=== PATIENT | female | born 1955 | race Caucasian/White ===

== ENCOUNTER 2016-02-29 23:55 | Observation (INO) | payer MEDICARE, MEDICAID ==
[2016-03-01] MEDS ORDERED: Cefepime(*) 2 GM in NS 0.9% 50 ML* 50 ML IVPB ONE (00:58)
[2016-03-01] MEDS ORDERED: NS 0.9% 1000 ML* 1,000 ML IV ONE (00:58)
[2016-03-01] MEDS ORDERED: methylPREDNISolone 125 MG* 2 ML VIAL IV ONE (01:00)
[2016-03-01] MEDS ORDERED: Albuterol/Ipratropium NEB.SOL* Albuterol 2.5 MG/Ipratropium 0.5 MG 3 ML INH ONE (01:00)
[2016-03-01] MEDS ORDERED: diPHENhydraMINE IV* 50 MG/ML 1 ml VIAL (BENADRYL) SLOW PUSH ONE (01:00)
[2016-03-01 01:36] LABS: Hematocrit 39 % (35-47); Hemoglobin 12.7 g/dl (12.0-16.0); Mean Corpuscular HGB Conc 32 g/dl (31-36); Mean Corpuscular Hemoglobin 27 pg (27-31); Mean Corpuscular Volume 84 fL (80-97); Mean Platelet Volume 10 um3 (7.4-10.4); Red Blood Count 4.68 10^6/ul (4.0-5.4); Red Cell Distribution Width 15 % (10.5-15); White Blood Count 10.7 10^3/ul (3.5-10.8)
[2016-03-01 01:39] LABS: Add Diff/Slide Review? Slide Review Added; Comments Flag Yes
[2016-03-01 01:48] LABS: Albumin 3.9 g/dL (3.2-5.2); Calcium 8.9 mg/dL (8.6-10.3); EGFR African American 94.7 (>60); EGFR Non-African American 73.7 (>60); Globulin 3.5 g/dL (2-4); Potassium 4.3 mmol/L (3.5-5.0); Total Bilirubin 0.3 mg/dL (0.2-1.0); Total Protein 7.4 g/dL (6.4-8.9)
[2016-03-01 01:50] LABS: Troponin I 0.01 ng/mL (<0.04)
[2016-03-01] MEDS ORDERED: HYDROcodone/ACETAMIN 5-325 MG* 1 TAB PO ONE (02:18)
[2016-03-01] MEDS ORDERED: NS 0.9% 50 ML* 50 ML ONE (02:21)
[2016-03-01] MEDS ORDERED: LINEZOLID 600 MG IVPB ONE (02:29)
[2016-03-01] MEDS ORDERED: Iohexol 300* (CONTRAST) 10 ML SDV IV ONE (02:44)
[2016-03-01] MEDS ORDERED: Magnesium Hydroxide LIQ* 30 ML UDC PO PRN (05:22)
[2016-03-01] MEDS ORDERED: Docusate CAP* 100 MG PO PRN (05:22)
[2016-03-01] MEDS ORDERED: Albuterol HFA INHALER* 8 gm MDI INH PRN (05:22)
[2016-03-01] MEDS ORDERED: Dextrose 50% Syringe 50 ML* 25 GM/50 ML SYRINGE IV PUSH PRN (05:29)
[2016-03-01] MEDS: HYDROmorphone INJ* 1 MG/ML CARPUJECT SYRINGE IV SLOW PU PRN ×3 (05:33→06:49)
[2016-03-01] MEDS: oxyCODONE/Acetamin 5/325 MG* TAB PO PRN ×2 (05:45→17:24)
[2016-03-01] MEDS: Ondansetron ODT TAB* 4 MG PO PRN (05:54)
[2016-03-01] MEDS ORDERED: methylPREDNISolone SOD 40 MG* 1 ML VIAL IV SCH (06:00)
[2016-03-01] MEDS ORDERED: traMADol TAB* 50 MG PO SCH (06:00)
[2016-03-01 06:17] LABS: Erythrocyte Sed Rate 10 mm/Hr (0-30)
[2016-03-01] MEDS: Ipratropium 0.5MG/2.5ML NEB* 0.5 MG/2.5 ML NEB.SOLN INH PRN ×2 (06:47→20:41)
[2016-03-01] MEDS: Heparin VIAL(*) 5000 UNITS/ML VIAL (FIVE THOUSAND) SUBCUT SCH ×3 (06:48→21:51)
[2016-03-01 07:13] LABS: Urine Bilirubin Negative (Negative); Urine Glucose 3+(>=500 mg/dL) (Negative); Urine Nitrite Negative (Negative)
--- NOTE | 2016-03-01 07:44 | RAD ---
INDICATION: Syncope COMPARISON: January 26, 2016 TECHNIQUE: An AP portable view obtained at 0115 hours is submitted. FINDINGS: Bones/Soft Tissues: There are no acute bony findings. Cardiomediastinal: The cardiomediastinal silhouette is normal. Lungs: There are no infiltrates. Pleura: There are no pleural effusions. Other: None IMPRESSION: NO ACTIVE DISEASE.
--- NOTE | 2016-03-01 07:45 | RAD ---
INDICATION: Pain and swelling. COMPARISON: August 17, 2015 TECHNIQUE: Duplex interrogation of the Lowerextremity was performed. FINDINGS: Deep veins: The common femoral, great saphenous, profunda femoris, proximal, mid, and distal deep femoral, popliteal, posterior tibial, and peroneal veins are patent. There is normal compressibility, augmentation, and phasic flow. Superficial veins: There are no findings of superficial thrombophlebitis. Popliteal fossa:There is no evidence of a popliteal cyst. Soft tissues:There are no soft tissue abnormalities. IMPRESSION: Normal examination. No evidence of deep venous thrombosis
--- NOTE | 2016-03-01 07:56 | RAD ---
INDICATION: Left facial swelling.] COMPARISON: None TECHNIQUE: Axial source images were acquired. Coronal and sagittal reconstructed images were acquired. The request states that 50 mL of intravenous contrast was injected (Omnipaque 300) but no contrast opacification is identified on this exam. FINDINGS: Brain and skull base: There are no CT abnormalities of the visualized brain or skull base. The mastoid air cells are well aerated. Salivary glands: The major salivary glands appear normal. Paranasal sinuses: There is minimal focal mucosal thickening in the floor the right maxillary antrum and there is minimal bilateral ethmoid sinus mucosal thickening consistent with mild chronic sinusitis. Nasopharynx: The nasopharynx and nasal cavity appear normal. Oropharynx: The oral, and oropharynx appear normal. Larynx: There are no laryngeal abnormalities. Thyroid: The thyroid appears normal. Lymph nodes: There is no lymphadenopathy by size criteria. Trachea/esophagus: There are no abnormalities of the trachea or visualized esophagus. The visualized lung apices are clear.. Vessels:The vessels appear normal. Bones and soft tissues:The remaining soft tissue elements of the neck are normal. There are no acute bony findings. There is degenerative disease with disc space narrowing, endplate versus, and uncinate process spurring at C5-C6. Other: None IMPRESSION: NO MASS OR INFLAMMATORY CHANGE. NO CONTRAST IS IDENTIFIED ON THIS EXAMINATION.
[2016-03-01] MEDS: Mometasone/Formoter 200/5 MDI INH SCH ×2 (09:24→20:36)
--- NOTE | 2016-03-01 09:34 | HP ---
HISTORY AND PHYSICAL: DATE OF ADMISSION: 03/01/16 CHIEF COMPLAINT: "My face is swollen." HISTORY OF PRESENT ILLNESS: The patient is a 60-year-old woman who says that for four days she feels her face is getting progressively more more swollen. Furthermore, she noticed increasing itching on her arms and legs and entire body. She feels hot and cold with chills over. Now she says she cannot open her jaw in order to take her pills. She denies any new medications. She denies any new detergents. She says one thing she did do is spray her couch for bedbugs and doused it with it. She is not sure if she's had a reaction to that. She denies fevers or chills. She denies headache. She does have a great deal of significant chronic body pain. PAST MEDICAL HISTORY: Significant for type 2 diabetes, COPD, hypertension, hyperlipidemia, TIAs, colon cancer, venous insufficiency with ulcers, depression , tobacco abuse, ectopic . CURRENT MEDICATIONS: 1. Albuterol two puffs every 6 hours as needed. 2. Aspirin 81 mg daily. 3. Lipitor 80 mg daily. 4. Citalopram 20 mg daily. 5. Plavix 75 mg daily. 6. Docusate 100 mg 3 times a day as needed. 7. Advair Diskus one puff twice daily. 8. Hydrocortisone cream apply twice daily. 9. Ipratropium 0.5 mg inhaled q.8 hours. 10. Levocetirizine 5 mg daily. 11. Magnesium hydroxide 15 cc daily as needed. 12. Metformin/Glucophage 1000 mg twice daily. 13. Nystatin 100,000 units twice daily. 14. Omeprazole 40 mg daily. 15. Zofran ODT 4 mg every 6 hours as needed. 16. Percocet 5/325 mg two tabs every 6 hours as needed. 17. MiraLax 17 g daily. 18. Prednisone [50?] Mg daily. 19. Senna 1 to 2 tabs twice daily. 20. Januvia 25 mg daily. 21. Topamax 50 mg twice daily. 22. Tramadol 50 mg every 12 hours. 23. Trazodone 100 mg at bedtime. ALLERGIES/ADVERSE REACTION: 1. BACTRIM. 2. TETRACYCLINE. 3. PENICILLIN. 4. KEFLEX. 5. AZITHROMYCIN. FAMILY HISTORY: Mom of heart disease. Dad of heart disease and colon cancer. SOCIAL HISTORY: Trying to quit smoking. She smokes half pack a day; smoked since the age of 18. No alcohol or recreational drug use. She is disabled, . She has a son who is her health care proxy. REVIEW OF SYSTEMS: A 14-point review of systems was completed with the patient. All pertinent positives and negatives are in the history of present illness; otherwise, it is negative. PHYSICAL EXAMINATION GENERAL: A pleasant woman lying in bed, in no acute distress. VITAL SIGNS: Blood pressure 148/37, respiratory rate 20 breaths per minute, pulse ox 95%, temperature 98.2 degrees. HEENT: Normocephalic and atraumatic. Pupils equal, round and reactive to light. Moist mucous membranes. NECK: Supple. No JVD, bruits, palpable thyroid, or lymphadenopathy. CHEST: Clear to auscultation and percussion bilaterally. CARDIOVASCULAR: S1, S2 appreciated. ABDOMEN: Positive bowel sounds in all 4 quadrants. Soft, nontender, nondistended. EXTREMITIES: No cyanosis or clubbing. NEUROLOGIC: Alert and oriented x3. Moves all extremities. SKIN: Extremely dry. I do not appreciate anything such as small mites, but she does have excoriations on her arms. LABORATORY DATA: White count 10.7, hemoglobin 12.7, hematocrit 39, platelets 239. Sed rate is pending. Sodium 135, potassium 4.3, chloride 97, CO2 34, BUN 16, creatinine 0.80, glucose 181. INR 0.83. The patient has neck CT, chest x-ray, and venous duplex are all pending. ASSESSMENT AND PLAN: 1. Jaw claudication versus trismus. I do not really appreciate on her physical examination but the patient says she has it. I will give her the benefit of doubt at this time and hold the prednisone and patient's Solu-Medrol 40 IV q.8. I will await the findings on CAT scan or sed rate. She's also in a great deal of pain and I will continue her Dilaudid. I do not think she'll have to stay long. I do not think ENT needs to be consulted at this time. 2. Diabetes mellitus. Hold metformin, fingersticks with sliding scale insulin. 3. Chronic obstructive pulmonary disease. Stable. Continue current regimen. 4. Hypertension. Adequately controlled. Continue current regimen. 5. FEN. Consistent carb diet. 6. DVT prophylaxis. Heparin subcu. 7. The patient is a full code. TIME SPENT: Over 75 minutes were spent on this H and P, more than 40 minutes of which were spent in direct [id number] contact with the patient in evaluation, physical exam, counseling, coordination of care. CC: Dr.. Purvis * [id number]/CPS #: [id number] [id number]
[2016-03-01] MEDS: Moisturizing CREAM* 120 GM JAR TOPICAL SCH ×2 (09:43→21:53)
[2016-03-01] MEDS: Hydrocortisone 1% CREAM* 30 GM TUBE TOPICAL SCH ×2 (09:44→21:53)
[2016-03-01] MEDS: Nystatin TOP POWDER* 15 GM BTL TOPICAL SCH ×2 (09:44→21:53)
[2016-03-01] MEDS: Insulin LISPRO* 1 UNITS UNIT SUBCUT SCH ×4 (09:45→21:52)
[2016-03-01] MEDS: Polyethylene Glycol 3350* 17 GM PACKET PO SCH (09:45)
[2016-03-01] MEDS: Aspirin EC Low Dose* 81 MG TAB.EC PO SCH (09:46)
[2016-03-01] MEDS: Clopidogrel TAB* 75 MG PO SCH (09:46)
[2016-03-01] MEDS: CMCS: Pantoprazole TAB (NF) 40 MG TAB PO SCH (09:46)
[2016-03-01] MEDS: Citalopram TAB* 20 MG PO SCH (09:46)
[2016-03-01] MEDS: Topiramate TAB(*) 25 MG PO SCH ×2 (09:46→21:51)
[2016-03-01] MEDS: Atorvastatin* 80 MG TAB PO SCH (09:46)
[2016-03-01] MEDS: Senna TAB PO SCH ×2 (09:46→21:52)
--- NOTE | 2016-03-01 11:09 | PN ---
Subjective Date of Service: 03/01/16 Interval History: Pain L parotid area about the same. No new c/o. Objective Active Medications: Albuterol (Ventolin Hfa Inhaler*) 2 puff INH Q6H PRN PRN Reason: DYSPNEA Aspirin (Aspirin Ec Low Dose*) 81 mg PO DAILY [facility] Last Admin: 03/01/16 09:46 Dose: 81 mg Atorvastatin Calcium (Lipitor*) 80 mg PO DAILY [facility] Last Admin: 03/01/16 09:46 Dose: 80 mg Cetirizine HCl (Zyrtec*) 10 mg PO QPM [facility] Citalopram Hydrobromide (Celexa Tab*) 20 mg PO DAILY [facility] Last Admin: 03/01/16 09:46 Dose: 20 mg Clopidogrel Bisulfate (Plavix Tab*) 75 mg PO DAILY [facility] Last Admin: 03/01/16 09:46 Dose: 75 mg Dextrose (D50w Syringe 50 Ml*) 12.5 gm IV PUSH .FOR FS < 60 - SS PRN PRN Reason: FS < 60 Docusate Sodium (Colace Cap*) 100 mg PO TID PRN PRN Reason: CONSTIPATION Heparin Sodium (Porcine) (Heparin Vial(*)) 5,000 units SUBCUT Q8HR [facility] Last Admin: 03/01/16 06:48 Dose: 5,000 units Hydrocortisone (Hytone Cream 1%*) 1 applic TOPICAL BID [facility] Last Admin: 03/01/16 09:44 Dose: 1 applic Hydromorphone HCl (Dilaudid Iv*) 1 mg IV SLOW PU Q2H PRN PRN Reason: PAIN Last Admin: 03/01/16 06:49 Dose: 1 mg Insulin Human Lispro (Humalog*) 0 units SUBCUT ACHS [facility] PRN Reason: Protocol Last Admin: 03/01/16 09:45 Dose: 12 units Ipratropium [place] (Atrovent 0.5 Mg Neb.Shefali*) 0.5 mg INH Q8H PRN PRN Reason: SOB/WHEEZING Last Admin: 03/01/16 06:47 Dose: 0.5 mg Magnesium Hydroxide (Milk Of Magnesia Liq*) 15 ml PO DAILY PRN PRN Reason: CONSTIPATION Mometasone Furoate/Formoterol Fumar (Dulera 200/5 Mdi*) 2 puff INH BID [facility] Last Admin: 03/01/16 09:24 Dose: 2 puff Multi-Ingredient Ointment (Hydrocerin*) 1 applic TOPICAL BID [facility] Last Admin: 03/01/16 09:43 Dose: 1 applic Nystatin (Nystatin Top Powder*) 1 applic TOPICAL BID [facility] Last Admin: 03/01/16 09:44 Dose: 1 applic Ondansetron HCl (Zofran Odt Tab*) 4 mg PO Q6H PRN PRN Reason: NAUSEA Last Admin: 03/01/16 05:54 Dose: 4 mg Oxycodone/Acetaminophen (Percocet 5/325 Tab*) 2 tab PO Q6H PRN PRN Reason: PAIN Last Admin: 03/01/16 05:45 Dose: 2 tab Pantoprazole Sodium (Protonix Tab (Nf)) 40 mg PO DAILY [facility] Last Admin: 03/01/16 09:46 Dose: 40 mg Polyethylene Glycol/Electrolytes (Miralax*) 17 gm PO DAILY [facility] Last Admin: 03/01/16 09:45 Dose: 17 gm Senna (Senokot Tab*) 1 tab PO BID [facility] Last Admin: 03/01/16 09:46 Dose: 1 tab Sitagliptin Phosphate (Januvia (Nf)) 25 mg PO DAILY [facility] PRN Reason: Protocol Topiramate (Topamax(*)) 50 mg PO BID [facility] Last Admin: 03/01/16 09:46 Dose: 50 mg Tramadol HCl (Ultram*) 50 mg PO Q12H [facility] Last Admin: 03/01/16 06:46 Dose: 50 mg Trazodone HCl (Desyrel Tab*) 100 mg PO BEDTIME [facility] Vital Signs 03/01/16 03/01/16 03/01/16 06:00 06:15 06:30 Pulse Rate 69 67 66 Respiratory Rate Blood Pressure 88/54 89/63 93/47 (mmHg) O2 Sat by Pulse 98 98 97 Oximetry 03/01/16 03/01/16 03/01/16 06:35 06:45 06:46 Pulse Rate 80 66 Respiratory 20 20 Rate Blood Pressure 146/88 88/58 (mmHg) O2 Sat by Pulse 97 Oximetry 03/01/16 03/01/16 03/01/16 06:49 07:00 07:15 Pulse Rate 66 68 Respiratory 20 Rate Blood Pressure 87/64 88/53 (mmHg) O2 Sat by Pulse 99 96 Oximetry 03/01/16 03/01/16 03/01/16 07:49 08:46 09:26 Pulse Rate 70 Respiratory 19 19 16 Rate Blood Pressure (mmHg) O2 Sat by Pulse 98 Oximetry Oxygen Devices in Use Now: Nasal Cannula Appearance: Alert, sitting on the edge of her bed. In fair spirits. Looks comfortable. Eyes: No Scleral Icterus Extremities: No Edema, No Clubbing, Cyanosis, - Skin: No Nodules or Sclerosis, - - red areas on arms c/w bedbug bites. Neurological: Alert and Oriented x 3, NL Sensation Result Diagrams: 03/01/16 01:05 03/01/16 01:05 Assess/Plan/Problems-Billing Assessment: - Patient Problems (1) Parotid gland pain Current Visit: Yes Status: Acute Code(s): K11.8 - OTHER DISEASES OF SALIVARY GLANDS SNOMED Code(s): 23067134 Comment: ? TMJ/slipped TMJ disc. Discussed with Dr Meléndez. He offered to see her in the office 1:30 PM but patient prefers to go next week when her dil can assist her in transfers. Appt. to see Dr. Ruiz 03/05 11:15 AM. Phone [phone]. (2) Diabetes mellitus Current Visit: No Status: Chronic Priority: High Onset Date: 12/17/14 Code(s): E11.9 - TYPE 2 DIABETES MELLITUS WITHOUT COMPLICATIONS SNOMED Code(s) : 55688297 Comment: Worse due to IV steroid dose. No more steroids. Hold metformin until 03/03/16 due to IV contrast use. (3) Infestation by bed bug Current Visit: Yes Status: Acute Code(s): B88.8 - OTHER SPECIFIED INFESTATIONS SNOMED Code(s): 81826577 Comment: Multiple skin bites. Her clothes were treated in the hospital laundry to kill any bed bugs. SW to help with getting her home more habitable. (4) COPD (chronic obstructive pulmonary disease) Current Visit: No Status: Chronic Priority: High Code(s): J44.9 - CHRONIC OBSTRUCTIVE PULMONARY DISEASE, UNSPECIFIED SNOMED Code(s): 29635281 Comment: - Stable. - Continue current treatment with bronchodilators and inhaled steroids, home O2.
[2016-03-01] MEDS: CMC:SitaGLIPtin (NF) 25 MG TAB PO SCH (11:17)
[2016-03-01] MEDS ORDERED: diPHENhydraMINE PO* 25 MG PO PRN (13:27)
[2016-03-01] MEDS ORDERED: Insulin GLARGINE(*) 1 UNITS UNIT SUBCUT ONE (16:54)
[2016-03-01] MEDS ORDERED: Cetirizine* 10 MG TAB PO SCH (18:00)
[2016-03-01] MEDS ORDERED: traZODone TAB* 100 MG PO SCH (21:00)
[2016-03-01] MEDS: traMADol TAB* 50 MG PO SCH (21:51)
[2016-03-02] MEDS: Heparin VIAL(*) 5000 UNITS/ML VIAL (FIVE THOUSAND) SUBCUT SCH (05:36)
[2016-03-02] MEDS: oxyCODONE/Acetamin 5/325 MG* TAB PO PRN (05:40)
[2016-03-02] MEDS: Insulin LISPRO* 1 UNITS UNIT SUBCUT SCH (08:45)
[2016-03-02] MEDS: Polyethylene Glycol 3350* 17 GM PACKET PO SCH (08:46)
[2016-03-02] MEDS: Atorvastatin* 80 MG TAB PO SCH (08:46)
[2016-03-02] MEDS: Ondansetron ODT TAB* 4 MG PO PRN (08:46)
[2016-03-02] MEDS: Topiramate TAB(*) 25 MG PO SCH (08:46)
[2016-03-02] MEDS: Citalopram TAB* 20 MG PO SCH (08:46)
[2016-03-02] MEDS: Senna TAB PO SCH (08:46)
[2016-03-02] MEDS: Clopidogrel TAB* 75 MG PO SCH (08:47)
[2016-03-02] MEDS: traMADol TAB* 50 MG PO SCH (08:47)
[2016-03-02] MEDS: Aspirin EC Low Dose* 81 MG TAB.EC PO SCH (08:48)
[2016-03-02] MEDS: Mometasone/Formoter 200/5 MDI INH SCH (08:48)
[2016-03-02] MEDS: Hydrocortisone 1% CREAM* 30 GM TUBE TOPICAL SCH (08:49)
[2016-03-02] MEDS: CMC:SitaGLIPtin (NF) 25 MG TAB PO SCH (08:49)
[2016-03-02] MEDS: Nystatin TOP POWDER* 15 GM BTL TOPICAL SCH (08:49)
[2016-03-02] MEDS: Moisturizing CREAM* 120 GM JAR TOPICAL SCH (08:49)
[2016-03-02] MEDS: CMCS: Pantoprazole TAB (NF) 40 MG TAB PO SCH (08:52)
[2016-03-02 09:48] VITALS: BP 130/103
--- NOTE | 2016-03-02 22:32 | DS ---
CC: Dr. Purvis DISCHARGE SUMMARY: DATE OF ADMISSION: 03/01/16 DATE OF DISCHARGE: 03/02/16 HOSPITAL COURSE: This 60-year-old woman presented with complaint of her face being swollen. She al so complained that she had bedbug bites. She had a lot of problems at her home. The history and ph ysical exam is detailed in the dictated admission note. She was evaluated with a CT scan of the [facility]. This really did not show any evidence of infection, abscess, edema or tumor. I note she only rocha s two lower teeth and this would not be a dental problem. The admitting physician and myself both c ould not really see any significant swelling. The pain seemed to improve a little bit. She was giv en one dose of methylprednisolone in the emergency room, but none thereafter. I think this is enoug h to affect a glycemic control. The patient indicated she would not take insulin at home. She will resume her glipizide and Januvia. She was told not to restart her metformin until 03/03/16 , because she did get IV dye with the neck CT scan. On the day of discharge, there was no real clinical change. The rn social services was asked to see her to help with her difficulty with her home conditions. I arranged for her to see Dr. Ruiz, 03/05/16 at 11:15 a.m. in consultation. DISCHARGE DIAGNOSES: 1. Parotid area pain. 2. Diabetes. 3. Bedbug infestation. 4. Chronic obstructive pulmonary disease. DISCHARGE MEDICATIONS: 1. Citalopram 20 mg daily. 2. Fluticasone/salmeterol 250/50 one puff b.i.d. 3. Metformin 1000 mg b.i.d., to start 03/03/16. 4. Topiramate 50 mg b.i.d. 5. Albuterol inhaler 2 puffs every 6 hours p.r.n. 6. Ipratropium 0.5 mg by nebulizer every 8 hours p.r.n. 7. Magnesium hydroxide 15 mL daily p.r.n. 8. Polyethylene glycol 17 g daily. 9. Sitagliptin 25 mg daily. 10. Levocetirizine 5 mg daily. 11. Nystatin 100,000 units topically b.i.d. 12. Atorvastatin 80 mg daily. 13. Aspirin 81 mg daily. 14. Ondansetron ODT 4 mg every 6 hours p.r.n. 15. Tramadol 50 mg every 12 hours. 16. Trazodone 100 mg h.s. 17. Senna 1 to 2 twice daily. 18. Omeprazole 40 mg daily. 19. Docusate 100 mg t.i.d. p.r.n. 20. Clopidogrel 75 mg daily. 21. Hydrocortisone 1% cream topically b.i.d. 22. Oxycodone/acetaminophen 5/325 two every 6 hours p.r.n. [id number]/[facility] #: [id number]
--- NOTE | 2016-03-14 00:08 | ED ---
Devin Ramirez SooYoung, scribed for Aric Rangel MD on 03/01/16 at 0050 . Skin Complaint - HPI Summary HPI Summary: A 60 y/o F R[place]D presents to ED with c/o ongoing, diffuse insect bites over whole body. Associated sx: pruritic, L jaw pain, room spinning, TUBBS, fever. Two episodes of positional vertigo. Her noticed that she had facial swelling 4 days ago. Pt states her apartment has bed bugs. They've spread some insect repellent one week ago in the home while pt was still in apartment, and on the couch where pt sleeps. Secondary complaint, pt has had CP. Episodes of CP rated as 8 out of 10 pain. Pert PMHx: DM. - History of Current Complaint Chief Complaint: EDGeneral Time Seen by Provider: 03/01/16 00:11 Stated Complaint: SWOLLEN FACE Hx Obtained From: Patient, Family/Construction Superintendent - daughter Onset/Duration: Started Days Ago, Still Present Timing: Constant Current Severity: Moderate Pain Intensity: 6 Pain Scale Used: 0-10 Numeric Skin Location: Diffuse Character: Swelling, Pruritus, Painful Associated Signs & Symptoms: Chest Pain, Lightheadedness - dizziness, two positional vertigo episodes, Joint Swelling - L jaw Related History: Insect Bite/Sting - bed bugs present in ED - Additional Pertinent History Primary Care Physician: LAINE - Allergy/Home Medications Allergies/Adverse Reactions: Allergies Allergy/AdvReac Type Severity Reaction Status Date / Time Penicillins [PCN] Allergy Severe Anaphylatic Verified 10/24/15 18:50 Shock [place] Allergy Severe Swelling Verified 10/24/15 18:50 Of Face,Lips,& Throat Cefazolin Allergy Rash And Verified 10/24/15 18:50 Itching Erythromycin Allergy Hives Verified 10/24/15 18:50 Sulfamethoxazole Allergy Rash Verified 01/27/16 17:27 w/Trimethoprim [From Bactrim] Tetracyclines Allergy Anaphylatic Verified 10/24/15 18:50 Shock PMH/Surg Hx/FS Hx/Imm Hx Previously Healthy: No Endocrine/Hematology History: Reports: Hx Diabetes, Hx Anemia Denies: Hx Anticoagulant Therapy, Hx Systemic Lupus Erythematosus, Hx Thyroid Disease, Hx Unexplained Bleeding Cardiovascular History: Reports: Hx Angina, Hx Hypercholesterolemia, Hx Hypotension, Hx Hypertension, Hx Syncope, Other Cardiovascular Problems/ Disorders - bilateral carotid stenosis,aortic blockage Denies: Hx Aneurysm, Hx Angioplasty, Hx Auto Implanted Cardiovert Defib, Hx Cardiac Arrest, Hx Cardiomegaly, Hx Congenital Heart Disease, Hx Congestive Heart Failure, Hx Coronary Artery Disease, Hx Deep Vein Thrombosis, Hx Embolism , Hx Myocardial Infarction, Hx Pacemaker/ICD, Hx Peripheral Vascular Disease, Hx Rheumatic Fever, Hx Valvular Heart Disease Respiratory History: Reports: Hx Asthma, Hx Chronic Obstructive Pulmonary Disease (COPD), Hx Pneumonia, Hx Pulmonary Edema, Hx Seasonal Allergies, Hx Sleep Apnea - sleeps with 2L O2 at home PRN, Other Respiratory Problems/ Disorders - PNA Denies: Hx Chronic Bronchitis, Hx Cystic Fibrosis, Hx Lung Cancer, Hx Pleural Effusion, Hx Pulmonary Embolism GI History: Reports: Hx Gastroesophageal Reflux Disease, Hx Ulcer - distant past Denies: Hx Cirrhosis, Hx Crohn's Disease, Hx Diverticulosis History: Reports: Hx Acute Renal Failure, Hx Renal Disease Denies: Hx Dialysis Musculoskeletal History: Reports: Hx Arthritis - bilateral knees, left shoulder , Hx Back Problems - herniated disks, Hx Bursitis, Other Musculoskeletal History - HERNIATED DISC Denies: Hx Rheumatoid Arthritis Sensory History: Reports: Hx Contacts or Glasses, Hx Vision Problem Denies: Hx Cataracts, Hx Hearing Aid Opthamlomology History: Reports: Hx Contacts or Glasses, Hx Vision Problem Denies: Hx Cataracts Neurological History: Reports: Hx Headaches, Hx Transient Ischemic Attacks (TIA) Denies: Hx Dementia, Hx Developmental Delay, Hx Migraine, Hx Nerve Disease, Hx Seizures, Hx Spinal Cord Injury Psychiatric History: Reports: Hx Anxiety, Hx Depression, Hx Inpatient Treatment , Hx Suicide Attempt - attempted to harm self 5 years ago, Hx Substance Abuse - as a kid, Other Psychiatric Issues/Disorders - claustrophobia Denies: Hx Eating Disorder, Hx Panic Disorder, Hx of Violent Episodes Against Others - Cancer History Cancer Type, Location and Year: Colon cancer - IN [place] Hx Chemotherapy: No Hx Radiation Therapy: No - Surgical History Surgery Procedure, Year, and Place: tubal ligation, laparascopic surgery for ovarian cyst, cardiac cath- NO STENTS PLACED PER PT 06/15/15 Hx Anesthesia Reactions: No - Immunization History Date of Tetanus Vaccine: unknown Date of Influenza Vaccine: 2014 Infectious Disease History: No Infectious Disease History: Denies: Hx Clostridium Difficile, Hx Hepatitis, Hx Human Immunodeficiency Virus (HIV), Hx of Known/Suspected MRSA, Hx Shingles, Hx Tuberculosis, Hx Known/ Suspected VRE, Hx Known/Suspected VRSA, History Other Infectious Disease, Traveled Outside the [place] in Last 30 Days - Family History Known Family History: Positive: Cardiac Disease - [place] - father. , Other Family History: Colon [place] - father - Social History Occupation: Disabled Lives: With Family Alcohol Use: None Hx Substance Use: No Substance Use Type: Reports: None Hx Tobacco Use: Yes - start 1970 Smoking Status (MU): Light Every Day Tobacco Smoker Type: Cigarettes Amount Used/How Often: 1 pack to 1 and a half a day Length of Time of Smoking/Using Tobacco: 40yrs Have You Smoked in the Last Year: Yes Review of Systems Positive: Fever. Negative: Chills Negative: Erythema Negative: Sore Throat Positive: Chest Pain Negative: Shortness Of Breath, Cough Negative: Abdominal Pain, Vomiting, Nausea Negative: dysuria, hematuria Positive: Edema - facial. Negative: Myalgia Positive: Other - diffuse bug bites - painful, pruiritic. Negative: Rash Neurological: Other - pos: dizzines; 2 ep positional vertigo Positive: Headache All Other Systems Reviewed And Are Negative: Yes Physical Exam - Summary Physical Exam Summary: Constitutional: Well-developed, Well-nourished, Alert. (-) Distressed Skin: Warm, Dry, PUNCTUATE INSECT BITES ON LE, FACIAL PLETHERA HENT: Normocephalic; Atraumatic Eyes: Conjunctiva normal Neck: Musculoskeletal ROM normal neck. (-) JVD, (-) Stridor, (-) Tracheal deviation Cardio: Rhythm regular, Heart sounds normal; (-) Murmur, [place], WEAK THREADY RADIAL PULSES BILAT Pulmonary/Chest wall: Effort normal. (-) Respiratory distress, (-) Rales, EXPIRATORY WHEEZES Abd: Soft, (-) Tenderness, (-) Distension, (-) Guarding, (-) Rebound Musculoskeletal: (-) Edema; MILD TRISMUS Lymph: (-) Cervical adenopathy Neuro: Alert, Oriented x3 Psych: Mood and affect Normal Triage Information Reviewed: Yes Vital Signs On Initial Exam: Initial Vitals Temp Pulse Resp BP Pulse Ox 98.2 F 89 24 127/106 100 03/01/16 00:07 03/01/16 00:07 03/01/16 00:07 03/01/16 00:07 03/01/16 00:07 Vital Signs Reviewed: Yes Diagnostics - Vital Signs Vital Signs Temp Pulse Resp BP Pulse Ox 03/01/16 00:07 98.2 F 89 24 127/106 100 - Laboratory Result Diagrams: 03/01/16 01:05 03/01/16 01:05 Lab Statement: Any lab studies that have been ordered have been reviewed, and results considered in the medical decision making process. - Radiology CXR Xray Interpretation: No Acute Changes - No acutedz. Radiology Interpretation Completed By: ED Physician - CT NECK CT Interpretation: Positive (See Comments) - IMPRESSION: No definite etiology for left facial swelling or trismus readily identified. No contrast readily identified on this study despite attempted contrast injection. CT Interpretation Completed By: Radiologist - Ultrasound No standard instances Ultrasound Interpretation: No Acute Changes - IMPRESSION: No evidence of DVT in the LLE. Ultrasound Interpretation Completed By: Radiologist Course/Dx - Diagnoses Provider Diagnoses: Near syncope, Insect bites, Angioedema, COPD exacerbation, Anaphylactic reaction - Physician Notifications Discussed Care Of Patient With: Dr. Saeed, hospitalist Time Discussed With Above Provider: 03:38 Discharge - Discharge Plan Condition: Stable Disposition: ADMITTED TO [facility] Referrals: Darlin Purvis MD [Primary Care Provider] - The documentation as recorded by the Devin reyes SooYoung accurately reflects the service I personally performed and the decisions made by me, Aric Rangel MD.
== END 2016-03-02 12:00 | disposition home or self-care (01) ==
LOC: ED 23:55 → MED 03-01 05:45
PROVIDERS: ADMIT Internal Medicine; ATTEND Internal Medicine
DX: K11.8 Other diseases of salivary glands (principal); R51 Headache; Z79.84 Long term (current) use of oral hypoglycemic drugs; E11.9 Type 2 diabetes mellitus without complications; J44.9 Chronic obstructive pulmonary disease, unspecified; I10 Essential (primary) hypertension; Z79.82 Long term (current) use of aspirin; Z79.899 Other long term (current) drug therapy; Z88.2 Allergy status to sulfonamides; Z88.1 Allergy status to other antibiotic agents; Z88.0 Allergy status to penicillin; F17.210 Nicotine dependence, cigarettes, uncomplicated; S40.862A Insect bite (nonvenomous) of left upper arm, initial encounter; S40.861A Insect bite (nonvenomous) of right upper arm, initial encounter; S80.862A Insect bite (nonvenomous), left lower leg, initial encounter; S80.861A Insect bite (nonvenomous), right lower leg, initial encounter; W57.XXXA Bitten or stung by nonvenomous insect and other nonvenomous arthropods, initial encounter; Y92.009 Unspecified place in unspecified non-institutional (private) residence as the place of occurrence of the external cause; Z79.01 Long term (current) use of anticoagulants; I87.2 Venous insufficiency (chronic) (peripheral); E78.5 Hyperlipidemia, unspecified; Z85.038 Personal history of other malignant neoplasm of large intestine; R22.0 Localized swelling, mass and lump, head; M79.89 Other specified soft tissue disorders
CPT/HCPCS: 36415; 70491; 71010; 80053; 81003; 83605; 84145; 84484; 85025; 85610; 85652; 85730; 87040; 94640; 94760; 96365; 96372; 96375; 96376; 99285; A9270-GY; G0378; J0692; J1170; J1200; J1644; J2020; J2920; J2930; J7644; Q9967

== ENCOUNTER 2016-07-12 02:31 | Emergency (ER) | payer MEDICARE, MEDICAID ==
[2016-07-12] MEDS ORDERED: Acetaminophen TAB* 325 MG PO ONE (02:42)
[2016-07-12] MEDS ORDERED: Ibuprofen TAB* 600 MG PO ONE (03:58)
[2016-07-12] MEDS ORDERED: Ibuprofen TAB* 600 MG ONE (03:59)
[2016-07-12 04:38] VITALS: BP 106/53
--- NOTE | 2016-07-12 05:11 | ED ---
Waqar Ramirez Rebecca, scribed for Brayden Calixto on 07/12/16 at 0243 . Head Injury - HPI Summary HPI Summary: Pt is a 60 y/o F BIBA who presents to ED c/o head and neck pain s/p mechanical fall. Pt reports she was getting out of her bathtub when she fell backwards, hitting the occipital region of her head and neck on the bath tub. Positive LOC of an unknown duration. Pain began immediately upon fall and has been constant since onset. Pain is in the neck and the occipital region of the head and is currently moderate, ranked 6/10 and characterized as sharp. Sx aggravated and alleviated by nothing. Denies any other symptoms. Is not on blood thinners. - History Of Current Complaint Chief Complaint: EDHeadInjury Stated Complaint: FALL Time Seen by Provider: 07/12/16 02:37 Hx Obtained From: Patient Onset/Duration: Still Present Onset of Pain: Immediate, Prior to Arrival Severity Currently: Moderate Severity Initially: Moderate Pain Intensity: 6 Pain Scale Used: 0-10 Numeric Location of Head Injury: Occipital Location: Discrete At: - Occipital Character: Sharp Aggravating Factor(s): Other: - Nothing Alleviating Factor(s): Other: - Nothing Associated Signs And Symptoms: LOC Duration Unknown, Neck Pain - Allergies/Home Medications Allergies/Adverse Reactions: Allergies Allergy/AdvReac Type Severity Reaction Status Date / Time Penicillins [PCN] Allergy Severe Anaphylatic Verified 10/24/15 18:50 Shock [place] Allergy Severe Swelling Verified 10/24/15 18:50 Of Face,Lips,& Throat Cefazolin Allergy Rash And Verified 10/24/15 18:50 Itching Erythromycin Allergy Hives Verified 10/24/15 18:50 Sulfamethoxazole Allergy Rash Verified 01/27/16 17:27 w/Trimethoprim [From Bactrim] Tetracyclines Allergy Anaphylatic Verified 10/24/15 18:50 Shock PMH/Surg Hx/FS Hx/Imm Hx Endocrine/Hematology History: Reports: Hx Diabetes, Hx Anemia Denies: Hx Anticoagulant Therapy, Hx Systemic Lupus Erythematosus, Hx Thyroid Disease, Hx Unexplained Bleeding Cardiovascular History: Reports: Hx Angina, Hx Hypercholesterolemia, Hx Hypotension, Hx Hypertension, Hx Syncope, Other Cardiovascular Problems/ Disorders - bilateral carotid stenosis,aortic blockage Denies: Hx Aneurysm, Hx Angioplasty, Hx Auto Implanted Cardiovert Defib, Hx Cardiac Arrest, Hx Cardiomegaly, Hx Congenital Heart Disease, Hx Congestive Heart Failure, Hx Coronary Artery Disease, Hx Deep Vein Thrombosis, Hx Embolism , Hx Myocardial Infarction, Hx Pacemaker/ICD, Hx Peripheral Vascular Disease, Hx Rheumatic Fever, Hx Valvular Heart Disease Respiratory History: Reports: Hx Asthma, Hx Chronic Obstructive Pulmonary Disease (COPD), Hx Pneumonia, Hx Pulmonary Edema, Hx Seasonal Allergies, Hx Sleep Apnea - sleeps with 2L O2 at home PRN, Other Respiratory Problems/ Disorders - PNA Denies: Hx Chronic Bronchitis, Hx Cystic Fibrosis, Hx Lung Cancer, Hx Pleural Effusion, Hx Pulmonary Embolism GI History: Reports: Hx Gastroesophageal Reflux Disease, Hx Ulcer - distant past Denies: Hx Cirrhosis, Hx Crohn's Disease, Hx Diverticulosis History: Reports: Hx Acute Renal Failure, Hx Renal Disease Denies: Hx Dialysis Musculoskeletal History: Reports: Hx Arthritis - bilateral knees, left shoulder , Hx Back Problems - herniated disks, Hx Bursitis, Other Musculoskeletal History - HERNIATED DISC Denies: Hx Rheumatoid Arthritis Sensory History: Reports: Hx Contacts or Glasses, Hx Vision Problem Denies: Hx Cataracts, Hx Hearing Aid Opthamlomology History: Reports: Hx Contacts or Glasses, Hx Vision Problem Denies: Hx Cataracts Neurological History: Reports: Hx Headaches, Hx Transient Ischemic Attacks (TIA) Denies: Hx Dementia, Hx Developmental Delay, Hx Migraine, Hx Nerve Disease, Hx Seizures, Hx Spinal Cord Injury Psychiatric History: Reports: Hx Anxiety, Hx Depression, Hx Inpatient Treatment , Hx Suicide Attempt - attempted to harm self 5 years ago, Hx Substance Abuse - as a kid, Other Psychiatric Issues/Disorders - claustrophobia Denies: Hx Eating Disorder, Hx Panic Disorder, Hx of Violent Episodes Against Others - Cancer History Cancer Type, Location and Year: Colon cancer - [place] Hx Chemotherapy: No Hx Radiation Therapy: No - Surgical History Surgery Procedure, Year, and Place: tubal ligation, laparascopic surgery for ovarian cyst, cardiac cath- NO STENTS PLACED PER PT 06/15/15 Hx Anesthesia Reactions: No - Immunization History Date of Tetanus Vaccine: unknown Date of Influenza Vaccine: 2014 Infectious Disease History: No Infectious Disease History: Denies: Hx Clostridium Difficile, Hx Hepatitis, Hx Human Immunodeficiency Virus (HIV), Hx of Known/Suspected MRSA, Hx Shingles, Hx Tuberculosis, Hx Known/ Suspected VRE, Hx Known/Suspected VRSA, History Other Infectious Disease, Traveled Outside the [place] in Last 30 Days - Family History Known Family History: Positive: Cardiac Disease - [place] - father. , Other Family History: Colon [place] - father - Social History Alcohol Use: None Hx Substance Use: No Substance Use Type: Reports: None Hx Tobacco Use: Yes - start 1970 Smoking Status (MU): Light Every Day Tobacco Smoker Type: Cigarettes Amount Used/How Often: 1 pack to 1 and a half a day Length of Time of Smoking/Using Tobacco: 40yrs Have You Smoked in the Last Year: Yes Review of Systems Positive: Arthralgia - occipital head and neck pain s/p mechanical fall Positive: Syncope - LOC for an unknown duration All Other Systems Reviewed And Are Negative: Yes Physical Exam - Summary Physical Exam Summary: Appearance: Well appearing, no pain distress Skin: warm, dry, reflects adequate perfusion Head/face: Moderate tenderness over the occipital region of the scalp Eyes: EOMI, LUZ MARINA ENT: normal Neck: supple, mild tenderness over the neck Resp: CTA, breath sounds present Cardio: RRR, pulses symm Abd: nontender, soft Bowel: present Musc: normal, strength/ROM intact Neuro: normal, sensory motor intact, A&Ox3 Triage Information Reviewed: Yes Vital Signs On Initial Exam: Initial Vitals Temp Pulse Resp BP Pulse Ox 98.8 F 84 22 118/22 99 07/12/16 02:34 07/12/16 02:34 07/12/16 02:34 07/12/16 02:34 07/12/16 02:34 Vital Signs Reviewed: Yes Diagnostics - Vital Signs Vital Signs Temp Pulse Resp BP Pulse Ox 07/12/16 02:34 98.8 F 84 22 118/22 99 - Laboratory Lab Statement: Any lab studies that have been ordered have been reviewed, and results considered in the medical decision making process. - CT CT C-Spine CT Interpretation: No Acute Changes - No acute fracture or malalignment. Multilevel spondylosis. Straightening of cervical lordosis, possibly due to positioning or muscle spasm. CT Interpretation Completed By: Radiologist CT Brain CT Interpretation: No Acute Changes - No acute brain parenchymal abnormality and no chance since 01/05/2016. No hemorrhage, mass or acute territorial infarct. No skull fracture. Clear visualized paraasal sinuses. Visualized mastoid air cells. CT Interpretation Completed By: Radiologist Head Injury Course/Dx Assessment/Plan: Pt is a 60 y/o F BIBA with a CC of occipital head and neck pain s/p mechanical fall with positive LOC. Denies any other symptoms. CT brain and CT C-Spine reveal no acute findings. She was administered Tylenol in the course of the ED. Pt will be D/C to home with a Dx of head injury and a follow up with her PCP. - Diagnoses Provider Diagnoses: Head injury Discharge - Discharge Plan Condition: Stable Disposition: HOME Patient Education Materials: Head Injury (ED) Referrals: Darlin Purvis MD [Primary Care Provider] - 3 Days The documentation as recorded by the Waqar reyes Rebecca accurately reflects the service I personally performed and the decisions made by Durga leal Emmanuel.
--- NOTE | 2016-07-12 07:59 | RAD ---
Indication: Head injury, neck injury. CT of the cervical spine was obtained in the axial plane. Sagittal and coronal reconstructed images were obtained. The skull base demonstrates no fracture. Mastoid air cells are well aerated. The C1 ring is intact without fracture. Degenerative changes of the atlantoaxial joint is noted. The vertebral bodies appear normal in height. Disc spaces from C2-C3, C3-C4 and C4-C5 demonstrates minimal spondylosis. At C5-C6 there is disc space narrowing, spondylitic ridge and bilateral uncovertebral joint hypertrophy. There is mild left foraminal stenosis. At C6-C7 degenerative disc disease, broad-based protrusion and spondylitic ridge flattens the thecal sac. IMPRESSION: Degenerative disc disease at C5-C6 and C6-C7. No fractures identified. Degenerative changes of the atlantoaxial joint is noted.
--- NOTE | 2016-07-12 07:59 | RAD ---
INDICATION: Head injury. COMPARISON: There are no prior studies available for comparison. TECHNIQUE: Contiguous axial sections of the brain were obtained from the skull base to the vertex without contrast. FINDINGS: The ventricles, cisterns and sulci are within normal limits. No significant focal abnormality or mass effect is seen. There is no evidence for hemorrhage. No significant focal osseous abnormality is seen. The visualized portion of the paranasal sinuses and mastoid air cells appear clear. IMPRESSION: NO EVIDENCE FOR ACUTE INTRACRANIAL ABNORMALITY.
== END 2016-07-12 04:05 | disposition home or self-care (01) ==
LOC: ED 02:31
DX: S09.90XA Unspecified injury of head, initial encounter (principal); M54.2 Cervicalgia; R55 Syncope and collapse; W19.XXXA Unspecified fall, initial encounter; Y93.9 Activity, unspecified; Y92.9 Unspecified place or not applicable
CPT/HCPCS: 70450; 72125; 99282; A9270-GY

== ENCOUNTER 2016-08-23 13:44 | Emergency (ER) | payer MEDICARE, MEDICAID ==
[2016-08-23] MEDS ORDERED: Acetaminophen TAB* 325 MG PO ONE (16:45)
--- NOTE | 2016-08-23 17:31 | ED ---
Bite Injury/Animal - HPI Summary HPI Summary: 60 female presents with complaints of being bit by a bat last night on her right leg while in her home. She states she hit the bat after it bit her and caught it in a bucket. She denies any current bleeding. Only was bit once. notified police and health department at home. Here for rabies prophylaxis. Denies any other complaints or injuries at this time. States she has been bit by a brown recluse, scratched by a possum and bit by a dog and has had previous rabies vaccination ~ 2 years ago. Spoke with Health Department who states rabies prophylaxis and flooding the wound she be preformed, with follow up on Friday for consecutive rabies prophylaxis. - History of Current Complaint Chief Complaint: EDAnimalBite Stated Complaint: BAT BITE ON RT LEG Time Seen by Provider: 08/23/16 15:17 Hx Obtained From: Patient Onset of Injury: Happened days ago - last night 08/22/16 Type of Bite: Wild Animal - bat Hx of Bite: Unprovoked Has Animal Been Immunized?: Unknown Severity Initially: Moderate Severity Currently: Mild Pain Intensity: 3 Pain Scale Used: 0-10 Numeric Character: Puncture Aggravating Factor(s): Nothing Alleviating Factor(s): Nothing Animal Available for Observation: No Animal Control Notified: Yes - Allergies/Home Medications Allergies/Adverse Reactions: Allergies Allergy/AdvReac Type Severity Reaction Status Date / Time Penicillins [PCN] Allergy Severe Anaphylatic Verified 10/24/15 18:50 Shock [place] Allergy Severe Swelling Verified 10/24/15 18:50 Of Face,Lips,& Throat Cefazolin Allergy Rash And Verified 10/24/15 18:50 Itching Erythromycin Allergy Hives Verified 10/24/15 18:50 Sulfamethoxazole Allergy Rash Verified 01/27/16 17:27 w/Trimethoprim [From Bactrim] Tetracyclines Allergy Anaphylatic Verified 10/24/15 18:50 Shock PMH/Surg Hx/FS Hx/Imm Hx Endocrine/Hematology History: Reports: Hx Diabetes, Hx Anemia Denies: Hx Anticoagulant Therapy, Hx Systemic Lupus Erythematosus, Hx Thyroid Disease, Hx Unexplained Bleeding Cardiovascular History: Reports: Hx Angina, Hx Hypercholesterolemia, Hx Hypotension, Hx Hypertension, Hx Syncope, Other Cardiovascular Problems/ Disorders - bilateral carotid stenosis,aortic blockage Denies: Hx Aneurysm, Hx Angioplasty, Hx Auto Implanted Cardiovert Defib, Hx Cardiac Arrest, Hx Cardiomegaly, Hx Congenital Heart Disease, Hx Congestive Heart Failure, Hx Coronary Artery Disease, Hx Deep Vein Thrombosis, Hx Embolism , Hx Myocardial Infarction, Hx Pacemaker/ICD, Hx Peripheral Vascular Disease, Hx Rheumatic Fever, Hx Valvular Heart Disease Respiratory History: Reports: Hx Asthma, Hx Chronic Obstructive Pulmonary Disease (COPD), Hx Pneumonia, Hx Pulmonary Edema, Hx Seasonal Allergies, Hx Sleep Apnea - sleeps with 2L O2 at home PRN, Other Respiratory Problems/ Disorders - PNA Denies: Hx Chronic Bronchitis, Hx Cystic Fibrosis, Hx Lung Cancer, Hx Pleural Effusion, Hx Pulmonary Embolism GI History: Reports: Hx Gastroesophageal Reflux Disease, Hx Ulcer - distant past Denies: Hx Cirrhosis, Hx Crohn's Disease, Hx Diverticulosis History: Reports: Hx Acute Renal Failure, Hx Renal Disease Denies: Hx Dialysis Musculoskeletal History: Reports: Hx Arthritis - bilateral knees, left shoulder , Hx Back Problems - herniated disks, Hx Bursitis, Other Musculoskeletal History - HERNIATED DISC Denies: Hx Rheumatoid Arthritis Sensory History: Reports: Hx Contacts or Glasses, Hx Vision Problem Denies: Hx Cataracts, Hx Hearing Aid Opthamlomology History: Reports: Hx Contacts or Glasses, Hx Vision Problem Denies: Hx Cataracts Neurological History: Reports: Hx Headaches, Hx Transient Ischemic Attacks (TIA) Denies: Hx Dementia, Hx Developmental Delay, Hx Migraine, Hx Nerve Disease, Hx Seizures, Hx Spinal Cord Injury Psychiatric History: Reports: Hx Anxiety, Hx Depression, Hx Inpatient Treatment , Hx Suicide Attempt - attempted to harm self 5 years ago, Hx Substance Abuse - as a kid, Other Psychiatric Issues/Disorders - claustrophobia Denies: Hx Eating Disorder, Hx Panic Disorder, Hx of Violent Episodes Against Others - Cancer History Cancer Type, Location and Year: Colon cancer - [place] Hx Chemotherapy: No Hx Radiation Therapy: No - Surgical History Surgery Procedure, Year, and Place: tubal ligation, laparascopic surgery for ovarian cyst, cardiac cath- NO STENTS PLACED PER PT 06/15/15 Hx Anesthesia Reactions: No - Immunization History Date of Tetanus Vaccine: unknown Date of Influenza Vaccine: 2014 Infectious Disease History: No Infectious Disease History: Denies: Hx Clostridium Difficile, Hx Hepatitis, Hx Human Immunodeficiency Virus (HIV), Hx of Known/Suspected MRSA, Hx Shingles, Hx Tuberculosis, Hx Known/ Suspected VRE, Hx Known/Suspected VRSA, History Other Infectious Disease, Traveled Outside the [place] in Last 30 Days - Family History Known Family History: Positive: None, Cardiac Disease - [place] - father. , Other Family History: Colon [place] - father - Social History Alcohol Use: None Hx Substance Use: No Substance Use Type: Reports: None Hx Tobacco Use: Yes - start 1970 Smoking Status (MU): Light Every Day Tobacco Smoker Type: Cigarettes Amount Used/How Often: 1 pack to 1 and a half a day Length of Time of Smoking/Using Tobacco: 40yrs Have You Smoked in the Last Year: Yes Review of Systems Constitutional: Negative Cardiovascular: Negative Respiratory: Negative Positive: Other - animal bite All Other Systems Reviewed And Are Negative: Yes Physical Exam Triage Information Reviewed: Yes Vital Signs On Initial Exam: Initial Vitals Temp Pulse Resp BP Pulse Ox 97.9 F 92 22 84/33 97 08/23/16 13:49 08/23/16 13:49 08/23/16 13:49 08/23/16 13:49 08/23/16 13:49 Vital Signs Reviewed: Yes Appearance: Positive: Well-Appearing, No Pain Distress, Well-Nourished Skin: Positive: Warm, Skin Color Reflects Adequate Perfusion, Dry, Other - puncture wound at right anterior leg over stiles, small and size of a pea, dried blood/scab noted, no active bleeding. no surrounding erythema, rest of skin exam normal besides chronic conditions Head/Face: Positive: Normal Head/Face Inspection Eyes: Positive: Normal, Conjunctiva Clear ENT: Positive: Hearing grossly normal Neck: Positive: Supple, Nontender, No Lymphadenopathy Respiratory/Lung Sounds: Positive: Clear to Auscultation, Breath Sounds Present. Negative: Rales, Rhonchi, Wheezes Cardiovascular: Positive: Normal, RRR, Pulses are Symmetrical in both Upper and Lower Extremities. Negative: Murmur, Rub Abdomen Description: Positive: Nontender Bowel Sounds: Positive: Present Musculoskeletal: Positive: Normal, Strength/ROM Intact Neurological: Positive: Normal, Sensory/Motor Intact, Alert, Oriented to Person Place, Time Psychiatric: Positive: Affect/Mood Appropriate AVPU Assessment: Alert - Lolly Coma Scale Best Eye Response: 4 - Spontaneous Best Motor Response: 6 - Obeys Commands Best Verbal Response: 5 - Oriented Diagnostics - Vital Signs Vital Signs Temp Pulse Resp BP Pulse Ox 08/23/16 14:31 97.9 F 92 22 133/81 96 08/23/16 13:49 97.9 F 92 22 84/33 97 - Laboratory Lab Statement: Any lab studies that have been ordered have been reviewed, and results considered in the medical decision making process. Bite Injury Course/Dx - Course Course Of Treatment: After speaking with health department rabies prophylaxis ordered and given. wound irrigated and flooded with 2.5ml of immunoglobulin. is aware she needs to be seen at health department for remaining vaccinations on Friday and day 7, 14. Given schedule and paperwork. Aware of worsening signs and symptoms to watch out for. Follow up with PCP. given for pain managment, told she may continue at home as needed. no concern for fracture or other injury at this time. - Diagnoses Differential Diagnosis/HQI/PQRI: Positive: Laceration, Puncture, Rabies Exposure Provider Diagnosis: Bat bite wound Discharge - Discharge Plan Condition: Stable Disposition: HOME Patient Education Materials: Rabies Vaccine (By injection), Rabies Immune Globulin (By injection), Animal Bite (ED) Referrals: Darlin Purvis MD [Primary Care Provider] - Additional Instructions: Keep area clean and dry. Do not touch bite wound. Follow up with health department on Friday for consecutive vaccinations. Tylenol for discomfort as needed. Follow up with PCP. Return if new symptoms appear or worsening symptoms.
[2016-08-23] MEDS ORDERED: Rabies Vaccine, PCEC INJ* 1 ml IM ONE (17:53)
[2016-08-23] MEDS ORDERED: Rabies Immune Globulin 10 ML* 150 UNIT/ML VIAL IM ONE ×2 (17:59→18:41)
[2016-08-23] MEDS ORDERED: Rabies Immune Globulin 2 ML* 150 UNITS/ML VIAL IM ONE (17:59)
[2016-08-23] MEDS ORDERED: Prochlorperazine TAB* 10 MG PO ONE (18:38)
[2016-08-23] MEDS ORDERED: oxyCODONE/Acetamin 5/325 MG* TAB PO ONE (20:57)
[2016-08-23] MEDS ORDERED: Rabies Immune Globulin 10 ML* 150 UNIT/ML VIAL ONE (21:49)
[2016-08-23 22:24] VITALS: BP 109/79
== END 2016-08-23 22:23 | disposition home or self-care (01) ==
LOC: ED 13:44
DX: S81.851A Open bite, right lower leg, initial encounter (principal); W64.XXXA Exposure to other animate mechanical forces, initial encounter; Y93.89 Activity, other specified; Y92.89 Other specified places as the place of occurrence of the external cause; F17.210 Nicotine dependence, cigarettes, uncomplicated
CPT/HCPCS: 90375; 90471; 90675; 99282; A9270-GY; Q0164

== ENCOUNTER 2016-11-24 21:23 | Emergency (ER) | payer MEDICARE, MEDICAID ==
[2016-11-24] MEDS ORDERED: HYDROcodone/ACETAMIN 5-325 MG* 1 TAB PO ONE (21:45)
[2016-11-24] MEDS ORDERED: Ibuprofen TAB* 600 MG PO ONE (21:45)
[2016-11-25] MEDS ORDERED: HYDROcodone/ACETAMIN 5-325 MG* 1 TAB PO ONE (01:03)
--- NOTE | 2016-11-25 01:08 | ED ---
Gonzalo Ramirez Nikita, scribed for Jere Torres MD on 11/24/16 at 2159 . 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 The CC is described as aching. The patient rates the pain 7/10 in severity. Symptoms aggravated by turning her head (hurts more to turn L than R) and putting pressure on her wrist. Symptoms alleviated by nothing. Patient reports R wrist pain (swollen, has carpel tunnel), neck pain (back), and L collar bone pain (heard a pop, feels a lump near her collar bone, broke collar bone 2 years ago). Patient denies head trauma and LOC. 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 Patient denies head trauma and LOC. - Allergies/Home Medications Allergies/Adverse Reactions: Allergies Allergy/AdvReac Type Severity Reaction Status Date / Time Penicillins [PCN] Allergy Severe Anaphylatic Verified 10/24/15 18:50 Shock [place] Allergy Severe Swelling Verified 10/24/15 18:50 Of Face,Lips,& Throat Cefazolin Allergy Rash And Verified 10/24/15 18:50 Itching Erythromycin Allergy Hives Verified 10/24/15 18:50 Sulfamethoxazole Allergy Rash Verified 01/27/16 17:27 w/Trimethoprim [From Bactrim] Tetracyclines Allergy Anaphylatic Verified 10/24/15 18:50 Shock PMH/Surg Hx/FS Hx/Imm Hx Endocrine/Hematology History: Reports: Hx Diabetes, Hx Anemia Denies: Hx Anticoagulant Therapy, Hx Systemic Lupus Erythematosus, Hx Thyroid Disease, Hx Unexplained Bleeding Cardiovascular History: Reports: Hx Angina, Hx Hypercholesterolemia, Hx Hypotension, Hx Hypertension, Hx Syncope, Other Cardiovascular Problems/ Disorders - bilateral carotid stenosis,aortic blockage Denies: Hx Aneurysm, Hx Angioplasty, Hx Auto Implanted Cardiovert Defib, Hx Cardiac Arrest, Hx Cardiomegaly, Hx Congenital Heart Disease, Hx Congestive Heart Failure, Hx Coronary Artery Disease, Hx Deep Vein Thrombosis, Hx Embolism , Hx Myocardial Infarction, Hx Pacemaker/ICD, Hx Peripheral Vascular Disease, Hx Rheumatic Fever, Hx Valvular Heart Disease Respiratory History: Reports: Hx Asthma, Hx Chronic Obstructive Pulmonary Disease (COPD), Hx Pneumonia, Hx Pulmonary Edema, Hx Seasonal Allergies, Hx Sleep Apnea - sleeps with 2L O2 at home PRN, Other Respiratory Problems/ Disorders - PNA Denies: Hx Chronic Bronchitis, Hx Cystic Fibrosis, Hx Lung Cancer, Hx Pleural Effusion, Hx Pulmonary Embolism GI History: Reports: Hx Gastroesophageal Reflux Disease, Hx Ulcer - distant past Denies: Hx Cirrhosis, Hx Crohn's Disease, Hx Diverticulosis History: Reports: Hx Acute Renal Failure, Hx Renal Disease Denies: Hx Dialysis Musculoskeletal History: Reports: Hx Arthritis - bilateral knees, left shoulder , Hx Back Problems - herniated disks, Hx Bursitis, Other Musculoskeletal History - HERNIATED DISC Denies: Hx Rheumatoid Arthritis Sensory History: Reports: Hx Contacts or Glasses, Hx Vision Problem Denies: Hx Cataracts, Hx Hearing Aid Opthamlomology History: Reports: Hx Contacts or Glasses, Hx Vision Problem Denies: Hx Cataracts Neurological History: Reports: Hx Headaches, Hx Transient Ischemic Attacks (TIA) Denies: Hx Dementia, Hx Developmental Delay, Hx Migraine, Hx Nerve Disease, Hx Seizures, Hx Spinal Cord Injury Psychiatric History: Reports: Hx Anxiety, Hx Depression, Hx Inpatient Treatment , Hx Suicide Attempt - attempted to harm self 5 years ago, Hx Substance Abuse - as a kid, Other Psychiatric Issues/Disorders - claustrophobia Denies: Hx Eating Disorder, Hx Panic Disorder, Hx of Violent Episodes Against Others - Cancer History Cancer Type, Location and Year: Colon cancer - IN [place] Hx Chemotherapy: No Hx Radiation Therapy: No - Surgical History Surgery Procedure, Year, and Place: tubal ligation, laparascopic surgery for ovarian cyst, cardiac cath- NO STENTS PLACED PER PT 06/15/15 Hx Anesthesia Reactions: No - Immunization History Date of Tetanus Vaccine: unknown Date of Influenza Vaccine: 2014 Infectious Disease History: No Infectious Disease History: Denies: Hx Clostridium Difficile, Hx Hepatitis, Hx Human Immunodeficiency Virus (HIV), Hx of Known/Suspected MRSA, Hx Shingles, Hx Tuberculosis, Hx Known/ Suspected VRE, Hx Known/Suspected VRSA, History Other Infectious Disease, Traveled Outside the [place] in Last 30 Days - Family History Known Family History: Positive: Cardiac Disease - [place] - father. , Other Family History: Colon [place] - father - Social History Alcohol Use: None Hx Substance Use: No Substance Use Type: Reports: None Hx Tobacco Use: Yes - start 1970 Smoking Status (MU): Light Every Day Tobacco Smoker Type: Cigarettes Amount Used/How Often: 1 pack to 1 and a half a day Length of Time of Smoking/Using Tobacco: 40yrs Have You Smoked in the Last Year: Yes Review of Systems Positive: Other - neck pain (back), L collar bone pain (feels a lump, broke it 2 years ago) Positive: Other - R wrist pain; denies head trauma Neurological: Other - denies LOC All Other Systems Reviewed And Are Negative: Yes Physical Exam Triage Information Reviewed: Yes Vital Signs On Initial Exam: Initial Vitals Temp Pulse Resp BP Pulse Ox 99.0 F 85 18 95/65 96 11/24/16 21:45 11/24/16 21:45 11/24/16 21:45 11/24/16 21:45 11/24/16 21:45 Vital Signs Reviewed: Yes Appearance: Positive: Well-Appearing, No Pain Distress Skin: Positive: Warm, Skin Color Reflects Adequate Perfusion, Dry Head/Face: Positive: Normal Head/Face Inspection Eyes: Positive: EOMI, LUZ MARINA ENT: Positive: Other - Tender to midline of neck, tender L proximal clavicle Neck: Positive: Supple, Nontender Respiratory/Lung Sounds: Positive: Clear to Auscultation, Breath Sounds Present Cardiovascular: Positive: RRR, Other - good capillary refill, good radial pulses Abdomen Description: Positive: Nontender, Soft Bowel Sounds: Positive: Present Musculoskeletal: Positive: Strength/ROM Intact, Other - Tender R wrist to include snuff box tenderness Neurological: Positive: Normal, Sensory/Motor Intact, Alert, Oriented to Person Place, Time, CN Intact II-III Psychiatric: Positive: Affect/Mood Appropriate - [place] Coma Scale Coma Scale Total: 15 Diagnostics - Vital Signs Vital Signs Temp Pulse Resp BP Pulse Ox 11/24/16 21:45 99.0 F 85 18 95/65 96 - Laboratory Lab Statement: Any lab studies that have been ordered have been reviewed, and results considered in the medical decision making process. - Radiology L clavicle XR Radiology Interpretation Completed By: ED Physician - XR is normal. No evidence of fracture. R wrist XR Radiology Interpretation Completed By: ED Physician - XR is normal. No evidence of fracture. - CT C-spine CT Interpretation Completed By: Radiologist - No cervical spine fracture. ED physician has reviewed this radiology report and agrees. Re-Evaluation - Re-Evaluation First Eval Re-Evaluation Time: 01:00 Comment: Discussed XR results and discharge plan. 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 The CC is described as aching. The patient rates the pain 7/10 in severity. Symptoms aggravated by turning her head (hurts more to turn L than R) and putting pressure on her wrist. Symptoms alleviated by nothing. Patient reports R wrist pain (swollen, has carpel tunnel), neck pain (back), and L collar bone pain (heard a pop, feels a lump near her collar bone, broke collar bone 2 years ago). Patient denies head trauma and LOC. C-spine CT reveals no cervical spine fracture. ED physician has reviewed this radiology report and agrees. L clavicle XR is normal. No evidence of fracture. R wrist XR is normal. No evidence of fracture. In the ED course, pt was given pain medication. Medications reviewed. Allergies noted. Pt will be discharged. Pt is agreeable with this plan. DISCUSSED RESULTS WITH PATIENT. F/U PMD; RETURN IF WORSE. - Diagnoses Provider Diagnoses: Cervical strain, Pain of left clavicle, Right wrist sprain Discharge - Discharge Plan Condition: Stable Disposition: HOME Prescriptions: HYDROcodone/ACETAMIN 5-325 MG* [[place] 5-325 TAB*] 1 tab PO Q4H PRN #20 tab MDD 6 PRN Reason: Pain Ibuprofen TAB* [Motrin TAB* 600 MG] 600 mg PO Q6H PRN #20 tab PRN Reason: Pain Patient Education Materials: Cervical Strain (ED), Shoulder Pain (ED), Wrist Sprain (ED), Splint Care (ED) Referrals: Darlin Purvis MD [Primary Care Provider] - Additional Instructions: FOLLOW UP WITH YOUR DOCTOR. RETURN TO THE EMERGENCY DEPARTMENT FOR ANY WORSENING OF YOUR CONDITION OR QUESTIONS OR CONCERNS. The documentation as recorded by the Gonzalo reyes Nikita accurately reflects the service I personally performed and the decisions made by me, Jere Torres MD.
[2016-11-25 01:15] VITALS: BP 108/69
--- NOTE | 2016-11-25 07:09 | RAD ---
INDICATION: Left clavicle trauma. TECHNIQUE: 2 views of the left clavicle were obtained. FINDINGS: The bones are in normal alignment. No fracture is seen. Joint spaces appear maintained. IMPRESSION: NO EVIDENCE FOR FRACTURE.
--- NOTE | 2016-11-25 07:14 | RAD ---
INDICATION: Right wrist injury. TECHNIQUE: 3 views of the right wrist were obtained. FINDINGS: There is mild diffuse soft tissue swelling. The bones are normal alignment. No fracture is seen. Incidental note is made of [id number] osteoarthritic changes of the first carpal metacarpal joint. IMPRESSION: NO EVIDENCE FOR FRACTURE, IF THE PATIENT'S SYMPTOMS PERSIST RECOMMEND FOLLOW-UP IMAGING.
--- NOTE | 2016-11-25 07:37 | RAD ---
INDICATION: Trauma, neck pain. COMPARISON: There is is no prior study from July 12, 2016. TECHNIQUE: Contiguous axial sections were obtained from the skull base through the T1 vertebra. Images were reconstructed in the sagittal and coronal planes. FINDINGS: There is straightening of the cervical spine loss of the normal cervical lordosis. The vertebra are otherwise in normal alignment. No fracture is seen. There is calcification anterior to the odontoid process which appears unchanged. At the C3-C4 level there is mild posterior uncinate process spurring and facet osteoarthritis on the left side. No significant spinal canal narrowing is present. There is mild neural foraminal narrowing on the left side. At the C4-C5 level no significant spinal canal or neural foraminal narrowing is seen. At the C5-C6 level there is mild posterior uncinate process spurring. There is moderate spinal canal narrowing. There is mild to moderate neural foraminal narrowing on the left side. At the C6-C7 level there is mild posterior uncinate process spurring causing mild spinal canal narrowing. There is mild to moderate neural foraminal narrowing on the left side. IMPRESSION: 1. STRAIGHTENING OF THE CERVICAL SPINE, NO EVIDENCE FOR FRACTURE OR SUBLUXATION. 2. MODERATE CERVICAL SPONDYLOSIS.
== END 2016-11-25 01:13 | disposition home or self-care (01) ==
LOC: ED 21:23
DX: S16.1XXA Strain of muscle, fascia and tendon at neck level, initial encounter (principal); S63.501A Unspecified sprain of right wrist, initial encounter; W18.49XA Other slipping, tripping and stumbling without falling, initial encounter; Y93.9 Activity, unspecified; Y92.89 Other specified places as the place of occurrence of the external cause; M25.512 Pain in left shoulder; E11.9 Type 2 diabetes mellitus without complications; I65.23 Occlusion and stenosis of bilateral carotid arteries; I10 Essential (primary) hypertension; E78.00 Pure hypercholesterolemia, unspecified; J44.9 Chronic obstructive pulmonary disease, unspecified; K21.9 Gastro-esophageal reflux disease without esophagitis; N17.9 Acute kidney failure, unspecified; Z88.1 Allergy status to other antibiotic agents; Z88.0 Allergy status to penicillin; Z88.2 Allergy status to sulfonamides; F17.210 Nicotine dependence, cigarettes, uncomplicated
CPT/HCPCS: 72125; 99283; A9270-GY

== ENCOUNTER 2017-05-19 21:13 | Inpatient (IN) | payer MEDICARE, MEDICAID ==
[2017-05-19] MEDS ORDERED: NS 0.9% 1000 ML*IV.FLUID IV ONE (23:53)
[2017-05-19] MEDS ORDERED: Acetaminophen TAB* 325 MG PO ONE (23:53)
[2017-05-19] MEDS ORDERED: Vancomycin(*) 1,000 MG in NS 0.9% 250 ML* 250 ML IVPB ONE (23:54)
[2017-05-19] MEDS ORDERED: Levofloxacin 750 MG IVPREMIX(* 750 MG/150 ML BAG IVPB ONE (23:55)
[2017-05-20 00:50] LABS: ABS Basophils 0.1 10^3/ul (0-0.2); ABS Eosinophils 0 10^3/ul (0-0.6); ABS Lymphocytes 1.7 10^3/ul (1.0-4.8); ABS Monocytes 0.7 10^3/ul (0-0.8); ABS Neutrophils 14.4 10^3/ul (1.5-7.7); ABS Nucleated RBC 0 10^3/ul; Eosinophil % 0.2 % (0-6); Hematocrit 38 % (35-47); Hemoglobin 12.6 g/dl (12.0-16.0); Lymphocyte % 10.2 % (25-47); Mean Corpuscular HGB Conc 33 g/dl (31-36); Mean Corpuscular Hemoglobin 27 pg (27-31); Mean Corpuscular Volume 81 fL (80-97); Mean Platelet Volume 10.2 um3 (7.4-10.4); Nucleated Red Blood Cells % 0.1; Platelet Count 178 10^3/ul (150-450); Red Blood Count 4.69 10^6/ul (4.0-5.4); Red Cell Distribution Width 17 % (10.5-15)
[2017-05-20 00:54] LABS: INR 1.1 (0.77-1.02)
[2017-05-20 00:57] LABS: EGFR Non-African American 60.2 (>60)
--- NOTE | 2017-05-20 02:41 | ED ---
Hong Ramirez Stephanie, scribed for Garrison Moe MD on 05/20/17 at 0006 . Lower Extremity - HPI Summary HPI Summary: The pt is a 61 y/o F presenting to the ED with c/o R calf pain that began earlier today. Symptoms include R calf erythema and fever (103 F). The pt states she believes she was bitten by a spider. - History of Current Complaint Chief Complaint: EDExtremityLower Stated Complaint: RT LEG PAIN Time Seen by Provider: 05/19/17 23:31 Hx Obtained From: Patient Mechanism Of Injury: Other - possible spider bite Onset of Pain: Hours Onset/Duration: Hours Severity Currently: Severe Pain Intensity: 7 Pain Scale Used: 0-10 Numeric Timing: Constant Location: Is Discrete @ - R calf Associated Signs And Symptoms: Positive: Redness, Fever Aggravating Factor(s): Nothing Alleviating Factor(s): Nothing - Allergies/Home Medications Allergies/Adverse Reactions: Allergies Allergy/AdvReac Type Severity Reaction Status Date / Time cefazolin Allergy Rash And Verified 05/19/17 21:28 Itching erythromycin [place] Allergy Rash Verified 05/19/17 21:28 [From Erythrocin] Penicillins Allergy Anaphylatic Verified 05/19/17 21:28 Shock [place] Allergy Swelling Verified 05/19/17 21:28 Of Face,Lips,& Throat Sulfa (Sulfonamide Allergy Rash Verified 05/19/17 21:28 Antibiotics) Tetracyclines Allergy Anaphylatic Verified 05/19/17 21:28 Shock PMH/Surg Hx/FS Hx/Imm Hx Endocrine/Hematology History: Reports: Hx Diabetes, Hx Anemia Denies: Hx Anticoagulant Therapy, Hx Systemic Lupus Erythematosus, Hx Thyroid Disease, Hx Unexplained Bleeding Cardiovascular History: Reports: Hx Angina, Hx Hypercholesterolemia, Hx Hypotension, Hx Hypertension, Hx Syncope, Other Cardiovascular Problems/ Disorders - bilateral carotid stenosis,aortic blockage Denies: Hx Aneurysm, Hx Angioplasty, Hx Auto Implanted Cardiovert Defib, Hx Cardiac Arrest, Hx Cardiomegaly, Hx Congenital Heart Disease, Hx Congestive Heart Failure, Hx Coronary Artery Disease, Hx Deep Vein Thrombosis, Hx Embolism , Hx Myocardial Infarction, Hx Pacemaker/ICD, Hx Peripheral Vascular Disease, Hx Rheumatic Fever, Hx Valvular Heart Disease Respiratory History: Reports: Hx Asthma, Hx Chronic Obstructive Pulmonary Disease (COPD), Hx Pneumonia, Hx Pulmonary Edema, Hx Seasonal Allergies, Hx Sleep Apnea - sleeps with 2L O2 at home PRN, Other Respiratory Problems/ Disorders - PNA Denies: Hx Chronic Bronchitis, Hx Cystic Fibrosis, Hx Lung Cancer, Hx Pleural Effusion, Hx Pulmonary Embolism GI History: Reports: Hx Gastroesophageal Reflux Disease, Hx Ulcer - distant past Denies: Hx Cirrhosis, Hx Crohn's Disease, Hx Diverticulosis History: Reports: Hx Acute Renal Failure, Hx Renal Disease Denies: Hx Dialysis Musculoskeletal History: Reports: Hx Arthritis - bilateral knees, left shoulder , Hx Back Problems - herniated disks, Hx Bursitis, Other Musculoskeletal History - HERNIATED DISC Denies: Hx Rheumatoid Arthritis Sensory History: Reports: Hx Contacts or Glasses, Hx Vision Problem Denies: Hx Cataracts, Hx Hearing Aid Opthamlomology History: Reports: Hx Contacts or Glasses, Hx Vision Problem Denies: Hx Cataracts Neurological History: Reports: Hx Headaches, Hx Transient Ischemic Attacks (TIA) Denies: Hx Dementia, Hx Developmental Delay, Hx Migraine, Hx Nerve Disease, Hx Seizures, Hx Spinal Cord Injury Psychiatric History: Reports: Hx Anxiety, Hx Depression, Hx Inpatient Treatment , Hx Suicide Attempt - attempted to harm self 5 years ago, Hx Substance Abuse - as a kid, Other Psychiatric Issues/Disorders - claustrophobia Denies: Hx Eating Disorder, Hx Panic Disorder, Hx of Violent Episodes Against Others - Cancer History Cancer Type, Location and Year: Colon cancer - IN [place] Hx Chemotherapy: No Hx Radiation Therapy: No - Surgical History Surgery Procedure, Year, and Place: tubal ligation, laparascopic surgery for ovarian cyst, cardiac cath- NO STENTS PLACED PER PT 06/15/15 Hx Anesthesia Reactions: No - Immunization History Date of Tetanus Vaccine: unknown Date of Influenza Vaccine: 2014 Infectious Disease History: No Infectious Disease History: Denies: Hx Clostridium Difficile, Hx Hepatitis, Hx Human Immunodeficiency Virus (HIV), Hx of Known/Suspected MRSA, Hx Shingles, Hx Tuberculosis, Hx Known/ Suspected VRE, Hx Known/Suspected VRSA, History Other Infectious Disease, Traveled Outside the [place] in Last 30 Days - Family History Known Family History: Positive: Cardiac Disease - [place] - father. , Other Family History: Colon [place] - father - Social History Occupation: Disabled Lives: Alone Alcohol Use: None Hx Substance Use: No Substance Use Type: Reports: None Hx Tobacco Use: Yes - start 1970 Smoking Status (MU): Light Every Day Tobacco Smoker Type: Cigarettes Amount Used/How Often: 1 pack to 1 and a half a day Length of Time of Smoking/Using Tobacco: 40yrs Have You Smoked in the Last Year: Yes Review of Systems Positive: Fever Positive: Edema - R calf, Other - R calf pain All Other Systems Reviewed And Are Negative: Yes Physical Exam - Summary Physical Exam Summary: VITAL SIGNS: Reviewed. GENERAL: Patient is a morbidly obese FEMALE who is lying comfortable in the stretcher. Patient is not in any acute respiratory distress. HEAD AND FACE: No signs of trauma. No ecchymosis, hematomas or skull depressions. No sinus tenderness. EYES: PERRLA, EOMI x 2, No injected conjunctiva, no nystagmus. EARS: Hearing grossly intact. Ear canals and tympanic membranes are within normal limits. MOUTH: Oropharynx within normal limits. NECK: Supple, trachea is midline, no adenopathy, no JVD, no carotid bruit, no c- spine tenderness, neck with full ROM. CHEST: Symmetric, no tenderness at palpation LUNGS: Clear to auscultation bilaterally. No wheezing or crackles. CVS: Regular rate and rhythm, S1 and S2 present, no murmurs or gallops appreciated. ABDOMEN: Soft, non-tender. No signs of distention. No rebound no guarding, and no masses palpated. Bowel sounds are normal. EXTREMITIES: FROM in all major joints, no edema, no cyanosis or clubbing. Redness and tenderness of R leg from foot up to proximal R leg NEURO: Alert and oriented x 3. No acute neurological deficits. Speech is normal and follows commands. SKIN: Dry and warm Triage Information Reviewed: Yes Vital Signs On Initial Exam: Initial Vitals Temp Pulse Resp BP Pulse Ox 100.8 F 90 18 112/62 96 05/19/17 21:23 05/19/17 21:23 05/19/17 21:23 05/19/17 21:23 05/19/17 21:23 Vital Signs Reviewed: Yes Diagnostics - Vital Signs Vital Signs Temp Pulse Resp BP Pulse Ox 05/19/17 23:30 82 84/62 96 05/19/17 23:29 83 96 05/19/17 23:27 97/73 05/19/17 21:23 100.8 F 90 18 112/62 96 - Laboratory Result Diagrams: 05/20/17 00:25 05/20/17 00:25 Lab Statement: Any lab studies that have been ordered have been reviewed, and results considered in the medical decision making process. Lower Extremity Course/Dx - Course Course Of Treatment: The pt is a 61 y/o F presenting to the ED with c/o R calf pain that began earlier today. Symptoms include R calf erythema and fever (103 F ). The pt states she believes she was bitten by a spider. - Diagnoses Provider Diagnoses: Cellulitis - Physician Notifications Discussed Care Of Patient With: Brian Meredith Time Discussed With Above Provider: 01:18 Instructed by Provider To: Admit As Inpatient Discharge - Sign-Out/Discharge Documenting (check all that apply): Discharge - Discharge Plan Condition: Stable Disposition: ADMITTED TO [facility] Referrals: Darlin Purvis MD [Primary Care Provider] - The documentation as recorded by the Hong reyes Stephanie accurately reflects the service I personally performed and the decisions made by Payal leal Abdul, MD.
[2017-05-20] MEDS ORDERED: CMCS: Melatonin (NF) 3 MG TAB PO PRN (03:01)
--- NOTE | 2017-05-20 03:04 | HP ---
H&P (Free Text) History and Physical: PCP: Malinda Purvis MD Date/Time of Evaluation: 05/20/2017 0200 CC: RLE pain & redness HPI: Mrs Coughlin is a 61YO female HX DM2, TIAs, COPD, HTN, HLD, colon CA presenting with onset Friday morning of pain & redness of the RLE gradually progressing throughout the day to include F/C, sweats, N/V, malaise, & fatigue prompting her to present for evaluation. She denies chest pain, SOB, cough, congestion, or other issues. PMedHx NIDDM COPD HTN HLD TIAs HX colon CA venous insufficiency with ulcers depression tobacco use disorder Ambulatory Orders Nursing to reconcile. Citalopram TAB* [Celexa TAB*] 20 mg PO DAILY 04/10/14 Fluticasone-Salmeterol 250-50* [Advair Diskus 250-50*] 1 puff INH BID 04/10/14 metFORMIN* [Glucophage 1000 MG TAB *] 1,000 mg PO BID 04/10/14 Albuterol HFA INHALER* [Ventolin HFA Inhaler*] 2 puff INH Q6H PRN 05/01/15 Topiramate [Topamax 25 mg tab] 50 mg PO BID 05/01/15 Ipratropium 0.5MG/2.5ML NEB* [Atrovent 0.5 MG NEB.TEJAL*] 0.5 mg INH Q8H PRN 08/20 Levocetirizine Dihydrochloride 5 mg PO DAILY 08/21/15 Magnesium Hydroxide LIQ* [Milk of Magnesia LIQ*] 15 ml PO DAILY PRN 08/21/15 Nystatin [Nyamyc] 100,000 unit TOPICAL BID 08/21/15 Polyethylene Glycol 3350* [Miralax*] 17 gm PO DAILY 08/21/15 Sitagliptin Phosphate [Januvia] 25 mg PO DAILY 08/21/15 Aspirin EC TAB* [Ecotrin EC Low Dose 81 MG*] 81 mg PO DAILY 08/22/15 Atorvastatin* [Lipitor 80 MG*] 80 mg PO DAILY 08/22/15 Ondansetron ODT TAB* [Zofran 4 MG Odt TAB*] 4 mg PO Q6H PRN #30 tab.odt MDD 4 traMADol TAB* [Ultram*] 50 mg PO Q12H 11/19/15 traZODone TAB* [Desyrel TAB*] 100 mg PO BEDTIME 11/19/15 Docusate CAP* [Colace Cap*] 100 mg PO TID PRN 11/20/15 Omeprazole [Omeprazole 40 MG] 40 mg PO DAILY 11/20/15 Senna TAB* [Senokot TAB*] 1 - 2 tab PO BID 11/20/15 Clopidogrel TAB* [Plavix TAB*] 75 mg PO DAILY tab 11/21/15 Hydrocortisone 1% CREAM* [Hytone Cream 1%*] 1 applic TOPICAL BID tube 11/21/15 oxyCODONE/Acetamin 5/325 MG* [Percocet 5/325 TAB*] 2 tab PO Q6H PRN 12/18/15 HYDROcodone/ACETAMIN 5-325 MG* [[place] 5-325 TAB*] 1 tab PO Q4H PRN #20 tab MDD 6 11/25/16 Ibuprofen TAB* [Motrin TAB* 600 MG] 600 mg PO Q6H PRN #20 tab 11/25/16 Allergies cefazolin Allergy (Verified 05/19/17 21:28) Rash And Itching erythromycin base [From Erythrocin] Allergy (Verified 05/19/17 21:28) Rash Penicillins Allergy (Verified 05/19/17 21:28) Anaphylatic Shock strawberry Allergy (Verified 05/19/17 21:28) Swelling Of Face,Lips,& Throat Sulfa (Sulfonamide Antibiotics) Allergy (Verified 05/19/17 21:28) Rash Tetracyclines Allergy (Verified 05/19/17 21:28) Anaphylatic Shock SocHx: 1/2 PPD cigarettes w/ >40PYHX, occasional alcohol, denies recreational drugs; lives with her son; full code status FamHx: reviewed, non-contributory ROS: as above, otherwise reviewed and all were negative vitals: Vital Signs Temp 38.2 C 05/19/17 21:23 Pulse 71 05/20/17 02:17 Resp 18 05/19/17 21:23 BP 98/45 05/20/17 02:17 Pulse Ox 98 05/20/17 02:17 Intake & Output 05/19/17 05/19/17 05/20/17 11:59 23:59 11:59 Weight 136.985 kg Constitutional: NAD, normally developed, malodorous, morbidly obese white female HEENM: atraumatic; sclera/conjunctiva: non-icteric/clear; hearing: clinically intact; oropharynx: clear, mucosa moist Neck: soft tissue: non-tender; thyroid: normal Pulmonary: diminished B w/ scant end-expiratory wheeze, fair aeration, no accessory muscle use CV: RR/RR, normal S1S2, no carotid bruit, no jugular venous distention, 1+ B DP/ PT, trace BLE edema Abdominal: soft, non-distended, non-tender, no rebound/guarding/rigidity, normoactive bowel sounds, no hepatosplenomegaly or masses, no costovertebral angle tenderness Musculoskeletal: general: grossly intact, no tenderness w/ palpation Integumental: RLE from ankle to knee with light erythema & warmth w/o flocculence or drainage Psychiatric orientation: AA&O to PPS affect: calm mood: cooperative eye contact: good content: questionable reliability responses: timely insight: fair Testing: Lab Results 05/20/17 05/20/17 05/20/17 Range/Units 00:25 00:25 00:25 WBC 17.0 H (3.5-10.8) 10^3/ul RBC 4.69 (4.0-5.4) 10^6/ul Hgb 12.6 (12.0-16.0) g/dl Hct 38 (35-47) % MCV 81 (80-97) fL MCH 27 (27-31) pg MCHC 33 (31-36) g/dl RDW 17 H (10.5-15) % Plt Count 178 (150-450) 10^3/ul MPV 10.2 (7.4-10.4) um3 Neut % (Auto) 84.9 H (38-83) % Lymph % (Auto) 10.2 L (25-47) % [place] % (Auto) 4.1 (0-7) % Eos % (Auto) 0.2 (0-6) % Baso % (Auto) 0.6 (0-2) % Absolute Neuts (auto) 14.4 H (1.5-7.7) 10^3/ul Absolute Lymphs (auto) 1.7 (1.0-4.8) 10^3/ul Absolute Monos (auto) 0.7 (0-0.8) 10^3/ul Absolute Eos (auto) 0 (0-0.6) 10^3/ul Absolute Basos (auto) 0.1 (0-0.2) 10^3/ul Absolute Nucleated RBC 0 10^3/ul Nucleated RBC % 0.1 INR (Anticoag Therapy) 1.10 H (0.77-1.02) APTT 28.6 (26.0-36.3) seconds Sodium 136 L (139-145) mmol/L Potassium 4.0 (3.5-5.0) mmol/L Chloride 98 L (101-111) mmol/L Carbon Dioxide 33 H (22-32) mmol/L Anion Gap 5 (2-11) mmol/L BUN 18 (6-24) mg/dL Creatinine 0.95 (0.51-0.95) mg/dL Est GFR ( Amer) 77.4 (>60) Est GFR (Non-Af Amer) 60.2 (>60) BUN/Creatinine Ratio 18.9 (8-20) Glucose 204 H (70-100) mg/dL Lactic Acid (0.5-2.0) mmol/L Calcium 8.7 (8.6-10.3) mg/dL Total Bilirubin 0.80 (0.2-1.0) mg/dL AST 11 L (13-39) U/L ALT 9 (7-52) U/L Alkaline Phosphatase 80 (34-104) U/L Troponin I 0.01 (<0.04) ng/mL C-Reactive Protein 205.80 H (< 5.00) mg/L Total Protein 7.2 (6.4-8.9) g/dL Albumin 3.5 (3.2-5.2) g/dL Globulin 3.7 (2-4) g/dL Albumin/Globulin Ratio 0.9 L (1-3) 05/20/17 Range/Units 00:25 WBC (3.5-10.8) 10^3/ul RBC (4.0-5.4) 10^6/ul Hgb (12.0-16.0) g/dl Hct (35-47) % MCV (80-97) fL MCH (27-31) pg MCHC (31-36) g/dl RDW (10.5-15) % Plt Count (150-450) 10^3/ul MPV (7.4-10.4) um3 Neut % (Auto) (38-83) % Lymph % (Auto) (25-47) % [place] % (Auto) (0-7) % Eos % (Auto) (0-6) % Baso % (Auto) (0-2) % Absolute Neuts (auto) (1.5-7.7) 10^3/ul Absolute Lymphs (auto) (1.0-4.8) 10^3/ul Absolute Monos (auto) (0-0.8) 10^3/ul Absolute Eos (auto) (0-0.6) 10^3/ul Absolute Basos (auto) (0-0.2) 10^3/ul Absolute Nucleated RBC 10^3/ul Nucleated RBC % INR (Anticoag Therapy) (0.77-1.02) APTT (26.0-36.3) seconds Sodium (139-145) mmol/L Potassium (3.5-5.0) mmol/L Chloride (101-111) mmol/L Carbon Dioxide (22-32) mmol/L Anion Gap (2-11) mmol/L BUN (6-24) mg/dL Creatinine (0.51-0.95) mg/dL Est GFR ( Amer) (>60) Est GFR (Non-Af Amer) (>60) BUN/Creatinine Ratio (8-20) Glucose (70-100) mg/dL Lactic Acid 0.9 (0.5-2.0) mmol/L Calcium (8.6-10.3) mg/dL Total Bilirubin (0.2-1.0) mg/dL AST (13-39) U/L ALT (7-52) U/L Alkaline Phosphatase (34-104) U/L Troponin I (<0.04) ng/mL C-Reactive Protein (< 5.00) mg/L Total Protein (6.4-8.9) g/dL Albumin (3.2-5.2) g/dL Globulin (2-4) g/dL Albumin/Globulin Ratio (1-3) Impression: 61F HX DM2, COPD, TIAs, HTN, HLD, colon CA presents with sepsis ( leukocytosis & fever) 2nd RLE cellulitis DIAGNOSIS & PLAN Primary sepsis (leukocytosis & fever) 2nd RLE cellulitis : IV vancomycin & levofloxacin : IVFs : blood CX : supportive care Secondary NIDDM : update A1c : correctional insulin : review meds once reconciled COPD : albuterol nebs : mometasone/formoterol : tiotropium HTN : review meds once reconciled HLD : review meds once reconciled HX colon CA : continue outpatient surveillance depression : review meds once reconciled tobacco use disorder : smoking cessation advised, low motivation Admission Rational: inpatient for management of acute neurological complaint consistent w/ CVA/TIA DVTp: heparin SQ & SCDs Code Status: full HCP: son, Ming Coughlin
[2017-05-20] MEDS ORDERED: Vancomycin(*) 1,000 MG in NS 0.9% 250 ML* 250 ML IVPB ONE (04:00)
[2017-05-20] MEDS ORDERED: Vancomycin per Pharmacy* NOTE FOLLOW UP SCH (04:00)
[2017-05-20] MEDS: Omeprazole CAP* 20 MG PO SCH (04:40)
[2017-05-20] MEDS: NS 0.9% 1000 ML* 1,000 ML IV SCH ×4 (04:40→21:44)
[2017-05-20 06:55] LABS: ABS Basophils 0 10^3/ul (0-0.2); ABS Eosinophils 0.1 10^3/ul (0-0.6); ABS Lymphocytes 1.2 10^3/ul (1.0-4.8); ABS Monocytes 0.8 10^3/ul (0-0.8); ABS Neutrophils 10.7 10^3/ul (1.5-7.7); ABS Nucleated RBC 0 10^3/ul; Eosinophil % 0.7 % (0-6); Hematocrit 34 % (35-47); Hemoglobin 10.9 g/dl (12.0-16.0); Lymphocyte % 9.5 % (25-47); Mean Corpuscular HGB Conc 33 g/dl (31-36); Mean Corpuscular Hemoglobin 27 pg (27-31); Mean Corpuscular Volume 82 fL (80-97); Mean Platelet Volume 9.6 um3 (7.4-10.4); Nucleated Red Blood Cells % 0; Platelet Count 140 10^3/ul (150-450); Red Blood Count 4.07 10^6/ul (4.0-5.4); Red Cell Distribution Width 17 % (10.5-15); White Blood Count 12.8 10^3/ul (3.5-10.8)
[2017-05-20 07:08] LABS: EGFR Non-African American 65.8 (>60)
[2017-05-20] MEDS: Acetaminophen TAB* 325 MG PO PRN (07:33)
[2017-05-20] MEDS: traMADol TAB* 50 MG PO PRN ×2 (07:40→16:39)
[2017-05-20] MEDS: Docusate CAP* 100 MG PO SCH ×2 (07:47→21:45)
[2017-05-20] MEDS: Insulin LISPRO* 1 UNITS UNIT SUBCUT SCH ×4 (07:54→21:45)
[2017-05-20] MEDS: Tiotropium CAP.INH* CAP.INH/18 MCG (USE ORDER SET !) INH SCH (08:05)
[2017-05-20] MEDS: Mometasone/Formoter 200/5 MDI INH SCH ×2 (08:05→19:05)
[2017-05-20] MEDS ORDERED: Spiriva Inhaler DEVICE* 1 EACH DEVICE INH ONE (09:00)
[2017-05-20] MEDS: Insulin GLARGINE(*) 1 UNITS UNIT SUBCUT SCH ×2 (09:50→21:45)
--- NOTE | 2017-05-20 10:11 | PN ---
Hospitalist Progress Note Date of Service: 05/20/17 Patient seen and briefly examined, taking tramadol for pain. Refused neb tx this AM. Discussed compliance with hospital regimen, as she is wheezing today. Patient also refused to get OOB or to shower per RN. Tried to reinforce hygiene as well with RN, to get patient to shower. VS stable.
[2017-05-20] MEDS ORDERED: Vancomycin(*) 1,500 MG in NS 0.9% 250 ML* 250 ML IVPB SCH (13:00)
[2017-05-20] MEDS: Albuterol 2.5 MG/3 ML NEB.SOL* (0.083%) INH PRN (13:02)
[2017-05-20 13:32] LABS: Urine Appearance Turbid; Urine Blood Negative (Negative); Urine Color Yellow; Urine Ketones Negative (Negative); Urine Protein 1+(30 mg/dL) (Negative); Urine Specific Gravity 1.029 (1.010-1.030); Urine Urobilinogen Positive (Negative)
[2017-05-20] MEDS: Clindamycin 900 MG IVPREMIX(* 900 MG/50 ML SDV IV SCH ×2 (16:54→22:44)
[2017-05-21] MEDS: Levofloxacin 750 MG IVPREMIX(* 750 MG/150 ML BAG IVPB SCH ×2 (00:04→23:39)
[2017-05-21] MEDS ORDERED: NS 0.9% 1000 ML* 1,000 ML IV ONE (01:30)
[2017-05-21] MEDS: NS 0.9% 1000 ML* 1,000 ML IV SCH ×3 (03:20→22:04)
[2017-05-21] MEDS: Heparin VIAL(*) 5000 UNITS/ML VIAL (FIVE THOUSAND) SUBCUT SCH ×3 (06:00→20:45)
[2017-05-21] MEDS: Omeprazole CAP* 20 MG PO SCH (06:02)
[2017-05-21] MEDS: traMADol TAB* 50 MG PO PRN ×3 (06:02→23:44)
[2017-05-21] MEDS: Clindamycin 900 MG IVPREMIX(* 900 MG/50 ML SDV IV SCH ×3 (06:20→22:09)
[2017-05-21] MEDS: Mometasone/Formoter 200/5 MDI INH SCH ×2 (08:01→19:59)
[2017-05-21] MEDS: Tiotropium CAP.INH* CAP.INH/18 MCG (USE ORDER SET !) INH SCH (08:02)
[2017-05-21] MEDS: Insulin LISPRO* 1 UNITS UNIT SUBCUT SCH ×4 (09:37→20:44)
[2017-05-21] MEDS: Insulin GLARGINE(*) 1 UNITS UNIT SUBCUT SCH ×2 (09:37→20:44)
[2017-05-21] MEDS: Docusate CAP* 100 MG PO SCH ×2 (09:38→20:45)
[2017-05-21] MEDS ORDERED: Vancomycin Trough Check NOTE FOLLOW UP ONE (12:30)
--- NOTE | 2017-05-21 16:27 | PN ---
Subjective Date of Service: 05/21/17 Interval History: Patient seen and examined. States she had some chills earlier today and increase in pain and warmth to the RLE. Was able to get up and shower with help of the aid, states breathing is better, on O2 and taking nebs PRN. Objective Active Medications: Acetaminophen (Tylenol Tab*) 650 mg PO Q6H PRN PRN Reason: FEVER/PAIN Last Admin: 05/20/17 07:33 Dose: 650 mg Albuterol (Ventolin 2.5 Mg/3 Ml Neb.Shefali*) 2.5 mg INH Q2H PRN PRN Reason: SOB/WHEEZING Last Admin: 05/20/17 13:02 Dose: 2.5 mg Docusate Sodium (Colace Cap*) 200 mg PO BID [facility] Last Admin: 05/21/17 09:38 Dose: 200 mg Heparin Sodium (Porcine) (Heparin Vial(*)) 5,000 units SUBCUT Q8HR [facility] Last Admin: 05/21/17 12:36 Dose: 5,000 units Levofloxacin/Dextrose (Levaquin 750 Mg Ivpremix(*)) 750 mg in 150 mls @ 100 mls /hr IVPB Q24H [facility] Last Admin: 05/21/17 00:04 Dose: 100 mls/hr Sodium Chloride (Ns 0.9% 1000 Ml*) 1,000 mls @ 125 mls/hr IV PER RATE [facility] Last Admin: 05/21/17 12:31 Dose: 125 mls/hr Clindamycin HCl/Dextrose (Cleocin 900 Mg Ivpremix (*) Sdv) 900 mg in 50 mls @ 100 mls/hr IV Q8H [facility] Last Admin: 05/21/17 15:29 Dose: 100 mls/hr Insulin Glargine (Lantus(*)) 10 units SUBCUT Q12H [facility] Last Admin: 05/21/17 09:37 Dose: 10 units Insulin Human Lispro (Humalog*) 0 units SUBCUT ACHS [facility] PRN Reason: Protocol Last Admin: 05/21/17 12:36 Dose: 6 unit Melatonin (Melatonin (Nf)) 3 mg PO BEDTIME PRN; Protocol PRN Reason: Sleep Mometasone Furoate/Formoterol Fumar (Dulera 200/5 Mdi*) 2 puff INH BID [facility] Last Admin: 05/21/17 08:01 Dose: 2 puff Omeprazole (Prilosec Cap*) 20 mg PO DAILY@0600 [facility] Last Admin: 05/21/17 06:02 Dose: 20 mg Ondansetron HCl (Zofran Inj*) 4 mg IV Q6H PRN PRN Reason: NAUSEA Tiotropium [place] (Spiriva Cap.Inh*) 1 cap INH DAILY [facility] Last Admin: 05/21/17 08:02 Dose: 1 cap Tramadol HCl (Ultram*) 50 mg PO Q6H PRN PRN Reason: PAIN Last Admin: 05/21/17 06:02 Dose: 50 mg Vital Signs - 8 hr 05/21/17 05/21/17 05/21/17 09:38 11:24 11:26 Temperature 97.7 F Pulse Rate 60 61 Respiratory 18 17 Rate Blood Pressure 130/49 (mmHg) O2 Sat by Pulse 99 100 Oximetry Oxygen Devices in Use Now: Nasal Cannula Appearance: Alert, NAD Eyes: No Scleral Icterus, PERRLA Ears/Nose/Mouth/Throat: - - edentulous Neck: Trachea Midline Respiratory: Symmetrical Chest Expansion and Respiratory Effort, - - bilateral insp/exp wheeze, improved from yesterday Cardiovascular: NL Sounds; No Murmurs; No JVD, RRR Abdominal: NL Sounds; No Tenderness; No Distention Extremities: - - erythema and warmth and edema to RLE, primarily medial stiles Neurological: Alert and Oriented x 3, NL Sensation Nutrition: Taking PO's Result Diagrams: 05/20/17 06:38 05/21/17 06:00 Microbiology and Other Data: Microbiology 05/20/17 05:08 Urine Culture - Final Urine Assess/Plan/Problems-Billing Assessment: This is a 61 year old morbidly obese female with hx of COPD, DMII, HTN, that presents with pain and redness to RLE with subjetive fever and chills, admitted for treatment of cellulitis. - Patient Problems (1) Cellulitis of right anterior lower leg Code(s): L03.115 - CELLULITIS OF RIGHT LOWER LIMB SNOMED Code(s): 316863506 Comment: - Was on vanco and levaquin, changed to clinda 05/20 - Appears to be worsening today, will maulik margins and consult Dr. Bates - US to r/o DVT based on increased calf circumference and pain today - Recheck CBC in AM (2) COPD without exacerbation Code(s): J44.9 - CHRONIC OBSTRUCTIVE PULMONARY DISEASE, UNSPECIFIED SNOMED Code(s): 95147507 Comment: - Continue O2 and nebs as needed (3) Chronic respiratory failure Code(s): J96.10 - CHRONIC RESPIRATORY FAILURE, UNSP W HYPOXIA OR HYPERCAPNIA SNOMED Code(s): 68342155 Comment: - Continue O2 at 2LNC (4) Diabetes mellitus type 2 in obese Code(s): E11.9 - TYPE 2 DIABETES MELLITUS WITHOUT COMPLICATIONS; E66.9 - OBESITY , UNSPECIFIED SNOMED Code(s): 36495578 Comment: - Continue lispro SS for coverage AC and HS - Added lantus yesterday while acutely infected (5) Obesity, Class III, BMI 40-49.9 (morbid obesity) Code(s): E66.01 - MORBID (SEVERE) OBESITY DUE TO EXCESS CALORIES SNOMED Code(s ): 172365130 Comment: - BMI 44 likely also contributing to hypoxic respiratory failure (6) Venous ulcer Code(s): I87.8 - OTHER SPECIFIED DISORDERS OF VEINS SNOMED Code(s): 119047752 Comment: - Chronic, scabbing, no drainage or exudate noted Status and Disposition: Remain inpatient.
--- NOTE | 2017-05-21 17:22 | RAD ---
INDICATION: RIGHT lower extremity edema. Cellulitis RIGHT calf. Assess for DVT. COMPARISON: September 19, 2012 TECHNIQUE: Snell scale, color Doppler, and spectral analysis of the deep veins of the RIGHT lower extremity. Vessel compression, phasicity, and augmentation assessed. REPORT: The RIGHT common femoral, great saphenous, profunda femoral, femoral, popliteal, peroneal, and posterior tibial veins are patent. Extensive subcutaneous edema at the RIGHT calf. No loculated abscess collection visualized. Normal morphology RIGHT inguinal lymph nodes visualized within normal size limits based on short axis criteria. Patency of the LEFT common femoral vein documented. IMPRESSION: No evidence for RIGHT lower extremity deep venous thrombosis.
[2017-05-22] MEDS: Albuterol 2.5 MG/3 ML NEB.SOL* (0.083%) INH PRN (03:52)
[2017-05-22] MEDS: Acetaminophen TAB* 325 MG PO PRN (06:07)
[2017-05-22] MEDS: Omeprazole CAP* 20 MG PO SCH (06:08)
[2017-05-22] MEDS: Clindamycin 900 MG IVPREMIX(* 900 MG/50 ML SDV IV SCH (06:08)
[2017-05-22] MEDS: Heparin VIAL(*) 5000 UNITS/ML VIAL (FIVE THOUSAND) SUBCUT SCH ×3 (06:08→21:21)
[2017-05-22] MEDS: Mometasone/Formoter 200/5 MDI INH SCH ×2 (07:38→20:15)
[2017-05-22] MEDS: Tiotropium CAP.INH* CAP.INH/18 MCG (USE ORDER SET !) INH SCH (07:39)
[2017-05-22] MEDS ORDERED: Vancomycin per Pharmacy* NOTE FOLLOW UP PRN (08:42)
[2017-05-22] MEDS: traMADol TAB* 50 MG PO PRN (08:54)
[2017-05-22] MEDS: Insulin GLARGINE(*) 1 UNITS UNIT SUBCUT SCH ×2 (08:54→21:02)
[2017-05-22] MEDS: Insulin LISPRO* 1 UNITS UNIT SUBCUT SCH ×4 (08:54→21:02)
[2017-05-22] MEDS: Docusate CAP* 100 MG PO SCH ×2 (08:55→21:01)
[2017-05-22] MEDS ORDERED: Vancomycin 1500 MG IV - x ONCE IVPB ONE ×2 (09:00)
--- NOTE | 2017-05-22 09:24 | PN ---
Subjective Date of Service: 05/22/17 Interval History: Patient seen and examined. US and labs reviewed. Erythema and pain to RLE increased again overnight. Remains afebrile, breathing improved. No further complaints Objective Active Medications: Acetaminophen (Tylenol Tab*) 650 mg PO Q6H PRN PRN Reason: FEVER/PAIN Last Admin: 05/22/17 06:07 Dose: 650 mg Albuterol (Ventolin 2.5 Mg/3 Ml Neb.Shefali*) 2.5 mg INH Q2H PRN PRN Reason: SOB/WHEEZING Last Admin: 05/22/17 03:52 Dose: 2.5 mg Docusate Sodium (Colace Cap*) 200 mg PO BID [facility] Last Admin: 05/22/17 08:55 Dose: Not Given Heparin Sodium (Porcine) (Heparin Vial(*)) 5,000 units SUBCUT Q8HR [facility] Last Admin: 05/22/17 06:08 Dose: 5,000 units Levofloxacin/Dextrose (Levaquin 750 Mg Ivpremix(*)) 750 mg in 150 mls @ 100 mls /hr IVPB Q24H [facility] Last Admin: 05/21/17 23:39 Dose: 100 mls/hr Sodium Chloride (Ns 0.9% 1000 Ml*) 1,000 mls @ 125 mls/hr IV PER RATE [facility] Last Admin: 05/21/17 22:04 Dose: 125 mls/hr Vancomycin HCl 1,500 mg/ (Sodium Chloride) 250 mls @ 166.667 mls/hr IVPB ONCE ONE Stop: 05/22/17 10:29 Insulin Glargine (Lantus(*)) 10 units SUBCUT Q12H [facility] Last Admin: 05/22/17 08:54 Dose: 10 units Insulin Human Lispro (Humalog*) 0 units SUBCUT ACHS [facility] PRN Reason: Protocol Last Admin: 05/22/17 08:54 Dose: 3 unit Melatonin (Melatonin (Nf)) 3 mg PO BEDTIME PRN; Protocol PRN Reason: Sleep Mometasone Furoate/Formoterol Fumar (Dulera 200/5 Mdi*) 2 puff INH BID [facility] Last Admin: 05/22/17 07:38 Dose: Not Given Omeprazole (Prilosec Cap*) 20 mg PO DAILY@0600 [facility] Last Admin: 05/22/17 06:08 Dose: 20 mg Ondansetron HCl (Zofran Inj*) 4 mg IV Q6H PRN PRN Reason: NAUSEA Pharmacy Consult (Vancomycin Per Pharmacy*) 1 note FOLLOW UP . PRN PRN Reason: PER PROTOCOL Tiotropium [place] (Spiriva Cap.Inh*) 1 cap INH DAILY [facility] Last Admin: 05/22/17 07:39 Dose: Not Given Tramadol HCl (Ultram*) 50 mg PO Q6H PRN PRN Reason: PAIN Last Admin: 05/22/17 08:54 Dose: 50 mg Vital Signs - 8 hr 05/22/17 05/22/17 05/22/17 02:04 03:25 03:53 Temperature 97.4 F Pulse Rate 135 70 Respiratory 18 16 20 Rate Blood Pressure 111/42 (mmHg) O2 Sat by Pulse 96 98 Oximetry 05/22/17 05/22/17 05/22/17 07:31 07:40 08:00 Temperature 97.9 F Pulse Rate 66 Respiratory 14 20 Rate Blood Pressure 96/48 100/50 (mmHg) O2 Sat by Pulse 93 96 Oximetry 05/22/17 05/22/17 08:54 09:15 Temperature Pulse Rate 76 Respiratory 16 16 Rate Blood Pressure (mmHg) O2 Sat by Pulse 96 Oximetry Oxygen Devices in Use Now: Nasal Cannula Appearance: Alert, NAD Ears/Nose/Mouth/Throat: - - edentulous Neck: NL Appearance and Movements; NL JVP, Trachea Midline Respiratory: Symmetrical Chest Expansion and Respiratory Effort, - - diminished bases, no wheeze Cardiovascular: NL Sounds; No Murmurs; No JVD, RRR Extremities: - - increased erythema and edema to RLE, one area receded from margins but interval increase in erythema distally Neurological: Alert and Oriented x 3, NL Sensation Nutrition: Taking PO's Result Diagrams: 05/20/17 06:38 05/21/17 06:00 Microbiology and Other Data: Microbiology 05/20/17 05:08 Urine Culture - Final Urine Assess/Plan/Problems-Billing Assessment: This is a 61 year old morbidly obese female with hx of COPD, DMII, HTN, that presents with pain and redness to RLE with subjective fever and chills, admitted for treatment of cellulitis. - Patient Problems (1) Cellulitis of right anterior lower leg Code(s): L03.115 - CELLULITIS OF RIGHT LOWER LIMB SNOMED Code(s): 014471195 Comment: - Will place back on vanco today, as patient is not having adequate response to clindamycin - US negative for DVT - Subjective chills yesterday but no fever, will redraw cultures if temp increases - CBC pending (2) COPD without exacerbation Code(s): J44.9 - CHRONIC OBSTRUCTIVE PULMONARY DISEASE, UNSPECIFIED SNOMED Code(s): 69893698 Comment: - Continue O2 and nebs as needed (3) Chronic respiratory failure Code(s): J96.10 - CHRONIC RESPIRATORY FAILURE, UNSP W HYPOXIA OR HYPERCAPNIA SNOMED Code(s): 42690825 Comment: - Continue O2 at 2LNC (4) Diabetes mellitus type 2 in obese Code(s): E11.9 - TYPE 2 DIABETES MELLITUS WITHOUT COMPLICATIONS; E66.9 - OBESITY , UNSPECIFIED SNOMED Code(s): 58832317 Comment: - Continue lispro SS for coverage AC and HS, sugars improving - Added lantus yesterday while acutely infected (5) Obesity, Class III, BMI 40-49.9 (morbid obesity) Code(s): E66.01 - MORBID (SEVERE) OBESITY DUE TO EXCESS CALORIES SNOMED Code(s ): 632890741 Comment: - BMI 44 likely also contributing to hypoxic respiratory failure (6) Venous ulcer Code(s): I87.8 - OTHER SPECIFIED DISORDERS OF VEINS SNOMED Code(s): 308285274 Comment: - Chronic, scabbing, no drainage or exudate noted - Will order wound care consult Status and Disposition: Remain inpatient.
[2017-05-22] MEDS: NS 0.9% 1000 ML* 1,000 ML IV SCH ×2 (11:02→23:07)
[2017-05-22 12:23] LABS: ABS Basophils 0 10^3/ul (0-0.2); ABS Eosinophils 0.3 10^3/ul (0-0.6); ABS Lymphocytes 1.1 10^3/ul (1.0-4.8); ABS Monocytes 0.6 10^3/ul (0-0.8); ABS Neutrophils 5.4 10^3/ul (1.5-7.7); ABS Nucleated RBC 0 10^3/ul; Hematocrit 32 % (35-47); Hemoglobin 10.4 g/dl (12.0-16.0); Lymphocyte % 14.6 % (25-47); Mean Corpuscular HGB Conc 33 g/dl (31-36); Mean Corpuscular Hemoglobin 27 pg (27-31); Mean Corpuscular Volume 82 fL (80-97); Mean Platelet Volume 9.7 um3 (7.4-10.4); Nucleated Red Blood Cells % 0; Platelet Count 144 10^3/ul (150-450); Red Blood Count 3.85 10^6/ul (4.0-5.4); Red Cell Distribution Width 16 % (10.5-15); White Blood Count 7.3 10^3/ul (3.5-10.8)
[2017-05-22] MEDS: Vancomycin(*) 1,250 MG in NS 0.9% 250 ML* 250 ML IVPB SCH (17:30)
[2017-05-22] MEDS: Ondansetron INJ* 2 MG/ML VIAL IV PRN (17:34)
[2017-05-22] MEDS: Levofloxacin 750 MG IVPREMIX(* 750 MG/150 ML BAG IVPB SCH (23:51)
[2017-05-23] MEDS: Vancomycin(*) 1,250 MG in NS 0.9% 250 ML* 250 ML IVPB SCH ×3 (01:24→17:14)
[2017-05-23] MEDS: traMADol TAB* 50 MG PO PRN ×2 (05:05→14:43)
[2017-05-23] MEDS: Omeprazole CAP* 20 MG PO SCH (05:05)
[2017-05-23] MEDS: Heparin VIAL(*) 5000 UNITS/ML VIAL (FIVE THOUSAND) SUBCUT SCH ×3 (05:06→21:21)
[2017-05-23] MEDS: Mometasone/Formoter 200/5 MDI INH SCH ×2 (07:03→19:32)
[2017-05-23] MEDS: Tiotropium CAP.INH* CAP.INH/18 MCG (USE ORDER SET !) INH SCH (07:03)
[2017-05-23] MEDS: Insulin LISPRO* 1 UNITS UNIT SUBCUT SCH ×4 (07:44→20:40)
[2017-05-23] MEDS ORDERED: Vancomycin Trough Check NOTE FOLLOW UP ONE (08:30)
[2017-05-23] MEDS: Insulin GLARGINE(*) 1 UNITS UNIT SUBCUT SCH ×2 (08:40→20:40)
[2017-05-23] MEDS: Docusate CAP* 100 MG PO SCH ×2 (08:46→20:17)
[2017-05-23 09:04] LABS: Hematocrit 31 % (35-47); Mean Corpuscular HGB Conc 33 g/dl (31-36); Mean Corpuscular Hemoglobin 27 pg (27-31); Mean Corpuscular Volume 83 fL (80-97); Mean Platelet Volume 9.4 um3 (7.4-10.4); Platelet Count 143 10^3/ul (150-450); Red Blood Count 3.69 10^6/ul (4.0-5.4); Red Cell Distribution Width 16 % (10.5-15); White Blood Count 7.2 10^3/ul (3.5-10.8)
[2017-05-23 09:28] LABS: EGFR Non-African American 80.3 (>60)
[2017-05-23 09:38] LABS: ABS Basophils 0.1 10^3/ul (0-0.2); ABS Eosinophils 0.2 10^3/ul (0-0.6); ABS Lymphocytes 0.9 10^3/ul (1.0-4.8); ABS Monocytes 0.5 10^3/ul (0-0.8); ABS Neutrophils 5.5 10^3/ul (1.5-7.7); ABS Nucleated RBC 0 10^3/ul; Eosinophil % 3.4 % (0-6); Lymphocyte % 12.7 % (25-47); Nucleated Red Blood Cells % 0.1
[2017-05-23 09:57] LABS: Vancomycin Trough 14.6 mcg/mL
[2017-05-23] MEDS: NS 0.9% 1000 ML* 1,000 ML IV SCH (11:17)
--- NOTE | 2017-05-23 11:27 | PN ---
Subjective Date of Service: 05/23/17 Interval History: PAtient seen and examined. Less pain in leg today, denies SOB, no chest pain. No fevers or chills. No acute overnight events. Objective Active Medications: Acetaminophen (Tylenol Tab*) 650 mg PO Q6H PRN PRN Reason: FEVER/PAIN Last Admin: 05/22/17 06:07 Dose: 650 mg Albuterol (Ventolin 2.5 Mg/3 Ml Neb.Shefali*) 2.5 mg INH Q2H PRN PRN Reason: SOB/WHEEZING Last Admin: 05/22/17 03:52 Dose: 2.5 mg Docusate Sodium (Colace Cap*) 200 mg PO BID [facility] Last Admin: 05/23/17 08:46 Dose: Not Given Heparin Sodium (Porcine) (Heparin Vial(*)) 5,000 units SUBCUT Q8HR [facility] Last Admin: 05/23/17 05:06 Dose: 5,000 units Levofloxacin/Dextrose (Levaquin 750 Mg Ivpremix(*)) 750 mg in 150 mls @ 100 mls /hr IVPB Q24H [facility] Last Admin: 05/22/17 23:51 Dose: 100 mls/hr Sodium Chloride (Ns 0.9% 1000 Ml*) 1,000 mls @ 125 mls/hr IV PER RATE [facility] Last Admin: 05/23/17 11:17 Dose: 125 mls/hr Vancomycin HCl 1,250 mg/ (Sodium Chloride) 250 mls @ 166.667 mls/hr IVPB Q8H [facility] Last Admin: 05/23/17 11:12 Dose: 166.667 mls/hr Insulin Glargine (Lantus(*)) 10 units SUBCUT Q12H [facility] Last Admin: 05/23/17 08:40 Dose: 10 units Insulin Human Lispro (Humalog*) 0 units SUBCUT ACHS [facility] PRN Reason: Protocol Last Admin: 05/23/17 07:44 Dose: Not Given Melatonin (Melatonin (Nf)) 3 mg PO BEDTIME PRN; Protocol PRN Reason: Sleep Mometasone Furoate/Formoterol Fumar (Dulera 200/5 Mdi*) 2 puff INH BID [facility] Last Admin: 05/23/17 07:03 Dose: Not Given Omeprazole (Prilosec Cap*) 20 mg PO DAILY@0600 [facility] Last Admin: 05/23/17 05:05 Dose: 20 mg Ondansetron HCl (Zofran Inj*) 4 mg IV Q6H PRN PRN Reason: NAUSEA Last Admin: 05/22/17 17:34 Dose: 4 mg Pharmacy Consult (Vancomycin Per Pharmacy*) 1 note FOLLOW UP . PRN PRN Reason: PER PROTOCOL Pharmacy Profile Note (Vancomycin Trough Check) 1 note FOLLOW UP ONCE ONE Stop: 05/26/17 08:31 Tiotropium [place] (Spiriva Cap.Inh*) 1 cap INH DAILY [facility] Last Admin: 05/23/17 07:03 Dose: Not Given Tramadol HCl (Ultram*) 50 mg PO Q6H PRN PRN Reason: PAIN Last Admin: 05/23/17 05:05 Dose: 50 mg Vital Signs - 8 hr 05/23/17 05/23/17 05/23/17 03:23 05:05 07:53 Temperature 97.6 F 98.1 F Pulse Rate 71 64 Respiratory 20 17 16 Rate Blood Pressure 135/53 93/31 (mmHg) O2 Sat by Pulse 93 95 Oximetry 05/23/17 09:28 Temperature Pulse Rate Respiratory 18 Rate Blood Pressure (mmHg) O2 Sat by Pulse Oximetry Oxygen Devices in Use Now: Nasal Cannula Appearance: Alert, NAD Eyes: No Scleral Icterus, PERRLA Ears/Nose/Mouth/Throat: - - edentulous Neck: NL Appearance and Movements; NL JVP, Trachea Midline Respiratory: Symmetrical Chest Expansion and Respiratory Effort, - - mild expiratory wheeze Cardiovascular: NL Sounds; No Murmurs; No JVD, RRR Abdominal: NL Sounds; No Tenderness; No Distention, - - obese Extremities: - - still wtih sig edema to RLE with calf circumference greater on that side Skin: - - erythema does not cross marked margins, mild improvement noted Neurological: Alert and Oriented x 3 Nutrition: Taking PO's Result Diagrams: 05/23/17 08:53 05/23/17 08:53 Microbiology and Other Data: Microbiology 05/20/17 05:08 Urine Culture - Final Urine Assess/Plan/Problems-Billing Assessment: This is a 61 year old morbidly obese female with hx of COPD, DMII, HTN, that presents with pain and redness to RLE with subjective fever and chills, admitted for treatment of cellulitis. - Patient Problems (1) Cellulitis of right anterior lower leg Code(s): L03.115 - CELLULITIS OF RIGHT LOWER LIMB SNOMED Code(s): 059820503 Comment: - Seems to be improving now that vanco has been restarted - US negative for DVT - Afebrile - Leukocytosis resolved (2) COPD without exacerbation Code(s): J44.9 - CHRONIC OBSTRUCTIVE PULMONARY DISEASE, UNSPECIFIED SNOMED Code(s): 45509680 Comment: - Continue O2 and nebs as needed (3) Chronic respiratory failure Code(s): J96.10 - CHRONIC RESPIRATORY FAILURE, UNSP W HYPOXIA OR HYPERCAPNIA SNOMED Code(s): 91751337 Comment: - Continue O2 at 2LNC (4) Diabetes mellitus type 2 in obese Code(s): E11.9 - TYPE 2 DIABETES MELLITUS WITHOUT COMPLICATIONS; E66.9 - OBESITY , UNSPECIFIED SNOMED Code(s): 74777091 Comment: - Continue lispro SS for coverage AC and HS, sugars improving - Continue lantus while acutely infected - BG stabilizing (5) Obesity, Class III, BMI 40-49.9 (morbid obesity) Code(s): E66.01 - MORBID (SEVERE) OBESITY DUE TO EXCESS CALORIES SNOMED Code(s ): 191711884 Comment: - BMI 44 likely also contributing to hypoxic respiratory failure (6) Venous ulcer Code(s): I87.8 - OTHER SPECIFIED DISORDERS OF VEINS SNOMED Code(s): 827672553 Comment: - Chronic, scabbing, no drainage or exudate noted - Wound consult appreciated, wounds not open or acutely infected, recommending lotion and general skin care to prevent further breakdown Status and Disposition: Remain inpatient, continue IV vanco. May need ID consult if no improvement.
[2017-05-24] MEDS: Levofloxacin 750 MG IVPREMIX(* 750 MG/150 ML BAG IVPB SCH (00:25)
[2017-05-24] MEDS: Vancomycin(*) 1,250 MG in NS 0.9% 250 ML* 250 ML IVPB SCH ×4 (01:07→17:56)
[2017-05-24] MEDS: traMADol TAB* 50 MG PO PRN ×3 (03:43→17:56)
[2017-05-24] MEDS: Omeprazole CAP* 20 MG PO SCH (05:13)
[2017-05-24] MEDS: Heparin VIAL(*) 5000 UNITS/ML VIAL (FIVE THOUSAND) SUBCUT SCH ×3 (05:14→20:51)
[2017-05-24] MEDS: Tiotropium CAP.INH* CAP.INH/18 MCG (USE ORDER SET !) INH SCH (07:43)
[2017-05-24] MEDS: Mometasone/Formoter 200/5 MDI INH SCH ×2 (07:43→19:28)
[2017-05-24] MEDS: Insulin GLARGINE(*) 1 UNITS UNIT SUBCUT SCH ×2 (08:57→20:51)
[2017-05-24] MEDS: Insulin LISPRO* 1 UNITS UNIT SUBCUT SCH ×4 (08:57→20:51)
[2017-05-24] MEDS: Docusate CAP* 100 MG PO SCH (08:58)
--- NOTE | 2017-05-24 10:22 | PN ---
Subjective Date of Service: 05/24/17 Interval History: Reports continue to report pain in right lower leg, states that the pain and swelling is improving. Denies chest pain or shortness of breath. Denies abd pain, N/V/D. Family History: Unchanged from Admission Social History: Unchanged from Admission Past Medical History: Unchanged from Admission Objective Active Medications: Acetaminophen (Tylenol Tab*) 650 mg PO Q6H PRN PRN Reason: FEVER/PAIN Last Admin: 05/22/17 06:07 Dose: 650 mg Albuterol (Ventolin 2.5 Mg/3 Ml Neb.Shefali*) 2.5 mg INH Q2H PRN PRN Reason: SOB/WHEEZING Last Admin: 05/22/17 03:52 Dose: 2.5 mg Docusate Sodium (Colace Cap*) 200 mg PO BID [facility] Last Admin: 05/24/17 08:58 Dose: Not Given Heparin Sodium (Porcine) (Heparin Vial(*)) 5,000 units SUBCUT Q8HR [facility] Last Admin: 05/24/17 05:14 Dose: 5,000 units Levofloxacin/Dextrose (Levaquin 750 Mg Ivpremix(*)) 750 mg in 150 mls @ 100 mls /hr IVPB Q24H [facility] Last Admin: 05/24/17 00:25 Dose: 100 mls/hr Sodium Chloride (Ns 0.9% 1000 Ml*) 1,000 mls @ 125 mls/hr IV PER RATE [facility] Last Admin: 05/23/17 11:17 Dose: 125 mls/hr Vancomycin HCl 1,250 mg/ (Sodium Chloride) 250 mls @ 166.667 mls/hr IVPB Q8H [facility] Last Admin: 05/24/17 08:56 Dose: 166.667 mls/hr Insulin Glargine (Lantus(*)) 10 units SUBCUT Q12H [facility] Last Admin: 05/24/17 08:57 Dose: 10 units Insulin Human Lispro (Humalog*) 0 units SUBCUT ACHS [facility] PRN Reason: Protocol Last Admin: 05/24/17 08:57 Dose: 3 unit Melatonin (Melatonin (Nf)) 3 mg PO BEDTIME PRN; Protocol PRN Reason: Sleep Mometasone Furoate/Formoterol Fumar (Dulera 200/5 Mdi*) 2 puff INH BID [facility] Last Admin: 05/24/17 07:43 Dose: Not Given Omeprazole (Prilosec Cap*) 20 mg PO DAILY@0600 [facility] Last Admin: 05/24/17 05:13 Dose: 20 mg Ondansetron HCl (Zofran Inj*) 4 mg IV Q6H PRN PRN Reason: NAUSEA Last Admin: 05/22/17 17:34 Dose: 4 mg Pharmacy Consult (Vancomycin Per Pharmacy*) 1 note FOLLOW UP . PRN PRN Reason: PER PROTOCOL Pharmacy Profile Note (Vancomycin Trough Check) 1 note FOLLOW UP ONCE ONE Stop: 05/26/17 08:31 Tiotropium [place] (Spiriva Cap.Inh*) 1 cap INH DAILY [facility] Last Admin: 05/24/17 07:43 Dose: Not Given Tramadol HCl (Ultram*) 50 mg PO Q6H PRN PRN Reason: PAIN Last Admin: 05/24/17 03:43 Dose: 50 mg Vital Signs - 8 hr 05/24/17 05/24/17 05/24/17 03:43 04:01 06:23 Temperature 98.6 F Pulse Rate 69 Respiratory 17 20 18 Rate Blood Pressure 149/74 (mmHg) O2 Sat by Pulse 96 Oximetry 05/24/17 07:59 Temperature 97.5 F Pulse Rate 69 Respiratory 18 Rate Blood Pressure 134/58 (mmHg) O2 Sat by Pulse 97 Oximetry Oxygen Devices in Use Now: Nasal Cannula Appearance: appears comfortable sitting on the edge of the bed. Eyes: No Scleral Icterus Ears/Nose/Mouth/Throat: Clear Oropharnyx, Mucous Membranes Moist Neck: NL Appearance and Movements; NL JVP, Trachea Midline Respiratory: Symmetrical Chest Expansion and Respiratory Effort, Clear to Auscultation Cardiovascular: NL Sounds; No Murmurs; No JVD Abdominal: NL Sounds; No Tenderness; No Distention Extremities: No Clubbing, Cyanosis, - - erythema within the outlined margins, reports improvment of erthyema. no drainage Skin: - - right lower ext with mild swelling, erthyema improving, well within the outlined margins. Neurological: Alert and Oriented x 3 Nutrition: Taking PO's Result Diagrams: 05/23/17 08:53 05/23/17 08:53 Microbiology and Other Data: Microbiology 05/20/17 05:08 Urine Culture - Final Urine Assess/Plan/Problems-Billing Assessment: This is a 61 year old morbidly obese female with hx of COPD, DMII, HTN, that presents with pain and redness to RLE with subjective fever and chills, admitted for treatment of cellulitis. - Patient Problems (1) Cellulitis of right anterior lower leg Current Visit: Yes Status: Acute Code(s): L03.115 - CELLULITIS OF RIGHT LOWER LIMB SNOMED Code(s): 835520223 Comment: - improving now that vanco has been restarted- will continue vanco - US negative for DVT - Afebrile - Leukocytosis resolved (2) COPD without exacerbation Current Visit: Yes Status: Acute Code(s): J44.9 - CHRONIC OBSTRUCTIVE PULMONARY DISEASE, UNSPECIFIED SNOMED Code(s): 80401958 Comment: - Continue O2 and nebs as needed (3) Venous ulcer Current Visit: No Status: Chronic Code(s): I87.8 - OTHER SPECIFIED DISORDERS OF VEINS SNOMED Code(s): 179767218 Comment: - Chronic, scabbing, no drainage or exudate noted - Wound consult appreciated, wounds not open or acutely infected, recommending lotion and general skin care to prevent further breakdown. (4) Chronic respiratory failure Current Visit: No Status: Acute Code(s): J96.10 - CHRONIC RESPIRATORY FAILURE, UNSP W HYPOXIA OR HYPERCAPNIA SNOMED Code(s): 84254636 Comment: - Continue O2 at 2LNC (5) Diabetes mellitus type 2 in obese Current Visit: No Status: Chronic Priority: Medium Code(s): E11.9 - TYPE 2 DIABETES MELLITUS WITHOUT COMPLICATIONS; E66.9 - OBESITY, UNSPECIFIED SNOMED Code(s): 20813907 Comment: - Continue lispro SS for coverage AC and HS, sugars improving - Continue lantus while acutely infected - BG 139-255 (6) Obesity, Class III, BMI 40-49.9 (morbid obesity) Current Visit: No Status: Chronic Priority: High Code(s): E66.01 - MORBID (SEVERE) OBESITY DUE TO EXCESS CALORIES SNOMED Code(s): 613692408 Comment: - BMI 44 likely also contributing to hypoxic respiratory failure (7) DVT prophylaxis Current Visit: No Status: Acute Priority: Medium Code(s): LIQ8174 - SNOMED Code(s): 586792295 Comment: SQ heparin. (8) Full code status Current Visit: No Status: Acute Code(s): Z78.9 - OTHER SPECIFIED HEALTH STATUS SNOMED Code(s): 500450656 Status and Disposition: Remain inpatient, continue IV vanco. Discharge home when stable
[2017-05-24] MEDS: Ondansetron INJ* 2 MG/ML VIAL IV PRN (12:41)
[2017-05-24] MEDS ORDERED: Benzocaine/Menthol LOZ* 1 LOZENGE PO PRN (14:54)
[2017-05-24] MEDS ORDERED: Docusate CAP* 100 MG PO PRN (15:19)
[2017-05-24] MEDS: Acetaminophen TAB* 325 MG PO PRN (19:53)
[2017-05-25] MEDS: Levofloxacin 750 MG IVPREMIX(* 750 MG/150 ML BAG IVPB SCH (00:11)
[2017-05-25] MEDS: traMADol TAB* 50 MG PO PRN ×2 (00:17→17:22)
[2017-05-25] MEDS: Vancomycin(*) 1,250 MG in NS 0.9% 250 ML* 250 ML IVPB SCH ×3 (02:06→17:23)
[2017-05-25] MEDS: Ondansetron INJ* 2 MG/ML VIAL IV PRN (02:11)
[2017-05-25] MEDS: Omeprazole CAP* 20 MG PO SCH (05:32)
[2017-05-25] MEDS: Heparin VIAL(*) 5000 UNITS/ML VIAL (FIVE THOUSAND) SUBCUT SCH ×2 (05:32→12:23)
[2017-05-25 07:19] LABS: Hematocrit 30 % (35-47); Hemoglobin 9.8 g/dl (12.0-16.0); Mean Corpuscular HGB Conc 33 g/dl (31-36); Mean Corpuscular Hemoglobin 27 pg (27-31); Mean Corpuscular Volume 82 fL (80-97); Mean Platelet Volume 9.5 um3 (7.4-10.4); Platelet Count 167 10^3/ul (150-450); Red Blood Count 3.62 10^6/ul (4.0-5.4); Red Cell Distribution Width 16 % (10.5-15); White Blood Count 8.8 10^3/ul (3.5-10.8)
[2017-05-25 07:37] LABS: EGFR Non-African American 100.4 (>60)
[2017-05-25] MEDS: Tiotropium CAP.INH* CAP.INH/18 MCG (USE ORDER SET !) INH SCH (08:09)
[2017-05-25] MEDS: Mometasone/Formoter 200/5 MDI INH SCH ×2 (08:09→19:41)
[2017-05-25 08:13] LABS: ABS Basophils 0.1 10^3/ul (0-0.2); ABS Eosinophils 0.3 10^3/ul (0-0.6); ABS Lymphocytes 1.2 10^3/ul (1.0-4.8); ABS Monocytes 0.5 10^3/ul (0-0.8); ABS Neutrophils 6.7 10^3/ul (1.5-7.7); ABS Nucleated RBC 0 10^3/ul; Eosinophil % 3.3 % (0-6); Nucleated Red Blood Cells % 0
[2017-05-25] MEDS: Insulin LISPRO* 1 UNITS UNIT SUBCUT SCH ×4 (08:40→19:40)
[2017-05-25] MEDS: Insulin GLARGINE(*) 1 UNITS UNIT SUBCUT SCH ×2 (08:41→19:40)
[2017-05-25] MEDS: Acetaminophen TAB* 325 MG PO PRN ×2 (10:40→19:41)
--- NOTE | 2017-05-25 15:31 | PN ---
Subjective Date of Service: 05/25/17 Interval History: States that pain has improved in her left ankle and lower leg, reports mild shortness of breath but no worse than normal. Denies chest pain. denies abd pain n/v/d. Family History: Unchanged from Admission Social History: Unchanged from Admission Past Medical History: Unchanged from Admission Objective Active Medications: Acetaminophen (Tylenol Tab*) 650 mg PO Q6H PRN PRN Reason: FEVER/PAIN Last Admin: 05/25/17 10:40 Dose: 650 mg Albuterol (Ventolin 2.5 Mg/3 Ml Neb.Shefali*) 2.5 mg INH Q2H PRN PRN Reason: SOB/WHEEZING Last Admin: 05/22/17 03:52 Dose: 2.5 mg Docusate Sodium (Colace Cap*) 100 mg PO BID PRN PRN Reason: CONSTIPATION Last Admin: 05/25/17 08:41 Dose: 100 mg Heparin Sodium (Porcine) (Heparin Vial(*)) 5,000 units SUBCUT Q8HR [facility] Last Admin: 05/25/17 12:23 Dose: 5,000 units Levofloxacin/Dextrose (Levaquin 750 Mg Ivpremix(*)) 750 mg in 150 mls @ 100 mls /hr IVPB Q24H [facility] Last Admin: 05/25/17 00:11 Dose: 100 mls/hr Vancomycin HCl 1,250 mg/ (Sodium Chloride) 250 mls @ 166.667 mls/hr IVPB Q8H [facility] Last Admin: 05/25/17 08:41 Dose: 166.667 mls/hr Insulin Glargine (Lantus(*)) 10 units SUBCUT Q12H [facility] Last Admin: 05/25/17 08:41 Dose: 10 units Insulin Human Lispro (Humalog*) 0 units SUBCUT ACHS [facility] PRN Reason: Protocol Last Admin: 05/25/17 12:21 Dose: 3 unit Melatonin (Melatonin (Nf)) 3 mg PO BEDTIME PRN; Protocol PRN Reason: Sleep Mometasone Furoate/Formoterol Fumar (Dulera 200/5 Mdi*) 2 puff INH BID [facility] Last Admin: 05/25/17 08:09 Dose: Not Given Omeprazole (Prilosec Cap*) 20 mg PO DAILY@0600 [facility] Last Admin: 05/25/17 05:32 Dose: 20 mg Ondansetron HCl (Zofran Inj*) 4 mg IV Q6H PRN PRN Reason: NAUSEA Last Admin: 05/25/17 02:11 Dose: 4 mg Pharmacy Consult (Vancomycin Per Pharmacy*) 1 note FOLLOW UP . PRN PRN Reason: PER PROTOCOL Pharmacy Profile Note (Vancomycin Trough Check) 1 note FOLLOW UP ONCE ONE Stop: 05/26/17 08:31 Tiotropium [place] (Spiriva Cap.Inh*) 1 cap INH DAILY [facility] Last Admin: 05/25/17 08:09 Dose: Not Given Tramadol HCl (Ultram*) 50 mg PO Q6H PRN PRN Reason: PAIN Last Admin: 05/25/17 00:17 Dose: 50 mg Vital Signs - 8 hr 05/25/17 05/25/17 05/25/17 08:00 08:18 12:12 Temperature 98.6 F 98.0 F Pulse Rate 59 Respiratory 18 16 Rate Blood Pressure 125/53 99/45 (mmHg) O2 Sat by Pulse 95 95 96 Oximetry Oxygen Devices in Use Now: Nasal Cannula Appearance: appears comfortable resting in bed Eyes: No Scleral Icterus Ears/Nose/Mouth/Throat: Clear Oropharnyx, Mucous Membranes Moist Neck: NL Appearance and Movements; NL JVP, Trachea Midline Respiratory: Symmetrical Chest Expansion and Respiratory Effort, Clear to Auscultation Cardiovascular: NL Sounds; No Murmurs; No JVD Abdominal: NL Sounds; No Tenderness; No Distention Extremities: No Edema Skin: - - Left lower leg with redness continue to recede and staying within the outlined margins, moderate amount of swelling in left lower leg. Neurological: Alert and Oriented x 3 Result Diagrams: 05/25/17 06:56 05/25/17 06:56 Microbiology and Other Data: Microbiology 05/20/17 05:08 Urine Culture - Final Urine Assess/Plan/Problems-Billing Assessment: This is a 61 year old morbidly obese female with hx of COPD, DMII, HTN, that presents with pain and redness to E with subjective fever and chills, admitted for treatment of cellulitis. - Patient Problems (1) Cellulitis of right anterior lower leg Current Visit: Yes Status: Acute Code(s): L03.115 - CELLULITIS OF RIGHT LOWER LIMB SNOMED Code(s): 902632148 Comment: - continues to improve with vanco and levaquin - will continue - US negative for DVT - Afebrile - Leukocytosis resolved (2) COPD without exacerbation Current Visit: Yes Status: Acute Code(s): J44.9 - CHRONIC OBSTRUCTIVE PULMONARY DISEASE, UNSPECIFIED SNOMED Code(s): 27945486 Comment: - Continue O2 and nebs as needed Nebulizer tx as needed for shortness of breath or wheezing (3) Venous ulcer Current Visit: No Status: Chronic Code(s): I87.8 - OTHER SPECIFIED DISORDERS OF VEINS SNOMED Code(s): 933016622 Comment: - Chronic, scabbing, no drainage or exudate noted- dry and scaling skin - Wound consult appreciated, wounds not open or acutely infected, recommending lotion and general skin care to prevent further breakdown. (4) Chronic respiratory failure Current Visit: No Status: Acute Code(s): J96.10 - CHRONIC RESPIRATORY FAILURE, UNSP W HYPOXIA OR HYPERCAPNIA SNOMED Code(s): 52100287 Comment: - Continue O2 at 2LNC (5) Diabetes mellitus type 2 in obese Current Visit: No Status: Chronic Priority: Medium Code(s): E11.9 - TYPE 2 DIABETES MELLITUS WITHOUT COMPLICATIONS; E66.9 - OBESITY, UNSPECIFIED SNOMED Code(s): 84011681 Comment: - Continue lispro SS for coverage AC and HS, sugars improving - Continue lantus while acutely infected - BG 134-174 (6) Obesity, Class III, BMI 40-49.9 (morbid obesity) Current Visit: No Status: Chronic Priority: High Code(s): E66.01 - MORBID (SEVERE) OBESITY DUE TO EXCESS CALORIES SNOMED Code(s): 059653451 Comment: - BMI 44 likely also contributing to hypoxic respiratory failure (7) DVT prophylaxis Current Visit: No Status: Acute Priority: Medium Code(s): CKV9563 - SNOMED Code(s): 704318674 Comment: SQ heparin. (8) Full code status Current Visit: No Status: Acute Code(s): Z78.9 - OTHER SPECIFIED HEALTH STATUS SNOMED Code(s): 792218066 Status and Disposition: Remain inpatient, continue IV vanco. Discharge home when stable
[2017-05-26] MEDS: Heparin VIAL(*) 5000 UNITS/ML VIAL (FIVE THOUSAND) SUBCUT SCH ×3 (00:01→13:22)
[2017-05-26] MEDS: Levofloxacin 750 MG IVPREMIX(* 750 MG/150 ML BAG IVPB SCH (00:01)
[2017-05-26] MEDS: Ondansetron INJ* 2 MG/ML VIAL IV PRN ×2 (00:09→13:24)
[2017-05-26] MEDS: Vancomycin(*) 1,250 MG in NS 0.9% 250 ML* 250 ML IVPB SCH (01:30)
[2017-05-26] MEDS: Omeprazole CAP* 20 MG PO SCH (05:23)
[2017-05-26 07:09] LABS: EGFR Non-African American 76.7 (>60)
[2017-05-26] MEDS: Tiotropium CAP.INH* CAP.INH/18 MCG (USE ORDER SET !) INH SCH (08:03)
[2017-05-26] MEDS: Mometasone/Formoter 200/5 MDI INH SCH (08:04)
[2017-05-26] MEDS: traMADol TAB* 50 MG PO PRN ×2 (08:19→15:27)
[2017-05-26 08:25] LABS: Hematocrit 29 % (35-47); Hemoglobin 9.5 g/dl (12.0-16.0); Mean Corpuscular HGB Conc 33 g/dl (31-36); Mean Corpuscular Hemoglobin 27 pg (27-31); Mean Corpuscular Volume 82 fL (80-97); Platelet Count 172 10^3/ul (150-450); Red Cell Distribution Width 16 % (10.5-15); White Blood Count 6.8 10^3/ul (3.5-10.8)
[2017-05-26] MEDS ORDERED: Vancomycin Trough Check NOTE FOLLOW UP ONE (08:30)
[2017-05-26 09:09] LABS: ABS Basophils 0.1 10^3/ul (0-0.2); ABS Eosinophils 0.3 10^3/ul (0-0.6); ABS Lymphocytes 1.3 10^3/ul (1.0-4.8); ABS Monocytes 0.3 10^3/ul (0-0.8); ABS Neutrophils 4.8 10^3/ul (1.5-7.7); ABS Nucleated RBC 0 10^3/ul; Eosinophil % 4.1 % (0-6); Nucleated Red Blood Cells % 0.1
[2017-05-26] MEDS: Insulin GLARGINE(*) 1 UNITS UNIT SUBCUT SCH (09:40)
[2017-05-26] MEDS: Insulin LISPRO* 1 UNITS UNIT SUBCUT SCH ×2 (09:41→13:23)
[2017-05-26] MEDS: Acetaminophen TAB* 325 MG PO PRN (09:49)
--- NOTE | 2017-05-26 10:52 | CONS ---
CONSULTATION REPORT: DATE OF CONSULT: 05/26/17 REQUESTING PROVIDER: Michelle Sorto NP CONSULTING SERVICE: Infectious Disease. REASON FOR CONSULTATION: Cellulitis. IMPRESSION: Morbid obesity, type 2 diabetes, venous insufficiency, and right leg cellulitis due to g roup A strep. RECOMMENDATIONS: 1. Clindamycin 300 mg by mouth 3 times a day for 10 more days. Follow up with me i n a week. I discussed with her need for continued attention to leg elevation and washing her leg wit h soap and water, and when the dry flakiness comes out, she can use the moisturizer every day. 2. Add on hemoglobin A1c. HISTORY OF PRESENT ILLNESS: This is a 61-year-old woman with obesity and type 2 diabetes, off medica tions for over a year, reports fingersticks running in the 100 to 200 range. She had a few days of r ight leg pain and swelling, so she came to the hospital on the 05/19/17. She had a white blood cell count of 17,000. She was febrile. She was started on IV antibiotics and her fever resolved. Erythe ma slowly improved. She was initially on Zosyn, clindamycin, vancomycin and Levaquin, which she tole rated all of them well. Today, she has some remaining erythema in the right medial calf into the ankl e with some swelling, pain is much improved. She is able to walk around on it now without much disco mfort. She had a right leg ultrasound that showed no DVT. Her fevers are resolved. She is eating, feels well, wants to go home. She has not had a cellulitis in the past. She had a history of right leg infection and abscess over a decade ago. PAST MEDICAL HISTORY: 1. Type 2 diabetes. 2. Morbid obesity. 3. Hypertension. 4. COPD. 5. Hyperlipidemia. 6. TIA. 7. Colon cancer. 8. Venous insufficiency. 9. Depression. 10. Tobacco use. MEDICATIONS: Tylenol, albuterol, docusate, heparin, insulin glargine, insulin Lispro, Levaquin 750 m g IV every 24 hours, melatonin, Zofran, omeprazole, Spiriva, vancomycin 1250 mg every 8 hours. ALLERGIES: CEPHAZOLIN caused rash, PENICILLIN caused anaphylaxis, SULFA caused rash, TETRACYCLINE ca used anaphylaxis. FAMILY HISTORY: No recurrent infection. SOCIAL HISTORY: She lives in [place]. She has no travel or sick contacts. REVIEW OF SYSTEMS: All negative to 14-point review of systems except as noted above. PHYSICAL EXAM: Vital Signs: Temperature is 36.7, heart rate 60, respiratory rate 16, blood pressure 112/43, oxygen saturation 97% on room air. In general, she is awake, not in distress. Neurologic: She is oriented x3. Follows all commands. HEENT: There is no conjunctival hemorrhage. Oropharynx is without lesions. Neck is supple without mass. Lymph Nodes: There is no cervical, supraclavicula r, inguinal, axillary, or epitrochlear lymphadenopathy. Heart is regular rate and rhythm without mur murs, rubs, or gallops. Lungs are clear to auscultation bilaterally. Abdomen: Soft, nontender, non distended. There are bowel sounds present. Skin: There is no splinter hemorrhage. There is right lower extremity patchy erythema, which is blanching. There is no crepitus, fluctuance, or induration . There is trace edema to the right lower extremity. There is skin on her anterior right lower leg. There is no bulla. Musculoskeletal: No spine tenderness to palpation. There is no right ankl e joint tenderness to palpation. LABORATORY DATA: White blood cell count 7, hemoglobin 9, platelets 172. Creatinine is 0.7. CRP 55, down from 205. Please see impressions and recommendations as outlined above, which I have discussed with Michelle astudillo NP. Thank you for asking me to see Ms. Coughlin in consultation. [id number]/[facility] #: [id number]
[2017-05-26 11:48] VITALS: BP 105/35
--- NOTE | 2017-05-26 19:08 | PN ---
Subjective Date of Service: 05/26/17 Interval History: States that pain has improved in her right lower leg, denies chest pain or shortness of breath , denies abd n/v/d. states that she is ready to go home. Family History: Unchanged from Admission Social History: Unchanged from Admission Past Medical History: Unchanged from Admission Objective Vital Signs - 8 hr 05/26/17 05/26/17 05/26/17 11:25 11:36 15:27 Temperature 97.9 F Pulse Rate 62 Respiratory 18 16 18 Rate Blood Pressure 105/35 (mmHg) O2 Sat by Pulse 98 Oximetry 05/26/17 16:00 Temperature Pulse Rate Respiratory Rate Blood Pressure (mmHg) O2 Sat by Pulse 98 Oximetry Oxygen Devices in Use Now: None Appearance: appears comfortable resting in bed Eyes: No Scleral Icterus Ears/Nose/Mouth/Throat: Clear Oropharnyx, Mucous Membranes Moist Neck: NL Appearance and Movements; NL JVP, Trachea Midline Respiratory: Symmetrical Chest Expansion and Respiratory Effort, Clear to Auscultation Cardiovascular: NL Sounds; No Murmurs; No JVD Abdominal: NL Sounds; No Tenderness; No Distention Extremities: No Clubbing, Cyanosis, - - right lower leg and foot withmild swelling , mild erthyema noted to right lower leg, continues to remain within the outlined margins Skin: - - dry and scaley skin noted to bilat lower legs and back Neurological: Alert and Oriented x 3, NL Muscle Strength and Tone Nutrition: Taking PO's Result Diagrams: 05/26/17 06:25 05/26/17 06:31 Microbiology and Other Data: Microbiology 05/20/17 05:08 Urine Culture - Final Urine Assess/Plan/Problems-Billing Assessment: This is a 61 year old morbidly obese female with hx of COPD, DMII, HTN, that presents with pain and redness to E with subjective fever and chills, admitted for treatment of cellulitis. - Patient Problems (1) Cellulitis of right anterior lower leg Status: Acute Code(s): L03.115 - CELLULITIS OF RIGHT LOWER LIMB SNOMED Code( s): 372822463 Comment: - continues to improve with vanco and levaquin - will change to clindamycin 300 mg TID for [address] Arreaga recommendation - erythema is clearing - Afebrile - Leukocytosis resolved (2) COPD without exacerbation Status: Acute Code(s): J44.9 - CHRONIC OBSTRUCTIVE PULMONARY DISEASE, UNSPECIFIED SNOMED Code(s): 86063123 Comment: - Continue O2 - continue sprivia and dulera (3) Venous ulcer Status: Chronic Code(s): I87.8 - OTHER SPECIFIED DISORDERS OF VEINS SNOMED Code(s): 188314962 Comment: - Chronic, scabbing, no drainage or exudate noted- dry and scaling skin - Wound consult appreciated, wounds not open or acutely infected, recommending lotion and general skin care to prevent further breakdown. (4) Chronic respiratory failure Status: Acute Code(s): J96.10 - CHRONIC RESPIRATORY FAILURE, UNSP W HYPOXIA OR HYPERCAPNIA SNOMED Code(s): 39023788 Comment: - Continue O2 at 2LNC (5) Diabetes mellitus type 2 in obese Status: Chronic Priority: Medium Code(s): E11.9 - TYPE 2 DIABETES MELLITUS WITHOUT COMPLICATIONS; E66.9 - OBESITY, UNSPECIFIED SNOMED Code(s): 64146675 Comment: Patient refused home medications for DM- states that she has not beening taking any medications in 1 year. (6) Obesity, Class III, BMI 40-49.9 (morbid obesity) Status: Chronic Priority: High Code(s): E66.01 - MORBID (SEVERE) OBESITY DUE TO EXCESS CALORIES SNOMED Code(s): 597151335 Comment: - BMI 44 likely also contributing to hypoxic respiratory failure (7) DVT prophylaxis Status: Acute Priority: Medium Code(s): XSF3066 - SNOMED Code(s): 964492231 Comment: SQ heparin. (8) Full code status Status: Acute Code(s): Z78.9 - OTHER SPECIFIED HEALTH STATUS SNOMED Code(s) : 653432496 Status and Disposition: discharge home- clindamycin 300 mg TId for 10 days follow up with [facility] in 7 days
== END 2017-05-26 17:52 | disposition home or self-care (01) | DRG 603 ==
LOC: ED 21:13 → MED 05-20 02:02 → OBSVTOIN 05-20 03:07
PROVIDERS: ADMIT Hospitalist; ATTEND Internal Medicine
DX: L03.115 Cellulitis of right lower limb (principal); Z68.41 Body mass index [BMI] 40.0-44.9, adult; J96.10 Chronic respiratory failure, unspecified whether with hypoxia or hypercapnia; E11.9 Type 2 diabetes mellitus without complications; J44.9 Chronic obstructive pulmonary disease, unspecified; I10 Essential (primary) hypertension; E78.5 Hyperlipidemia, unspecified; F32.9 Major depressive disorder, single episode, unspecified; F17.210 Nicotine dependence, cigarettes, uncomplicated; E66.01 Morbid (severe) obesity due to excess calories; B95.0 Streptococcus, group A, as the cause of diseases classified elsewhere; I87.2 Venous insufficiency (chronic) (peripheral); Z86.73 Personal history of transient ischemic attack (TIA), and cerebral infarction without residual deficits; Z85.038 Personal history of other malignant neoplasm of large intestine; Z79.1 Long term (current) use of non-steroidal anti-inflammatories (NSAID); Z79.82 Long term (current) use of aspirin; Z79.891 Long term (current) use of opiate analgesic; Z79.899 Other long term (current) drug therapy; Z88.0 Allergy status to penicillin; Z88.2 Allergy status to sulfonamides; Z88.8 Allergy status to other drugs, medicaments and biological substances; Z91.018 Allergy to other foods
CPT/HCPCS: 36415; 80048; 80053; 80202; 81003; 81015; 82565; 83036; 83605; 84484; 84520; 85025; 85610; 85730; 86140; 87040; 87086; 87641; 94640; 94760; 99285; 99406; A9270-GY; J1644; J2405; J3370

== ENCOUNTER 2017-09-22 18:08 | Emergency (ER) | payer MEDICARE, MEDICAID ==
[2017-09-22] MEDS ORDERED: NS 0.9% 1000 ML* 1,000 ML IV ONE (18:47)
[2017-09-22] MEDS ORDERED: methylPREDNISolone 125 MG* 2 ML VIAL IV ONE (18:47)
--- NOTE | 2017-09-22 18:49 | ED ---
Shortness of Breath - HPI Summary HPI Summary: This is scribe Damon Pandey documenting for attending Estrada Juarez MD. This patient is a 61 year old F BIBA to [facility] with a chief complaint of SOB since 5 days ago. She reports a chronic bed bug infestations and thinks her chest is on fire due to the bites. The patient rates the pain 9/10 in severity. Symptoms alleviated by nebulizers. Patient reports chills and productive cough. Patient denies fever and CP. The patient has oxygen at home. Today has been the worst. I, Dr. Juarez, personally performed the services described in this documentation as scribed in my presence, and it is both accurate and complete. - History of Current Complaint Chief Complaint: EDShortnessOfBreath Time Seen by Provider: 09/22/17 18:39 Hx Obtained From: Patient Onset/Duration: Sudden Onset, Lasting Days - 5 days ago, Still Present, Worse Since - Today Current Severity: Severe Alleviating Factors: Other - Nebulizers Associated Signs & Symptoms: Cough (Productive), Chest Pain w/Cough - Denies CP , Chest Pain Unrelated to Cough - Denies CP, Fever - Denies fever, Chills - Allergy/Home Medications Allergies/Adverse Reactions: Allergies Allergy/AdvReac Type Severity Reaction Status Date / Time cefazolin Allergy Rash And Verified 05/19/17 21:28 Itching erythromycin base Allergy Rash Verified 05/19/17 21:28 [From Erythrocin] Penicillins Allergy Anaphylatic Verified 05/19/17 21:28 Shock strawberry Allergy Swelling Verified 05/19/17 21:28 Of Face,Lips,& Throat Sulfa (Sulfonamide Allergy Rash Verified 05/19/17 21:28 Antibiotics) Tetracyclines Allergy Anaphylatic Verified 05/19/17 21:28 Shock PMH/Surg Hx/FS Hx/Imm Hx Endocrine/Hematology History: Reports: Hx Diabetes, Hx Anemia Denies: Hx Anticoagulant Therapy, Hx Systemic Lupus Erythematosus, Hx Thyroid Disease, Hx Unexplained Bleeding Cardiovascular History: Reports: Hx Angina, Hx Hypercholesterolemia, Hx Hypotension, Hx Hypertension, Hx Syncope, Other Cardiovascular Problems/ Disorders - bilateral carotid stenosis,aortic blockage Denies: Hx Aneurysm, Hx Angioplasty, Hx Auto Implanted Cardiovert Defib, Hx Cardiac Arrest, Hx Cardiomegaly, Hx Congenital Heart Disease, Hx Congestive Heart Failure, Hx Coronary Artery Disease, Hx Deep Vein Thrombosis, Hx Embolism , Hx Myocardial Infarction, Hx Pacemaker/ICD, Hx Peripheral Vascular Disease, Hx Rheumatic Fever, Hx Valvular Heart Disease Respiratory History: Reports: Hx Asthma, Hx Chronic Obstructive Pulmonary Disease (COPD), Hx Pneumonia, Hx Pulmonary Edema, Hx Seasonal Allergies, Hx Sleep Apnea - sleeps with 2L O2 at home PRN, Other Respiratory Problems/ Disorders - PNA Denies: Hx Chronic Bronchitis, Hx Cystic Fibrosis, Hx Lung Cancer, Hx Pleural Effusion, Hx Pulmonary Embolism GI History: Reports: Hx Gastroesophageal Reflux Disease, Hx Ulcer - distant past Denies: Hx Cirrhosis, Hx Crohn's Disease, Hx Diverticulosis History: Reports: Hx Acute Renal Failure, Hx Renal Disease Denies: Hx Dialysis Musculoskeletal History: Reports: Hx Arthritis - bilateral knees, left shoulder , Hx Back Problems - herniated disks, Hx Bursitis, Other Musculoskeletal History - HERNIATED DISC Denies: Hx Rheumatoid Arthritis Sensory History: Reports: Hx Contacts or Glasses, Hx Vision Problem Denies: Hx Cataracts, Hx Hearing Aid Opthamlomology History: Reports: Hx Contacts or Glasses, Hx Vision Problem Denies: Hx Cataracts Neurological History: Reports: Hx Headaches, Hx Transient Ischemic Attacks (TIA) Denies: Hx Dementia, Hx Developmental Delay, Hx Migraine, Hx Nerve Disease, Hx Seizures, Hx Spinal Cord Injury Psychiatric History: Reports: Hx Anxiety, Hx Depression, Hx Inpatient Treatment , Hx Suicide Attempt - attempted to harm self 5 years ago, Hx Substance Abuse - as a kid, Other Psychiatric Issues/Disorders - claustrophobia Denies: Hx Eating Disorder, Hx Panic Disorder, Hx of Violent Episodes Against Others - Cancer History Cancer Type, Location and Year: Colon cancer - IN [place] Hx Chemotherapy: No Hx Radiation Therapy: No - Surgical History Surgery Procedure, Year, and Place: tubal ligation, laparascopic surgery for ovarian cyst, cardiac cath- NO STENTS PLACED PER PT 06/15/15 Hx Anesthesia Reactions: No - Immunization History Date of Tetanus Vaccine: unknown Date of Influenza Vaccine: 2014 Infectious Disease History: Yes Infectious Disease History: Denies: Hx Clostridium Difficile, Hx Hepatitis, Hx Human Immunodeficiency Virus (HIV), Hx of Known/Suspected MRSA, Hx Shingles, Hx Tuberculosis, Hx Known/ Suspected VRE, Hx Known/Suspected VRSA, History Other Infectious Disease, Traveled Outside the [place] in Last 30 Days - Family History Known Family History: Positive: Cardiac Disease - [place] - father. , Other Family History: Colon [place] - father - Social History Occupation: Disabled Alcohol Use: Rare Hx Substance Use: No Substance Use Type: Reports: None Hx Tobacco Use: Yes - start 1970 Smoking Status (MU): Light Every Day Tobacco Smoker Type: Cigarettes Amount Used/How Often: 1 pack to 1 and a half a day Length of Time of Smoking/Using Tobacco: 40yrs Have You Smoked in the Last Year: Yes Review of Systems Positive: Chills. Negative: Fever Negative: Chest Pain Positive: Shortness Of Breath - Since 5 days ago, Cough - Productive cough Positive: Other - "Chest is on fire" due to bed bug bites All Other Systems Reviewed And Are Negative: Yes Physical Exam - Summary Physical Exam Summary: VITAL SIGNS: Reviewed. GENERAL: Patient is a well-developed and nourished FEMALE with poor hygiene who is lying comfortable in the stretcher. Patient is not in any acute respiratory distress. HEAD AND FACE: No signs of trauma. No ecchymosis, hematomas or skull depressions. No sinus tenderness. EYES: PERRLA, EOMI x 2, No injected conjunctiva, no nystagmus. EARS: Hearing grossly intact. Ear canals and tympanic membranes are within normal limits. MOUTH: Oropharynx within normal limits. NECK: Supple, trachea is midline, no adenopathy, no JVD, no carotid bruit, no c- spine tenderness, neck with full ROM. CHEST: Symmetric, no tenderness at palpation LUNGS: Decreased breath sounds bilaterally. Diffuse wheezing. No crackles. CVS: Regular rate and rhythm, S1 and S2 present, no murmurs or gallops appreciated. ABDOMEN: Soft, non-tender. No signs of distention. No rebound no guarding, and no masses palpated. Bowel sounds are normal. EXTREMITIES: FROM in all major joints, no edema, no cyanosis or clubbing. NEURO: Alert and oriented x 3. No acute neurological deficits. Speech is normal and follows commands. SKIN: Multiple small wounds on her back and her arms, secondary to bed bugs. Triage Information Reviewed: Yes Vital Signs On Initial Exam: Initial Vitals Temp Pulse Resp BP Pulse Ox 99.3 F 83 16 112/71 97 09/22/17 18:10 09/22/17 18:10 09/22/17 18:10 09/22/17 18:10 09/22/17 18:10 Vital Signs Reviewed: Yes Diagnostics - Vital Signs Vital Signs Temp Pulse Resp BP Pulse Ox 09/22/17 18:10 99.3 F 83 16 112/71 97 - Laboratory Result Diagrams: 09/22/17 20:44 09/22/17 20:44 Lab Statement: Any lab studies that have been ordered have been reviewed, and results considered in the medical decision making process. - Radiology Chest X-Ray Radiology Interpretation Completed By: ED Physician - Read 20:34. No infiltrates , but has mild congestion. Cardiomegaly. Pending official report. - EKG No standard instances Cardiac Rate: NL - 84 BPM EKG Rhythm: Sinus Rhythm EKG Interpretation: Read 19:06. No ST elevation. Re-Evaluation - Re-Evaluation 1 Re-Evaluation Time: 21:29 Change: Improved Course/Dx - Course Assessment/Plan: This patient is a 61-year-old female with past medical history significant for COPD, hypertension, obesity, diabetes mellitus, bronchitis, syncope, CVA, tobacco abuse, depression. Presents to the emergency department with a chief complaint of shortness of breath. She reports that she has associated home however the symptoms worsen therefore she decided to come to the emergency room for further workup and management. Blood work without any significant abnormality except for what was a count of 13.1, there is no left shift. CMP were normal limits except for questionable of 8. Troponin is 0.01. Patient is hyperglycemic. Patient was given insulin. Chest x-ray impression: No acute pathology. There may be some congestion and hyperinflated lungs Consistent with COPD. It is documented in the chart that the patient is hypotensive but the cuff was in the wrist. Manual BP was taken and her BP in 112 /60. In the ED course the patient was given Solu-Medrol and DuoNebs. After these medications the patients symptoms have improved. The patient is saturating 98 to 99% in 2 L of oxygen which is her baseline. Since the patient is feeling better the patient will be discharged home with follow-up with primary care physician. I gave the patient a prescription for Benadryl for the itching and also permethrin for Bed bugs. I discussed all the findings and test results with the patient. Patient was instructed to return to the emergency room immediately if any of the symptoms return or worsens. Plan of care was discussed with the patient and understands and agrees. All questions were answered at patient satisfaction. There were no further complaints or concerns. Lung exam before discharge: CTA B/L. Good air exchange. No wheezing or crackles heard. CVS: S1 and S2 present. No murmurs appreciated. Patient is alert and oriented x 3. Patient is hemodynamically stable. Patient will be discharged home with follow up PCP in the next 2-3 days - Diagnoses Differential Diagnosis/HQI/PQRI: Positive: Asthma, Bronchitis, CHF, Chest Wall Pain, COPD Exacerbation, Pneumonia Provider Diagnoses: COPD exacerbation, Bed bug bite, Hyperglycemia Discharge - Sign-Out/Discharge Documenting (check all that apply): Patient Departure - D/C - Discharge Plan Condition: Stable Disposition: HOME Prescriptions: diPHENhydraMINE PO* [Benadryl PO 25 MG TAB*] 25 mg PO TID PRN #30 tab PRN Reason: Itching Permethrin [Elimite] 5 % EX ONCE #1 cre Patient Education Materials: COPD (Chronic Obstructive Pulmonary Disease) (ED) , Diabetic Hyperglycemia (ED), Bed Bugs (ED) Referrals: Darlin Purvis MD [Primary Care Provider] - 3 Days Additional Instructions: RETURN TO THE ED FOR ANY WORSENING OR NEW SYMPTOMS.
[2017-09-22] MEDS: Albuterol/Ipratropium NEB.SOL* Albuterol 2.5 MG/Ipratropium 0.5 MG 3 ML INH SCH ×3 (19:21→19:39)
[2017-09-22] MEDS ORDERED: Acetaminophen TAB* 325 MG PO ONE (20:39)
[2017-09-22 21:01] LABS: Hematocrit 40 % (35-47); Hemoglobin 12.9 g/dl (12.0-16.0); Mean Corpuscular HGB Conc 32 g/dl (31-36); Mean Corpuscular Hemoglobin 26 pg (27-31); Mean Corpuscular Volume 81 fL (80-97); Mean Platelet Volume 9.8 um3 (7.4-10.4); Platelet Count 183 10^3/ul (150-450); Red Blood Count 4.96 10^6/ul (4.00-5.40); Red Cell Distribution Width 16 % (10.5-15); White Blood Count 13.1 10^3/ul (3.5-10.8)
[2017-09-22 21:26] LABS: ABS Basophils 0.1 10^3/ul (0-0.2); ABS Eosinophils 0.1 10^3/ul (0-0.6); ABS Lymphocytes 1.9 10^3/ul (1.0-4.8); ABS Monocytes 0.3 10^3/ul (0-0.8); ABS Neutrophils 10.6 10^3/ul (1.5-7.7); ABS Nucleated RBC 0 10^3/ul; Eosinophil % 1.1 % (0-6); Lymphocyte % 14.9 % (25-47); Nucleated Red Blood Cells % 0.1
[2017-09-22 21:36] LABS: EGFR Non-African American 85.6 (>60)
[2017-09-22] MEDS ORDERED: Insulin REGULAR(*) 1 UNITS UNIT IV PUSH ONE (21:44)
[2017-09-22 22:28] VITALS: BP 120/80
--- NOTE | 2017-09-23 07:38 | RAD ---
Indication: Chest pain, shortness of breath. Comparison: March 01, 2016 Technique: Upright AP 2007 hours Report: Elevated lung volumes and mildly coarsened interstitial markings. Unchanged minimal linear pleural parenchymal scarring at the LEFT lung base. No new pulmonary opacity. Negative for pleural effusion or pneumothorax. The heart, pulmonary vasculature, and mediastinal contours are unremarkable. IMPRESSION: #. Stigmata of obstructive lung disease. No acute pulmonary or cardiac process evident. R1
== END 2017-09-22 22:27 | disposition home or self-care (01) ==
LOC: ED 18:08
DX: J44.1 Chronic obstructive pulmonary disease with (acute) exacerbation (principal); E11.65 Type 2 diabetes mellitus with hyperglycemia; T14.8XXA Other injury of unspecified body region, initial encounter; W57.XXXA Bitten or stung by nonvenomous insect and other nonvenomous arthropods, initial encounter; Y92.9 Unspecified place or not applicable; I10 Essential (primary) hypertension; J40 Bronchitis, not specified as acute or chronic; F32.9 Major depressive disorder, single episode, unspecified; F17.210 Nicotine dependence, cigarettes, uncomplicated; Z99.81 Dependence on supplemental oxygen; Z86.73 Personal history of transient ischemic attack (TIA), and cerebral infarction without residual deficits; Z88.0 Allergy status to penicillin; Z88.8 Allergy status to other drugs, medicaments and biological substances; Z88.3 Allergy status to other anti-infective agents; Z88.2 Allergy status to sulfonamides
CPT/HCPCS: 36415; 71045; 80053; 82550; 83605; 83880; 84484; 85025; 85730; 86140; 93005; 96361; 96374; 99283; A9270-GY; J2930

== ENCOUNTER 2017-12-10 11:55 | Inpatient (IN) | payer MEDICARE, MEDICAID ==
[2017-12-10] MEDS ORDERED: Mouth Piece, Nicotine* 1 EACH CARTRIDGE INH PRN (12:12)
[2017-12-10] MEDS ORDERED: Albuterol/Ipratropium NEB.SOL* Albuterol 2.5 MG/Ipratropium 0.5 MG 3 ML INH ONE (12:44)
--- NOTE | 2017-12-10 12:45 | ED ---
Psychiatric Complaint - HPI Summary HPI Summary: This patient is a 62 year old F presenting to ED with a chief complaint of SI thoughts with a plan to take all her pills at once since earlier today. She has had a lot of family stress recently. Her son has gotten 2 girls and the 1st child is a 1 year old and the mother wants to put the child up for adoption. The sons harleen was and due in 2 weeks. The patient lives alone and doesnt have her phone. So yesterday, her friend picked her up from her house and went to the hospital. The baby at 0530 this morning. The patient then reports that she doesnt feel safe by herself at home because she is worried she will harm herself. The patient rates the pain 10/10 in severity. Symptoms aggravated by recent stress. Symptoms alleviated by nothing. She has had hx of prior SI attempts with her pills. PMHx of COPD and asthma and the patient is on O2 at home. - History Of Current Complaint Chief Complaint: EDMentalHealth Time Seen by Provider: 12/10/17 12:12 Hx Obtained From: Patient Onset/Duration: Sudden Onset, Still Present Timing: Hours Severity Initially: Severe Severity Currently: Severe Aggravating Factor(s): Recent Stress Alleviating Factor(s): Nothing Related History: Positive For: Prior Psychiatric Issues Has Suicidal: Reports: Thoughts, With A Plan, Has Prior Attempt(s) Has Homicidal: Denies: Thoughts - Allergies/Home Medications Allergies/Adverse Reactions: Allergies Allergy/AdvReac Type Severity Reaction Status Date / Time cefazolin Allergy Rash And Verified 12/10/17 12:09 Itching erythromycin base Allergy Rash Verified 12/10/17 12:09 [From Erythrocin] Penicillins Allergy Anaphylatic Verified 12/10/17 12:09 Shock strawberry Allergy Swelling Verified 12/10/17 12:09 Of Face,Lips,& Throat Sulfa (Sulfonamide Allergy Rash Verified 12/10/17 12:09 Antibiotics) Tetracyclines Allergy Anaphylatic Verified 12/10/17 12:09 Shock Home Medications: Home Medications Albuterol inh POWDER (NF) [Proair Respiclick] 2 puff INH QID PRN 12/10/17 [ History Confirmed 12/10/17] Aspirin EC TAB* [Ecotrin EC Low Dose 81 MG*] 81 mg PO DAILY 12/10/17 [History Confirmed 12/10/17] Citalopram TAB* [CeleXA TAB*] 20 mg PO DAILY 12/10/17 [History Confirmed ] Docusate CAP* [Colace Cap*] 100 mg PO TID PRN 12/10/17 [History Confirmed ] Fluticasone-Salmeterol 250-50* [Advair Diskus 250-50*] 1 puff INH BID 12/10/17 [ History Confirmed 12/10/17] Ipratropium 0.5MG/2.5ML NEB* [Atrovent 0.5 MG NEB.TEJAL*] 0.5 mg INH TID PRN 12/10 [History Confirmed 12/10/17] LevoCETirizine TAB (NF) [Xyzal TAB (NF)] 5 mg PO DAILY 12/10/17 [History Confirmed 12/10/17] Magnesium Hydroxide LIQ* [Milk of Magnesia LIQ*] 50 ml PO DAILY PRN 12/10/17 [ History Confirmed 12/10/17] Omeprazole CAP* [Prilosec CAP* 20 MG] 20 mg PO DAILY 12/10/17 [History Confirmed 12/10/17] Ondansetron TAB* [Zofran 4 MG Tab*] 8 mg PO Q8HR PRN 12/10/17 [History Confirmed 12/10/17] Polyethylene Glycol 3350* [Miralax*] 17 gm PO DAILY 12/10/17 [History Confirmed 12/10/17] SitaGLIPtin (NF) [Januvia (NF)] 25 mg PO DAILY 12/10/17 [History Confirmed 12/10] Topiramate TAB(*) [Topamax 25 MG tab] 50 mg PO BID 12/10/17 [History Confirmed 12/10/17] metFORMIN* [Glucophage 1000 MG TAB *] 1,000 mg PO BID 12/10/17 [History Confirmed 12/10/17] traMADol TAB* [Ultram*] 50 mg PO Q12H PRN 12/10/17 [History Confirmed 12/10/17] traZODone TAB* [Desyrel TAB*] 100 mg PO BEDTIME 12/10/17 [History Confirmed ] PMH/Surg Hx/FS Hx/Imm Hx Endocrine/Hematology History: Reports: Hx Diabetes, Hx Anemia Denies: Hx Anticoagulant Therapy, Hx Systemic Lupus Erythematosus, Hx Thyroid Disease, Hx Unexplained Bleeding Cardiovascular History: Reports: Hx Angina, Hx Hypercholesterolemia, Hx Hypotension, Hx Hypertension, Hx Syncope, Other Cardiovascular Problems/ Disorders - bilateral carotid stenosis,aortic blockage Denies: Hx Aneurysm, Hx Angioplasty, Hx Auto Implanted Cardiovert Defib, Hx Cardiac Arrest, Hx Cardiomegaly, Hx Congenital Heart Disease, Hx Congestive Heart Failure, Hx Coronary Artery Disease, Hx Deep Vein Thrombosis, Hx Embolism , Hx Myocardial Infarction, Hx Pacemaker/ICD, Hx Peripheral Vascular Disease, Hx Rheumatic Fever, Hx Valvular Heart Disease Respiratory History: Reports: Hx Asthma, Hx Chronic Obstructive Pulmonary Disease (COPD), Hx Pneumonia, Hx Pulmonary Edema, Hx Seasonal Allergies, Hx Sleep Apnea - sleeps with 2L O2 at home PRN, Other Respiratory Problems/ Disorders - PNA Denies: Hx Chronic Bronchitis, Hx Cystic Fibrosis, Hx Lung Cancer, Hx Pleural Effusion, Hx Pulmonary Embolism GI History: Reports: Hx Gastroesophageal Reflux Disease, Hx Ulcer - distant past Denies: Hx Cirrhosis, Hx Crohn's Disease, Hx Diverticulosis History: Reports: Hx Acute Renal Failure, Hx Renal Disease Denies: Hx Dialysis Musculoskeletal History: Reports: Hx Arthritis - bilateral knees, left shoulder , Hx Back Problems - herniated disks, Hx Bursitis, Other Musculoskeletal History - HERNIATED DISC Denies: Hx Rheumatoid Arthritis Sensory History: Reports: Hx Contacts or Glasses, Hx Vision Problem Denies: Hx Cataracts, Hx Hearing Aid Opthamlomology History: Reports: Hx Contacts or Glasses, Hx Vision Problem Denies: Hx Cataracts Neurological History: Reports: Hx Headaches, Hx Transient Ischemic Attacks (TIA) Denies: Hx Dementia, Hx Developmental Delay, Hx Migraine, Hx Nerve Disease, Hx Seizures, Hx Spinal Cord Injury Psychiatric History: Reports: Hx Anxiety, Hx Depression, Hx Inpatient Treatment , Hx Suicide Attempt - attempted to harm self 5 years ago, Hx Substance Abuse - as a kid, Other Psychiatric Issues/Disorders - claustrophobia Denies: Hx Eating Disorder, Hx Panic Disorder, Hx of Violent Episodes Against Others - Cancer History Cancer Type, Location and Year: Colon cancer - IN [place] Hx Chemotherapy: No Hx Radiation Therapy: No - Surgical History Surgery Procedure, Year, and Place: tubal ligation, laparascopic surgery for ovarian cyst, cardiac cath- NO STENTS PLACED PER PT 06/15/15 Hx Anesthesia Reactions: No - Immunization History Date of Tetanus Vaccine: unknown Date of Influenza Vaccine: 2014 Infectious Disease History: No Infectious Disease History: Denies: Hx Clostridium Difficile, Hx Hepatitis, Hx Human Immunodeficiency Virus (HIV), Hx of Known/Suspected MRSA, Hx Shingles, Hx Tuberculosis, Hx Known/ Suspected VRE, Hx Known/Suspected VRSA, History Other Infectious Disease, Traveled Outside the [place] in Last 30 Days - Family History Known Family History: Positive: Cardiac Disease - [place] - father. , Other Family History: Colon [place] - father - Social History Alcohol Use: Rare Hx Substance Use: No Substance Use Type: Reports: None Hx Tobacco Use: Yes - start 1970 Smoking Status (MU): Light Every Day Tobacco Smoker Type: Cigarettes Amount Used/How Often: 1 pack to 1 and a half a day Length of Time of Smoking/Using Tobacco: 40yrs Have You Smoked in the Last Year: Yes Review of Systems Negative: Fever Positive: Other - recent stress in the family, SI thoughts with a plan All Other Systems Reviewed And Are Negative: Yes Physical Exam - Summary Physical Exam Summary: GENERAL: Patient is an obese F who is lying comfortable in the stretcher. Patient is tearful on exam. HEAD AND FACE: Normocephalic EYES: PERRLA, EOMI x 2. EARS: Hearing grossly intact. MOUTH: Oropharynx within normal limits. NECK: Supple, trachea is midline, no adenopathy, no JVD, no carotid bruit. CHEST: Symmetric, no tenderness at palpation LUNGS: Bilateral expiratory wheezing. CVS: Regular rate and rhythm, S1 and S2 present, no murmurs or gallops appreciated. ABDOMEN: Soft, non-tender. Bowel sounds are normal. No abdominal abnormal pulsations. EXTREMITIES: Full ROM in all major joints, no edema, no cyanosis or clubbing. NEURO: Alert and oriented x 3. No acute neurological deficits. Speech is normal and follows commands. SKIN: Dry and warm. Bite [place] (secondary to known bed bugs) PSYCH: Positive SI with plan, no HI. Triage Information Reviewed: Yes Vital Signs On Initial Exam: Initial Vitals Temp Pulse Resp BP Pulse Ox 98.6 F 79 16 158/82 98 12/10/17 11:59 12/10/17 11:59 12/10/17 11:59 12/10/17 11:59 12/10/17 11:59 Vital Signs Reviewed: Yes Diagnostics - Vital Signs Vital Signs Temp Pulse Resp BP Pulse Ox 12/10/17 11:59 98.6 F 79 16 158/82 98 - Laboratory Result Diagrams: 12/10/17 12:41 12/10/17 12:41 Lab Statement: Any lab studies that have been ordered have been reviewed, and results considered in the medical decision making process. Course/Dx - Course Assessment/Plan: This patient is a 62 year old F presenting to ED with a chief complaint of SI thoughts with a plan to take all her pills at once since earlier today. In the ED course, the patient was given a duoneb. The patient was medically cleared at 1249. MHE was done by Dr. Cain at 1602 and will be voluntarily admitted with dx of unspecified depression. Patient is agreeable with this plan. - Differential Dx/Clinical Impression Provider Diagnosis: Depression Discharge - Sign-Out/Discharge Documenting (check all that apply): Patient Departure - admit - Discharge Plan Condition: Stable Disposition: ADMITTED TO [facility] - Billing Disposition and Condition Condition: STABLE Disposition: Admitted to [facility] - Attestation Statements Document Initiated by Scribe: Yes Documenting Scribe: Adriano Sánchez Provider For Whom Scribe is Documenting (Include Credential): Angeline Wu MD Scribe Attestation: Adriano Ramirez, scribed for Angeline Wu MD on 12/12/17 at 0432. Scribe Documentation Reviewed: Yes Provider Attestation: The documentation as recorded by the scribeAdriano accurately reflects the service I personally performed and the decisions made by me, Angeline Wu MD
[2017-12-10 13:01] LABS: ABS Basophils 0.1 10^3/ul (0-0.2); ABS Eosinophils 0.2 10^3/ul (0-0.6); ABS Monocytes 0.6 10^3/ul (0-0.8); ABS Nucleated RBC 0 10^3/ul; Eosinophil % 1.1 % (0-6); Hematocrit 45 % (35-47); Hemoglobin 14.4 g/dl (12.0-16.0); Lymphocyte % 13.2 % (25-47); Mean Corpuscular HGB Conc 32 g/dl (31-36); Mean Corpuscular Hemoglobin 26 pg (27-31); Mean Corpuscular Volume 81 fL (80-97); Mean Platelet Volume 9.4 um3 (7.4-10.4); Nucleated Red Blood Cells % 0; Platelet Count 275 10^3/ul (150-450); Red Blood Count 5.51 10^6/ul (4.00-5.40); Red Cell Distribution Width 16 % (10.5-15); White Blood Count 14.8 10^3/ul (3.5-10.8)
[2017-12-10 13:08] LABS: EGFR Non-African American 77.6 (>60)
[2017-12-10] MEDS ORDERED: Acetaminophen TAB* 325 MG PO ONE (14:25)
[2017-12-10] MEDS: Nicotine Inhaler* 10 MG AMP INH PRN ×2 (17:16→22:35)
[2017-12-10] MEDS ORDERED: Al Hydrox/Mg Hydrox/Simet LIQ* 30 ML UDC PO PRN (21:34)
[2017-12-10] MEDS ORDERED: Nicotine GUM* 2 MG PO PRN (21:34)
[2017-12-10] MEDS ORDERED: Docusate CAP* 100 MG PO PRN (21:36)
[2017-12-10] MEDS ORDERED: Ipratropium 0.5MG/2.5ML NEB* 0.5 MG/2.5 ML NEB.SOLN INH PRN (21:36)
[2017-12-10] MEDS ORDERED: Magnesium Hydroxide LIQ* 30 ML UDC PO PRN (21:38)
[2017-12-10] MEDS ORDERED: Ondansetron TAB* 4 MG PO PRN (21:40)
[2017-12-10] MEDS ORDERED: traZODone TAB* 100 MG PO SCH (22:00)
[2017-12-10] MEDS: Acetaminophen TAB* 325 MG PO PRN (22:09)
[2017-12-10] MEDS: Topiramate TAB(*) 25 MG PO SCH (22:13)
[2017-12-10] MEDS: traMADol TAB* 50 MG PO PRN (22:14)
[2017-12-10] MEDS: Nystatin TOP POWDER* 15 GM BTL TOPICAL SCH (22:16)
[2017-12-11] MEDS: Albuterol HFA INHALER* 8 gm MDI INH PRN (02:23)
[2017-12-11] MEDS: Acetaminophen TAB* 325 MG PO PRN ×2 (04:06→15:43)
[2017-12-11] MEDS: traMADol TAB* 50 MG PO PRN ×2 (07:31→18:43)
[2017-12-11] MEDS: Nicotine Inhaler* 10 MG AMP INH PRN (07:35)
[2017-12-11] MEDS: Omeprazole CAP* 20 MG PO SCH (09:09)
[2017-12-11] MEDS: Vitamin THERAPEUTIC TAB PO SCH (09:09)
[2017-12-11] MEDS: Aspirin EC TAB* 81 MG TAB.EC PO SCH (09:09)
[2017-12-11] MEDS: metFORMIN* 1,000 MG TAB PO SCH ×2 (09:09→22:33)
[2017-12-11] MEDS: Citalopram TAB* 20 MG PO SCH (09:09)
[2017-12-11] MEDS: Cetirizine* 10 MG TAB PO SCH (09:09)
[2017-12-11] MEDS: Topiramate TAB(*) 25 MG PO SCH ×2 (09:09→22:43)
[2017-12-11] MEDS: Nystatin TOP POWDER* 15 GM BTL TOPICAL SCH ×4 (09:10→23:23)
[2017-12-11] MEDS: Mometasone/Formoter 200/5 MDI INH SCH ×2 (09:11→22:34)
[2017-12-11] MEDS: CMCS SitaGLIPtin (NF) 25 MG TAB PO SCH (09:11)
[2017-12-11] MEDS: Polyethylene Glycol 3350* 17 GM PACKET PO SCH (10:01)
[2017-12-11] MEDS ORDERED: traZODone TAB* 100 MG PO PRN (16:07)
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
[2017-12-12] MEDS: traMADol TAB* 50 MG PO PRN ×2 (02:50→18:27)
[2017-12-12] MEDS: Omeprazole CAP* 20 MG PO SCH (08:08)
[2017-12-12] MEDS: Nicotine Inhaler* 10 MG AMP INH PRN (08:11)
[2017-12-12] MEDS: Aspirin EC TAB* 81 MG TAB.EC PO SCH (09:31)
[2017-12-12] MEDS: Cetirizine* 10 MG TAB PO SCH (09:31)
[2017-12-12] MEDS: Citalopram TAB* 20 MG PO SCH (09:32)
[2017-12-12] MEDS: Mometasone/Formoter 200/5 MDI INH SCH ×2 (09:32→22:58)
[2017-12-12] MEDS: metFORMIN* 1,000 MG TAB PO SCH ×2 (09:32→22:59)
[2017-12-12] MEDS: CMCS SitaGLIPtin (NF) 25 MG TAB PO SCH (09:33)
[2017-12-12] MEDS: Polyethylene Glycol 3350* 17 GM PACKET PO SCH (09:33)
[2017-12-12] MEDS: Topiramate TAB(*) 25 MG PO SCH ×2 (09:34→22:59)
[2017-12-12] MEDS: Vitamin THERAPEUTIC TAB PO SCH (09:35)
[2017-12-12] MEDS: Nystatin TOP POWDER* 15 GM BTL TOPICAL SCH ×4 (09:36→22:45)
[2017-12-12] MEDS: Acetaminophen TAB* 325 MG PO PRN ×2 (09:45→13:53)
--- NOTE | 2017-12-12 14:29 | PN ---
Subjective - Subjective Date of Service: 12/12/17 Service Type: 74403 Hosp care 15 min low complexity Subjective: Patient was seen by self, discussed with treatment team, chart was reviewed. Patient has been compliant with her medications, no reported side effects. Patient reports some improvement in her symptoms of depression and grieving process. Patient sleeping has been fair other than last night woke up in discomfort and required pain medicine. Patient eating has been fair. Patient blood glucose is being monitored. Patient has been cooperative with staff. Patient behavior has been in control. Patient mood was anxious and dysphoric but no suicidal thoughts.Patient although reports not feeling safe rturning to her current housing situation. OT/PT evaluation was done. Patient has been reporting no homicidal ideation. No psychotic symptoms of delusions or hallucinations. Objective - Appearance Appearance: Obese - wearing nasal canula, sitting on a wheel chair Dysmorphic Features: No Hygiene: Normal Grooming: Fairly Well Kept - Behavior Psychomotor Activities: Normal Exhibits Abnormal Movement: No - Attitude and Relatedness Attitude and Relatedness: Cooperative Eye Contact: Fair - Speech Quality: Unpressured Latencies: Normal Quantity: Appropriate - Mood Patient's Decription of Mood: "Anxious" - Affect Observed Affect: Depressed Affect Consistent with: Dysphoria - Thought Process Patient's Thought Process: Coherent Thought Content: No Passive Wish, No Suicidal Planning, No Homicidal Ideation, No Paranoid Ideation - Sensorium Experiencing Hallucinations: No, Sensorium is Clear Type of Hallucinations: Visual: No, Auditory: No, Command: No - Level of Consciousness Level of Consciousness: Alert Orientation: Yes Intact, Yes Orientated to Time, Yes Orientated to Place, Yes Orientated to Person - Impulse Control Impulse Control: Intact - Insight and Judgement Insight and Judgement: Fair - Medication Management Medication Management Adherence: Yes Assessment - Assessment Merits Inpatient Hospitalization: For Immediate Safety, For Stabilization, For Discharge Planning Inpatient DSM-V Dx: F31.9 Clinical Impression: Patient with history of Bipolar Disorder and multiple medical issues. Patient currently admitted due to worsening of depression and suicidal ideation in the context of recent loss of her grand child. Patient has also struggled with multiple psychosocial stressors in the community including limited social support, financial issues, housing situation etc. Patient is a danger to self if discharged hence will be stabilized on inpatient unit with medication adjustments and therapy. MHU: Problem List - Patient Problems (1) Bipolar disorder Current Visit: Yes Status: Acute (2) COPD (chronic obstructive pulmonary disease) Current Visit: Yes Status: Acute Code(s): J44.9 - CHRONIC OBSTRUCTIVE PULMONARY DISEASE, UNSPECIFIED SNOMED Code(s): 81702522 (3) Obesity, Class III, BMI 40-49.9 (morbid obesity) Current Visit: No Status: Chronic Priority: High Code(s): E66.01 - MORBID (SEVERE) OBESITY DUE TO EXCESS CALORIES SNOMED Code(s): 569662887 Comment: - BMI 44 likely also contributing to hypoxic respiratory failure (4) Sleep apnea Current Visit: No Status: Chronic Priority: High Code(s): G47.30 - SLEEP APNEA, UNSPECIFIED SNOMED Code(s): 67417034 Comment: - Snoring, HTN, obesity, COPD, daytime somnolence (5) Venous ulcer Current Visit: No Status: Chronic Code(s): I87.8 - OTHER SPECIFIED DISORDERS OF VEINS SNOMED Code(s): 265176289 Comment: - Chronic, scabbing, no drainage or exudate noted- dry and scaling skin - Wound consult appreciated, wounds not open or acutely infected, recommending lotion and general skin care to prevent further breakdown. Plan - Plan Treatment Plan: Name: BARAK OLIVERA Birthdate: 1955 [id number] - Patient continues to be hospitalized due to recent suicidal thoughts with plan , mood instability, anxiety. - Patient's medications were continued and was given Bacitracin ointment to help with irritation and inflammation around bed bug bites. - Patient can have supplies and walker recommended by PT/OT to help aide with taking care of her self and ambulate. - Patient will be monitored for improvement and side effects. Risk and benefits were discussed. - Patient was encouraged to continue his participation in the milieu, group and individual therapy. Medications: Current Medications Acetaminophen (Tylenol Tab*) 650 mg PO Q4H PRN PRN Reason: PAIN or TEMP > 101 F Last Admin: 12/12/17 13:53 Dose: 650 mg Al Hydrox/Mg Hydrox/Simethicone (Maalox Plus*) 30 ml PO Q4H PRN PRN Reason: INDIGESTION Albuterol (Ventolin Hfa Inhaler*) 2 puff INH QID PRN PRN Reason: SHORTNESS OF BREATH Last Admin: 12/11/17 02:23 Dose: 2 puff Aspirin (Aspirin Ec Tab*) 81 mg PO DAILY [facility] Last Admin: 12/12/17 09:31 Dose: 81 mg Cetirizine HCl (Zyrtec*) 10 mg PO DAILY [facility] Last Admin: 12/12/17 09:31 Dose: 10 mg Citalopram Hydrobromide (Celexa Tab*) 20 mg PO DAILY [facility] Last Admin: 12/12/17 09:32 Dose: 20 mg Device (Nicotine Mouth Piece*) 1 each INH .USE WITH NICOTROL PRN PRN Reason: CRAVING Last Admin: 12/10/17 17:16 Dose: 1 each Docusate Sodium (Colace Cap*) 100 mg PO TID PRN PRN Reason: CONSTIPATION Ipratropium [place] (Atrovent 0.5 Mg Neb.Shefali*) 0.5 mg INH TID PRN PRN Reason: SHORTNESS OF BREATH Magnesium Hydroxide (Milk Of Magnesia Liq*) 50 ml PO DAILY PRN PRN Reason: CONSTIPATION Metformin HCl (Glucophage*) 1,000 mg PO BID [facility] Last Admin: 12/12/17 09:32 Dose: 1,000 mg Mometasone Furoate/Formoterol Fumar (Dulera 200/5 Mdi*) 2 puff INH BID [facility] Last Admin: 12/12/17 09:32 Dose: 2 puff Multivitamins (Theragran Tab*) 1 tab PO DAILY [facility] Last Admin: 12/12/17 09:35 Dose: Not Given Nicotine (Nicotine Inhaler*) 10 mg INH Q2H PRN PRN Reason: CRAVING Last Admin: 12/12/17 08:11 Dose: 10 mg Nicotine Polacrilex (Nicotine Gum*) 2 mg PO Q2H PRN PRN Reason: CRAVING Nystatin (Nystatin Top Powder*) 1 applic TOPICAL QID [facility] Last Admin: 12/12/17 13:24 Dose: Not Given Omeprazole (Prilosec Cap*) 20 mg PO 0730 [facility] Last Admin: 12/12/17 08:08 Dose: 20 mg Ondansetron HCl (Zofran Tab*) 8 mg PO Q8H PRN PRN Reason: NAUSEA/VOMITING Polyethylene Glycol/Electrolytes (Miralax*) 17 gm PO DAILY [facility] Last Admin: 12/12/17 09:33 Dose: Not Given Sitagliptin Phosphate (Januvia (Nf)) 25 mg PO DAILY [facility] Last Admin: 12/12/17 09:33 Dose: 25 mg Topiramate (Topamax(*)) 50 mg PO BID [facility] Last Admin: 12/12/17 09:34 Dose: 50 mg Tramadol HCl (Ultram*) 50 mg PO BID PRN PRN Reason: PAIN Last Admin: 12/12/17 02:50 Dose: 50 mg Trazodone HCl (Desyrel Tab*) 100 mg PO BEDTIME PRN PRN Reason: INSOMNIA
[2017-12-12] MEDS: Bacitracin OINTMENT* 0.5% 0.5 oz TUBE TOPICAL SCH ×2 (17:30→22:58)
[2017-12-13] MEDS: Bacitracin OINTMENT* 0.5% 0.5 oz TUBE TOPICAL SCH ×2 (09:11→21:03)
[2017-12-13] MEDS: Citalopram TAB* 20 MG PO SCH (09:40)
[2017-12-13] MEDS: Omeprazole CAP* 20 MG PO SCH (09:40)
[2017-12-13] MEDS: metFORMIN* 1,000 MG TAB PO SCH ×2 (09:40→20:45)
[2017-12-13] MEDS: Cetirizine* 10 MG TAB PO SCH (09:40)
[2017-12-13] MEDS: Aspirin EC TAB* 81 MG TAB.EC PO SCH (09:40)
[2017-12-13] MEDS: Nystatin TOP POWDER* 15 GM BTL TOPICAL SCH ×3 (09:41→21:03)
[2017-12-13] MEDS: Polyethylene Glycol 3350* 17 GM PACKET PO SCH (09:41)
[2017-12-13] MEDS: Mometasone/Formoter 200/5 MDI INH SCH ×2 (09:41→20:45)
[2017-12-13] MEDS: Acetaminophen TAB* 325 MG PO PRN ×2 (09:42→17:29)
[2017-12-13] MEDS: Vitamin THERAPEUTIC TAB PO SCH (09:42)
[2017-12-13] MEDS: Topiramate TAB(*) 25 MG PO SCH ×2 (09:42→20:45)
[2017-12-13] MEDS: CMCS SitaGLIPtin (NF) 25 MG TAB PO SCH (09:42)
[2017-12-13] MEDS: traMADol TAB* 50 MG PO PRN ×2 (13:07→21:57)
[2017-12-14] MEDS: Nystatin TOP POWDER* 15 GM BTL TOPICAL SCH ×4 (06:40→20:46)
[2017-12-14] MEDS: traMADol TAB* 50 MG PO PRN ×2 (06:42→19:47)
[2017-12-14] MEDS: Nicotine Inhaler* 10 MG AMP INH PRN ×3 (06:46→11:04)
[2017-12-14] MEDS: Omeprazole CAP* 20 MG PO SCH (09:03)
[2017-12-14] MEDS: Aspirin EC TAB* 81 MG TAB.EC PO SCH (09:04)
[2017-12-14] MEDS: Cetirizine* 10 MG TAB PO SCH (09:04)
[2017-12-14] MEDS: CMCS SitaGLIPtin (NF) 25 MG TAB PO SCH (09:04)
[2017-12-14] MEDS: metFORMIN* 1,000 MG TAB PO SCH ×3 (09:04→20:47)
[2017-12-14] MEDS: Citalopram TAB* 20 MG PO SCH (09:04)
[2017-12-14] MEDS: Topiramate TAB(*) 25 MG PO SCH ×3 (09:06→20:47)
[2017-12-14] MEDS: Vitamin THERAPEUTIC TAB PO SCH (09:07)
[2017-12-14] MEDS: Polyethylene Glycol 3350* 17 GM PACKET PO SCH (09:07)
[2017-12-14] MEDS: Mometasone/Formoter 200/5 MDI INH SCH ×2 (09:08→19:48)
[2017-12-14] MEDS: Bacitracin OINTMENT* 0.5% 0.5 oz TUBE TOPICAL SCH ×2 (09:11→20:46)
[2017-12-14] MEDS: Acetaminophen TAB* 325 MG PO PRN ×2 (11:04→23:38)
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
[2017-12-15] MEDS: Nystatin TOP POWDER* 15 GM BTL TOPICAL SCH ×5 (00:23→19:59)
[2017-12-15] MEDS: Bacitracin OINTMENT* 0.5% 0.5 oz TUBE TOPICAL SCH ×2 (09:01→19:59)
[2017-12-15] MEDS: Vitamin THERAPEUTIC TAB PO SCH (09:06)
[2017-12-15] MEDS: Mometasone/Formoter 200/5 MDI INH SCH ×2 (09:08→19:59)
[2017-12-15] MEDS: metFORMIN* 1,000 MG TAB PO SCH ×2 (09:09→19:58)
[2017-12-15] MEDS: Topiramate TAB(*) 25 MG PO SCH ×2 (09:09→19:58)
[2017-12-15] MEDS: Omeprazole CAP* 20 MG PO SCH (09:10)
[2017-12-15] MEDS: Citalopram TAB* 20 MG PO SCH (09:11)
[2017-12-15] MEDS: Aspirin EC TAB* 81 MG TAB.EC PO SCH (09:11)
[2017-12-15] MEDS: Cetirizine* 10 MG TAB PO SCH (09:11)
[2017-12-15] MEDS: Polyethylene Glycol 3350* 17 GM PACKET PO SCH (09:12)
[2017-12-15] MEDS: CMCS SitaGLIPtin (NF) 25 MG TAB PO SCH (09:18)
[2017-12-15] MEDS: Nicotine Inhaler* 10 MG AMP INH PRN ×2 (11:48→17:55)
--- NOTE | 2017-12-15 11:50 | PN ---
Subjective - Subjective Date of Service: 12/15/17 Service Type: 87173 Hosp care 15 min low complexity Subjective: Patient was seen by self, discussed with treatment team, chart was reviewed. Patient has been compliant with her medications, no reported side effects. Patient reports improvement in her symptoms of depression and has been progressively going through grieving process. Patient sleeping has been fair with no change and is using oxygen egg caser. Patient eating has been fair. Patient reports pedal edema overtime since she has been on the unit which likely appears to be secondary due to venous insufficiency. Patient has been cooperative with staff. Patient behavior has been in control. Patient mood was less anxious and less dysphoric and reports improvement in racing thoughts. Patient has been reporting no suicidal or homicidal ideation. No psychotic symptoms of delusions or hallucinations. Patient although was worried about her housing situation and that she feels is adding to the stress of current grief process. Objective - Appearance Appearance: Obese Hygiene: Normal Grooming: Fairly Well Kept - Behavior Psychomotor Activities: Normal Exhibits Abnormal Movement: No - Attitude and Relatedness Attitude and Relatedness: Cooperative Eye Contact: Fair - Speech Quality: Unpressured Latencies: Normal Quantity: Appropriate - Mood Patient's Decription of Mood: "Upset" - Affect Observed Affect: Fair - but less Affect Consistent with: Dysphoria - Thought Process Patient's Thought Process: Coherent Thought Content: No Passive Wish, No Suicidal Planning, No Homicidal Ideation, No Paranoid Ideation - Sensorium Experiencing Hallucinations: No, Sensorium is Clear Type of Hallucinations: Visual: No, Auditory: No, Command: No - Level of Consciousness Level of Consciousness: Alert Orientation: Yes Intact, Yes Orientated to Time, Yes Orientated to Place, Yes Orientated to Person - Impulse Control Impulse Control: Intact - Insight and Judgement Insight and Judgement: Fair - Medication Management Medication Management Adherence: Yes Assessment - Assessment Merits Inpatient Hospitalization: For Immediate Safety, For Stabilization, For Discharge Planning Inpatient DSM-V Dx: F31.9 Clinical Impression: Patient with history of Bipolar Disorder and multiple medical issues. Patient currently admitted due to worsening of depression and suicidal ideation in the context of recent loss of her grand child. Patient has also struggled with multiple psychosocial stressors in the community including limited social support, financial issues, housing situation etc. Patient is a danger to self if discharged hence will be stabilized on inpatient unit with medication adjustments and therapy. She is stabilizing in this structured setting. MHU: Problem List - Patient Problems (1) Bipolar disorder Current Visit: Yes Status: Acute (2) COPD (chronic obstructive pulmonary disease) Current Visit: Yes Status: Acute Code(s): J44.9 - CHRONIC OBSTRUCTIVE PULMONARY DISEASE, UNSPECIFIED SNOMED Code(s): 72364722 (3) Obesity, Class III, BMI 40-49.9 (morbid obesity) Current Visit: No Status: Chronic Priority: High Code(s): E66.01 - MORBID (SEVERE) OBESITY DUE TO EXCESS CALORIES SNOMED Code(s): 106471435 Comment: - BMI 44 likely also contributing to hypoxic respiratory failure (4) Sleep apnea Current Visit: No Status: Chronic Priority: High Code(s): G47.30 - SLEEP APNEA, UNSPECIFIED SNOMED Code(s): 51560649 Comment: - Snoring, HTN, obesity, COPD, daytime somnolence (5) Venous ulcer Current Visit: No Status: Chronic Code(s): I87.8 - OTHER SPECIFIED DISORDERS OF VEINS SNOMED Code(s): 224452705 Comment: - Chronic, scabbing, no drainage or exudate noted- dry and scaling skin - Wound consult appreciated, wounds not open or acutely infected, recommending lotion and general skin care to prevent further breakdown. Plan - Plan Treatment Plan: Name: BARAK OLIVERA Birthdate: 1955 [id number] - Patient continues to be hospitalized due to recent suicidal thoughts with plan , mood instability, anxiety. - Patient's medications were continued. Hospitalist consult was called to assess pedal edema and skin rash, will f/u with recommendation. - Patient can have supplies and walker recommended by PT/OT to help aide with taking care of her self and ambulate. Patient as per OT assessment do not need skilled OT needs. PT will f/u for education, balance and mobility training. - Patient will be monitored for improvement and side effects. Risk and benefits were discussed. - Patient was encouraged to continue his participation in the milieu, group and individual therapy. Medications: Current Medications Acetaminophen (Tylenol Tab*) 650 mg PO Q4H PRN PRN Reason: PAIN or TEMP > 101 F Last Admin: 12/14/17 23:38 Dose: 650 mg Al Hydrox/Mg Hydrox/Simethicone (Maalox Plus*) 30 ml PO Q4H PRN PRN Reason: INDIGESTION Albuterol (Ventolin Hfa Inhaler*) 2 puff INH QID PRN PRN Reason: SHORTNESS OF BREATH Last Admin: 12/11/17 02:23 Dose: 2 puff Aspirin (Aspirin Ec Tab*) 81 mg PO DAILY [facility] Last Admin: 12/15/17 09:11 Dose: 81 mg Bacitracin (Bacitracin Ointment*) 1 applic TOPICAL BID [facility] Last Admin: 12/15/17 09:01 Dose: 1 applic Cetirizine HCl (Zyrtec*) 10 mg PO DAILY [facility] Last Admin: 12/15/17 09:11 Dose: 10 mg Citalopram Hydrobromide (Celexa Tab*) 20 mg PO DAILY [facility] Last Admin: 12/15/17 09:11 Dose: 20 mg Device (Nicotine Mouth Piece*) 1 each INH .USE WITH NICOTROL PRN PRN Reason: CRAVING Last Admin: 12/10/17 17:16 Dose: 1 each Docusate Sodium (Colace Cap*) 100 mg PO TID PRN PRN Reason: CONSTIPATION Ipratropium [place] (Atrovent 0.5 Mg Neb.Shefali*) 0.5 mg INH TID PRN PRN Reason: SHORTNESS OF BREATH Magnesium Hydroxide (Milk Of Magnesia Liq*) 50 ml PO DAILY PRN PRN Reason: CONSTIPATION Metformin HCl (Glucophage*) 1,000 mg PO BID [facility] Last Admin: 12/15/17 09:09 Dose: 1,000 mg Mometasone Furoate/Formoterol Fumar (Dulera 200/5 Mdi*) 2 puff INH BID [facility] Last Admin: 12/15/17 09:08 Dose: 2 puff Multivitamins (Theragran Tab*) 1 tab PO DAILY [facility] Last Admin: 12/15/17 09:06 Dose: Not Given Nicotine (Nicotine Inhaler*) 10 mg INH Q2H PRN PRN Reason: CRAVING Last Admin: 12/15/17 11:48 Dose: 10 mg Nicotine Polacrilex (Nicotine Gum*) 2 mg PO Q2H PRN PRN Reason: CRAVING Last Admin: 12/15/17 11:48 Dose: 2 mg Nystatin (Nystatin Top Powder*) 1 applic TOPICAL QID [facility] Last Admin: 12/15/17 09:05 Dose: Not Given Omeprazole (Prilosec Cap*) 20 mg PO 0730 [facility] Last Admin: 12/15/17 09:10 Dose: 20 mg Ondansetron HCl (Zofran Tab*) 8 mg PO Q8H PRN PRN Reason: NAUSEA/VOMITING Last Admin: 12/12/17 18:27 Dose: 8 mg Polyethylene Glycol/Electrolytes (Miralax*) 17 gm PO DAILY [facility] Last Admin: 12/15/17 09:12 Dose: Not Given Sitagliptin Phosphate (Januvia (Nf)) 25 mg PO DAILY [facility] Last Admin: 12/15/17 09:18 Dose: 25 mg Topiramate (Topamax(*)) 50 mg PO BID [facility] Last Admin: 12/15/17 09:09 Dose: 50 mg Tramadol HCl (Ultram*) 50 mg PO BID PRN PRN Reason: PAIN Last Admin: 12/14/17 19:47 Dose: 50 mg Trazodone HCl (Desyrel Tab*) 100 mg PO BEDTIME PRN PRN Reason: INSOMNIA
[2017-12-15] MEDS: Acetaminophen TAB* 325 MG PO PRN (11:53)
[2017-12-15 13:12] LABS: ABS Basophils 0.1 10^3/ul (0-0.2); ABS Eosinophils 0.2 10^3/ul (0-0.6); ABS Lymphocytes 1.3 10^3/ul (1.0-4.8); ABS Monocytes 0.5 10^3/ul (0-0.8); ABS Neutrophils 7.6 10^3/ul (1.5-7.7); ABS Nucleated RBC 0 10^3/ul; Eosinophil % 2.4 % (0-6); Hematocrit 38 % (35-47); Hemoglobin 12.3 g/dl (12.0-16.0); Lymphocyte % 13.7 % (25-47); Mean Corpuscular HGB Conc 32 g/dl (31-36); Mean Corpuscular Hemoglobin 26 pg (27-31); Mean Corpuscular Volume 82 fL (80-97); Mean Platelet Volume 9.4 fL (7.4-10.4); Nucleated Red Blood Cells % 0; Platelet Count 222 10^3/ul (150-450); Red Blood Count 4.69 10^6/ul (4.00-5.40); Red Cell Distribution Width 16 % (10.5-15); White Blood Count 9.7 10^3/ul (3.5-10.8)
[2017-12-15 13:23] LABS: EGFR Non-African American 74.2 (>60)
[2017-12-15] MEDS: MOISTURIZING TOPICAL SCH ×2 (14:11→19:59)
[2017-12-15] MEDS: traMADol TAB* 50 MG PO PRN (19:58)
--- NOTE | 2017-12-16 03:57 | CONS ---
CC: Dr. Doss, Psychiatry* CONSULTATION REPORT: DATE OF CONSULT: 12/15/17 PRIMARY CARE PROVIDER: None. REQUESTING PHYSICIAN IN CONSULT: Dr. Doss. ATTENDING PHYSICIAN WHILE IN THE HOSPITAL: Dr. Jeronimo Escobar (report dictated by Jonathan Brooks NP). REASON FOR MEDICAL CONSULT: 1. Evaluation of edema. 2. Rash. HISTORY OF PRESENT ILLNESS: Ms. Coughlin is a 62-year-old female patient that presented to the psychiatric unit with complaints of suicidal ideation and worsening depression in the setting of losing a grandchild recently. She states that since being there, she has noticed that her lower legs have been cramping, feeling of charley horses in the lower leg. She has also had swelling in the tops of her feet as well, which has been getting worse over the last couple of days. In addition to this, she has noticed that she has been having worsening dry skin and itching to her feet and also to her back. The nursing staff was concerned because of the appearance of her skin, particularly her back, it appeared to be raised. They do not report any erythema, but they were concerned. The patient says that it is itching. She does freely admit that she has a history of eczema. She also admitted in history that she has not showered in a couple of weeks prior to the psychiatric admission. She denies any nausea or vomiting. She does state that she feels constipated. There has been no chest pain and no worsening shortness of breath. Because of again the edema and the issues with her skin, we were asked to evaluate in consult. PAST MEDICAL HISTORY: Significant for: 1. Diabetes. 2. COPD. She does state that she is wearing O2 24x7. 3. Hypertension. 4. Hyperlipidemia. 5. TIA. 6. Colon cancer. 7. Venous insufficiency. 8. Depression. 9. Bipolar disorder. PAST SURGICAL HISTORY: She has had: 1. A heart catheterization. 2. Ectopic . 3. ORIF of the left lower extremity. MEDICATIONS: Home medications include: 1. Colace 100 mg p.o. t.i.d. as needed. 2. ProAir 2 puffs inhaled four times daily as needed. 3. Atrovent 0.5 mg inhaled t.i.d. as needed. 4. Celexa 20 mg p.o. daily. 5. Glucophage 1000 mg p.o. b.i.d. 6. Topamax 50 mg p.o. b.i.d. 7. Advair 1 puff inhaled b.i.d. 8. Milk of mag 30 cc p.o. daily as needed. 9. MiraLAX 17 g p.o. daily. 10. Zofran 8 mg every 8 hours as needed. 11. Tramadol 50 mg every 12 hours as needed. 12. Levocetirizine 5 mg p.o. daily. 13. Trazodone 100 mg p.o. at bedtime. 14. Aspirin 81 mg daily. 15. Januvia 25 mg p.o. daily. 16. Prilosec 20 mg p.o. daily. ALLERGIES TO MEDICATIONS: Include KEFLEX, ERYTHROMYCIN, PENICILLIN, SULFA, TETRACYCLINE, and STRAWBERRIES. FAMILY HISTORY: The mother had a history of breast CA. Father had a history of colon cancer. SOCIAL HISTORY: She is [id number]-a-day smoker. Occasionally drinks alcohol. Surrogate decision maker is her son. REVIEW OF SYSTEMS: There is no documented fever. She denied having any significant weight change. There is no double vision. She denies having any ear discharge. There was no rhinorrhea. No sore throat, no thyroid enlargement. She denies having any chest pain. There was no orthopnea, there was no nocturnal dyspnea. She denied any abdominal pain. There was no nausea, there was no vomiting. There was no dysuria, no frequency. She denied having any seizure. No loss of consciousness. There is again pruritus reported. Review of 14 systems completed, all others negative. PHYSICAL EXAM: Blood pressure 105/63, pulse of 63, respirations 16, O2 sat 93% , temperature of 98.3. General: At this time, Ms. Coughlin is a 62-year-old female patient. She appears to be older than stated age. She does appear to be chronically ill-appearing. She does not appear to be in any acute distress. HEENT: Head: Atraumatic and normocephalic. Eyes: EOMs are intact. Sclerae anicteric and not pale. Throat: Oral mucosa appears to be moist. No oropharyngeal erythema. Neck: Supple. Lungs were diminished in the bases. She had equal diaphragmatic expansion. Heart: Sounds S1, S2. She had a regular rate and rhythm. No murmurs, rubs, or gallops. Abdomen was soft. It was flat, nontender. Bowel sounds were present. Extremities: She did have some trace edema in the pedal area. She is moving all 4 extremities with 5/5 strength. Neurologically, she is awake, alert, she is oriented x3. Her speech is clear. She had no gross focal deficits. Her skin is intact. She does have an abrasion and excoriation noted to her lower extremities. She has a skin tear and open area to the lateral aspect of her right lower extremity between the knee and between the ankle. In addition to this, she also does have what appears to be on her back eczema, diffuse raised rash. There is no erythema. There appears to be dry skin to the back. DIAGNOSTIC STUDIES/LAB DATA: This was on admission, WBC of 14.8, RBC of 5.51, hemoglobin of 14.4, hematocrit of 45, platelet count of 275. She had a sodium of 133, potassium 4.5, chloride 96, bicarb 29, BUN 15, creatinine 0.76, glucose of 230, calcium of 8.9. Total bili 0.7, AST 11, ALT 10, alk phos 115. TSH 1.92. Toxicology negative. Old medical records were reviewed. She did have an echo 2 years ago. Her EF was preserved at that point. EF was 60% to 65%. The EKG from September of this year revealing a normal sinus rhythm, rate of 84. Old medical records were reviewed. ASSESSMENT AND PLAN: Ms. Coughlin is a 62-year-old female patient coming into psychiatric unit for complaints of suicidal ideation and worsening depression. We are asked to evaluate in consult due to lower extremity edema, in addition to this rash. Recommendations at this point are: 1. Suicidal ideation with a history of depression and bipolar. Defer the management to Psychiatry. 2. Diabetes. Continue her meds as prescribed. 3. Hypertension. Continue meds as prescribed. 4. Hyperlipidemia. Continue meds as prescribed. 5. History of transient ischemic attack. Continue with secondary prevention. I do note that she is on an aspirin already and we will continue that. 6. History of colon cancer. She will need a PCP. 7. History of venous stasis. Continue with leg elevation. 8. Lower extremity edema. I suspect this is probably secondary to being dependent edema. She freely admitted that she has been using the wheelchair to move around the unit and she is using her legs to pull herself. I suspect this is the cause of her leg cramps from use of the muscles. She says typically when she is at home she is not very mobile, but I will check her labs to make sure her electrolytes are stable for the cramping. The edema, I think, is mostly dependent. I asked the psychiatry staff to elevate the lower extremities and to monitor. I am not going to start a diuretic at this point. 9. Rash. Again, I suspect this is probably multifaceted. She did have bed bugs. They do not look like bed bug bites, but she has not showered in 2 weeks and she does have a history of eczema, so I have encouraged hygiene, in addition to this encouraged using hydrating cream to the back and to the legs. 10. Skin tear. Again, this is excoriation probably from itching due to bed bugs. I have recommended Telfa. Bacitracin is already being applied and we will continue to monitor. 11. DVT prophylaxis. Again, encourage ambulation and defer to the primary team. 12. Fluids, electrolytes, and nutrition. I would recommend a consistent carb diet. 13. Code status. Full code. TIME SPENT: On the consult was 60 minutes, greater than half the time was spent [id number] with the patient obtaining my history and physical, other half time was spent going over the plan of care with the patient and implementing plan of care. I did discuss the plan of care with my attending, Dr. Escobar; he is in agreement. JONATHAN BROOKS NP [id number]/CPS #: [id number] KAITLIN
[2017-12-16] MEDS: Omeprazole CAP* 20 MG PO SCH (08:10)
[2017-12-16] MEDS: Cetirizine* 10 MG TAB PO SCH (08:10)
[2017-12-16] MEDS: metFORMIN* 1,000 MG TAB PO SCH ×2 (08:10→21:11)
[2017-12-16] MEDS: CMCS SitaGLIPtin (NF) 25 MG TAB PO SCH (08:10)
[2017-12-16] MEDS: Vitamin THERAPEUTIC TAB PO SCH (08:10)
[2017-12-16] MEDS: Topiramate TAB(*) 25 MG PO SCH ×2 (08:10→21:12)
[2017-12-16] MEDS: Citalopram TAB* 20 MG PO SCH (08:10)
[2017-12-16] MEDS: Aspirin EC TAB* 81 MG TAB.EC PO SCH (08:10)
[2017-12-16] MEDS: Mometasone/Formoter 200/5 MDI INH SCH ×2 (08:11→21:14)
[2017-12-16] MEDS: MOISTURIZING TOPICAL SCH ×3 (09:16→23:12)
[2017-12-16] MEDS: Bacitracin OINTMENT* 0.5% 0.5 oz TUBE TOPICAL SCH ×2 (09:16→23:12)
[2017-12-16] MEDS: Polyethylene Glycol 3350* 17 GM PACKET PO SCH (09:16)
[2017-12-16] MEDS: Nystatin TOP POWDER* 15 GM BTL TOPICAL SCH ×4 (09:16→23:11)
[2017-12-16] MEDS: traMADol TAB* 50 MG PO PRN ×2 (13:49→21:16)
--- NOTE | 2017-12-16 14:41 | PN ---
Subjective - Subjective Date of Service: 12/16/17 Service Type: 10955 Hosp care 15 min low complexity Subjective: Patient was seen by self, discussed with treatment team, chart was reviewed. Patient has been compliant with her medications, no reported side effects. Patient reports improvement in her symptoms and is feeling better. Patient reports that she is in a better state of health then when she came to the hospital. Patient reports continued difficulty with ambulating on the unit due to increase distance compare to short distances at home. Patient reports that a maintenance cathleen came to her apartment to fix heating. Patient was more acceptive of returning to her house today. Patient sleeping has been fine with oxygen tower equipment installer. Patient eating has been fair. Patient has been cooperative with staff. Patient behavior has been in control. Patient mood was more less anxious and less dysphoric. Patient has been reporting no suicidal or homicidal ideation. No psychotic symptoms of delusions or hallucinations. Objective - Appearance Appearance: Obese Dysmorphic Features: No Hygiene: Normal Grooming: Fairly Well Kept - Behavior Psychomotor Activities: Normal Exhibits Abnormal Movement: No - Attitude and Relatedness Attitude and Relatedness: Cooperative Eye Contact: Fair - Speech Quality: Unpressured Latencies: Normal Quantity: Appropriate - Mood Patient's Decription of Mood: "Okay" - Affect Observed Affect: Fair Affect Consistent with: Dysphoria - less - Thought Process Patient's Thought Process: Coherent, Goal Directed Thought Content: No Passive Wish, No Suicidal Planning, No Homicidal Ideation, No Paranoid Ideation - Sensorium Experiencing Hallucinations: No, Sensorium is Clear Type of Hallucinations: Visual: No, Auditory: No, Command: No - Level of Consciousness Level of Consciousness: Alert Orientation: Yes Intact, Yes Orientated to Time, Yes Orientated to Place, Yes Orientated to Person - Impulse Control Impulse Control: Intact - Insight and Judgement Insight and Judgement: Fair - Medication Management Medication Management Adherence: Yes Assessment - Assessment Merits Inpatient Hospitalization: For Immediate Safety, For Stabilization, For Discharge Planning Inpatient DSM-V Dx: F31.9 Clinical Impression: Patient with history of Bipolar Disorder and multiple medical issues. Patient currently admitted due to worsening of depression and suicidal ideation in the context of recent loss of her grand child. Patient has also struggled with multiple psychosocial stressors in the community including limited social support, financial issues, housing situation etc. Patient is a danger to self if discharged hence will be stabilized on inpatient unit with medication adjustments and therapy. She is stabilizing in this structured setting. MHU: Problem List - Patient Problems (1) Bipolar disorder Current Visit: Yes Status: Acute (2) COPD (chronic obstructive pulmonary disease) Current Visit: Yes Status: Acute Code(s): J44.9 - CHRONIC OBSTRUCTIVE PULMONARY DISEASE, UNSPECIFIED SNOMED Code(s): 91638609 (3) Obesity, Class III, BMI 40-49.9 (morbid obesity) Current Visit: No Status: Chronic Priority: High Code(s): E66.01 - MORBID (SEVERE) OBESITY DUE TO EXCESS CALORIES SNOMED Code(s): 743018161 Comment: - BMI 44 likely also contributing to hypoxic respiratory failure (4) Sleep apnea Current Visit: No Status: Chronic Priority: High Code(s): G47.30 - SLEEP APNEA, UNSPECIFIED SNOMED Code(s): 31548575 Comment: - Snoring, HTN, obesity, COPD, daytime somnolence (5) Venous ulcer Current Visit: No Status: Chronic Code(s): I87.8 - OTHER SPECIFIED DISORDERS OF VEINS SNOMED Code(s): 623775765 Comment: - Chronic, scabbing, no drainage or exudate noted- dry and scaling skin - Wound consult appreciated, wounds not open or acutely infected, recommending lotion and general skin care to prevent further breakdown. Plan - Plan Treatment Plan: Name: BARAK OLIVERA Birthdate: 1955 [id number] - Patient continues to be hospitalized due to recent suicidal thoughts with plan , mood instability, anxiety. - Patient's medications were continued. Hospitalist consult was reviewed and will continue with recommended management. - Patient can have supplies and walker recommended by PT/OT to help aide with taking care of her self and ambulate. Patient as per OT assessment do not need skilled OT needs. PT will f/u for education, balance and mobility training. - Patient will be monitored for improvement and side effects. Risk and benefits were discussed. - Patient was encouraged to continue his participation in the milieu, group and individual therapy. Medications: Current Medications Acetaminophen (Tylenol Tab*) 650 mg PO Q4H PRN PRN Reason: PAIN or TEMP > 101 F Last Admin: 12/15/17 11:53 Dose: 650 mg Al Hydrox/Mg Hydrox/Simethicone (Maalox Plus*) 30 ml PO Q4H PRN PRN Reason: INDIGESTION Albuterol (Ventolin Hfa Inhaler*) 2 puff INH QID PRN PRN Reason: SHORTNESS OF BREATH Last Admin: 12/11/17 02:23 Dose: 2 puff Aspirin (Aspirin Ec Tab*) 81 mg PO DAILY [facility] Last Admin: 12/16/17 08:10 Dose: 81 mg Bacitracin (Bacitracin Ointment*) 1 applic TOPICAL BID [facility] Last Admin: 12/16/17 09:16 Dose: Not Given Cetirizine HCl (Zyrtec*) 10 mg PO DAILY [facility] Last Admin: 12/16/17 08:10 Dose: 10 mg Citalopram Hydrobromide (Celexa Tab*) 20 mg PO DAILY [facility] Last Admin: 12/16/17 08:10 Dose: 20 mg Device (Nicotine Mouth Piece*) 1 each INH .USE WITH NICOTROL PRN PRN Reason: CRAVING Last Admin: 12/10/17 17:16 Dose: 1 each Docusate Sodium (Colace Cap*) 100 mg PO TID PRN PRN Reason: CONSTIPATION Ipratropium [place] (Atrovent 0.5 Mg Neb.Shefali*) 0.5 mg INH TID PRN PRN Reason: SHORTNESS OF BREATH Magnesium Hydroxide (Milk Of Magnesia Liq*) 50 ml PO DAILY PRN PRN Reason: CONSTIPATION Metformin HCl (Glucophage*) 1,000 mg PO BID [facility] Last Admin: 12/16/17 08:10 Dose: 1,000 mg Mometasone Furoate/Formoterol Fumar (Dulera 200/5 Mdi*) 2 puff INH BID [facility] Last Admin: 12/16/17 08:11 Dose: 2 puff Multi-Ingredient Ointment (Hydrocerin Cream*) 1 applic TOPICAL TID [facility] Last Admin: 12/16/17 09:16 Dose: Not Given Multivitamins (Theragran Tab*) 1 tab PO DAILY [facility] Last Admin: 12/16/17 08:10 Dose: 1 tab Nicotine (Nicotine Inhaler*) 10 mg INH Q2H PRN PRN Reason: CRAVING Last Admin: 12/15/17 17:55 Dose: 10 mg Nicotine Polacrilex (Nicotine Gum*) 2 mg PO Q2H PRN PRN Reason: CRAVING Nystatin (Nystatin Top Powder*) 1 applic TOPICAL QID [facility] Last Admin: 12/16/17 09:16 Dose: Not Given Omeprazole (Prilosec Cap*) 20 mg PO 0730 [facility] Last Admin: 12/16/17 08:10 Dose: 20 mg Ondansetron HCl (Zofran Tab*) 8 mg PO Q8H PRN PRN Reason: NAUSEA/VOMITING Last Admin: 12/12/17 18:27 Dose: 8 mg Polyethylene Glycol/Electrolytes (Miralax*) 17 gm PO DAILY [facility] Last Admin: 12/16/17 09:16 Dose: Not Given Sitagliptin Phosphate (Januvia (Nf)) 25 mg PO DAILY [facility] Last Admin: 12/16/17 08:10 Dose: 25 mg Topiramate (Topamax(*)) 50 mg PO BID [facility] Last Admin: 12/16/17 08:10 Dose: 50 mg Tramadol HCl (Ultram*) 50 mg PO BID PRN PRN Reason: PAIN Last Admin: 12/15/17 19:58 Dose: 50 mg Trazodone HCl (Desyrel Tab*) 100 mg PO BEDTIME PRN PRN Reason: INSOMNIA
--- NOTE | 2017-12-16 15:15 | PN ---
Subjective Date of Service: 12/16/17 Interval History: CC-Lower ext edema, Pt examined today at the bedside. She states that her legs feel better. States that her skin feels better she is not itching as much. States the edema has gotten better. ROS-denies chest pain, denies sob, denies fever, denies chills, denies abdominal pain, denies nausea, denies vomiting, denies lightheadedness, denies loc, review of 11 systems completed all others negative, Objective Active Medications: Acetaminophen (Tylenol Tab*) 650 mg PO Q4H PRN PRN Reason: PAIN or TEMP > 101 F Last Admin: 12/15/17 11:53 Dose: 650 mg Al Hydrox/Mg Hydrox/Simethicone (Maalox Plus*) 30 ml PO Q4H PRN PRN Reason: INDIGESTION Albuterol (Ventolin Hfa Inhaler*) 2 puff INH QID PRN PRN Reason: SHORTNESS OF BREATH Last Admin: 12/11/17 02:23 Dose: 2 puff Aspirin (Aspirin Ec Tab*) 81 mg PO DAILY [facility] Last Admin: 12/16/17 08:10 Dose: 81 mg Bacitracin (Bacitracin Ointment*) 1 applic TOPICAL BID [facility] Last Admin: 12/16/17 09:16 Dose: Not Given Cetirizine HCl (Zyrtec*) 10 mg PO DAILY [facility] Last Admin: 12/16/17 08:10 Dose: 10 mg Citalopram Hydrobromide (Celexa Tab*) 20 mg PO DAILY [facility] Last Admin: 12/16/17 08:10 Dose: 20 mg Device (Nicotine Mouth Piece*) 1 each INH .USE WITH NICOTROL PRN PRN Reason: CRAVING Last Admin: 12/10/17 17:16 Dose: 1 each Docusate Sodium (Colace Cap*) 100 mg PO TID PRN PRN Reason: CONSTIPATION Ipratropium [place] (Atrovent 0.5 Mg Neb.Shefali*) 0.5 mg INH TID PRN PRN Reason: SHORTNESS OF BREATH Magnesium Hydroxide (Milk Of Magnesia Liq*) 50 ml PO DAILY PRN PRN Reason: CONSTIPATION Metformin HCl (Glucophage*) 1,000 mg PO BID [facility] Last Admin: 12/16/17 08:10 Dose: 1,000 mg Mometasone Furoate/Formoterol Fumar (Dulera 200/5 Mdi*) 2 puff INH BID [facility] Last Admin: 12/16/17 08:11 Dose: 2 puff Multi-Ingredient Ointment (Hydrocerin Cream*) 1 applic TOPICAL TID [facility] Last Admin: 12/16/17 15:09 Dose: 1 applic Multivitamins (Theragran Tab*) 1 tab PO DAILY [facility] Last Admin: 12/16/17 08:10 Dose: 1 tab Nicotine (Nicotine Inhaler*) 10 mg INH Q2H PRN PRN Reason: CRAVING Last Admin: 12/15/17 17:55 Dose: 10 mg Nicotine Polacrilex (Nicotine Gum*) 2 mg PO Q2H PRN PRN Reason: CRAVING Nystatin (Nystatin Top Powder*) 1 applic TOPICAL QID [facility] Last Admin: 12/16/17 15:09 Dose: Not Given Omeprazole (Prilosec Cap*) 20 mg PO 0730 [facility] Last Admin: 12/16/17 08:10 Dose: 20 mg Ondansetron HCl (Zofran Tab*) 8 mg PO Q8H PRN PRN Reason: NAUSEA/VOMITING Last Admin: 12/12/17 18:27 Dose: 8 mg Polyethylene Glycol/Electrolytes (Miralax*) 17 gm PO DAILY [facility] Last Admin: 12/16/17 09:16 Dose: Not Given Sitagliptin Phosphate (Januvia (Nf)) 25 mg PO DAILY [facility] Last Admin: 12/16/17 08:10 Dose: 25 mg Topiramate (Topamax(*)) 50 mg PO BID [facility] Last Admin: 12/16/17 08:10 Dose: 50 mg Tramadol HCl (Ultram*) 50 mg PO BID PRN PRN Reason: PAIN Last Admin: 12/15/17 19:58 Dose: 50 mg Trazodone HCl (Desyrel Tab*) 100 mg PO BEDTIME PRN PRN Reason: INSOMNIA Vital Signs - 8 hr 12/16/17 12/16/17 08:32 14:02 Temperature 98.2 F Pulse Rate 43 Respiratory 18 16 Rate Blood Pressure 103/52 (mmHg) O2 Sat by Pulse 83 Oximetry Oxygen Devices in Use Now: Nasal Cannula Appearance: 62 y/o female patient sitting in bed, NAD, Eyes: No Scleral Icterus Ears/Nose/Mouth/Throat: NL Teeth, Lips, Gums Neck: NL Appearance and Movements; NL JVP Respiratory: Symmetrical Chest Expansion and Respiratory Effort, Clear to Auscultation Cardiovascular: NL Sounds; No Murmurs; No JVD Abdominal: NL Sounds; No Tenderness; No Distention Extremities: - - mild lower ext edema improved, Skin: - - noted multiple area of dry skin to back improved Neurological: Alert and Oriented x 3 Lines/Tubes/Other Access: Clean, Dry and Intact Peripheral IV Result Diagrams: 12/15/17 12:49 12/15/17 12:49 Assess/Plan/Problems-Billing Assessment: 62 y/o female patient presenting to [facility] with SI and depression. - Patient Problems (1) Depression Current Visit: No Status: Chronic Code(s): F32.9 - MAJOR DEPRESSIVE DISORDER , SINGLE EPISODE, UNSPECIFIED SNOMED Code(s): 86624816 Comment: Continue Citalopram and topamax. (2) Suicidal behavior Current Visit: Yes Status: Acute Priority: High Comment: Per [facility] (3) Colon cancer Current Visit: Yes Status: Acute Priority: High Comment: follow with PCP (4) DVT prophylaxis Current Visit: Yes Status: Acute Priority: High Comment: encourage ambulation (5) Tobacco abuse Current Visit: Yes Status: Acute Priority: High Comment: encouraged cessation (6) COPD (chronic obstructive pulmonary disease) Current Visit: Yes Status: Chronic Priority: High Comment: - Stable. - noted o2 sat this am 83 on RA pt need o2 at all times, with 02 back on o2 sat 94 percent, lungs cta continue home meds. (7) Diabetes mellitus Current Visit: Yes Status: Chronic Priority: High Comment: stable home meds stable, (8) HLD (hyperlipidemia) Current Visit: Yes Status: Chronic Priority: High Comment: Continue statin (9) HTN (hypertension) Current Visit: Yes Status: Chronic Priority: High Comment: normotensive (10) Edema Current Visit: Yes Status: Acute Priority: High Comment: elevated lower exts, improved, (11) Rash Current Visit: Yes Status: Acute Priority: High Comment: improved today with hydrating cream, continue, should follow up with pcp and possibly derm, suspect r/t eczema Status and Disposition: Per [facility] will sign off at this point, please contact [phone] with any questions ,
[2017-12-17] MEDS: Mometasone/Formoter 200/5 MDI INH SCH ×2 (07:18→20:09)
[2017-12-17] MEDS: CMCS SitaGLIPtin (NF) 25 MG TAB PO SCH (08:57)
[2017-12-17] MEDS: Vitamin THERAPEUTIC TAB PO SCH (08:58)
[2017-12-17] MEDS: Cetirizine* 10 MG TAB PO SCH (08:58)
[2017-12-17] MEDS: Aspirin EC TAB* 81 MG TAB.EC PO SCH (08:58)
[2017-12-17] MEDS: metFORMIN* 1,000 MG TAB PO SCH ×2 (08:58→21:56)
[2017-12-17] MEDS: Polyethylene Glycol 3350* 17 GM PACKET PO SCH (08:58)
[2017-12-17] MEDS: Topiramate TAB(*) 25 MG PO SCH ×2 (08:58→20:09)
[2017-12-17] MEDS: Citalopram TAB* 20 MG PO SCH (08:59)
[2017-12-17] MEDS: Omeprazole CAP* 20 MG PO SCH (08:59)
[2017-12-17] MEDS: Nystatin TOP POWDER* 15 GM BTL TOPICAL SCH ×4 (09:03→22:17)
[2017-12-17] MEDS: Bacitracin OINTMENT* 0.5% 0.5 oz TUBE TOPICAL SCH ×2 (09:03→19:25)
[2017-12-17] MEDS: MOISTURIZING TOPICAL SCH ×3 (09:03→19:25)
[2017-12-17] MEDS: Albuterol HFA INHALER* 8 gm MDI INH PRN (09:05)
[2017-12-17] MEDS: traMADol TAB* 50 MG PO PRN ×2 (09:06→19:02)
[2017-12-17] MEDS: Acetaminophen TAB* 325 MG PO PRN (12:47)
--- NOTE | 2017-12-17 13:14 | PN ---
Subjective - Subjective Date of Service: 12/17/17 Service Type: [id number] Hosp care 15 min low complexity Subjective: Patient was seen by self, discussed with treatment team, chart was reviewed. Patient has been compliant with her medications, no reported side effects. Patient reports improvement in her symptoms and is feeling better, initially was worried about transitioning back to same place but felt better after supportive comments. Patient also planing to work with [facility] and [facility] to help her with housing situation. Patient reports that she is in a better state of health then when she came to the hospital. Patient reports continued difficulty with ambulating on the unit due to increase distance compare to short distances at home which she is more used to. Patient was contented after maintenance cathleen came to her apartment to fix heating. Patient sleeping has been fine with oxygen quality supervisor. Patient eating has been fair. Patient has been cooperative with staff. Patient behavior has been in control. Patient has been reporting no suicidal or homicidal ideation. No psychotic symptoms of delusions or hallucinations. Patient is planned to be discharged tomorrow morning as she feels safe returning home, and is not danger to self and others. Patient has caring for herself better and wants to continue with her medication appointment with primary care and therapy outpatient. Objective - Appearance Appearance: Healthy Appearing, Obese Dysmorphic Features: No Hygiene: Normal Grooming: Fairly Well Kept - Behavior Psychomotor Activities: Normal Exhibits Abnormal Movement: No - Attitude and Relatedness Attitude and Relatedness: Cooperative Eye Contact: Fair - Speech Quality: Unpressured Latencies: Normal Quantity: Appropriate - Mood Patient's Decription of Mood: "Fine" - Affect Observed Affect: Fair Affect Consistent with: Euthymia - Thought Process Patient's Thought Process: Goal Directed Thought Content: No Passive Wish, No Suicidal Planning, No Homicidal Ideation, No Paranoid Ideation - Sensorium Experiencing Hallucinations: No, Sensorium is Clear Type of Hallucinations: Visual: No, Auditory: No, Command: No - Level of Consciousness Level of Consciousness: Alert Orientation: Yes Intact, Yes Orientated to Time, Yes Orientated to Place, Yes Orientated to Person - Impulse Control Impulse Control: Intact - Insight and Judgement Insight and Judgement: Fair - Medication Management Medication Management Adherence: Yes Assessment - Assessment Merits Inpatient Hospitalization: For Discharge Planning Inpatient DSM-V Dx: F31.9 Clinical Impression: Patient with history of Bipolar Disorder and multiple medical issues. Patient currently admitted due to worsening of depression and suicidal ideation in the context of recent loss of her grand child. Patient has also struggled with multiple psychosocial stressors in the community including limited social support, financial issues, housing situation etc. Patient is a danger to self if discharged hence will be stabilized on inpatient unit with medication adjustments and therapy. She is stabilizing in this structured setting. MHU: Problem List - Patient Problems (1) Bipolar disorder Current Visit: Yes Status: Acute (2) COPD (chronic obstructive pulmonary disease) Current Visit: Yes Status: Acute Code(s): J44.9 - CHRONIC OBSTRUCTIVE PULMONARY DISEASE, UNSPECIFIED SNOMED Code(s): 88689597 (3) Obesity, Class III, BMI 40-49.9 (morbid obesity) Current Visit: No Status: Chronic Priority: High Code(s): E66.01 - MORBID (SEVERE) OBESITY DUE TO EXCESS CALORIES SNOMED Code(s): 567675306 Comment: - BMI 44 likely also contributing to hypoxic respiratory failure (4) Sleep apnea Current Visit: No Status: Chronic Priority: High Code(s): G47.30 - SLEEP APNEA, UNSPECIFIED SNOMED Code(s): 70830434 Comment: - Snoring, HTN, obesity, COPD, daytime somnolence (5) Venous ulcer Current Visit: No Status: Chronic Code(s): I87.8 - OTHER SPECIFIED DISORDERS OF VEINS SNOMED Code(s): 070512441 Comment: - Chronic, scabbing, no drainage or exudate noted- dry and scaling skin - Wound consult appreciated, wounds not open or acutely infected, recommending lotion and general skin care to prevent further breakdown. Plan - Plan Treatment Plan: Name: BARAK OLIVERA Birthdate: 1955 [id number] - Patient's medications were continued. Hospitalist consult was reviewed and will continue with recommended management. - Patient planned to be discharged tomorrow with appropriate arrangements in the community. - Patient will be monitored for improvement and side effects. Risk and benefits were discussed. - Patient was encouraged to continue his participation in the milieu, group and individual therapy. Medications: Current Medications Acetaminophen (Tylenol Tab*) 650 mg PO Q4H PRN PRN Reason: PAIN or TEMP > 101 F Last Admin: 12/17/17 12:47 Dose: 650 mg Al Hydrox/Mg Hydrox/Simethicone (Maalox Plus*) 30 ml PO Q4H PRN PRN Reason: INDIGESTION Albuterol (Ventolin Hfa Inhaler*) 2 puff INH QID PRN PRN Reason: SHORTNESS OF BREATH Last Admin: 12/17/17 09:05 Dose: 2 puff Aspirin (Aspirin Ec Tab*) 81 mg PO DAILY [facility] Last Admin: 12/17/17 08:58 Dose: 81 mg Bacitracin (Bacitracin Ointment*) 1 applic TOPICAL BID [facility] Last Admin: 12/17/17 09:03 Dose: Not Given Cetirizine HCl (Zyrtec*) 10 mg PO DAILY [facility] Last Admin: 12/17/17 08:58 Dose: 10 mg Citalopram Hydrobromide (Celexa Tab*) 20 mg PO DAILY [facility] Last Admin: 12/17/17 08:59 Dose: 20 mg Device (Nicotine Mouth Piece*) 1 each INH .USE WITH NICOTROL PRN PRN Reason: CRAVING Last Admin: 12/10/17 17:16 Dose: 1 each Docusate Sodium (Colace Cap*) 100 mg PO TID PRN PRN Reason: CONSTIPATION Ipratropium [place] (Atrovent 0.5 Mg Neb.Shefali*) 0.5 mg INH TID PRN PRN Reason: SHORTNESS OF BREATH Magnesium Hydroxide (Milk Of Magnesia Liq*) 50 ml PO DAILY PRN PRN Reason: CONSTIPATION Metformin HCl (Glucophage*) 1,000 mg PO BID [facility] Last Admin: 12/17/17 08:58 Dose: 1,000 mg Mometasone Furoate/Formoterol Fumar (Dulera 200/5 Mdi*) 2 puff INH BID [facility] Last Admin: 12/17/17 07:18 Dose: 2 puff Multi-Ingredient Ointment (Hydrocerin Cream*) 1 applic TOPICAL TID [facility] Last Admin: 12/17/17 12:46 Dose: Not Given Multivitamins (Theragran Tab*) 1 tab PO DAILY [facility] Last Admin: 12/17/17 08:58 Dose: Not Given Nicotine (Nicotine Inhaler*) 10 mg INH Q2H PRN PRN Reason: CRAVING Last Admin: 12/15/17 17:55 Dose: 10 mg Nicotine Polacrilex (Nicotine Gum*) 2 mg PO Q2H PRN PRN Reason: CRAVING Nystatin (Nystatin Top Powder*) 1 applic TOPICAL QID [facility] Last Admin: 12/17/17 12:45 Dose: Not Given Omeprazole (Prilosec Cap*) 20 mg PO 0730 [facility] Last Admin: 12/17/17 08:59 Dose: 20 mg Ondansetron HCl (Zofran Tab*) 8 mg PO Q8H PRN PRN Reason: NAUSEA/VOMITING Last Admin: 12/12/17 18:27 Dose: 8 mg Polyethylene Glycol/Electrolytes (Miralax*) 17 gm PO DAILY [facility] Last Admin: 12/17/17 08:58 Dose: Not Given Sitagliptin Phosphate (Januvia (Nf)) 25 mg PO DAILY [facility] Last Admin: 12/17/17 08:57 Dose: 25 mg Topiramate (Topamax(*)) 50 mg PO BID [facility] Last Admin: 12/17/17 08:58 Dose: 50 mg Tramadol HCl (Ultram*) 50 mg PO BID PRN PRN Reason: PAIN Last Admin: 12/17/17 09:06 Dose: 50 mg Trazodone HCl (Desyrel Tab*) 100 mg PO BEDTIME PRN PRN Reason: INSOMNIA
[2017-12-18] MEDS: CMCS SitaGLIPtin (NF) 25 MG TAB PO SCH (08:44)
[2017-12-18] MEDS: metFORMIN* 1,000 MG TAB PO SCH (08:45)
[2017-12-18] MEDS: Citalopram TAB* 20 MG PO SCH (08:45)
[2017-12-18] MEDS: Aspirin EC TAB* 81 MG TAB.EC PO SCH (08:45)
[2017-12-18] MEDS: Vitamin THERAPEUTIC TAB PO SCH (08:45)
[2017-12-18] MEDS: Omeprazole CAP* 20 MG PO SCH (08:45)
[2017-12-18] MEDS: Topiramate TAB(*) 25 MG PO SCH (08:45)
[2017-12-18] MEDS: Cetirizine* 10 MG TAB PO SCH (08:46)
[2017-12-18] MEDS: Bacitracin OINTMENT* 0.5% 0.5 oz TUBE TOPICAL SCH (08:48)
[2017-12-18] MEDS: MOISTURIZING TOPICAL SCH (08:48)
[2017-12-18] MEDS: Mometasone/Formoter 200/5 MDI INH SCH (08:49)
[2017-12-18] MEDS: Nystatin TOP POWDER* 15 GM BTL TOPICAL SCH (08:51)
[2017-12-18] MEDS: Polyethylene Glycol 3350* 17 GM PACKET PO SCH (08:51)
[2017-12-18 09:10] VITALS: BP 118/46
--- NOTE | 2017-12-18 12:37 | DS ---
Subjective - Subjective Service Types: 34087 [facility] Day [facility]mt simple under 30 min Discharge Date: 12/18/17 Subjective: JUSTIFICATION FOR ADMISSION: Patient presented to emergency room with suicidal ideation and plan, worsening depression and emotional dysregulation. She requires inpatient psychiatric admission in order to provide treatment and stabilization as she is a danger to himself. CHIEF COMPLAINT: "I was going to overdose on medications if I had gone home HISTORY OF THE PRESENT ILLNESS: Patient is a 62 y/o female, obese, single, living by herself, unemployed currently on disability , with history of Bipolar Disorder. Patient was admitted to inpatient unit for worsening of her depression, inability to manage distress, having suicidal thoughts with plan to overdose on her medication if returned home. Patient was at the hospital visiting her son's family and to welcome her grand child that family was expecting. Patient was unable to cope with distress when found out that it was a stillbirth. Patient was overwhelmed and was already struggling with psychosocial distress in the community and limited support hence was brought to ED by her son for psychiatric evaluation. Patient reportedly has lost interest in caring for her self for months and has not been compliant with her treatment and follow ups. Patient reports no manic symptoms. Patient reports no psychotic symptoms. Patient denied any suicidal or homicidal ideation on the unit and feels safe at the hospital. Patient has been showing compliance with her medications and treatment on the unit. Patient has been using her O2 saturater. Patient continued to exhibit behavior that is in control and is safe on all checks. Patient contracts for safety and will approach staff when in distress and has been using saturater responsibly on the unit. PAST PSYCHIATRIC HISTORY: Patient has history of at least 3 inpatient psychiatric hospitalization or depression and suicidal ideation. Patient has history of outpatient psychiatric treatment for years but reportedly stopped taking all her medications including psychotropics for months before this hospitalization . Patients reports taking Celexa for her depression which was helpful as per patient and was also taking a mood stabilizer likely Topamax as patient did not remember the name of it. Patient reports that she had lost significant amount of weight. Patient has been >11 years abstinent from alcohol. Patient has history of suicidal thoughts with at least three attempts/self injurious behavior "cut her right wrist at one point in the past. She tried "bashing my head" into the brick wall outside the courthouse after she lost custody of her son. The most recent attempt was in 2001 when she took "whole bottle of Darvon.". Patient has history of no homicidal threats, intent or attempt. Patient has history of self aggressive and agitated behavior when decompensates. No access to firearm reported. Patient has history of having visual hallucination of his father during grief process after his demise. Patient has history of being arrested when she was 17 years for shoplifting. SUBSTANCE ABUSE HISTORY: Patient denies any illicit substance and alcohol use at this time. Patient reports consuming about a 1 to one and half PPD of tobacco. Patient toxicology was negative. Patient reports history of Alcohol Dependence for about 20 years but has been abstinent for about >11 years from it. Patient reports consuming marijuana socially during her college years with her friends but nothing after that. Patient has not history for going to inpatient rehab. PAST MEDICAL HISTORY: HTN, Diabetes, Osteoarthritis, COPD, Asthma, Obesity, H/O head injuries when younger ALLERGIES: Reviewed, please review allergy list as per chart for further reference FAMILY PSYCHIATRIC HISTORY: Patient has family history of maternal grandparent with bipolar disorder and her father with alcohol dependance. No reported suicide in the family. FAMILY/PSYCHOSOCIAL HISTORY: Patient currently lives by herself and rents a room. Patient reports she is overwhelmed with her current situation as her apartment condition is terrible. Patient reports multiple bed bug bites as loco donovan has not taken care of it with professional artificial flowers supervisor. Patient reports apartment ceiling is leaking and other maintenance and repairs that it needs. Patient is single. Patient has a son that she is close to and find him to be supportive. Patient education level is graduating from [employer] in [employer] studies. 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 Patient was raised by her father and gordon donovan and was close to both of them and was effected seriously after losing them. Patient reports estranged relationship with her biological mother. Patient reports very limited support system at this time as she has not been in any therapy for sometime and his son is busy with his life. REVIEW OF SYSTEMS: Patients review of symptoms was negative for any physical complaint other than muscular discomfort. Vitals reviewed. Patients ED physical exam was reviewed. abnormal blood glucose. Physical Exam Summary: GENERAL: Patient is an obese F who is lying comfortable in the stretcher. Patient is tearful on exam. HEAD AND FACE: Normocephalic EYES: PERRLA, EOMI x 2. EARS: Hearing grossly intact. MOUTH: Oropharynx within normal limits. NECK: Supple, trachea is midline, no adenopathy, no JVD, no carotid bruit. CHEST: Symmetric, no tenderness at palpation LUNGS: Bilateral expiratory wheezing. CVS: Regular rate and rhythm, S1 and S2 present, no murmurs or gallops appreciated. ABDOMEN: Soft, non-tender. Bowel sounds are normal. No abdominal abnormal pulsations. EXTREMITIES: Full ROM in all major joints, no edema, no cyanosis or clubbing. NEURO: Alert and oriented x 3. No acute neurological deficits. Speech is normal and follows commands. SKIN: Dry and warm. Bite m[place]o (secondary to known bed bugs) MENTAL STATUS EXAMINATION ON ADMISSION: Appearance: 62 year old obese female, wearing nasal canula, lying on her bed, making fair eye contact, cooperative, poor hygiene, malodorous Behavior: cooperative Gait: walks with walker or needs wheel chair assistance for long distance Abnormal motor activity: none Speech: normal tone and volume, rate and rhythm Mood: "depressed" Affect: depressed Thought process: coherent Thought Content: Suicidal/Homicidal ideation: passive, not active suicidal ideation or intent or plan at the hospital Delusions: none Obsessions: none Phobia: none Perceptual disturbance: none Attention: fair Orientation: [id number] Concentration: limited Memory: fair Insight: fair Judgment: fair Impulse control: fair DIAGNOSIS ON ADMISSION: Bipolar Disorder, recent episode Depressed; Adjustment Disorder; Non Compliance; Bereavement DIAGNOSIS ON DISCHARGE: Bipolar Disorder, recent episode Depressed; Adjustment Disorder; Non Compliance; Bereavement Objective - Appearance Appearance: Obese Dysmorphic Features: No Hygiene: Normal Grooming: Fairly Well Kept - Behavior Psychomotor Activities: Normal Exhibits Abnormal Movement: No - Attitude and Relatedness Attitude and Relatedness: Cooperative Eye Contact: Fair - Speech Quality: Unpressured Latencies: Normal Quantity: Appropriate - Mood Patient's Decription of Mood: "Fine" - Affect Observed Affect: Fair Affect Consistent with: Euthymia - minimal anxiety - Thought Process Patient's Thought Process: Coherent Thought Content: No Passive Wish, No Suicidal Planning, No Homicidal Ideation, No Paranoid Ideation - Sensorium Experiencing Hallucinations: No, Sensorium is Clear Type of Hallucinations: Visual: Yes, Auditory: Yes, Command: Yes - Level of Consciousness Level of Consciousness: Alert Orientation: Yes Intact, Yes Orientated to Time, Yes Orientated to Place, Yes Orientated to Person - Impulse Control Impulse Control: Intact - Insight and Judgement Insight and Judgement: Fair - Medication Management Medication Management Adherence: Yes Treatment Course & Assessment Clinical Course & Impression: Patient is 62 y/o female with history of Bipolar Disorder and multiple medical issues. Patient currently admitted due to worsening of depression and suicidal ideation in the context of recent loss of her grand child. Patient has also struggled with multiple psychosocial stressors in the community including limited social support, financial issues, housing situation etc. Patient was a danger to self if discharged hence will be stabilized on inpatient unit with medication adjustments and therapy. Patient was admitted to [facility] on Q 15 min observation, on voluntary admission status. Integrate patient into the milieu, Individual and group psychotherapy Social work consult for therapy and discharge planning. Will hold family meeting with parents to increase Data base. Patient gave informed consent to start Celexa at 20 mg a day for depression. Patient Topamax was continued at 50 mg PO BId for mood stabilization. Trazodone 100 mg PO QHS was changed to PRN for sleep disturbance. PT/OT was consulted to assess patient needs. Finger stick on a daily basis for now, as patient has been off of her medical medication including diabetic medications. Patient was monitored and followed up for improvement and side effects. Patient was compliant with her medications, no reported side effects. Patient reported gradual improvement in her symptoms of depression and grieving process. Patient can have supplies and walker recommended by PT/OT to help aide with taking care of her self and ambulate. Patient did not require any skills need as per OT. Patient was provided photos of her grand child that was still born. Patient was also provided supportive therapy to help through this grief process. Patient reports that she had struggle with denial and currently is feeling sad about it but reported no suicidal of self injurious thoughts. Patient felt better after meeting with providers and wanted to continue talking about it with therapy. Patient sleeping was improving and used oxygen building insulation installer through out this hospital stay with safety. Patient reports pedal edema Hospitalist consult was called for skin lesions and pedal edema and recommended to continue with her current medical medication , and also added hydrating cream for skin charlie and tear will follow up outpatient with primary care. Patient pedal edema was dependent in nature and improved by itself. Patient reported improvement in her symptoms and was feeling better, not depressed, not manic, not psychotic. Patient was taking care of her self better. Patient initially was worried about transitioning back to same place but felt better after supportive comments and services arranged in the community. Patient also planing to work with [facility] and [facility] to help her with housing situation. Patient reports continued difficulty with ambulating on the unit due to increase distance compare to short distances at home which she is more used to. Patient was contented after maintenance cathleen came to her apartment to fix heating. Patient behavior was in control through this hospitalization and was safe on all checks. Patient reported no suicidal or homicidal ideation. She felt safe returning home, and was not danger to self and others. Patient recommended to follow up with [facility]. But patient wanted to follow up for medication appointment with primary care and therapy outpatient at similar place. Hence after discussing with team patient was discharged to home with appropriate services.. Merits Inpatient Hospitalization: No Clear for Discharge: Adequate Clinical Respons, Acceptable Safety Profile, Low Utility of Inpt Care Inpatient DSM-V Dx: F31.9 Discharge Planning - Discharge Planning Discharge Plan: Outpatient Follow Up Recommendations for Continuing Care: Medication Management, Psychotherapy Medications: Albuterol (Ventolin Hfa Inhaler*) 2 puff INH QID PRN PRN Reason: SHORTNESS OF BREATH Last Admin: 12/17/17 09:05 Dose: 2 puff Aspirin (Aspirin Ec Tab*) 81 mg PO DAILY [facility] Last Admin: 12/17/17 08:58 Dose: 81 mg Bacitracin (Bacitracin Ointment*) 1 applic TOPICAL BID [facility] Last Admin: 12/17/17 09:03 Dose: Not Given Citalopram Hydrobromide (Celexa Tab*) 20 mg PO DAILY [facility] Last Admin: 12/17/17 08:59 Dose: 20 mg Docusate Sodium (Colace Cap*) 100 mg PO TID PRN PRN Reason: CONSTIPATION Ipratropium [place] (Atrovent 0.5 Mg Neb.Shefali*) 0.5 mg INH TID PRN PRN Reason: SHORTNESS OF BREATH Magnesium Hydroxide (Milk Of Magnesia Liq*) 50 ml PO DAILY PRN PRN Reason: CONSTIPATION Metformin HCl (Glucophage*) 1,000 mg PO BID [facility] Last Admin: 12/17/17 08:58 Dose: 1,000 mg Mometasone Furoate/Formoterol Fumar (Dulera 200/5 Mdi*) 2 puff INH BID [facility] Last Admin: 12/17/17 07:18 Dose: 2 puff Multi-Ingredient Ointment (Hydrocerin Cream*) 1 applic TOPICAL TID [facility] Last Admin: 12/17/17 12:46 Dose: Not Given Nicotine Polacrilex (Nicotine Gum*) 2 mg PO Q2H PRN PRN Reason: CRAVING Omeprazole (Prilosec Cap*) 20 mg PO 729 [facility] Last Admin: 12/17/17 08:59 Dose: 20 mg Sitagliptin Phosphate (Januvia (Nf)) 25 mg PO DAILY [facility] Last Admin: 12/17/17 08:57 Dose: 25 mg Topiramate (Topamax(*)) 50 mg PO BID [facility] Last Admin: 12/17/17 08:58 Dose: 50 mg Tramadol HCl (Ultram*) 50 mg PO Once Daily PRN PRN Reason: PAIN Discharge Planning: Prescriptions provided for discharge [x] Yes [] No Follow up care details as per social work arrangements. Patient response to discharge plan: [] eager for discharge [x] agreeable with discharge plan [] ambivalent about discharge [] disagrees with discharge today
== END 2017-12-18 09:00 | disposition home or self-care (01) | DRG 885 ==
LOC: ED 11:55 → BSU 21:31
PROVIDERS: ADMIT Psychiatry & Neurology Psychiatry; ATTEND Psychiatry & Neurology Psychiatry
DX: F31.9 Bipolar disorder, unspecified (principal); R45.851 Suicidal ideations; Z68.42 Body mass index [BMI] 45.0-49.9, adult; Z56.0 Unemployment, unspecified; F17.210 Nicotine dependence, cigarettes, uncomplicated; I10 Essential (primary) hypertension; E11.9 Type 2 diabetes mellitus without complications; J44.9 Chronic obstructive pulmonary disease, unspecified; Z87.820 Personal history of traumatic brain injury; Z81.8 Family history of other mental and behavioral disorders; Z81.1 Family history of alcohol abuse and dependence; Z91.14 Patient's other noncompliance with medication regimen; F43.20 Adjustment disorder, unspecified; Z63.4 Disappearance and death of family member; Z79.82 Long term (current) use of aspirin; Z79.84 Long term (current) use of oral hypoglycemic drugs; Z88.1 Allergy status to other antibiotic agents; Z88.2 Allergy status to sulfonamides; Z91.018 Allergy to other foods; I65.23 Occlusion and stenosis of bilateral carotid arteries; G47.30 Sleep apnea, unspecified; J30.2 Other seasonal allergic rhinitis; K21.9 Gastro-esophageal reflux disease without esophagitis; M17.0 Bilateral primary osteoarthritis of knee; M19.012 Primary osteoarthritis, left shoulder; F40.240 Claustrophobia; Z91.5 Personal history of self-harm; Z86.73 Personal history of transient ischemic attack (TIA), and cerebral infarction without residual deficits; Z85.038 Personal history of other malignant neoplasm of large intestine; Z98.51 Tubal ligation status; Z82.49 Family history of ischemic heart disease and other diseases of the circulatory system; E66.01 Morbid (severe) obesity due to excess calories; L98.499 Non-pressure chronic ulcer of skin of other sites with unspecified severity; I87.8 Other specified disorders of veins; R60.0 Localized edema; R21 Rash and other nonspecific skin eruption; Z99.3 Dependence on wheelchair; Z80.3 Family history of malignant neoplasm of breast; Z80.0 Family history of malignant neoplasm of digestive organs; Z72.89 Other problems related to lifestyle; E78.5 Hyperlipidemia, unspecified
CPT/HCPCS: 36415; 80048; 80053; 80320; 80329; 84443; 85025; 99222; 99231; 99284; A9270-GY; G0480; G8978-GP-CK; G8979-GP-CK; G8987-GO-CI; G8988-GO-CI; G8989-GO-CI

== ENCOUNTER 2018-03-23 10:37 | Inpatient (IN) | payer MEDICARE, MEDICAID ==
--- NOTE | 2018-03-23 11:24 | ED ---
Skin Complaint - HPI Summary HPI Summary: This pt is a 62 y/o female presenting to [facility] via EMS for raised and painful areas around her groin area since 03/13/18. She states one day a few weeks ago she noticed a lump in her groin while wiping herself with baby wipes, she is unable to wipe from front to back anymore physically. Pt reports that 4 days ago one of these areas broke open on her left groin and began to drain. She describes foul smelling material draining that makes her nauseous when she smells it. Denies fever, chills. Pt notes she is constipated. She reports she does not have hot water at home. Denies any recent sexual intercourse or new sexual partners. She also states that her new roommate brought bed bugs with her and now her apartment has bed bugs. Pt notes her apartment had bed bugs in the past and had it fumigated. Pt sleeps in a recliner on oxygen. Pt had dentures a long time ago, does not use any now. PMHx: mental health admission on 12/10/17, cardiac cath done through the groin in [place]. - History of Current Complaint Chief Complaint: EDUrogenitalProblems Time Seen by Provider: 03/23/18 10:55 Stated Complaint: POSS BOILS Hx Obtained From: Patient Onset/Duration: Started Days Ago, Still Present Timing: Lasting Days Current Severity: Severe Pain Intensity: 10 Pain Scale Used: 0-10 Numeric Skin Location: Other: - groin Character: Swelling, Pain, Raised, Painful Aggravating Symptom(s): Nothing Alleviating Symptom(s): Nothing Associated Signs & Symptoms: Negative - Additional Pertinent History Primary Care Physician: [id number] - Allergy/Home Medications Allergies/Adverse Reactions: Allergies Allergy/AdvReac Type Severity Reaction Status Date / Time cefazolin Allergy Rash And Verified 12/10/17 12:09 Itching erythromycin base Allergy Rash Verified 12/10/17 12:09 [From Erythrocin] Penicillins Allergy Anaphylatic Verified 12/10/17 12:09 Shock strawberry Allergy Swelling Verified 12/10/17 12:09 Of Face,Lips,& Throat Sulfa (Sulfonamide Allergy Rash Verified 12/10/17 12:09 Antibiotics) Tetracyclines Allergy Anaphylatic Verified 12/10/17 12:09 Shock Home Medications: Home Medications Naproxen Sodium [Aleve] 440 mg PO Q6HR PRN 03/23/18 [History Confirmed 03/23/18] PMH/Surg Hx/FS Hx/Imm Hx Endocrine/Hematology History: Reports: Hx Diabetes, Hx Anemia Denies: Hx Anticoagulant Therapy, Hx Systemic Lupus Erythematosus, Hx Thyroid Disease, Hx Unexplained Bleeding Cardiovascular History: Reports: Hx Angina, Hx Hypercholesterolemia, Hx Hypotension, Hx Hypertension, Hx Syncope, Other Cardiovascular Problems/ Disorders - bilateral carotid stenosis,aortic blockage Denies: Hx Aneurysm, Hx Angioplasty, Hx Auto Implanted Cardiovert Defib, Hx Cardiac Arrest, Hx Cardiomegaly, Hx Congenital Heart Disease, Hx Congestive Heart Failure, Hx Coronary Artery Disease, Hx Deep Vein Thrombosis, Hx Embolism , Hx Myocardial Infarction, Hx Pacemaker/ICD, Hx Peripheral Vascular Disease, Hx Rheumatic Fever, Hx Valvular Heart Disease Respiratory History: Reports: Hx Asthma, Hx Chronic Obstructive Pulmonary Disease (COPD), Hx Pneumonia, Hx Pulmonary Edema, Hx Seasonal Allergies, Hx Sleep Apnea - sleeps with 2L O2 at home PRN, Other Respiratory Problems/ Disorders - PNA Denies: Hx Chronic Bronchitis, Hx Cystic Fibrosis, Hx Lung Cancer, Hx Pleural Effusion, Hx Pulmonary Embolism GI History: Reports: Hx Gastroesophageal Reflux Disease, Hx Ulcer - distant past Denies: Hx Cirrhosis, Hx Crohn's Disease, Hx Diverticulosis History: Reports: Hx Acute Renal Failure, Hx Renal Disease Denies: Hx Dialysis Musculoskeletal History: Reports: Hx Arthritis - bilateral knees, left shoulder , Hx Back Problems - herniated disks, Hx Bursitis, Other Musculoskeletal History - HERNIATED DISC Denies: Hx Rheumatoid Arthritis Sensory History: Reports: Hx Contacts or Glasses, Hx Vision Problem Denies: Hx Cataracts, Hx Hearing Aid Opthamlomology History: Reports: Hx Contacts or Glasses, Hx Vision Problem Denies: Hx Cataracts Neurological History: Reports: Hx Headaches, Hx Transient Ischemic Attacks (TIA) Denies: Hx Dementia, Hx Developmental Delay, Hx Migraine, Hx Nerve Disease, Hx Seizures, Hx Spinal Cord Injury Psychiatric History: Reports: Hx Anxiety, Hx Depression, Hx Inpatient Treatment , Hx Suicide Attempt - attempted to harm self 5 years ago, Hx Substance Abuse - as a kid, Other Psychiatric Issues/Disorders - claustrophobia Denies: Hx Eating Disorder, Hx Panic Disorder, Hx of Violent Episodes Against Others - Cancer History Cancer Type, Location and Year: Colon cancer - IN REMISSION Hx Chemotherapy: No Hx Radiation Therapy: No - Surgical History Surgery Procedure, Year, and Place: tubal ligation, laparascopic surgery for ovarian cyst, cardiac cath- NO STENTS PLACED PER PT 06/15/15 Hx Anesthesia Reactions: No - Immunization History Date of Tetanus Vaccine: unknown Date of Influenza Vaccine: 2014 Infectious Disease History: No Infectious Disease History: Denies: Hx Clostridium Difficile, Hx Hepatitis, Hx Human Immunodeficiency Virus (HIV), Hx of Known/Suspected MRSA, Hx Shingles, Hx Tuberculosis, Hx Known/ Suspected VRE, Hx Known/Suspected VRSA, History Other Infectious Disease, Traveled Outside the [place] in Last 30 Days - Family History Known Family History: Positive: Cardiac Disease - [place] - father. , Other Family History: Colon [place] - father - Social History Alcohol Use: Rare Hx Substance Use: No Substance Use Type: Reports: None Hx Tobacco Use: Yes - start 1970 Smoking Status (MU): Light Every Day Tobacco Smoker Type: Cigarettes Amount Used/How Often: 1 pack to 1 and a half a day Length of Time of Smoking/Using Tobacco: 40yrs Have You Smoked in the Last Year: Yes Review of Systems Negative: Fever, Chills Negative: Erythema Negative: Sore Throat Negative: Chest Pain Negative: Shortness Of Breath, Cough Gastrointestinal: Other - POS: constipation Negative: Abdominal Pain, Vomiting, Nausea Negative: dysuria, hematuria Negative: Myalgia, Edema Skin: Other - POS: boils in her groin area Negative: Rash Neurological: Other - NEG: dizziness All Other Systems Reviewed And Are Negative: Yes Physical Exam - Summary Physical Exam Summary: Constitutional: Well-developed, Well-nourished, Alert. (-) Distressed. Exam is limited due to pain. Skin: Warm, Dry. Large amount of fluctuance on the left medial thigh adjoining just inferior to the inguinal crease there is an open area of approximately 1 cm draining thick purulent material. HENT: Normocephalic; Atraumatic Eyes: Conjunctiva normal Neck: Musculoskeletal ROM normal neck. (-) JVD, (-) Stridor, (-) Tracheal deviation Cardio: Rhythm regular, rate normal, Heart sounds normal; Intact distal pulses; The pedal pulses are 2+ and symmetric. Radial pulses are 2+ and symmetric. (-) Murmur Pulmonary/Chest wall: Effort normal. (-) Respiratory distress, (-) Wheezes, (-) Rales Abd: Soft, (-) epigastric tenderness, (-) Distension, (-) Guarding, (-) Rebound Musculoskeletal: (-) Edema Lymph: (-) Cervical adenopathy Neuro: Alert, Oriented x3 Psych: Mood and affect Normal Triage Information Reviewed: Yes Vital Signs On Initial Exam: Initial Vitals Temp Pulse Resp BP Pulse Ox 98.5 F 77 24 187/77 99 03/23/18 10:45 03/23/18 10:45 03/23/18 10:45 03/23/18 10:45 03/23/18 10:45 Vital Signs Reviewed: Yes Completion Of Physical Exam Limited Due To: Other - pain Procedures - Incision and Drainage Left Groin Site: left medial groin Anesthesia: Other - 50 mcg of fentanyl Instrument(s): Scalpel - extended her original drainage hole inferiorly Packing: Other - 0.5 inch packing Diagnostics - Vital Signs Vital Signs Temp Pulse Resp BP Pulse Ox 03/23/18 10:45 98.5 F 77 24 187/77 99 - Laboratory Result Diagrams: 03/23/18 12:05 03/23/18 12:05 Lab Statement: Any lab studies that have been ordered have been reviewed, and results considered in the medical decision making process. - Radiology Chest XR Radiology Interpretation Completed By: Radiologist Summary of Radiographic Findings: IMPRESSION: Stigmata of obstructive lung disease. No acute pulmonary or cardiac process evident. Dr. Rangel has reviewed this report. - CT Abdomen/Pelvis CT CT Interpretation Completed By: Radiologist Summary of CT Findings: IMPRESSION: There may be some minimal induration of the buttocks adjacent to the anus on the right with no evidence of abnormal fluid collection. No evidence of proximal abscess or joint abscess is identified. No other masses or fluid collections are noted. Cholelithiasis without biliary duct dilatation. Dr. Rangel has reviewed this report. Re-Evaluation - Re-Evaluation First Eval Re-Evaluation Time: 17:27 Comment: Incision and drainage procedure. Course/Dx - Course Assessment/Plan: Pt is a 62 y/o female who presents via EMS for raised and painful areas around her groin area since 03/13/18. Pt reports that 4 days ago one of these areas broke open on her left groin and began to drain. She describes foul smelling material draining that makes her nauseous when she smells it. Denies fever, chills. Labs show WBC of 11, carbon dioxide of 35, glucose of 144. Chest XR shows stigmata of obstructive lung disease. No acute pulmonary or cardiac process evident. Abdomen/pelvis CT reveals there may be some minimal induration of the buttocks adjacent to the anus on the right with no evidence of abnormal fluid collection. No evidence of proximal abscess or joint abscess is identified. No other masses or fluid collections are noted. Cholelithiasis without biliary duct dilatation. In the ED course the pt was given IV fluids, Percocet, vancomycin, morphine, Zofran. An incision and drainage was performed, we extended her original drainage hole inferiorly to the left medial groin. Drained thick purulent material. Wound cultures were sent to the lab. Discussed pt care with Dr. Christianson, hospitalist, who accepted the pt for admission. - Diagnoses Provider Diagnoses: Groin abscess, Cellulitis of groin - Physician Notifications Discussed Care Of Patient With: Aliza Christianson - hospitalist Time Discussed With Above Provider: 17:37 Instructed by Provider To: Admit As Inpatient Discharge - Sign-Out/Discharge Documenting (check all that apply): Patient Departure - Admit to [facility] Patient Received Moderate/Deep Sedation with Procedure: No - Discharge Plan Condition: Stable Disposition: ADMITTED TO [facility] Referrals: Darlin Purvis MD [Primary Care Provider] - - Attestation Statements Document Initiated by Scribe: Yes Documenting Scribe: Huma Wisdom Provider For Whom Scribe is Documenting (Include Credential): Aric Rangel MD Scribe Attestation: Huma Ramirez, scribed for Aric Rangel MD on 03/23/18 at 1755. Status of Scribe Document: Ready
[2018-03-23] MEDS ORDERED: Vancomycin(*) 1,250 MG in NS 0.9% 250 ML* 250 ML IVPB ONE (11:29)
[2018-03-23] MEDS ORDERED: NS 0.9% 1000 ML** 1,000 ML IV ONE ×2 (11:29→17:34)
[2018-03-23] MEDS ORDERED: oxyCODONE/Acetamin 5/325 MG* TAB PO ONE (11:29)
[2018-03-23 12:15] LABS: Hematocrit 38 % (35-47); Hemoglobin 12.4 g/dl (12.0-16.0); Mean Corpuscular HGB Conc 32 g/dl (31-36); Mean Corpuscular Hemoglobin 26 pg (27-31); Mean Corpuscular Volume 81 fL (80-97); Mean Platelet Volume 9.2 fL (7.4-10.4); Platelet Count 297 10^3/ul (150-450); Red Blood Count 4.75 10^6/ul (4.00-5.40); Red Cell Distribution Width 17 % (10.5-15)
[2018-03-23] MEDS ORDERED: Morphine VIAL* 10 MG/ML 1 ML VIAL IV ONE ×3 (12:18→17:31)
[2018-03-23] MEDS ORDERED: Ondansetron INJ* 2 MG/ML VIAL IV ONE (12:18)
[2018-03-23 12:24] LABS: Activated Partial Thrombo Time 27.9 seconds (26.0-36.3); INR 0.98 (0.77-1.02)
[2018-03-23 12:32] LABS: Albumin 3.5 g/dL (3.2-5.2); BUN/Creatinine Ratio 17.4 (8-20); Calcium 9.4 mg/dL (8.6-10.3); EGFR Non-African American 86.8 (>60); Globulin 3.4 g/dL (2-4); Potassium 4.1 mmol/L (3.5-5.0); Total Bilirubin 0.4 mg/dL (0.2-1.0); Total Protein 6.9 g/dL (6.4-8.9)
[2018-03-23 12:34] LABS: Troponin I 0.01 ng/mL (<0.04)
[2018-03-23 12:42] LABS: ABS Basophils 0.1 10^3/ul (0-0.2); ABS Eosinophils 0.2 10^3/ul (0-0.6); ABS Lymphocytes 1.7 10^3/ul (1.0-4.8); ABS Monocytes 0.5 10^3/ul (0-0.8); ABS Neutrophils 8.5 10^3/ul (1.5-7.7); ABS Nucleated RBC 0 10^3/ul; Eosinophil % 1.9 %; Lymphocyte % 15.5 %; Nucleated Red Blood Cells % 0.1
[2018-03-23] MEDS ORDERED: Iodixanol* (CONTRAST) 320 MG/ML 100 ML SDV IV ONE (14:07)
[2018-03-23] MEDS ORDERED: fentaNYL* 50 MCG/ML 2 ML VIAL (100 MCG VIAL) ONE (17:09)
[2018-03-23] MEDS: fentaNYL* 50 MCG/ML 2 ML VIAL (100 MCG VIAL) IV SLOW PU PRN ×2 (17:39→22:23)
[2018-03-23] MEDS ORDERED: Albuterol/Ipratropium NEB.SOL* Albuterol 2.5 MG/Ipratropium 0.5 MG 3 ML INH PRN (18:28)
[2018-03-23] MEDS ORDERED: Dextrose 50% Syringe 50 ML* 25 GM/50 ML SYRINGE IV PUSH PRN (18:38)
[2018-03-23] MEDS ORDERED: NAPROXEN SODIUM 440 MG PO PRN (18:41)
[2018-03-23] MEDS ORDERED: Albuterol HFA INHALER* 8 gm MDI INH PRN (18:45)
[2018-03-23] MEDS ORDERED: NS 0.9% 1000 ML** 1,000 ML IV SCH (18:45)
[2018-03-23] MEDS: Mometasone/Formoter 100/5 MDI INH SCH (19:31)
--- NOTE | 2018-03-23 21:17 | HP ---
HISTORY AND PHYSICAL: DATE OF ADMISSION: 03/23/18 PRIMARY CARE PROVIDER: Darlin Purvis MD ATTENDING PHYSICIAN: Aliza Christianson MD * (dictated by CORINE Osuna ) CHIEF COMPLAINT: Abscess. HISTORY OF PRESENT ILLNESS: Ms. Coughlin is a 62-year-old female who presented to the ER today with an abscess that she had on her left inner thigh for approximately 2 weeks. The patient states that she noticed the boil around the end of February/beginning of March. It has increased in size consistently. She states that at the time of presentation the abscess was approximately the size of a grapefruit. She said it was very painful. The patient states that she has had these before, but has never had to present to the hospital to have them lanced. She said she usually takes care of them herself by piercing them with an upholstery needle. This time, she did try to puncture the abscess and foul smelling discharge was expelled from the site. The pain continued and it brought her to the ER. Upon arrival in to the ER, the patient had an extensive workup, which included CT of the abdomen and pelvis and a chest x-ray as well as a blood work. An I and D was performed in the ER after the patient was given IV fluids, Percocet, vancomycin, morphine, and Zofran. Purulent, thick drainage was expelled and obtained for culture. The patient reported significant pain relief with lancing of the abscess and pain medication, rating her pain around 5/10 and stating it continues to decrease. Wound cultures were sent to the lab and the patient was asked to be evaluated by the hospitalist team who will admit her for observation. It is important to note at this time that the patient states that she has a new roommate who may or may not have brought bedbugs into the shared dwelling. The patient has an extensive rash over her body, which she states is from the bedbugs. She states that in the past, her residence had been fumigated for this particular reason, but now the problem has recurred. Also of note is that the patient states she has not seen her primary care provider in many months. She was supposed to have an appointment in mid January, but was unable to get to the appointment and since all of her medications have been stopped due to not being settled. Her current medication list only includes Naproxen, and the patient states she does not have any other prescribed medications at this time. The patient denies chest pain, shortness of breath, headache, fevers, chills, sweats, tired, cough, nausea, vomiting, diarrhea, abdominal pain. She states that she has been wheezing, but denies an increase or decrease in cough. She has an extensive rash over the body that she states is from exposure to bedbugs in her home. The patient states that she has bilateral knee pain as well as left collar bone pain. She has osteoarthritis in both her knees and has a history of injury to the left collar bone. She denies pain elsewhere. PAST MEDICAL HISTORY: 1. Hypertension. 2. Hyperlipidemia. 3. Diabetes mellitus, type 2. 4. COPD. 5. Asthma. 6. Osteoarthritis. 7. Obesity. 8. Gastroesophageal reflux disease with history of peptic ulcer disease. 9. Anxiety. 10. Depression. 11. Colon cancer - in remission. PAST SURGICAL HISTORY: 1. Cardiac catheterization in 2016. 2. Tubal ligation. 3. Ovarian cyst laparoscopic surgery. HOME MEDICATIONS: Naproxen sodium 440 mg p.o. q.6 hours p.r.n. pain. ALLERGIES: CEFAZOLIN, rash and itching; ERYTHROMYCIN BASE, rash; PENICILLIN, anaphylactic shock; STRAWBERRIES, swelling of face, lips, and throat; SULFA, rash; TETRACYCLINES, anaphylactic shock. FAMILY HISTORY: Father, colon cancer. Mother, diabetes mellitus, breast cancer , uterine cancer. Paternal grandmother, diabetes mellitus, uterine cancer. SOCIAL HISTORY: The patient smokes approximately 1.5 packs of cigarettes per day x45 years. She quit drinking alcohol approximately 26 years ago. She lives in a rooming house alone, but states that she lives on one side of the building and someone recently moved into the other side of the building and brought bedbugs and she states that in this living situation, she is often exposed to drugs such as meth or heroin, although she states she does not use any illicit drugs or any other drugs for that matter. She states that in order to get food, she depends on Meals On Wheels. In the event that she is unable to make medical decision, she appoints her son, Ming Coughlin, to make decisions for her. REVIEW OF SYSTEMS: A 10-point review of systems was performed and all the pertinent positives and negatives are in the HPI, all other systems are negative. PHYSICAL EXAMINATION GENERAL: Ms. Coughlin is a morbidly obese middle-aged white woman who is sitting up in bed, in no acute distress. VITAL SIGNS: Temperature of 98.5, heart rate is 69, respiratory rate is 18, oxygen saturation 99% on 2 L of O2, blood pressure is 146/54. HEENT: Visual winter are grossly intact. Pupils are equally round and reactive to light. Extraocular movements are intact. Sclerae without icterus. Hearing is grossly intact. The patient is edentulous. Oral: Mucous membranes appear dry without lesions. Pharynx is clear. NECK: Full range of motion. Thyroid not palpable. Trachea at midline without lymphadenopathy. RESPIRATORY: Symmetrical chest expansion with no use of accessory muscles. Lungs with diffuse wheezing throughout bilaterally. No rhonchi or rubs. CARDIOVASCULAR: Regular rate and rhythm. S1, S2 present. No murmurs, rubs, or gallops. No JVD. ABDOMEN: Bowel sounds in all 4 quadrants. Abdomen is soft. Slightly tender to deep palpation diffusely, nontender to light palpation. No hepatosplenomegaly. MUSCULOSKELETAL: No pain or deformities. EXTREMITIES: Skin is warm and smooth bilaterally. There is no edema. There is no clubbing or cyanosis. Radial and pedal pulses are palpable bilaterally. NEURO: The patient is awake and alert and oriented x3. She is able to move all of her extremities. SKIN: There is a diffuse rash particularly notable on the back of the patient with dark elevated bumps appearing over the back. On the front, the rash appears as red dots. Underneath both breasts, the patient has yeast collections. She states she has had this for a while. The right lower extremity anterior stiles area has a scab, which the patient states she has had for approximately 16 years and it was due to a bite from a brown recluse spider. The left inner thigh has an abscess area with a small amount of surrounding erythema that was lanced and packed and is currently covered. The dressing is clean, dry, and intact. DIAGNOSTIC STUDIES/LABORATORY DATA: Chest x-ray from 03/23/18, impression, stigmata of obstructive lung disease, no acute pulmonary or cardiac process evident. CT abdomen and pelvis with contrast from 03/23/18, impression, there may be some minimal induration of the buttocks adjacent to anus on the right with no evidence of abnormal fluid collection, no evidence of proximal abscess or joint abscess is identified, no other masses or fluid collections are noted. WBCs 11.0, RBC 4.75, HGB 12.4, HCT 38. Sodium 138, potassium 4.1, chloride 98, carbon dioxide 35, BUN 12, creatinine 0.69. Lactic acid 1.2. Total bilirubin 0.40, AST 11, ALT 8, alk phos 69. Troponin 0.01. ASSESSMENT AND PLAN: Ms. Coughlin is a 62-year-old female with a past medical history as described above who presents to the ER today with complaints of an abscess and she will be admitted observation for the followin. Abscess. Incision and drainage was performed. Surgery has been consulted to see the patient tomorrow. Dr. Belcher was notified. The patient will be started on clindamycin 300 p.o. q.6 hours as she has extensive allergies to other antibiotics. 2. Chronic obstructive pulmonary disease/asthma. The patient does not appear to be in exacerbation as she was able to move air properly, but it was noted that she has extensive wheezing. Dulera was ordered. DuoNebs were ordered. Ventolin was also ordered. 3. Diabetes mellitus. The patient was placed on sliding scale lispro. She will have this prior to meals and we will also have her fingersticks checked prior to meals. Hemoglobin A1c was ordered. 4. Hyperlipidemia. The patient appears to be on no medications for any of her comorbid conditions. Lipid panel was ordered to evaluate. 5. Gastroesophageal reflux disease. The patient will be placed on pantoprazole. 6. Yeast infection. Nystatin powder to be applied under bilateral breasts b.i.d. 7. FEN. Heart healthy diet was ordered. 8. DVT prophylaxis. The patient will be placed on heparin. TIME SPENT: Approximately 60 minutes were spent on this admission, greater than half of that time was spent with the patient obtaining history, performing physical and reviewing the plan of care. The case has been reviewed with my attending, Dr. Christianson, who is in agreement with the plan of care. CORINE KOLB [id number]/[facility] #: [id number]
[2018-03-23] MEDS: Clindamycin 300 MG IVPREMIX(* 300 MG/50 ML SDV IV SCH (21:41)
[2018-03-23] MEDS: Nystatin TOP POWDER* 15 GM BTL TOPICAL SCH (21:42)
[2018-03-23] MEDS: Heparin VIAL(*) 5000 UNITS/ML VIAL (FIVE THOUSAND) SUBCUT SCH (21:42)
[2018-03-23] MEDS: oxyCODONE/Acetamin 5/325 MG* TAB PO PRN (21:49)
[2018-03-24] MEDS: Clindamycin 300 MG IVPREMIX(* 300 MG/50 ML SDV IV SCH ×4 (04:59→20:37)
[2018-03-24] MEDS: Acetaminophen TAB* 325 MG PO PRN (04:59)
[2018-03-24] MEDS: Heparin VIAL(*) 5000 UNITS/ML VIAL (FIVE THOUSAND) SUBCUT SCH ×3 (05:00→20:37)
[2018-03-24 06:14] LABS: ABS Basophils 0 10^3/ul (0-0.2); ABS Eosinophils 0.3 10^3/ul (0-0.6); ABS Lymphocytes 1.2 10^3/ul (1.0-4.8); ABS Monocytes 0.4 10^3/ul (0-0.8); ABS Neutrophils 5.4 10^3/ul (1.5-7.7); ABS Nucleated RBC 0 10^3/ul; Eosinophil % 3.5 %; Hematocrit 35 % (35-47); Hemoglobin 11.2 g/dl (12.0-16.0); Lymphocyte % 16.3 %; Mean Corpuscular HGB Conc 32 g/dl (31-36); Mean Corpuscular Hemoglobin 26 pg (27-31); Mean Corpuscular Volume 82 fL (80-97); Mean Platelet Volume 9.5 fL (7.4-10.4); Nucleated Red Blood Cells % 0; Platelet Count 220 10^3/ul (150-450); Red Blood Count 4.23 10^6/ul (4.00-5.40); Red Cell Distribution Width 18 % (10.5-15); White Blood Count 7.4 10^3/ul (3.5-10.8)
[2018-03-24 06:33] LABS: BUN/Creatinine Ratio 13.7 (8-20); Calcium 8.1 mg/dL (8.6-10.3); EGFR African American 98.4 (>60); EGFR Non-African American 81.3 (>60); HDL Cholesterol 24.9 mg/dL
[2018-03-24 06:49] LABS: TSH (Thyroid Stimulating Horm) 1.64 mcIU/mL (0.34-5.60)
[2018-03-24] MEDS: Mometasone/Formoter 100/5 MDI INH SCH ×2 (07:44→20:10)
[2018-03-24] MEDS: Insulin LISPRO* 1 UNITS UNIT SUBCUT SCH ×2 (08:35→13:12)
[2018-03-24] MEDS: Nystatin TOP POWDER* 15 GM BTL TOPICAL SCH ×2 (08:47→20:38)
[2018-03-24] MEDS ORDERED: Pantoprazole TAB * 40 MG TAB PO SCH (09:00)
[2018-03-24] MEDS: oxyCODONE/Acetamin 5/325 MG* TAB PO PRN ×3 (09:52→20:37)
--- NOTE | 2018-03-24 12:33 | PN ---
Progress Note - Progress Note Date of Service: 03/24/18 SOAP: Subjective: Pt seen and examined Feels better after I and D in ER last night. Objective: Temp Pulse Resp BP Pulse Ox 98.1 F 61 22 121/73 95 03/24/18 07:57 03/24/18 07:57 03/24/18 09:52 03/24/18 07:57 03/24/18 07:57 PEX: Left upper inner thigh/buttock abscess site open and packed. Some induration and redness, no odor and some seropurulent drainage. Abscess appears well- drained WBC normal Plan: Continue IV abx-Clindamycin Cultures noted-await final results Will start packing changes tomorrow.
[2018-03-24 13:02] LABS: Urine Appearance Cloudy; Urine Bacteria 1+ (Absent); Urine Bilirubin Negative (Negative); Urine Blood 2+ (Negative); Urine Color Yellow; Urine Glucose Negative (Negative); Urine Ketones Negative (Negative); Urine Nitrite Negative (Negative); Urine Protein Negative (Negative); Urine Red Blood Cell 2+(6-10/hpf) (Absent); Urine Specific Gravity 1.023 (1.010-1.030); Urine Squamous Epithelial Cell Present (Absent); Urine Urobilinogen Negative (Negative); Urine White Blood Cell 3+(>20/hpf) (Absent)
[2018-03-24] MEDS: Nicotine Inhaler* 10 MG AMP INH PRN (13:18)
[2018-03-24] MEDS ORDERED: Mouth Piece, Nicotine* 1 EACH CARTRIDGE ONE (13:18)
--- NOTE | 2018-03-24 14:03 | PN ---
Subjective Date of Service: 03/24/18 Interval History: Pain control OK. Objective Active Medications: Acetaminophen (Tylenol Tab*) 650 mg PO Q4H PRN PRN Reason: FEVER/PAIN Last Admin: 03/24/18 04:59 Dose: 650 mg Albuterol (Ventolin Hfa Inhaler*) 2 puff INH Q6H PRN PRN Reason: SOB/WHEEZING Albuterol/Ipratropium (Duoneb (Albuterol 2.5 Mg/Ipratropium 0.5 Mg)) 1 neb INH Q6H PRN PRN Reason: SOB/WHEEZING Dextrose (D50w Syringe 50 Ml*) 12.5 gm IV PUSH .FOR FS < 60 - SS PRN PRN Reason: FS < 60 Fentanyl Citrate (Fentanyl*) 50 mcg IV SLOW PU Q1H PRN PRN Reason: PAIN Last Admin: 03/23/18 22:23 Dose: 50 mcg Heparin Sodium (Porcine) (Heparin Vial(*)) 5,000 units SUBCUT Q8HR [facility] Last Admin: 03/24/18 13:12 Dose: 5,000 units Clindamycin HCl/Dextrose (Cleocin 300 Mg Ivpemix(*)) 300 mg in 50 mls @ 200 mls /hr IV Q6H [facility] Last Admin: 03/24/18 08:37 Dose: 200 mls/hr Insulin Human Lispro (Humalog*) 0 units SUBCUT AC [facility]; Protocol Last Admin: 03/24/18 13:12 Dose: 2 unit Mometasone Furoate/Formoterol Fumar (Dulera 100/5 Mdi*) 2 puff INH BID [facility] Last Admin: 03/24/18 07:44 Dose: 2 puff Nicotine (Nicotine Inhaler*) 10 mg INH Q2H PRN PRN Reason: CRAVING Last Admin: 03/24/18 13:18 Dose: 10 mg Non-Formulary Medication (Naproxen Sodium [Aleve]) 440 mg PO Q6HR PRN PRN Reason: PAIN Nystatin (Nystatin Top Powder*) 1 applic TOPICAL BID [facility] Last Admin: 03/24/18 08:47 Dose: 1 applic Oxycodone/Acetaminophen (Percocet 5/325 Tab*) 1 tab PO Q4H PRN PRN Reason: Pain Last Admin: 03/24/18 09:52 Dose: 1 tab Pantoprazole Sodium (Protonix Tab*) 40 mg PO DAILY [facility] Last Admin: 03/24/18 08:35 Dose: 40 mg Vital Signs - 8 hr 03/24/18 03/24/18 03/24/18 07:57 08:00 09:52 Temperature 98.1 F Pulse Rate 61 Respiratory 18 22 22 Rate Blood Pressure 121/73 (mmHg) O2 Sat by Pulse 95 Oximetry Oxygen Devices in Use Now: Nasal Cannula Appearance: Alert, in a chair. In good spirits. Looks comfortable. Eyes: No Scleral Icterus Extremities: No Clubbing, Cyanosis, - - 1+ edema BL Skin: - - 1 - 2 mm papules L anatecubital fossa pt related to BP cuff. Neurological: Alert and Oriented x 3, NL Sensation Result Diagrams: 03/24/18 05:26 03/24/18 05:26 Microbiology and Other Data: Microbiology 03/23/18 12:05 Aerobic Blood Culture - Preliminary Blood Venous Anaerobic Blood Culture - Preliminary No Growth Day 1 Blood MRSA/MSSA (PCR) - Final Mrsa Negative S.aureus Negative 03/23/18 17:20 Skin and Soft Tissue MRSA/MSSA (PCR - Final Perianal Mrsa Negative S.aureus Negative Gram Stain - Final Assess/Plan/Problems-Billing Assessment: - Patient Problems (1) Groin abscess Current Visit: Yes Status: Acute Code(s): L02.214 - CUTANEOUS ABSCESS OF GROIN SNOMED Code(s): 54919370 Comment: Continue IV clindamycin. Dr. Belcher to change packing 03/25. C& S final reports pending. (2) Diabetes mellitus Current Visit: No Status: Chronic Priority: High Onset Date: 12/17/14 Code(s): E11.9 - TYPE 2 DIABETES MELLITUS WITHOUT COMPLICATIONS SNOMED Code(s) : 35986405 Comment: Start glipizide PM 03/24. Stop Lispro. (3) COPD (chronic obstructive pulmonary disease) Current Visit: No Status: Acute Code(s): J44.9 - CHRONIC OBSTRUCTIVE PULMONARY DISEASE, UNSPECIFIED SNOMED Code(s): 98577675 Comment: Continue mometasone/salmeterol MDI, albuterol MDI, neb. (4) Tobacco abuse Current Visit: No Status: Acute Code(s): Z72.0 - TOBACCO USE SNOMED Code(s ): 830929471 Comment: NRT ordered. (5) Obesity, Class III, BMI 40-49.9 (morbid obesity) Current Visit: No Status: Chronic Priority: High Code(s): E66.01 - MORBID (SEVERE) OBESITY DUE TO EXCESS CALORIES SNOMED Code(s): 878240669 Comment: - BMI 48.9
[2018-03-24] MEDS: glipiZIDE TAB* 5 MG PO SCH (17:43)
[2018-03-25] MEDS: Acetaminophen TAB* 325 MG PO PRN ×2 (01:25→07:39)
[2018-03-25] MEDS: Clindamycin 300 MG IVPREMIX(* 300 MG/50 ML SDV IV SCH ×3 (03:02→15:25)
[2018-03-25] MEDS: Heparin VIAL(*) 5000 UNITS/ML VIAL (FIVE THOUSAND) SUBCUT SCH ×3 (05:36→20:56)
[2018-03-25] MEDS: Mometasone/Formoter 100/5 MDI INH SCH ×2 (07:58→19:18)
[2018-03-25] MEDS: glipiZIDE TAB* 5 MG PO SCH ×2 (09:14→17:15)
[2018-03-25] MEDS: Nicotine Inhaler* 10 MG AMP INH PRN ×2 (10:37→20:56)
[2018-03-25] MEDS: Nystatin TOP POWDER* 15 GM BTL TOPICAL SCH ×2 (10:37→20:57)
--- NOTE | 2018-03-25 10:38 | PN ---
Subjective Date of Service: 03/25/18 Interval History: Chronic itching on back and elsewhere due to her eczema. Chronic SOB. Objective Active Medications: Acetaminophen (Tylenol Tab*) 650 mg PO Q4H PRN PRN Reason: FEVER/PAIN Last Admin: 03/25/18 07:39 Dose: 650 mg Albuterol (Ventolin Hfa Inhaler*) 2 puff INH Q6H PRN PRN Reason: SOB/WHEEZING Albuterol/Ipratropium (Duoneb (Albuterol 2.5 Mg/Ipratropium 0.5 Mg)) 1 neb INH Q6H PRN PRN Reason: SOB/WHEEZING Albuterol/Ipratropium (Duoneb (Albuterol 2.5 Mg/Ipratropium 0.5 Mg)) 1 neb INH BID [facility] Dextrose (D50w Syringe 50 Ml*) 12.5 gm IV PUSH .FOR FS < 60 - SS PRN PRN Reason: FS < 60 Fentanyl Citrate (Fentanyl*) 50 mcg IV SLOW PU Q1H PRN PRN Reason: PAIN Last Admin: 03/23/18 22:23 Dose: 50 mcg Glipizide (Glucotrol Tab*) 5 mg PO 0800,1700 [facility] Last Admin: 03/25/18 09:14 Dose: 5 mg Heparin Sodium (Porcine) (Heparin Vial(*)) 5,000 units SUBCUT Q8HR [facility] Last Admin: 03/25/18 05:36 Dose: 5,000 units Clindamycin HCl/Dextrose (Cleocin 300 Mg Ivpemix(*)) 300 mg in 50 mls @ 200 mls /hr IV Q6H [facility] Last Admin: 03/25/18 09:14 Dose: 200 mls/hr Mometasone Furoate/Formoterol Fumar (Dulera 100/5 Mdi*) 2 puff INH BID [facility] Last Admin: 03/25/18 07:58 Dose: 2 puff Nicotine (Nicotine Inhaler*) 10 mg INH Q2H PRN PRN Reason: CRAVING Last Admin: 03/24/18 13:18 Dose: 10 mg Non-Formulary Medication (Naproxen Sodium [Aleve]) 440 mg PO Q6HR PRN PRN Reason: PAIN Nystatin (Nystatin Top Powder*) 1 applic TOPICAL BID [facility] Last Admin: 02/12/19 20:38 Dose: 1 applic Oxycodone/Acetaminophen (Percocet 5/325 Tab*) 1 tab PO Q4H PRN PRN Reason: Pain Last Admin: 03/24/18 20:37 Dose: 1 tab Vital Signs - 8 hr 03/25/18 03/25/18 03/25/18 04:06 08:00 08:11 Temperature 97.3 F Pulse Rate 59 Respiratory 22 16 Rate Blood Pressure 138/58 (mmHg) O2 Sat by Pulse 98 98 Oximetry 03/25/18 03/25/18 08:13 08:20 Temperature 97.3 F Pulse Rate 99 Respiratory 16 Rate Blood Pressure 101/79 (mmHg) O2 Sat by Pulse 84 98 Oximetry Oxygen Devices in Use Now: Nasal Cannula Appearance: Alert, partly up in bed. In good spirits. Looks comfortable. Eyes: No Scleral Icterus Neck: NL Appearance and Movements; NL JVP, No Thyroid Enlargement, Masses Respiratory: Symmetrical Chest Expansion and Respiratory Effort, Clear to Percussion, - - mild to mod wheezing BL Extremities: No Clubbing, Cyanosis, - - 1 - 2+ edema BL Skin: No Nodules or Sclerosis, - - Multiple confluent brown and red areas on back Neurological: Alert and Oriented x 3, NL Sensation Result Diagrams: 03/24/18 05:26 03/24/18 05:26 Microbiology and Other Data: Microbiology 03/23/18 12:05 Aerobic Blood Culture - Preliminary Blood Venous Anaerobic Blood Culture - Preliminary No Growth Day 1 Blood MRSA/MSSA (PCR) - Final Mrsa Negative S.aureus Negative 03/23/18 17:20 Skin and Soft Tissue MRSA/MSSA (PCR - Final Perianal Mrsa Negative S.aureus Negative Gram Stain - Final Assess/Plan/Problems-Billing Assessment: - Patient Problems (1) Groin abscess Current Visit: Yes Status: Acute Code(s): L02.214 - CUTANEOUS ABSCESS OF GROIN SNOMED Code(s): 84807421 Comment: Continue IV clindamycin. Dr. Belcher to change packing 03/25. C& S final reports pending. S. hominis in 1 bottle likely contaminant. (2) Diabetes mellitus Current Visit: No Status: Chronic Priority: High Onset Date: 12/17/14 Code(s): E11.9 - TYPE 2 DIABETES MELLITUS WITHOUT COMPLICATIONS SNOMED Code(s) : 91992365 Comment: Started glipizide PM 2/12. (3) COPD (chronic obstructive pulmonary disease) Current Visit: No Status: Acute Code(s): J44.9 - CHRONIC OBSTRUCTIVE PULMONARY DISEASE, UNSPECIFIED SNOMED Code(s): 87228004 Comment: Continue mometasone/salmeterol MDI, albuterol MDI, neb. (4) Tobacco abuse Current Visit: No Status: Acute Code(s): Z72.0 - TOBACCO USE SNOMED Code(s ): 565288144 Comment: NRT ordered. (5) Obesity, Class III, BMI 40-49.9 (morbid obesity) Current Visit: No Status: Chronic Priority: High Code(s): E66.01 - MORBID (SEVERE) OBESITY DUE TO EXCESS CALORIES SNOMED Code(s): 975905154 Comment: - BMI 48.9 (6) Bipolar disorder Current Visit: No Status: Acute Comment: Citalopram ordered as per last [facility] discharge summary.
[2018-03-25] MEDS: Citalopram TAB* 20 MG PO SCH (11:48)
[2018-03-25] MEDS: oxyCODONE/Acetamin 5/325 MG* TAB PO PRN ×2 (11:48→17:15)
[2018-03-25] MEDS: fentaNYL* 50 MCG/ML 2 ML VIAL (100 MCG VIAL) IV SLOW PU PRN (14:11)
--- NOTE | 2018-03-25 14:32 | PN ---
Progress Note - Progress Note Date of Service: 03/25/18 Note: S: Less pain. Packing fell out. On Clinda. O: Vital Signs - 8 hr 03/25/18 03/25/18 03/25/18 08:00 08:11 08:13 Temperature 97.3 F Pulse Rate 99 Respiratory 18 16 16 Rate Blood Pressure 101/79 (mmHg) O2 Sat by Pulse 98 84 Oximetry 03/25/18 03/25/18 03/25/18 08:20 11:48 12:13 Temperature 97.6 F Pulse Rate 59 Respiratory 20 16 Rate Blood Pressure 156/65 (mmHg) O2 Sat by Pulse 98 100 Oximetry 03/25/18 03/25/18 03/25/18 13:50 14:10 14:11 Temperature Pulse Rate 68 Respiratory 18 16 Rate Blood Pressure (mmHg) O2 Sat by Pulse Oximetry PE: Left groin: posteriorly, toward buttock- two open areas (presumably one from the I&D in the ED and the other from spontaneous drainage). Each open wound measures ~ 2 cm in greatest dimension w/ ~ 2 cm depth and another 2-3 cm undermining. The wounds connect subcutaneously. There is still some tenderness to probing and palpation, but minimal. There is no evidence of undrained collection or significant tracking. A single wick of plain 1/4" packing was placed which she tolerated well. A: s/p I&D of Left groin abscess, doing well P: see wound care instructions in Discharge packet. She will not require any further packing after today. Surgical f/u will be as needed. Discussed w/ Dr. Lopez.
[2018-03-25] MEDS: Albuterol/Ipratropium NEB.SOL* Albuterol 2.5 MG/Ipratropium 0.5 MG 3 ML INH SCH (19:14)
[2018-03-26] MEDS: oxyCODONE/Acetamin 5/325 MG* TAB PO PRN ×4 (00:50→21:29)
[2018-03-26] MEDS: Heparin VIAL(*) 5000 UNITS/ML VIAL (FIVE THOUSAND) SUBCUT SCH ×3 (05:28→21:27)
[2018-03-26] MEDS: glipiZIDE TAB* 5 MG PO SCH ×2 (08:35→17:35)
[2018-03-26] MEDS: Citalopram TAB* 20 MG PO SCH (08:36)
[2018-03-26] MEDS: Nystatin TOP POWDER* 15 GM BTL TOPICAL SCH ×2 (08:37→21:29)
[2018-03-26] MEDS: Mometasone/Formoter 100/5 MDI INH SCH ×2 (09:15→19:24)
[2018-03-26] MEDS: Albuterol/Ipratropium NEB.SOL* Albuterol 2.5 MG/Ipratropium 0.5 MG 3 ML INH SCH ×2 (09:15→19:24)
--- NOTE | 2018-03-26 10:42 | PN ---
Subjective Date of Service: 03/26/18 Interval History: Patient seen and examined. States she has some chills, but no fever. Denies pain , has baseline SOB 2/2 COPD and is oxygen dependent. Has some pain in the groin area in the area of her wounds. No further complaints. Objective Active Medications: Acetaminophen (Tylenol Tab*) 650 mg PO Q4H PRN PRN Reason: FEVER/PAIN Last Admin: 03/25/18 07:39 Dose: 650 mg Albuterol (Ventolin Hfa Inhaler*) 2 puff INH Q6H PRN PRN Reason: SOB/WHEEZING Albuterol/Ipratropium (Duoneb (Albuterol 2.5 Mg/Ipratropium 0.5 Mg)) 1 neb INH Q6H PRN PRN Reason: SOB/WHEEZING Albuterol/Ipratropium (Duoneb (Albuterol 2.5 Mg/Ipratropium 0.5 Mg)) 1 neb INH BID [facility] Last Admin: 03/26/18 09:15 Dose: 1 neb Citalopram Hydrobromide (Celexa Tab*) 20 mg PO DAILY [facility] Last Admin: 03/26/18 08:36 Dose: 20 mg Clindamycin HCl (Cleocin Cap*) 300 mg PO Q8HR [facility] Dextrose (D50w Syringe 50 Ml*) 12.5 gm IV PUSH .FOR FS < 60 - SS PRN PRN Reason: FS < 60 Glipizide (Glucotrol Tab*) 5 mg PO 0800,1700 [facility] Last Admin: 03/26/18 08:35 Dose: 5 mg Heparin Sodium (Porcine) (Heparin Vial(*)) 5,000 units SUBCUT Q8HR [facility] Last Admin: 03/26/18 05:28 Dose: 5,000 units Mometasone Furoate/Formoterol Fumar (Dulera 100/5 Mdi*) 2 puff INH BID [facility] Last Admin: 03/26/18 09:15 Dose: 2 puff Nicotine (Nicotine Inhaler*) 10 mg INH Q2H PRN PRN Reason: CRAVING Last Admin: 03/25/18 20:56 Dose: 10 mg Non-Formulary Medication (Naproxen Sodium [Aleve]) 440 mg PO Q6HR PRN PRN Reason: PAIN Nystatin (Nystatin Top Powder*) 1 applic TOPICAL BID [facility] Last Admin: 03/26/18 08:37 Dose: 1 applic Oxycodone/Acetaminophen (Percocet 5/325 Tab*) 1 tab PO Q4H PRN PRN Reason: Pain Last Admin: 03/26/18 08:35 Dose: 1 tab Vital Signs - 8 hr 03/26/18 03/26/18 03/26/18 02:49 03:47 08:00 Temperature 98.5 F Pulse Rate 63 Respiratory 20 18 18 Rate Blood Pressure 131/89 (mmHg) O2 Sat by Pulse 96 97 Oximetry 03/26/18 03/26/18 08:35 09:12 Temperature Pulse Rate 67 Respiratory 16 18 Rate Blood Pressure (mmHg) O2 Sat by Pulse 97 Oximetry Oxygen Devices in Use Now: Nasal Cannula Appearance: alert, NAD Eyes: No Scleral Icterus, PERRLA Ears/Nose/Mouth/Throat: Mucous Membranes Moist, - - edentulous Neck: NL Appearance and Movements; NL JVP, Trachea Midline Respiratory: Symmetrical Chest Expansion and Respiratory Effort, - - diminished bases Cardiovascular: NL Sounds; No Murmurs; No JVD, RRR Abdominal: NL Sounds; No Tenderness; No Distention, - - obese Extremities: No Clubbing, Cyanosis Skin: - - chronic wounds to groin bilaterally Neurological: Alert and Oriented x 3, NL Sensation Nutrition: Taking PO's Result Diagrams: 03/24/18 05:26 03/24/18 05:26 Diagnostic Imaging: Patient Name: BARAK OLIVERA Medical Record#: [id number] Ordering Physician: Aric Rangel MD Acct.#: [id number] : 1955 Age: 62 Sex: F Location: EMERGENCY DEPARTMENT Exam Date: 03/23/181127 ADM Status: REG ER Order Information: CT ABD/PEL W Accession Number: [id number] CPT: 89387 ADDENDUM In the subcutaneous tissue in the left thigh there is a small fluid collection with air measuring approximately 2.2 cm. There appears to be no communication with the anus. <Electronically signed by Hailey Bailey MD in [place]>03/23/181620 Dictated by: Hailey Bailey MD Dictated Date/Time:03/23/181620 Transcribed Date/Time: 03/23/181619 Copy to: Darlin Purvis MD; Aric Rangel MD Indication: Left buttocks and groin abscess evaluate for rectal abscess Contrast: Administered 141.3 ml of VISIPAQUE 320 mg/ml CT of the abdomen and pelvis was performed after oral and IV contrast infusion. Coronal and sagittal reconstructed images were obtained. Lung bases demonstrate no pleural fluid, nodules or masses. The heart is of normal size without pericardial effusion. The liver is normal in size. No focal lesions or intrahepatic duct dilatation is the spleen is normal in size. The pancreas demonstrates no mass or pancreatic duct dilatation. The common duct is not dilated. The gallbladder demonstrates gallstones. No pericholecystic fluid or wall thickening is noted. No adrenal masses are noted. The kidneys demonstrate symmetric nephrograms. No dilated loops of bowel are noted. CT of the pelvis demonstrates no pelvic masses. No hernias are noted. No evidence of inguinal adenopathy or collections are noted. No evidence of perirectal abscess is noted although there may be some phlegmonous change and induration of the subcutaneous tissue adjacent to the anus in the subcutaneous tissue. IMPRESSION: There may be some minimal induration of the buttocks adjacent to the anus on the right with no evidence of abnormal fluid collection. No evidence of proximal abscess or joint abscess is identified. No other masses or fluid collections are noted. Cholelithiasis without biliary duct dilatation. This report is only to be considered final once signed by the Provider(s) as displayed in the "<Electronically Signed by >" field (s). Absence of a signature indicates the report is in a draft status and still needs to be finalized. In the event this document was created by someone other than the signing Provider, the individual initiating the document will be listed in the "Entered by:" or "Dictated by:" winter. 1 of 2 Assess/Plan/Problems-Billing Assessment: This is a 62 year old female with history of COPD, - Patient Problems (1) Groin abscess Code(s): L02.214 - CUTANEOUS ABSCESS OF GROIN SNOMED Code(s): 35305667 Comment: - Consults with ID and Surgery appreciated - Wound care recs per surgery - Changed to clinda PO per Dr. Bates, surgery packing wounds - Follow cultures, currently strep in wounds, blood cx likely contaminent, VRE in urine (2) COPD (chronic obstructive pulmonary disease) Code(s): J44.9 - CHRONIC OBSTRUCTIVE PULMONARY DISEASE, UNSPECIFIED SNOMED Code(s): 02449107 Comment: - Continue mometasone/salmeterol MDI, albuterol MDI and nebs (3) Chronic respiratory failure Code(s): J96.10 - CHRONIC RESPIRATORY FAILURE, UNSP W HYPOXIA OR HYPERCAPNIA SNOMED Code(s): 82103325 Comment: - Likely combination of COPD and obesity hypoventilation syndrome - Continue O2 at 2LNC (4) Diabetes mellitus Code(s): E11.9 - TYPE 2 DIABETES MELLITUS WITHOUT COMPLICATIONS SNOMED Code(s) : 56336970 Comment: - Stable on glipizide (5) Obesity, Class III, BMI 40-49.9 (morbid obesity) Code(s): E66.01 - MORBID (SEVERE) OBESITY DUE TO EXCESS CALORIES SNOMED Code(s ): 118947745 Comment: - BMI 48.9 (6) DVT prophylaxis Code(s): FQZ3234 - SNOMED Code(s): 606973368 Comment: - HSQ (7) Full code status Code(s): Z78.9 - OTHER SPECIFIED HEALTH STATUS SNOMED Code(s): 527607688 Status and Disposition: Inpatient, appreciate recs from surgery and ID, dispo to [facility] for wound care at [place].
--- NOTE | 2018-03-26 11:11 | CONS ---
CONSULTATION REPORT: DATE OF CONSULT: 03/26/18 REQUESTING PROVIDER: Lilibeth Brown NP. CONSULTING SERVICE: Infectious Disease. REASON FOR CONSULT: Left thigh abscess. IMPRESSION: 1. Left proximal thigh abscess, for which she has had a bedside I and D with wound culture growing Strep anginosus and peptostreptococcus. This is apparently improving. 2. Staph. hominis in 1 of 4 blood culture bottles, that is a contaminant. 3. VRE in 10,000 colonies in the urine without dysuria, frequency, flank pain, or suprapubic pain. This is an asymptomatic bacteriuria. 4. Super morbid obesity. RECOMMENDATION: Clindamycin, we can change to 300 mg by mouth 3 times a day and follow her thigh symptoms, await sensitivity of the thigh organisms. HISTORY OF PRESENT ILLNESS: This 62-year-old woman with super morbid obesity who has occasional proximal thigh and groin abscess has developed a couple at home over the last week or so. They sometimes drain on their own. She tried to braeden them with a needle and had some purulent drainage. The other one would not drain, so she ended up coming to the hospital on 03/23/18 with worsening pain. She has had chills, sweats, and fever at home, none here. She had a bedside I and D of one of the abscesses in the ER that Gram stain showed 4 + Gram-positive bacilli, 4+ Gram- negative coccobacilli, 3+ Gram-positive cocci in chains, 3+ Gram-positive cocci in clusters, 3+ Gram-negative bacilli. The wound cultures are growing Streptococcus anginosus and peptostreptococcus. Blood cultures 1 of 4 bottles Staph. hominis. She has had no fever here. She has been on IV clindamycin with improving pain in the left thigh. It does get worse when she sits upright in bed. Her white count was 11 on admission; it is down to 7000 on 03/24/18. Her appetite is good. She is able to be up and walking around. Her last tetanus shot was about 5 years ago. PAST MEDICAL HISTORY: 1. Morbid obesity. 2. Hypertension. 3. Hyperlipidemia. 4. Type 2 diabetes mellitus. 5. COPD. 6. Osteoarthritis. 7. Gastroesophageal reflux disease. 8. Anxiety. 9. Depression. 10. Colon cancer. 11. Cardiac catheterization in 2016. 12. Status post tubal ligation. 13. Status post ovarian cyst surgery. MEDICATIONS: 1. Tylenol. 2. Albuterol inhaler. 3. Celexa. 4. Clindamycin IV. 5. Glipizide. 6. Heparin subcutaneous injection. 7. Nicotine inhaler. 8. Nystatin topical powder. 9. Oxycodone as needed. ALLERGIES: PENICILLIN and CEFAZOLIN, which cause anaphylactic shock. Strawberries, face swelling. SULFA, rash. TETRACYCLINE, anaphylactic shock. ERYTHROMYCIN, rash. FAMILY HISTORY: Father had colon cancer. Mother had diabetes and breast cancer as well as uterine cancer. SOCIAL HISTORY: She lives in [place] in a boarding house. She is a past smoker , past alcohol use. REVIEW OF SYSTEMS: All negative for 14-point review, except as noted above in the history of present illness. PHYSICAL EXAM: Vital Signs: Temperature is 37, heart rate 60, respiratory rate 20, blood pressure 130/89, oxygen saturation 97% on 2 L. In general, she is awake, not in distress. Neurologic: She is oriented x3, follows all commands, moves all extremities. HEENT: There is no conjunctival hemorrhage. Oropharynx without lesions. Neck is supple without mass. Heart: Regular rate and rhythm without murmurs, rubs, or gallops. Lungs: Clear to auscultation bilaterally. Abdomen: Soft, nontender, nondistended. There are bowel sounds present. Skin: There is brownish discoloration under her pannus and through the groin, which is non- blanching. She says it is always that way. Musculoskeletal: There is no spine tenderness to palpation or joint synovitis. Proximal right medial thigh and groin, there is diffuse induration without fluctuance or erythema. DIAGNOSTIC STUDIES/LAB DATA: White blood cell count 7, hemoglobin 11, platelets 220. Creatinine is 0.7 from 03/24/18. Please see impressions and recommendations outlined above, which I discussed with Lilibeth Brown NP. Thanks for asking me to see Ms. Coughlin in consultation. [id number]/CPS #: [id number] MTDD
[2018-03-26] MEDS: Nicotine Inhaler* 10 MG AMP INH PRN ×2 (11:45→21:29)
[2018-03-26] MEDS: Acetaminophen TAB* 325 MG PO PRN (11:45)
[2018-03-26] MEDS: Clindamycin CAP* 150 MG PO SCH ×2 (14:19→21:28)
[2018-03-26] MEDS ORDERED: Ondansetron TAB* 4 MG PO PRN (14:43)
[2018-03-26] MEDS: Pantoprazole TAB * 40 MG TAB PO SCH (15:14)
[2018-03-27] MEDS: Acetaminophen TAB* 325 MG PO PRN ×2 (01:11→14:29)
[2018-03-27] MEDS: Heparin VIAL(*) 5000 UNITS/ML VIAL (FIVE THOUSAND) SUBCUT SCH ×3 (05:22→21:46)
[2018-03-27] MEDS: Clindamycin CAP* 150 MG PO SCH ×3 (05:23→21:46)
[2018-03-27] MEDS: oxyCODONE/Acetamin 5/325 MG* TAB PO PRN ×4 (05:27→21:45)
[2018-03-27] MEDS: Albuterol/Ipratropium NEB.SOL* Albuterol 2.5 MG/Ipratropium 0.5 MG 3 ML INH SCH ×2 (08:10→20:30)
[2018-03-27] MEDS: Mometasone/Formoter 100/5 MDI INH SCH ×2 (08:10→20:30)
[2018-03-27] MEDS: Citalopram TAB* 20 MG PO SCH (08:11)
[2018-03-27] MEDS: Nystatin TOP POWDER* 15 GM BTL TOPICAL SCH ×2 (08:11→21:47)
[2018-03-27] MEDS: Nicotine Inhaler* 10 MG AMP INH PRN ×2 (08:11→13:42)
[2018-03-27] MEDS: glipiZIDE TAB* 5 MG PO SCH ×2 (08:11→17:26)
[2018-03-27] MEDS: Pantoprazole TAB * 40 MG TAB PO SCH (08:11)
--- NOTE | 2018-03-27 16:33 | PN ---
Subjective Date of Service: 03/27/18 Interval History: Patient seen and examined. Complaint of skin itching around the area of the abscess. Denies SOB, no chest pain, no fevers or chills. Objective Active Medications: Acetaminophen (Tylenol Tab*) 650 mg PO Q4H PRN PRN Reason: FEVER/PAIN Last Admin: 03/27/18 14:29 Dose: 650 mg Albuterol (Ventolin Hfa Inhaler*) 2 puff INH Q6H PRN PRN Reason: SOB/WHEEZING Albuterol/Ipratropium (Duoneb (Albuterol 2.5 Mg/Ipratropium 0.5 Mg)) 1 neb INH Q6H PRN PRN Reason: SOB/WHEEZING Albuterol/Ipratropium (Duoneb (Albuterol 2.5 Mg/Ipratropium 0.5 Mg)) 1 neb INH BID [facility] Last Admin: 03/27/18 08:10 Dose: 1 neb Citalopram Hydrobromide (Celexa Tab*) 20 mg PO DAILY [facility] Last Admin: 03/27/18 08:11 Dose: 20 mg Clindamycin HCl (Cleocin Cap*) 300 mg PO Q8HR [facility] Last Admin: 03/27/18 13:42 Dose: 300 mg Dextrose (D50w Syringe 50 Ml*) 12.5 gm IV PUSH .FOR FS < 60 - SS PRN PRN Reason: FS < 60 Glipizide (Glucotrol Tab*) 5 mg PO 0800,1700 [facility] Last Admin: 03/27/18 08:11 Dose: 5 mg Heparin Sodium (Porcine) (Heparin Vial(*)) 5,000 units SUBCUT Q8HR [facility] Last Admin: 03/27/18 13:42 Dose: 5,000 units Hydrocortisone (Hytone Cream 1%*) 1 applic TOPICAL TID [facility] Mometasone Furoate/Formoterol Fumar (Dulera 100/5 Mdi*) 2 puff INH BID [facility] Last Admin: 03/27/18 08:10 Dose: 2 puff Nicotine (Nicotine Inhaler*) 10 mg INH Q2H PRN PRN Reason: CRAVING Last Admin: 03/27/18 13:42 Dose: 10 mg Non-Formulary Medication (Naproxen Sodium [Aleve]) 440 mg PO Q6HR PRN PRN Reason: PAIN Nystatin (Nystatin Top Powder*) 1 applic TOPICAL BID [facility] Last Admin: 03/27/18 08:11 Dose: 1 applic Ondansetron HCl (Zofran Tab*) 4 mg PO Q8H PRN PRN Reason: NAUSEA Last Admin: 03/26/18 15:14 Dose: 4 mg Oxycodone/Acetaminophen (Percocet 5/325 Tab*) 1 tab PO Q4H PRN PRN Reason: Pain Last Admin: 03/27/18 10:03 Dose: 1 tab Pantoprazole Sodium (Protonix Tab*) 40 mg PO DAILY [facility] Last Admin: 03/27/18 08:11 Dose: 40 mg Vital Signs - 8 hr 03/27/18 03/27/18 03/27/18 10:03 11:09 11:16 Temperature 97.8 F Pulse Rate 62 Respiratory 16 19 Rate Blood Pressure 115/65 (mmHg) O2 Sat by Pulse 98 Oximetry 03/27/18 11:55 Temperature Pulse Rate Respiratory 18 Rate Blood Pressure (mmHg) O2 Sat by Pulse Oximetry Oxygen Devices in Use Now: Nasal Cannula Appearance: alert, NAD Eyes: No Scleral Icterus, PERRLA Ears/Nose/Mouth/Throat: Mucous Membranes Moist Neck: NL Appearance and Movements; NL JVP, Trachea Midline Respiratory: Symmetrical Chest Expansion and Respiratory Effort, - - diminished throughout but otherwise clear with good air entry Cardiovascular: NL Sounds; No Murmurs; No JVD, RRR Extremities: No Clubbing, Cyanosis Skin: - - groin abscess with packing Neurological: Alert and Oriented x 3 Nutrition: Taking PO's Result Diagrams: 03/24/18 05:26 03/24/18 05:26 Microbiology and Other Data: Microbiology 03/23/18 12:05 Aerobic Blood Culture - Preliminary Blood Venous Anaerobic Blood Culture - Preliminary No Growth Day 1 Blood MRSA/MSSA (PCR) - Final Mrsa Negative S.aureus Negative 03/23/18 17:20 Skin and Soft Tissue MRSA/MSSA (PCR - Final Perianal Mrsa Negative S.aureus Negative Gram Stain - Final Diagnostic Imaging: Patient Name: BARAK OLIVERA Medical Record#: [id number] Ordering Physician: Aric Rangel MD Acct.#: [id number] : 1955 Age: 62 Sex: F Location: EMERGENCY DEPARTMENT Exam Date: 03/23/18 1128 ADM Status: REG ER Order Information: CT ABD/PEL W Accession Number: [id number] CPT: 54716 ADDENDUM In the subcutaneous tissue in the left thigh there is a small fluid collection with air measuring approximately 2.2 cm. There appears to be no communication with the anus. <Electronically signed by Hailey Bailey MD in [place]>03/23/181620 Dictated by: Hailey Bailey MD Dictated Date/Time:03/23/181620 Transcribed Date/Time: 03/23/181619 Copy to: Darlin Purvis MD; Aric Rangel MD Indication: Left buttocks and groin abscess evaluate for rectal abscess Contrast: Administered 141.3 ml of VISIPAQUE 320 mg/ml CT of the abdomen and pelvis was performed after oral and IV contrast infusion. Coronal and sagittal reconstructed images were obtained. Lung bases demonstrate no pleural fluid, nodules or masses. The heart is of normal size without pericardial effusion. The liver is normal in size. No focal lesions or intrahepatic duct dilatation is the spleen is normal in size. The pancreas demonstrates no mass or pancreatic duct dilatation. The common duct is not dilated. The gallbladder demonstrates gallstones. No pericholecystic fluid or wall thickening is noted. No adrenal masses are noted. The kidneys demonstrate symmetric nephrograms. No dilated loops of bowel are noted. CT of the pelvis demonstrates no pelvic masses. No hernias are noted. No evidence of inguinal adenopathy or collections are noted. No evidence of perirectal abscess is noted although there may be some phlegmonous change and induration of the subcutaneous tissue adjacent to the anus in the subcutaneous tissue. IMPRESSION: There may be some minimal induration of the buttocks adjacent to the anus on the right with no evidence of abnormal fluid collection. No evidence of proximal abscess or joint abscess is identified. No other masses or fluid collections are noted. Cholelithiasis without biliary duct dilatation. This report is only to be considered final once signed by the Provider(s) as displayed in the "<Electronically Signed by >" field (s). Absence of a signature indicates the report is in a draft status and still needs to be finalized. In the event this document was created by someone other than the signing Provider, the individual initiating the document will be listed in the "Entered by:" or "Dictated by:" winter. 1 of 2 Assess/Plan/Problems-Billing Assessment: This is a 62 year old female with history of COPD, that presented to ED with complaints of groin pain 2/2 non-healing abscess with drainage. - Patient Problems (1) Groin abscess Code(s): L02.214 - CUTANEOUS ABSCESS OF GROIN SNOMED Code(s): 97332293 Comment: - Consults with ID and Surgery appreciated, s/p bedside I&D with packing to left groin - Wound care recs per surgery - Changed to clinda PO per Dr. Bates, surgery packing wounds - Follow cultures, currently strep in wounds, blood cx likely contaminent, VRE in urine - Itching around the site with some erythema, will order hydrocortisone cream for rash on closed skin areas only (2) COPD (chronic obstructive pulmonary disease) Code(s): J44.9 - CHRONIC OBSTRUCTIVE PULMONARY DISEASE, UNSPECIFIED SNOMED Code(s): 41846366 Comment: - Continue mometasone/salmeterol MDI, albuterol MDI and nebs (3) Chronic respiratory failure Code(s): J96.10 - CHRONIC RESPIRATORY FAILURE, UNSP W HYPOXIA OR HYPERCAPNIA SNOMED Code(s): 38894147 Comment: - Likely combination of COPD and obesity hypoventilation syndrome - Continue O2 at 2LNC (4) Diabetes mellitus Code(s): E11.9 - TYPE 2 DIABETES MELLITUS WITHOUT COMPLICATIONS SNOMED Code(s) : 32881366 Comment: - Stable on glipizide (5) Obesity, Class III, BMI 40-49.9 (morbid obesity) Code(s): E66.01 - MORBID (SEVERE) OBESITY DUE TO EXCESS CALORIES SNOMED Code(s ): 587627522 Comment: - BMI 48.9 (6) DVT prophylaxis Code(s): EOC6746 - SNOMED Code(s): 761513815 Comment: - HSQ (7) Full code status Code(s): Z78.9 - OTHER SPECIFIED HEALTH STATUS SNOMED Code(s): 179571765 Status and Disposition: Inpatient, plan for DC to [facility] status in AM.
[2018-03-27] MEDS: Hydrocortisone 1% CREAM* 30 GM TUBE TOPICAL SCH ×2 (17:26→21:47)
[2018-03-28] MEDS: Nicotine Inhaler* 10 MG AMP INH PRN ×2 (00:33→14:13)
[2018-03-28] MEDS: Clindamycin CAP* 150 MG PO SCH ×2 (05:22→14:13)
[2018-03-28] MEDS: Heparin VIAL(*) 5000 UNITS/ML VIAL (FIVE THOUSAND) SUBCUT SCH ×2 (05:22→14:15)
[2018-03-28] MEDS: Acetaminophen TAB* 325 MG PO PRN (05:25)
[2018-03-28] MEDS: Albuterol/Ipratropium NEB.SOL* Albuterol 2.5 MG/Ipratropium 0.5 MG 3 ML INH SCH (07:37)
[2018-03-28] MEDS: Mometasone/Formoter 100/5 MDI INH SCH (07:37)
[2018-03-28] MEDS: Citalopram TAB* 20 MG PO SCH (08:11)
[2018-03-28] MEDS: glipiZIDE TAB* 5 MG PO SCH (08:11)
[2018-03-28] MEDS: Pantoprazole TAB * 40 MG TAB PO SCH (08:11)
[2018-03-28] MEDS: oxyCODONE/Acetamin 5/325 MG* TAB PO PRN ×2 (08:11→14:13)
[2018-03-28] MEDS: Nystatin TOP POWDER* 15 GM BTL TOPICAL SCH (08:12)
[2018-03-28] MEDS: Hydrocortisone 1% CREAM* 30 GM TUBE TOPICAL SCH ×2 (08:12→14:15)
[2018-03-28 14:25] VITALS: BP 155/102
--- NOTE | 2018-03-29 00:01 | DS ---
CC: Dr. Kilo Bates, Infectious Disease; Dr. Jai Belcher, Surgery * DISCHARGE SUMMARY WITH AN ADMISSION HISTORY AND PHYSICAL FOR SWING STATUS: DATE OF ADMISSION: 03/24/18 DATE OF DISCHARGE TO SWIN03/28/18 DATE OF ADMISSION TO SWIN03/28/18 MY ATTENDING FOR TODAY: Dr. Joelle New.* (TANGELA STEINER NP) HOSPITAL COURSE: This is a 62-year-old female patient who presented to the emergency department on 03/24/18 with a complaint of abscess of her left inner thigh and groin area. The patient states she has had abscesses before in the past and she has usually dealt with them at home. Per the report, it says that she is taking care of the abscesses herself by piercing them with an upholstery needle. She did try to puncture her abscess again this time and it showed purulent drainage. She also had subjective fevers and chills and came to the emergency department for evaluation. She had CT of the abdomen and pelvis and chest x-ray. A bedside I and D was performed in the ER. She was given IV fluids , antibiotics in the form of vancomycin, pain medication, and was admitted to observation. Initial plan was for the patient to go to short-term rehab for additional wound care. Surgery is following her case and has the wound packed. There is also some questionable living conditions where it would be unsafe for the patient to go home. So given that she needs wound care and other skilled services and we do not have an option for a short-term care bed, the patient is going to be discharged to Swing at [facility]. The patient does state that today, day of discharge to Swing, that she has got an increasing cough. The patient does have history of COPD and her chest x-ray was negative at admission and she does not have a fever; however, she is high risk for pneumonia given her morbid obesity and pre-existing lung disease. PLAN: The patient will be discharged to Swing. We will re-image her chest to make sure she does not have a consolidation. DISCHARGE DIAGNOSES: 1. Abscess, left inner thigh. 2. Chronic obstructive pulmonary disease with chronic usage of oxygen. 3. Type 2 diabetes mellitus. 4. Hyperlipidemia. 5. Gastroesophageal reflux disease. 6. Skin infection with yeast. 7. Cough. DISCHARGE MEDICATIONS: Include: 1. Protonix 40 mg p.o. daily. 2. Percocet 1 tab p.o. q.4 hours. 3. Zofran 4 mg q.8 hours as needed. 4. Nystatin topical 2 times a day as needed. 5. Aleve 440 mg q.6 hours as needed. 6. Nicotine inhaler q.2 hours as needed. 7. Dulera 100/5 two puffs 2 times a day. 8. Hydrocortisone 1% cream topical 3 times a day. 9. Heparin 5000 units subcu q.8 hours. 10. Glipizide 5 mg p.o. 2 times a day scheduled. 11. Clindamycin caps 300 mg p.o. q.8 hours scheduled. 12. Celexa 20 mg p.o. daily. 13. DuoNeb 1 neb inhaled 2 times a day and q.6 hours as needed. 14. Albuterol inhaler 2 puffs q.6 hours as needed. 15. Tylenol 650 mg q.6 hours as needed. REVIEW OF SYSTEMS: The patient endorses cough, but denies any fever, fatigue, or chills. No chest pain, no shortness of breath. She does have some groin pain and itching. No further constitutional complaints. PHYSICAL EXAMINATION: Physical exam today reveals a somewhat disheveled older woman, appears older than her stated age, in no acute distress. Vital Signs: Blood pressure 107/41, heart rate 64, O2 saturation 94% on 2 L, respiratory rate 18, temperature 97.9. HEENT: The patient is atraumatic, normocephalic. PERRLA with anicteric sclerae. Oral mucosa is moist. Tongue is midline. Dentition is poor. Neck: There is no thyromegaly. No carotid bruit auscultated. Cardiovascular: S1, S2 present. Rate and rhythm are regular. No murmurs, gallops, or rubs. Lungs: Diminished throughout the lung winter with wheeze on the right, clear on the left. No rhonchi or rales noted. Abdomen is large, obese. Skin condition is poor. She also has some yeast-like rash under bilateral breasts. She has hypoactive bowel sounds. Skin: She has a left groin abscess that is packed and dressed. She has a surrounding erythema and some eczema-like rash, also to the insides of both of her thighs and her upper arms. No other wounds noted. Musculoskeletal: There is no clubbing, no cyanosis, no edema. She has full range of motion. Gross motor and sensation are intact. She does ambulate with a walker. Neurologic: Grossly intact with no focal deficits. Psychiatric: Cooperative and appropriate. DIAGNOSTIC STUDIES/LAB DATA: WBCs 7.4, RBCs 4.23, hemoglobin 11.2, hematocrit 35, platelets 220. Sodium 139, potassium 4.0, chloride 102, CO2 32, BUN 10, creatinine 0.73, GFR 81.3, glucose 126, calcium 8.1, lactic acid is 1.2. Triglycerides 172, cholesterol 131, total LDL 72, HDL 24.9. TSH is 1.64. Urinalysis does show VRE in the urine. Microbiology: Gram stain of the wound and culture shows Streptococcus anginosus, Peptostreptococcus anaerobius, Prevotella species, normal george. There is also a contaminant in her blood culture with Staph hominis that susceptibilities are not performed on. Again, this is likely a contaminant. CT scan of the abdomen and pelvis at admission shows maybe some minimal induration at the buttocks adjacent to the anus on the right with no evidence of abnormal fluid collection. No evidence of proximal abscess or joint abscess identified. No other masses or fluid collections noted. Cholelithiasis without biliary duct dilatation. No evidence of inguinal adenopathy or collections noted. No evidence of a perirectal abscess, although it is noted that there may be some phlegmonous change and induration of the subcutaneous tissue adjacent to the anus in the subcutaneous tissue. Chest x-ray, dated 12/29, shows stigmata of chronic obstructive lung disease with no acute pulmonary process or cardiac process noted. DISPOSITION: The patient will be discharged to Swing Status here at [facility]. TIME SPENT: Sixty five minutes discharging the patient and re-admitting to Swing Status. JAVID STEINER NP [id number]/CPS #: [id number] [facility]
--- NOTE | 2018-03-29 13:46 | PN ---
Subjective Date of Service: 03/29/18 Interval History: Patient changed to swing status. States she is up walking but not far due to pain. No CP or SOB. Breathing at her baseline. Walking to commode not even bathroom. Pain in groin where abscess was. WRONG NOTE - DIFFERENT ENCOUNTER Objective Oxygen Devices in Use Now: Nasal Cannula Ears/Nose/Mouth/Throat: Mucous Membranes Moist Respiratory: - - diminished breath sounds. No W/R/R Cardiovascular: NL Sounds; No Murmurs; No JVD, RRR Abdominal: - - morbidly obsese Extremities: - - lower ext edema Skin: - - two open I&D areas about 1 cm located in upper inner left thigh. mild erythema. No purulent drainage Neurological: Alert and Oriented x 3 Result Diagrams: 03/24/18 05:26 03/24/18 05:26 Microbiology and Other Data: Microbiology 03/23/18 12:05 Aerobic Blood Culture - Preliminary Blood Venous Anaerobic Blood Culture - Preliminary No Growth Day 1 Blood MRSA/MSSA (PCR) - Final Mrsa Negative S.aureus Negative 03/23/18 17:20 Skin and Soft Tissue MRSA/MSSA (PCR - Final Perianal Mrsa Negative S.aureus Negative Gram Stain - Final Diagnostic Imaging: Patient Name: BARAK OLIVERA Medical Record#: [id number] Ordering Physician: Aric Rangel MD Acct.#: [id number] : 1955 Age: 62 Sex: F Location: EMERGENCY DEPARTMENT Exam Date: 03/23/181127 ADM Status: REG ER Order Information: CT ABD/PEL W Accession Number: [id number] CPT: 88801 ADDENDUM In the subcutaneous tissue in the left thigh there is a small fluid collection with air measuring approximately 2.2 cm. There appears to be no communication with the anus. <Electronically signed by Hailey Bailey MD in OV>03/23/181620 Dictated by: Hailey Bailey MD Dictated Date/Time:03/23/181620 Transcribed Date/Time: 03/23/181619 Copy to: Darlin Purvis MD; Aric Rangel MD Indication: Left buttocks and groin abscess evaluate for rectal abscess Contrast: Administered 141.3 ml of VISIPAQUE 320 mg/ml CT of the abdomen and pelvis was performed after oral and IV contrast infusion. Coronal and sagittal reconstructed images were obtained. Lung bases demonstrate no pleural fluid, nodules or masses. The heart is of normal size without pericardial effusion. The liver is normal in size. No focal lesions or intrahepatic duct dilatation is the spleen is normal in size. The pancreas demonstrates no mass or pancreatic duct dilatation. The common duct is not dilated. The gallbladder demonstrates gallstones. No pericholecystic fluid or wall thickening is noted. No adrenal masses are noted. The kidneys demonstrate symmetric nephrograms. No dilated loops of bowel are noted. CT of the pelvis demonstrates no pelvic masses. No hernias are noted. No evidence of inguinal adenopathy or collections are noted. No evidence of perirectal abscess is noted although there may be some phlegmonous change and induration of the subcutaneous tissue adjacent to the anus in the subcutaneous tissue. IMPRESSION: There may be some minimal induration of the buttocks adjacent to the anus on the right with no evidence of abnormal fluid collection. No evidence of proximal abscess or joint abscess is identified. No other masses or fluid collections are noted. Cholelithiasis without biliary duct dilatation. This report is only to be considered final once signed by the Provider(s) as displayed in the "<Electronically Signed by >" field (s). Absence of a signature indicates the report is in a draft status and still needs to be finalized. In the event this document was created by someone other than the signing Provider, the individual initiating the document will be listed in the "Entered by:" or "Dictated by:" winter. 1 of 2 Assess/Plan/Problems-Billing Assessment: This is a 62 year old female with history of COPD, that presented to ED with complaints of groin pain 2/2 non-healing abscess with drainage. Status and Disposition: Inpatient, plan for DC to Swing status in AM.
== END 2018-03-28 14:58 | disposition swing bed (61) | DRG 603 ==
LOC: ED 10:37 → MED 18:31 → OBSVTOIN 03-24 14:00
PROVIDERS: ADMIT Internal Medicine; ATTEND Hospitalist
PROC: 0H9AXZZ Drainage of Inguinal Skin, External Approach (ICD-10-PCS; principal; 2018-03-24)
DX: L02.416 Cutaneous abscess of left lower limb (principal); Z68.42 Body mass index [BMI] 45.0-49.9, adult; J96.10 Chronic respiratory failure, unspecified whether with hypoxia or hypercapnia; M17.0 Bilateral primary osteoarthritis of knee; M19.012 Primary osteoarthritis, left shoulder; F41.9 Anxiety disorder, unspecified; F32.9 Major depressive disorder, single episode, unspecified; F40.240 Claustrophobia; F17.210 Nicotine dependence, cigarettes, uncomplicated; I65.23 Occlusion and stenosis of bilateral carotid arteries; I10 Essential (primary) hypertension; J44.9 Chronic obstructive pulmonary disease, unspecified; G47.30 Sleep apnea, unspecified; K21.9 Gastro-esophageal reflux disease without esophagitis; L30.9 Dermatitis, unspecified; E66.01 Morbid (severe) obesity due to excess calories; B37.2 Candidiasis of skin and nail; R05 Cough; E78.5 Hyperlipidemia, unspecified; B95.4 Other streptococcus as the cause of diseases classified elsewhere; Z83.3 Family history of diabetes mellitus; Z80.3 Family history of malignant neoplasm of breast; Z86.73 Personal history of transient ischemic attack (TIA), and cerebral infarction without residual deficits; Z85.038 Personal history of other malignant neoplasm of large intestine; Z88.1 Allergy status to other antibiotic agents; Z88.0 Allergy status to penicillin; Z88.2 Allergy status to sulfonamides; Z88.8 Allergy status to other drugs, medicaments and biological substances; Z91.018 Allergy to other foods; Z91.5 Personal history of self-harm; Z98.51 Tubal ligation status; Z82.49 Family history of ischemic heart disease and other diseases of the circulatory system; Z80.49 Family history of malignant neoplasm of other genital organs; Z80.0 Family history of malignant neoplasm of digestive organs; Z23 Encounter for immunization; Z99.81 Dependence on supplemental oxygen; Z79.84 Long term (current) use of oral hypoglycemic drugs
CPT/HCPCS: 36415; 71045; 74177; 80048; 80053; 80061; 81003; 81015; 83036; 83605; 84443; 84484; 85025; 85610; 85730; 87040; 87070; 87076; 87077; 87086; 87150; 87185; 87186; 87205; 87640; 87641; 90686; 94640; 99285; A9270-GY; G0378; J1644; J2270; J2405; J3010; J3370; Q9967

== ENCOUNTER 2018-03-28 14:54 | Inpatient (IN) | payer MEDICARE, MEDICAID ==
[2018-03-28] MEDS ORDERED: Ondansetron TAB* 4 MG PO PRN (15:13)
[2018-03-28] MEDS ORDERED: Albuterol HFA INHALER* 8 gm MDI INH PRN (15:13)
[2018-03-28] MEDS ORDERED: Albuterol/Ipratropium NEB.SOL* Albuterol 2.5 MG/Ipratropium 0.5 MG 3 ML INH PRN (15:13)
[2018-03-28] MEDS ORDERED: Al Hydrox/Mg Hydrox/Simet LIQ* 30 ML UDC PO PRN (15:16)
[2018-03-28] MEDS: glipiZIDE TAB* 5 MG PO SCH (18:11)
[2018-03-28] MEDS: Mometasone/Formoter 100/5 MDI INH SCH (19:10)
[2018-03-28] MEDS: Albuterol/Ipratropium NEB.SOL* Albuterol 2.5 MG/Ipratropium 0.5 MG 3 ML INH SCH (19:10)
[2018-03-28] MEDS: oxyCODONE/Acetamin 5/325 MG* TAB PO PRN (21:31)
[2018-03-28] MEDS: Docusate CAP* 100 MG PO SCH (21:31)
[2018-03-28] MEDS: Nystatin TOP POWDER* 15 GM BTL TOPICAL SCH (21:32)
[2018-03-28] MEDS: Hydrocortisone 1% CREAM* 30 GM TUBE TOPICAL SCH (21:33)
[2018-03-29] MEDS: Acetaminophen TAB* 325 MG PO PRN ×2 (01:57→07:21)
[2018-03-29 07:39] LABS: ABS Basophils 0 10^3/ul (0-0.2); ABS Eosinophils 0.2 10^3/ul (0-0.6); ABS Lymphocytes 1.1 10^3/ul (1.0-4.8); ABS Monocytes 0.4 10^3/ul (0-0.8); ABS Neutrophils 3.9 10^3/ul (1.5-7.7); ABS Nucleated RBC 0 10^3/ul; Eosinophil % 3.9 %; Hematocrit 35 % (35-47); Lymphocyte % 19.6 %; Mean Corpuscular HGB Conc 32 g/dl (31-36); Mean Corpuscular Hemoglobin 26 pg (27-31); Mean Corpuscular Volume 82 fL (80-97); Mean Platelet Volume 9.4 fL (7.4-10.4); Nucleated Red Blood Cells % 0; Platelet Count 208 10^3/ul (150-450); Red Blood Count 4.26 10^6/ul (4.00-5.40); Red Cell Distribution Width 18 % (10.5-15); White Blood Count 5.6 10^3/ul (3.5-10.8)
[2018-03-29] MEDS: glipiZIDE TAB* 5 MG PO SCH ×2 (07:59→16:40)
[2018-03-29] MEDS: Nystatin TOP POWDER* 15 GM BTL TOPICAL SCH ×2 (07:59→20:16)
[2018-03-29] MEDS: Hydrocortisone 1% CREAM* 30 GM TUBE TOPICAL SCH ×3 (07:59→20:16)
[2018-03-29] MEDS: Citalopram TAB* 20 MG PO SCH (07:59)
[2018-03-29] MEDS: Pantoprazole TAB * 40 MG TAB PO SCH (07:59)
[2018-03-29] MEDS: Docusate CAP* 100 MG PO SCH ×2 (08:00→20:16)
[2018-03-29 08:07] LABS: Albumin 3.4 g/dL (3.2-5.2); Albumin/Globulin Ratio 1.1 (1-3); BUN/Creatinine Ratio 19.5 (8-20); Calcium 8.7 mg/dL (8.6-10.3); EGFR African American 80.4 (>60); EGFR Non-African American 66.4 (>60); Globulin 3.1 g/dL (2-4); Potassium 4.8 mmol/L (3.5-5.0); Total Bilirubin 0.4 mg/dL (0.2-1.0); Total Protein 6.5 g/dL (6.4-8.9)
[2018-03-29] MEDS: oxyCODONE/Acetamin 5/325 MG* TAB PO PRN ×4 (08:17→23:17)
[2018-03-29] MEDS: Mometasone/Formoter 100/5 MDI INH SCH ×2 (08:20→19:19)
[2018-03-29] MEDS: Albuterol/Ipratropium NEB.SOL* Albuterol 2.5 MG/Ipratropium 0.5 MG 3 ML INH SCH ×2 (08:20→19:18)
[2018-03-29] MEDS: Nicotine Inhaler* 10 MG AMP INH PRN ×3 (08:25→21:37)
--- NOTE | 2018-03-29 13:59 | PN ---
Subjective Date of Service: 03/29/18 Interval History: No overnight events. Patient still has groin/thigh pain which limits her mobility. She is walking to the commode. No CP or SOB. Breathing at her baseline. No N/V/D Objective Active Medications: Acetaminophen (Tylenol Tab*) 650 mg PO Q4H PRN PRN Reason: FEVER/PAIN Last Admin: 03/29/18 07:21 Dose: 650 mg Al Hydrox/Mg Hydrox/Simethicone (Maalox Plus*) 30 ml PO Q6H PRN PRN Reason: INDIGESTION Albuterol (Ventolin Hfa Inhaler*) 2 puff INH Q6H PRN PRN Reason: SOB/WHEEZING Albuterol/Ipratropium (Duoneb (Albuterol 2.5 Mg/Ipratropium 0.5 Mg)) 1 neb INH Q6H PRN PRN Reason: SOB/WHEEZING Albuterol/Ipratropium (Duoneb (Albuterol 2.5 Mg/Ipratropium 0.5 Mg)) 1 neb INH BID [facility] Last Admin: 03/29/18 08:20 Dose: 1 neb Citalopram Hydrobromide (Celexa Tab*) 20 mg PO DAILY [facility] Last Admin: 03/29/18 07:59 Dose: 20 mg Clindamycin HCl (Cleocin Cap*) 300 mg PO Q8HR [facility] Docusate Sodium (Colace Cap*) 100 mg PO BID [facility] Last Admin: 03/29/18 08:00 Dose: 100 mg Glipizide (Glucotrol Tab*) 5 mg PO 0800,1700 [facility] Last Admin: 03/29/18 07:59 Dose: 5 mg Heparin Sodium (Porcine) (Heparin Vial(*)) 5,000 units SUBCUT Q8HR [facility] Hydrocortisone (Hytone Cream 1%*) 1 applic TOPICAL TID [facility] Last Admin: 03/29/18 13:17 Dose: Not Given Ibuprofen (Motrin Tab*) 600 mg PO Q6H PRN PRN Reason: PAIN Mometasone Furoate/Formoterol Fumar (Dulera 100/5 Mdi*) 2 puff INH BID [facility] Last Admin: 03/29/18 08:20 Dose: 2 puff Nicotine (Nicotine Inhaler*) 10 mg INH Q2H PRN PRN Reason: CRAVING Last Admin: 03/29/18 08:25 Dose: 10 mg Nystatin (Nystatin Top Powder*) 1 applic TOPICAL BID [facility] Last Admin: 03/29/18 07:59 Dose: 1 applic Ondansetron HCl (Zofran Tab*) 4 mg PO Q8H PRN PRN Reason: NAUSEA Oxycodone/Acetaminophen (Percocet 5/325 Tab*) 1 tab PO Q4H PRN PRN Reason: Pain Last Admin: 03/29/18 13:16 Dose: 1 tab Pantoprazole Sodium (Protonix Tab*) 40 mg PO DAILY [facility] Last Admin: 03/29/18 07:59 Dose: 40 mg Vital Signs - 8 hr 03/29/18 03/29/18 03/29/18 08:00 08:17 08:23 Pulse Rate 58 Respiratory 16 18 14 Rate O2 Sat by Pulse 98 Oximetry 03/29/18 03/29/18 08:24 13:16 Pulse Rate 59 Respiratory 14 16 Rate O2 Sat by Pulse 98 Oximetry Oxygen Devices in Use Now: Nasal Cannula Ears/Nose/Mouth/Throat: Mucous Membranes Moist Neck: Trachea Midline Respiratory: Symmetrical Chest Expansion and Respiratory Effort, - - diminished breath sounds. No W/R/R Cardiovascular: RRR, - - soft murmur Abdominal: - - morbidly obese Extremities: - - lower ext edema Skin: - - two open 1 cm wounds located in upper inner left thigh. No purulent drainage Neurological: Alert and Oriented x 3 Result Diagrams: 03/29/18 07:19 03/29/18 07:19 Assess/Plan/Problems-Billing Assessment: This is a 62 yr old morbidly obese female who presented with left inner thigh abscess s/p I&D needs DIOMEDES but unable to find placement, transitioned to swing status - Patient Problems (1) Groin abscess Current Visit: No Status: Acute Code(s): L02.214 - CUTANEOUS ABSCESS OF GROIN SNOMED Code(s): 80768808 Comment: A/P: S/p I&D - currently no packing in place of wound Will resume Clindamycin day 5/7 Will have wound care team re-evaluate wound (2) GERD (gastroesophageal reflux disease) Current Visit: Yes Status: Acute Code(s): K21.9 - GASTRO-ESOPHAGEAL REFLUX DISEASE WITHOUT ESOPHAGITIS SNOMED Code(s): 556538236 Comment: A/p Continue pantoprazole (3) COPD (chronic obstructive pulmonary disease) Current Visit: No Status: Chronic Priority: High Code(s): J44.9 - CHRONIC OBSTRUCTIVE PULMONARY DISEASE, UNSPECIFIED SNOMED Code(s): 37247611 Comment: - Stable. Continue home meds (4) Depression Current Visit: No Status: Chronic Code(s): F32.9 - MAJOR DEPRESSIVE DISORDER , SINGLE EPISODE, UNSPECIFIED SNOMED Code(s): 46760382 Comment: Continue Citalopram (5) Diabetes mellitus Current Visit: No Status: Chronic Priority: High Onset Date: 12/17/14 Code(s): E11.9 - TYPE 2 DIABETES MELLITUS WITHOUT COMPLICATIONS SNOMED Code(s) : 35360732 Comment: - Stable on glipizide (6) DVT prophylaxis Current Visit: Yes Status: Acute Code(s): QRY8523 - SNOMED Code(s): 076603369 Comment: Heparin SQ TID (7) Full code status Current Visit: Yes Status: Acute Code(s): Z78.9 - OTHER SPECIFIED HEALTH STATUS SNOMED Code(s): 270016302 Status and Disposition: Awaiting placement. Swing Status
[2018-03-29] MEDS: Clindamycin CAP* 150 MG PO SCH ×2 (14:10→21:31)
[2018-03-29] MEDS: Heparin VIAL(*) 5000 UNITS/ML VIAL (FIVE THOUSAND) SUBCUT SCH ×2 (14:27→21:32)
[2018-03-29] MEDS: Ibuprofen TAB* 600 MG PO PRN ×2 (16:42→23:17)
[2018-03-30] MEDS: oxyCODONE/Acetamin 5/325 MG* TAB PO PRN ×4 (05:58→19:49)
[2018-03-30] MEDS: Ibuprofen TAB* 600 MG PO PRN (05:58)
[2018-03-30] MEDS: Clindamycin CAP* 150 MG PO SCH ×3 (05:58→21:34)
[2018-03-30] MEDS: Heparin VIAL(*) 5000 UNITS/ML VIAL (FIVE THOUSAND) SUBCUT SCH ×3 (05:59→21:33)
[2018-03-30] MEDS: Nystatin TOP POWDER* 15 GM BTL TOPICAL SCH ×2 (08:01→19:50)
[2018-03-30] MEDS: Hydrocortisone 1% CREAM* 30 GM TUBE TOPICAL SCH ×3 (08:01→19:50)
[2018-03-30] MEDS: Pantoprazole TAB * 40 MG TAB PO SCH (08:01)
[2018-03-30] MEDS: glipiZIDE TAB* 5 MG PO SCH ×2 (08:01→16:44)
[2018-03-30] MEDS: Citalopram TAB* 20 MG PO SCH (08:01)
[2018-03-30] MEDS: Docusate CAP* 100 MG PO SCH ×2 (08:01→21:34)
[2018-03-30] MEDS: Albuterol/Ipratropium NEB.SOL* Albuterol 2.5 MG/Ipratropium 0.5 MG 3 ML INH SCH ×2 (08:21→19:59)
[2018-03-30] MEDS: Mometasone/Formoter 100/5 MDI INH SCH ×2 (08:21→19:59)
[2018-03-30] MEDS: Nicotine Inhaler* 10 MG AMP INH PRN (09:40)
[2018-03-31] MEDS: Acetaminophen TAB* 325 MG PO PRN ×3 (00:44→21:29)
[2018-03-31] MEDS: Nicotine Inhaler* 10 MG AMP INH PRN ×3 (04:22→18:59)
[2018-03-31] MEDS: Clindamycin CAP* 150 MG PO SCH ×3 (05:22→21:26)
[2018-03-31] MEDS: Heparin VIAL(*) 5000 UNITS/ML VIAL (FIVE THOUSAND) SUBCUT SCH ×3 (05:22→21:27)
[2018-03-31] MEDS: Mometasone/Formoter 100/5 MDI INH SCH ×2 (07:38→19:09)
[2018-03-31] MEDS: Albuterol/Ipratropium NEB.SOL* Albuterol 2.5 MG/Ipratropium 0.5 MG 3 ML INH SCH ×2 (07:39→19:09)
[2018-03-31] MEDS: oxyCODONE/Acetamin 5/325 MG* TAB PO PRN ×3 (08:03→22:14)
[2018-03-31] MEDS: Nystatin TOP POWDER* 15 GM BTL TOPICAL SCH ×2 (08:04→20:13)
[2018-03-31] MEDS: Hydrocortisone 1% CREAM* 30 GM TUBE TOPICAL SCH ×4 (08:04→20:13)
[2018-03-31] MEDS: Citalopram TAB* 20 MG PO SCH (08:04)
[2018-03-31] MEDS: Pantoprazole TAB * 40 MG TAB PO SCH (08:04)
[2018-03-31] MEDS: glipiZIDE TAB* 5 MG PO SCH ×2 (08:04→16:59)
[2018-03-31] MEDS: Docusate CAP* 100 MG PO SCH ×2 (08:04→20:13)
--- NOTE | 2018-03-31 16:07 | PN ---
Subjective Date of Service: 03/31/18 Interval History: Patient currently swing status awaiting placement. Reports mild, tolerable pain in left buttocks near wound. Patient able to describe wound care steps in order to keep area clean. Denies chest pain, sob, cough, nausea, vomiting, diarrhea, urinary symptoms, fever, chills. Objective Active Medications: Acetaminophen (Tylenol Tab*) 650 mg PO Q4H PRN PRN Reason: FEVER/PAIN Last Admin: 03/31/18 12:07 Dose: 650 mg Al Hydrox/Mg Hydrox/Simethicone (Maalox Plus*) 30 ml PO Q6H PRN PRN Reason: INDIGESTION Albuterol (Ventolin Hfa Inhaler*) 2 puff INH Q6H PRN PRN Reason: SOB/WHEEZING Albuterol/Ipratropium (Duoneb (Albuterol 2.5 Mg/Ipratropium 0.5 Mg)) 1 neb INH Q6H PRN PRN Reason: SOB/WHEEZING Albuterol/Ipratropium (Duoneb (Albuterol 2.5 Mg/Ipratropium 0.5 Mg)) 1 neb INH BID [facility] Last Admin: 03/31/18 07:39 Dose: 1 neb Citalopram Hydrobromide (Celexa Tab*) 20 mg PO DAILY [facility] Last Admin: 03/31/18 08:04 Dose: 20 mg Clindamycin HCl (Cleocin Cap*) 300 mg PO Q8HR [facility] Last Admin: 03/31/18 14:23 Dose: 300 mg Docusate Sodium (Colace Cap*) 100 mg PO BID [facility] Last Admin: 03/31/18 08:04 Dose: 100 mg Glipizide (Glucotrol Tab*) 5 mg PO 0800,1700 [facility] Last Admin: 03/31/18 08:04 Dose: 5 mg Heparin Sodium (Porcine) (Heparin Vial(*)) 5,000 units SUBCUT Q8HR [facility] Last Admin: 03/31/18 14:23 Dose: 5,000 units Hydrocortisone (Hytone Cream 1%*) 1 applic TOPICAL TID [facility] Last Admin: 03/31/18 14:23 Dose: 1 applic Ibuprofen (Motrin Tab*) 600 mg PO Q6H PRN PRN Reason: PAIN Last Admin: 03/30/18 05:58 Dose: 600 mg Mometasone Furoate/Formoterol Fumar (Dulera 100/5 Mdi*) 2 puff INH BID [facility] Last Admin: 03/31/18 07:38 Dose: 2 puff Nicotine (Nicotine Inhaler*) 10 mg INH Q2H PRN PRN Reason: CRAVING Last Admin: 03/31/18 11:15 Dose: 10 mg Nystatin (Nystatin Top Powder*) 1 applic TOPICAL BID [facility] Last Admin: 03/31/18 08:04 Dose: 1 applic Ondansetron HCl (Zofran Tab*) 4 mg PO Q8H PRN PRN Reason: NAUSEA Oxycodone/Acetaminophen (Percocet 5/325 Tab*) 1 tab PO Q4H PRN PRN Reason: Pain Last Admin: 03/31/18 14:25 Dose: 1 tab Pantoprazole Sodium (Protonix Tab*) 40 mg PO DAILY [facility] Last Admin: 03/31/18 08:04 Dose: 40 mg Vital Signs - 8 hr 03/31/18 03/31/18 03/31/18 08:03 08:08 10:00 Temperature 98.2 F Pulse Rate 62 Respiratory 17 18 16 Rate Blood Pressure 115/53 (mmHg) O2 Sat by Pulse 95 Oximetry 03/31/18 14:25 Temperature Pulse Rate Respiratory 16 Rate Blood Pressure (mmHg) O2 Sat by Pulse Oximetry Oxygen Devices in Use Now: Nasal Cannula Appearance: Comfortable, NAD Eyes: No Scleral Icterus Ears/Nose/Mouth/Throat: Clear Oropharnyx, Mucous Membranes Moist Neck: NL Appearance and Movements; NL JVP Respiratory: Symmetrical Chest Expansion and Respiratory Effort, Clear to Auscultation Cardiovascular: NL Sounds; No Murmurs; No JVD, RRR, No Edema Abdominal: NL Sounds; No Tenderness; No Distention Extremities: No Clubbing, Cyanosis Skin: - - Small benign appearing open areas to left buttocks Neurological: Alert and Oriented x 3 Nutrition: Taking PO's Result Diagrams: 03/29/18 07:19 03/29/18 07:19 Assess/Plan/Problems-Billing Assessment: This is a 62 yr old morbidly obese female who presented with left inner thigh abscess s/p I&D needs DIOMEDES but unable to find placement, transitioned to swing status - Patient Problems (1) Groin abscess Comment: - S/P I&D - currently no packing in place of wound - Clindamycin day 08/16; Discontinue tomorrow - Wound care team re-evaluate wound on 03/30/18 and recommendations as follows: At this point no packing indicated; continue to cleanse several times throughout the day. Allow area to drain freely. Applying hydrocortisone around the area will not harm. (2) GERD (gastroesophageal reflux disease) Comment: - Continue pantoprazole (3) COPD (chronic obstructive pulmonary disease) Comment: - Continue mometasone/salmeterol MDI, albuterol MDI and nebs (4) Depression Comment: - Continue Citalopram (5) Diabetes mellitus Comment: - Stable on glipizide (6) DVT prophylaxis Comment: - Heparin SQ TID (7) Full code status Status and Disposition: Awaiting placement. Swing Status Attending: George Bishpo
[2018-04-01] MEDS: Nicotine Inhaler* 10 MG AMP INH PRN ×2 (00:54→12:00)
[2018-04-01] MEDS: oxyCODONE/Acetamin 5/325 MG* TAB PO PRN ×2 (04:33→09:42)
[2018-04-01] MEDS: Heparin VIAL(*) 5000 UNITS/ML VIAL (FIVE THOUSAND) SUBCUT SCH ×2 (05:27→14:38)
[2018-04-01] MEDS: Mometasone/Formoter 100/5 MDI INH SCH ×2 (05:50→07:57)
[2018-04-01] MEDS: Albuterol/Ipratropium NEB.SOL* Albuterol 2.5 MG/Ipratropium 0.5 MG 3 ML INH SCH ×2 (05:50→07:57)
[2018-04-01] MEDS: glipiZIDE TAB* 5 MG PO SCH (08:36)
[2018-04-01] MEDS: Docusate CAP* 100 MG PO SCH (08:37)
[2018-04-01] MEDS: Citalopram TAB* 20 MG PO SCH (08:37)
[2018-04-01] MEDS: Pantoprazole TAB * 40 MG TAB PO SCH (08:37)
[2018-04-01] MEDS: Nystatin TOP POWDER* 15 GM BTL TOPICAL SCH (08:38)
[2018-04-01] MEDS: Hydrocortisone 1% CREAM* 30 GM TUBE TOPICAL SCH ×2 (08:38→14:38)
[2018-04-01 08:50] VITALS: BP 138/58
--- NOTE | 2018-04-01 12:27 | CONSULT ---
Consult Consult: WOUND CONSULT NOTE Date of Service: 04/01/2018 History: Interval History: Ms. Coughlin is a 62 yo female with PMH significant for COPD with chronic usage of oxygen, DM2, HLD, obesity, anxiety, depression, colon ca, and GERD. She presented to the emergency department on 03/24/18 with a complaint of abscess of her left inner thigh and groin area. The patient states she has had abscesses before in the past and she has usually dealt with them at home. Per the report, it says that she is taking care of the abscesses herself by piercing them with an upholstery needle. She did try to puncture her abscess again this time and it showed purulent drainage. She had CT of the abdomen and pelvis and chest x-ray. A bedside I and D was performed in the ER. She was discharged to [place] [facility] [place]. She will be discharged later today to rehab. Denies fever, chills, shortness of breath, drainage from the wound. Past Medical/Family/Social History: Family History: Unchanged from Admission Social History: Unchanged from Admission Past Medical History: Unchanged from Admission Objective: Active Medications: Nystatin (Nystatin Top Powder*) 1 applic TOPICAL BID [facility] Acetaminophen (Tylenol Tab*) 650 mg PO Q4H PRN Reason: FEVER/PAIN Glipizide (Glucotrol Tab*) 5 mg PO 0800,1700 [facility] Al Hydrox/Mg Hydrox/Simethicone (Maalox Plus*) 30 ml PO Q6H PRN Reason: INDIGESTION Albuterol (Ventolin Hfa Inhaler*) 2 puff INH Q6H PRN Reason: SOB/WHEEZING Albuterol/Ipratropium (Duoneb (Albuterol 2.5 Mg/Ipratropium 0.5 Mg)) 1 neb INH Q6H PRN Reason: SOB/WHEEZING Albuterol/Ipratropium (Duoneb (Albuterol 2.5 Mg/Ipratropium 0.5 Mg)) 1 neb INH BID [facility] Citalopram Hydrobromide (Celexa Tab*) 20 mg PO DAILY [facility] Docusate Sodium (Colace Cap*) 100 mg PO BID [facility] Heparin Sodium (Porcine) (Heparin Vial(*)) 5,000 units SUBCUT Q8HR [facility] Hydrocortisone (Hytone Cream 1%*) 1 applic TOPICAL TID [facility] Ibuprofen (Motrin Tab*) 600 mg PO Q6H PRN Reason: PAIN Mometasone Furoate/Formoterol Fumar (Dulera 100/5 Mdi*) 2 puff INH BID [facility] Nicotine (Nicotine Inhaler*) 10 mg INH Q2H PRN Reason: CRAVING Ondansetron HCl (Zofran Tab*) 4 mg PO Q8H PRN Reason: NAUSEA Oxycodone/Acetaminophen (Percocet 5/325 Tab*) 1 tab PO Q4H PRN Reason: Pain Pantoprazole Sodium (Protonix Tab*) 40 mg PO DAILY [facility] Vital Signs: 04/01/18 07:30 Temperature 98.0 F Temperature Oral Source Pulse Rate 58 Respiratory 18 Rate Blood Pressure 138/58 (mmHg) Blood Pressure 74 Mean O2 Sat by Pulse 98 Oximetry Patient on Room No Air Exam: General: NAD, laying in bed Neuro: Alert and Oriented Skin: Left upper posterior thigh - S/P I+D for abscess with 2 areas remaining open and communicating underneath the skin. Distal open area measures 2 cm x 0.8 cm x 0.2 cm. Proximal open area 2 cm x 1 cm x 0.2 cm. There is an area at about 10 ' clock that tunnels 2.5 cms. There is also communication between the 2 wounds. There is no erythema or drainage noted. Data: Labs: 03/29/18 03/29/18 07:19 07:19 WBC 5.6 Hgb 11.0 L Hct 35 Plt Count 208 Sodium 139 Potassium 4.8 Chloride 99 L Carbon Dioxide 35 H BUN 17 Creatinine 0.87 Glucose 158 H Total Protein 6.5 Albumin 3.4 Assessment/Plan: Ms. Coughlin is a 62 yo female with PMH significant for COPD with chronic usage of oxygen, DM2, HLD, obesity, anxiety, depression, colon ca, and GERD. She presented to the ED with an abscess that is S/P I+D. 1. Left posterior upper thigh abscess, S/P I+D. There are 2 remaining open areas. She is cleansing the area several times daily. At this point no packing indicated; continue to cleanse several times throughout the day. Allow area to drain freely. Applying hydrocortisone around the area will not harm. 2. Diabetes Mellitus, type 2. Under fair control. 3. Morbid obesity. BMI ~ 47. VTE PPX: SQ Heparin Diet: Consistent carbohydrate, heart healthy. Code Status: Full Code Status Disposition: Inpatient. Disposition per primary medicine team Time Spent: A total of 15 minutes was spent with the patient, greater than half of that was spent with the patient assess and measuring and photographing wounds. Attending: Dr. Constance Asencio MD
--- NOTE | 2018-04-01 14:27 | PN ---
Hospitalist Progress Note Date of Service: 04/01/18 Others' Prescriptions Patient Name: Bennie Coughlin Date: 1955 Address: [address] [place] [id number] Sex: Female Rx Written Rx Dispensed Drug Quantity Days Supply Prescriber Name 12/17/2017 12/18/2017 tramadol hcl 50 mg tablet 14 14 Sofya Doss Patient Name: Bennie Coughlin Date: 1955 Address: [address] [place] [id number] Sex: Female Rx Written Rx Dispensed Drug Quantity Days Supply Prescriber Name 05/26/2017 05/26/2017 tramadol hcl 50 mg tablet 20 5 Michelle Sorto
--- NOTE | 2018-04-01 23:08 | DS ---
CC: [facility], Dr. Sales or Dr. Bishop * DISCHARGE SUMMARY: DATE OF ADMISSION TO SWING STATUS: 03/28/18 DATE OF DISCHARGE FROM HOSPITAL: 04/01/18 PRIMARY CARE PROVIDER: The patient has no primary care provider. MY ATTENDING FOR TODAY: Dr. Dex Lopez * (dictated by Renuka Terry NP ) HOSPITAL COURSE: This is a 62-year-old female who presented to the emergency department on 03/24/18 with complaints of abscess in her inner right thigh and groin area. The patient was admitted to the hospital on inpatient status from 03/24/18 to 03/28/18, then was admitted to swing status awaiting placement. Please see the discharge summary dictated by Lilibeth Brown NP on for a complete summary of events leading up to the patient's admission and for details of the patient's inpatient status hospital course. As per the patient's swing status hospital course, it has remained uneventful. She completed a course of antibiotics, specifically clindamycin p.o. In addition, she was followed by Wound Care, who advanced her wound care to only keeping area clean and dry as it is healing well. The patient can apply cortisone cream around the wound for itching if necessary as this could not harm the wound. The patient was initially transferred to [facility] status as her mobility was limited due to groin/thigh pain. The patient was offered a bed at [facility], but declined today stating she would like to go home. She reports she ambulated to the bathroom without difficulty today and the only reason she needed to call for help is that her oxygen tubing did not reach to the bathroom. The patient report that her oxygen tubing at home does reach to the bathroom. I discussed the benefits of going to [facility] rehab. The patient continued to refuse. Since the patient does have the capacity, she will be discharged home with visiting nursing services. The patient is agreeable to this. The patient is stable for discharge home today, 04/01/18. REVIEW OF SYSTEMS: The patient reports pain to left groin/buttocks where wound is, reports pain is currently tolerable. The patient denies chest pain, shortness of breath, palpitations, fever, chills, dizziness, weakness, cough, nausea, vomiting, diarrhea. A 14-point review of systems was completed and all others were negative. PHYSICAL EXAM: Vital signs are as follows: Temp 98.0, HR 58, RR 18, O2 saturation is 98% on 2 L (which is the patient's baseline), BP 138/58. General : Ms. Coughlin is a 62-year-old female who is morbidly obese, lying in bed, appears in no acute distress, appears stated age. HEENT: EOMs intact. PERRLA. Oral mucosa is moist without lesion. Posterior pharynx is clear. Neck : Supple. No lymphadenopathy. Respiratory: Lung sounds are clear to auscultation. No wheezes, rhonchi, or rales. Cardiac: S1/S2 present. Regular rate and rhythm. No murmurs, rubs, or gallops. Abdomen: Large, soft, nondistended. Bowel sounds x4. Last BM was today. Extremities: No pain at lower extremities. No deformities. No edema. No clubbing or cyanosis. Skin: The patient has nickel-sized open areas x2 on left buttocks near groin. They are communicating. They are free from erythema, exudate, drainage, warmth. They appear benign. Neuro: No focal deficits. Strength 5/5. DIAGNOSTIC STUDIES/LAB DATA: WBC 5.6, hemoglobin 11, hematocrit 35, platelets 208. Sodium 139, potassium 4.8, chloride 99, carbon dioxide 35, creatinine 0.87 , BUN 17, glucose 168. DISCHARGE DIAGNOSES: 1. Left inner thigh wound. 2. Chronic obstructive pulmonary disease with chronic use of oxygen. 3. Diabetes type 2. 4. Hyperlipidemia. 5. Gastroesophageal reflux disease. 6. Skin infection with yeast. 7. Cough. DISCHARGE MEDICATIONS: New home medications: 1. Percocet 1 tab p.o. q.8 hours p.r.n., max daily dose 3. The patient was provided with 3 days' worth. 2. Glipizide 5 mg p.o. b.i.d. Continued home medications: 1. Protonix 40 mg p.o. daily. 2. Zofran 4 mg p.o. q.8 hours p.r.n. 3. Nystatin topical powder 1 application topical b.i.d. 4. Nicotine inhaler 10 mg inhalation q.2 hours. 5. Naproxen 440 mg p.o. q.6 hours p.r.n. 6. Dulera 100/5 two puffs inhalations b.i.d. 7. Hydrocortisone 1% cream topical t.i.d. 8. Celexa 20 mg p.o. daily. 9. Albuterol/ipratropium inhalation q.6 hours p.r.n. 10. Albuterol inhaler 2 puffs inhalation q.6 hours p.r.n. 11. Tylenol 650 mg p.o. q.4 hours. DISCHARGE PLAN/FOLLOWUP: 1. Left inner thigh buttock wound: As previously mentioned, the patient has completed antibiotics and is free from signs of infection. The patient is to continue to keep the area clean and dry. The patient can use hydrocortisone as needed outside the wound for itching. The patient has been referred to [facility] for followup. The patient also will have in-home nursing. 2. GERD: The patient is to continue pantoprazole. 3. COPD: The patient is to continue inhalers as previously prescribed. 4. Depression: The patient is to continue citalopram. 5. The patient is stable on glipizide 5 mg p.o. daily; therefore, she has been sent home on same. The patient to follow up with [facility] regarding further treatment and evaluation of diabetes. 6. Hyperlipidemia: It does not appear the patient is on a statin. I would encourage her primary care provider to recheck her lipids and treat accordingly. 7. Cough: The patient no longer endorses cough. This has resolved. 8. Education: The patient was educated on signs and symptoms of new or worsening condition and when to return to the emergency department. The patient stated understanding. PLAN: This plan was discussed with my attending Dr. Dex Lopez, who agrees with my plan. TIME SPENT: Approximately 45 minutes was spent on this discharge, greater than half the time was spent [id number] with the patient, discussing discharge plan and instructions. RENUKA TERRY, HAYDEE [id number]/[facility] #: [id number] KAITLIN
== END 2018-04-01 15:15 | disposition home or self-care (01) | DRG 603 ==
LOC: MED 14:58
PROVIDERS: ADMIT Internal Medicine; ATTEND Internal Medicine
DX: L02.416 Cutaneous abscess of left lower limb (principal); Z68.42 Body mass index [BMI] 45.0-49.9, adult; J44.9 Chronic obstructive pulmonary disease, unspecified; E11.9 Type 2 diabetes mellitus without complications; K21.9 Gastro-esophageal reflux disease without esophagitis; E78.5 Hyperlipidemia, unspecified; E66.01 Morbid (severe) obesity due to excess calories; B37.2 Candidiasis of skin and nail; K80.20 Calculus of gallbladder without cholecystitis without obstruction; F32.9 Major depressive disorder, single episode, unspecified; R05 Cough; Z85.038 Personal history of other malignant neoplasm of large intestine; Z79.84 Long term (current) use of oral hypoglycemic drugs
CPT/HCPCS: 36415; 71046; 80053; 85025; 94640; 99406; A9270-GY; G8978-GP-CK; G8979-GP-CI; J1644

== ENCOUNTER 2018-06-20 01:07 | Emergency (ER) | payer MEDICARE, MEDICAID ==
[2018-06-20] MEDS ORDERED: Metoclopramide IV* 5 MG/ML 2 ML VIAL IV SLOW PU ONE (01:35)
[2018-06-20] MEDS ORDERED: Morphine 4 MG/ML VIAL (1 ml) 4 MG/ML VIAL IV ONE (01:35)
[2018-06-20] MEDS ORDERED: NS 0.9% 1000 ML** 1,000 ML IV ONE (01:35)
[2018-06-20 01:50] LABS: ABS Basophils 0.1 10^3/ul (0-0.2); ABS Eosinophils 0.3 10^3/ul (0-0.6); ABS Lymphocytes 2.1 10^3/ul (1.0-4.8); ABS Monocytes 0.5 10^3/ul (0-0.8); ABS Neutrophils 8.9 10^3/ul (1.5-7.7); Eosinophil % 2.1 %; Hematocrit 40 % (35-47); Hemoglobin 12.9 g/dL (12.0-16.0); Lymphocyte % 17.9 %; Mean Corpuscular HGB Conc 32 g/dL (31-36); Mean Corpuscular Hemoglobin 27 pg (27-31); Mean Corpuscular Volume 82 fL (80-97); Mean Platelet Volume 9.4 fL (7.4-10.4); Platelet Count 225 10^3/uL (150-450); Red Blood Count 4.87 10^6 /uL (3.70-4.87); Red Cell Distribution Width 16 % (10.5-15)
[2018-06-20 02:01] LABS: Activated Partial Thrombo Time 26.6 seconds (26.0-36.3); INR 0.99 (0.82-1.09)
[2018-06-20 02:18] LABS: Albumin 3.7 g/dL (3.2-5.2); Albumin/Globulin Ratio 1.1 (1-3); BUN/Creatinine Ratio 27.2 (8-20); C Reactive Protein 20.82 mg/L (<8.01); Calcium 8.6 mg/dL (8.6-10.3); EGFR African American 87.3 (>60); EGFR Non-African American 72.1 (>60); Globulin 3.4 g/dL (2-4); Magnesium 1.7 mg/dL (1.9-2.7); Potassium 4.5 mmol/L (3.5-5.0); Total Bilirubin 0.4 mg/dL (0.2-1.0); Total Protein 7.1 g/dL (6.4-8.9)
--- NOTE | 2018-06-20 02:21 | ED ---
Abdominal Pain/Female - HPI Summary HPI Summary: Patient is a 62 y/o F presenting to ED with complaints of right sided abdominal pain and N/V, constipation. She states that 4-5 days ago, she began to experience "twinges" of pain which progressively worsened. Patient subsequently experienced onset of associated Sx. Pain has been constant recently and is noted to radiate into the right side of the patient's back. Patient claims that she has been producing orange-colored urine as well. Patient reports that present Sx are similar to her gallbladder issues of the past. She states that around four years ago, she had a workup done and was found to have gallstones. She was placed on medications which alleviated Sx. Patient claims that she was told that if she experienced another flare-up of such Sx, she would likely need to have her gallbladder removed. PMHx of diabetes, anemia, angina, HLD, HTN, syncope, carotid stenosis, aortic blockage, asthma, COPD, PNA, pulmonary edema, sleep apnea, GERD, acute renal failure, bursitis, arthritis, anxiety, depression , suicide attempt, substance abuse. PSHx of tubal ligation, laparascopic surgery for ovarian cyst, cardiac catheter without stents placed per patient. FMHx of cardiac disease, colon cancer. She reports rare alcohol usage, denies substance usage, patient smokes cigarettes daily. On triage, pain is rated 8/10 , food is noted to aggravate Sx, patient took Tylenol [employer] EX[employer]UTIVE. Home medications and allergies are reviewed. Patient's son and [id number] are present in the room. - History of Current Complaint Chief Complaint: Pierre Stated Complaint: 3 YEARS AGO GALLBADDER ATTACK DOESNT WORK PER PT Time Seen by Provider: 06/20/18 01:22 Hx Obtained From: Patient Onset/Duration: Lasting Days - onset of Sx 4-5 days ago, Still Present, Worse Since Timing: Days - onset of Sx 4-5 days ago Severity Initially: Mild Severity Currently: Severe Pain Intensity: 8 Pain Scale Used: 0-10 Numeric Location: Other - right sided Radiates: Yes Radiates to: Back - right Aggravating Factor(s): Nothing Alleviating Factor(s): Nothing Associated Signs and Symptoms: Positive: Back Pain, Constipation, Urinary Symptoms - patient notes production of orange colored urine, Nausea, Vomiting Allergies/Adverse Reactions: Allergies Allergy/AdvReac Type Severity Reaction Status Date / Time cefazolin Allergy Rash And Verified 12/10/17 12:09 Itching erythromycin base Allergy Rash Verified 12/10/17 12:09 [From Erythrocin] Penicillins Allergy Anaphylatic Verified 12/10/17 12:09 Shock strawberry Allergy Swelling Verified 12/10/17 12:09 Of Face,Lips,& Throat Sulfa (Sulfonamide Allergy Rash Verified 12/10/17 12:09 Antibiotics) Tetracyclines Allergy Anaphylatic Verified 12/10/17 12:09 Shock Home Medications: Home Medications Omeprazole 40 mg PO DAILY 06/20/18 [History Confirmed 06/20/18] PMH/Surg Hx/FS Hx/Imm Hx Endocrine/Hematology History: Reports: Hx Diabetes, Hx Anemia Denies: Hx Anticoagulant Therapy, Hx Systemic Lupus Erythematosus, Hx Thyroid Disease, Hx Unexplained Bleeding Cardiovascular History: Reports: Hx Angina, Hx Hypercholesterolemia, Hx Hypotension, Hx Hypertension, Hx Syncope, Other Cardiovascular Problems/ Disorders - bilateral carotid stenosis,aortic blockage Denies: Hx Aneurysm, Hx Angioplasty, Hx Auto Implanted Cardiovert Defib, Hx Cardiac Arrest, Hx Cardiomegaly, Hx Congenital Heart Disease, Hx Congestive Heart Failure, Hx Coronary Artery Disease, Hx Deep Vein Thrombosis, Hx Embolism , Hx Myocardial Infarction, Hx Pacemaker/ICD, Hx Peripheral Vascular Disease, Hx Rheumatic Fever, Hx Valvular Heart Disease Respiratory History: Reports: Hx Asthma, Hx Chronic Obstructive Pulmonary Disease (COPD), Hx Pneumonia, Hx Pulmonary Edema, Hx Seasonal Allergies, Hx Sleep Apnea - sleeps with 2L O2 at home PRN, Other Respiratory Problems/ Disorders - PNA Denies: Hx Chronic Bronchitis, Hx Cystic Fibrosis, Hx Lung Cancer, Hx Pleural Effusion, Hx Pulmonary Embolism GI History: Reports: Hx Gastroesophageal Reflux Disease, Hx Ulcer - distant past Denies: Hx Cirrhosis, Hx Crohn's Disease, Hx Diverticulosis History: Reports: Hx Acute Renal Failure, Hx Renal Disease Denies: Hx Dialysis Musculoskeletal History: Reports: Hx Arthritis - bilateral knees, left shoulder , Hx Back Problems - herniated disks, Hx Bursitis, Other Musculoskeletal History - HERNIATED DISC Denies: Hx Rheumatoid Arthritis Sensory History: Reports: Hx Contacts or Glasses, Hx Vision Problem Denies: Hx Cataracts, Hx Hearing Aid Opthamlomology History: Reports: Hx Contacts or Glasses, Hx Vision Problem Denies: Hx Cataracts Neurological History: Reports: Hx Headaches, Hx Transient Ischemic Attacks (TIA) Denies: Hx Dementia, Hx Developmental Delay, Hx Migraine, Hx Nerve Disease, Hx Seizures, Hx Spinal Cord Injury Psychiatric History: Reports: Hx Anxiety, Hx Depression, Hx Inpatient Treatment , Hx Suicide Attempt - attempted to harm self 5 years ago, Hx Substance Abuse - as a kid, Other Psychiatric Issues/Disorders - claustrophobia Denies: Hx Eating Disorder, Hx Panic Disorder, Hx of Violent Episodes Against Others - Cancer History Cancer Type, Location and Year: Colon cancer - IN [place] Hx Chemotherapy: No Hx Radiation Therapy: No - Surgical History Surgery Procedure, Year, and Place: tubal ligation, laparascopic surgery for ovarian cyst, cardiac cath- NO STENTS PLACED PER PT 06/15/15 Hx Anesthesia Reactions: No - Immunization History Date of Tetanus Vaccine: unknown Date of Influenza Vaccine: 2014 Infectious Disease History: Yes Infectious Disease History: Denies: Hx Clostridium Difficile, Hx Hepatitis, Hx Human Immunodeficiency Virus (HIV), Hx of Known/Suspected MRSA, Hx Shingles, Hx Tuberculosis, Hx Known/ Suspected VRE, Hx Known/Suspected VRSA, History Other Infectious Disease, Traveled Outside the [place] in Last 30 Days - Family History Known Family History: Positive: Cardiac Disease - [place] - father. , Other Family History: Colon CA - father - Social History Alcohol Use: Rare Hx Substance Use: No Substance Use Type: Reports: None Hx Tobacco Use: Yes - start 1970 Smoking Status (MU): Light Every Day Tobacco Smoker Type: Cigarettes Amount Used/How Often: 1 pack to 1 and a half a day Length of Time of Smoking/Using Tobacco: 40yrs Have You Smoked in the Last Year: Yes Review of Systems Positive: Abdominal Pain - radiation of pain to back, right , Vomiting, Nausea Genitourinary: Other - POSITIVE - ORANGE COLORED URINE, CONSTIPATION All Other Systems Reviewed And Are Negative: Yes Physical Exam - Summary Physical Exam Summary: VITAL SIGNS: Reviewed. GENERAL: Patient is a well-developed and nourished female who is lying comfortable in the stretcher. Patient is not in any acute respiratory distress. HEAD AND FACE: No signs of trauma. No ecchymosis, hematomas or skull depressions. No sinus tenderness. EYES: PERRLA, EOMI x 2, No injected conjunctiva, no nystagmus. EARS: Hearing grossly intact. Ear canals and tympanic membranes are within normal limits. MOUTH: Oropharynx within normal limits. NECK: Supple, trachea is midline, no adenopathy, no JVD, no carotid bruit, no c- spine tenderness, neck with full ROM CHEST: Symmetric, no tenderness at palpation LUNGS: Clear to auscultation bilaterally. No wheezing or crackles. CVS: Regular rate and rhythm, S1 and S2 present, no murmurs or gallops appreciated. ABDOMEN: Soft, right sided tenderness. No signs of distention. No rebound no guarding, and no masses palpated. Bowel sounds are normal. EXTREMITIES: FROM in all major joints, no edema, no cyanosis or clubbing. NEURO: Alert and oriented x 3. No acute neurological deficits. Speech is normal and follows commands. SKIN: Dry and warm Triage Information Reviewed: Yes Vital Signs On Initial Exam: Initial Vitals Temp Pulse Resp BP Pulse Ox 98.6 F 86 20 144/92 96 06/20/18 01:08 06/20/18 01:08 06/20/18 01:08 06/20/18 01:08 06/20/18 01:08 Vital Signs Reviewed: Yes Diagnostics - Vital Signs Vital Signs Temp Pulse Resp BP Pulse Ox 06/20/18 02:03 18 06/20/18 02:00 80 98 06/20/18 01:28 88 158/88 97 06/20/18 01:27 88 97 06/20/18 01:08 98.6 F 86 20 144/92 96 - Laboratory Lab Results: Lab Results 06/20/18 06/20/18 Range/Units 01:43 01:43 WBC 12.0 H (3.5-10.8) 10^3/uL RBC 4.87 (3.70-4.87) 10^6 /uL Hgb 12.9 (12.0-16.0) g/dL Hct 40 (35-47) % MCV 82 (80-97) fL MCH 27 (27-31) pg MCHC 32 (31-36) g/dL RDW 16 H (10.5-15) % Plt Count 225 (150-450) 10^3/uL MPV 9.4 (7.4-10.4) fL Neut % (Auto) 74.8 % Lymph % (Auto) 17.9 % [place] % (Auto) 4.5 % Eos % (Auto) 2.1 % Baso % (Auto) 0.7 % Absolute Neuts (auto) 8.9 H (1.5-7.7) 10^3/ul Absolute Lymphs (auto) 2.1 (1.0-4.8) 10^3/ul Absolute Monos (auto) 0.5 (0-0.8) 10^3/ul Absolute Eos (auto) 0.3 (0-0.6) 10^3/ul Absolute Basos (auto) 0.1 (0-0.2) 10^3/ul Absolute Nucleated RBC 0.0 10^3/ul Nucleated RBC % 0.0 INR (Anticoag Therapy) 0.99 (0.82-1.09) APTT 26.6 (26.0-36.3) seconds Result Diagrams: 06/20/18 01:43 06/20/18 01:43 Lab Statement: Any lab studies that have been ordered have been reviewed, and results considered in the medical decision making process. - CT CT ABD/PEL CT Interpretation Completed By: Radiologist Summary of CT Findings: IMPRESSION: 1. Cholelithiasis with no CT evidence of acute cholecystitis. 2. Dilated common bile duct, measuring 1.2 cm. If clinically indicated, further. evaluation with MRCP may be considered. 3. Colonic diverticulosis with no evidence of acute diverticulitis. THIS REPORT WAS REVIEWED BY DR. MARTINEZ Re-Evaluation - Re-Evaluation First Eval Re-Evaluation Time: 02:25 Comment: Provider aware of lactic acid of 2.3 at this time. Second Eval Re-Evaluation Time: 04:43 Comment: Results of labs and tests were discussed with the patient, plan of further management was discussed, patient will be discharged to home and follow up with surgery and PCP. She is agreeable with this plan. Abdominal Pain Fem Course/Dx - Course Course Of Treatment: Patient is a 62 y/o F presenting to ED with complaints of right sided abdominal pain and N/V, constipation. She states that 4-5 days ago, she began to experience "twinges" of pain which progressively worsened. Pain has been constant recently and is noted to radiate into the right side of the patient's back. Patient claims that she has been producing orange-colored urine as well. Patient reports that present Sx are similar to her gallbladder issues of the past. On physical exam, right sided abdominal tenderness is noted. Labs showed WBC 12, RDW 16, absolute neuts 8.9, sodium 134, chloride 97, BUN/ creatinine ratio 27.2, glucose 312, lactic acid 2.3, magnesium 1.7, AST 11, ALT 11, alk phos 97, CRP 20.82, amylase 30, lipase 25. During ED course, patient received fluids, morphine 4 mg IV ED ONCE ONE, reglan 10 mg IV SLOW PU ONCE ONE , and insulin 4 units IV PUSH ED ONCE ONE. CT ABD/PEL IMPRESSION: 1. Cholelithiasis with no CT evidence of acute cholecystitis. 2. Dilated common bile duct, measuring 1.2 cm. If clinically indicated, further. evaluation with MRCP may be considered. 3. Colonic diverticulosis with no evidence of acute diverticulitis. Patient's CT scan showed cholelithiasis without cholecystitis. CT also showed dilated common bile duct measuring 1.2 cm. However, patient has normal liver enzymes and normal pancreatic enzymes according to bloodwork, there the patient does not have any biliary obstruction. Patient will be discharged to home with pain medications and follow up with surgery and PCP within the next three days. Patient is agreeable with this plan. - Diagnoses Provider Diagnoses: Cholelithiasis Discharge - Sign-Out/Discharge Documenting (check all that apply): Patient Departure - discharge Patient Received Moderate/Deep Sedation with Procedure: No - Discharge Plan Condition: Stable Disposition: HOME Prescriptions: Metoclopramide TAB* [Reglan TAB*] 10 mg PO Q6H PRN #14 tab PRN Reason: Nausea/Vomiting oxyCODONE/Acetamin 5/325 MG* [Percocet 5/325 TAB*] 1 tab PO Q6H PRN #14 tab MDD 4 PRN Reason: Pain Patient Education Materials: Gallstones (ED) Referrals: Michael Rangel MD [Medical Doctor] - 3 Days [facility] [Outside] - 3 Days Additional Instructions: PLEASE RETURN TO THE ED IMMEDIATELY FOR WORSENING OR CONCERNING SYMPTOMS. FOLLOW UP WITH YOUR PRIMARY CARE PHYSICIAN [facility] WITHIN THREE DAYS. - Attestation Statements Document Initiated by Scribe: Yes Documenting Scribe: OH CALI Provider For Whom Scribe is Documenting (Include Credential): RYAN MARTINEZ MD Scribe Attestation: OH Ramirez, scribed for RYAN MARTINEZ MD on 06/20/18 at 0447. Status of Scribe Document: Ready
[2018-06-20] MEDS ORDERED: Insulin REGULAR(*) 1 UNITS UNIT IV PUSH ONE (02:22)
[2018-06-20 02:36] LABS: Urine Appearance Cloudy; Urine Bacteria 1+ (Absent); Urine Bilirubin Negative (Negative); Urine Blood Negative (Negative); Urine Color Yellow; Urine Glucose 1+(50 mg/dL) (Negative); Urine Ketones Negative (Negative); Urine Nitrite Negative (Negative); Urine Protein 1+(30 mg/dL) (Negative); Urine Red Blood Cell Absent (Absent); Urine Specific Gravity 1.023 (1.010-1.030); Urine Squamous Epithelial Cell Present (Absent); Urine Urobilinogen Negative (Negative); Urine White Blood Cell 1+(6-10/hpf) (Absent)
[2018-06-20] MEDS ORDERED: Iodixanol 320 (CONTRAST) 100 ML SDV IV ONE (02:53)
[2018-06-20] MEDS ORDERED: oxyCODONE/Acetamin 5/325 MG* TAB PO ONE (05:07)
[2018-06-20 07:58] VITALS: BP 121/75
--- NOTE | 2018-06-23 08:26 | PN ---
Progress Note - Progress Note Date of Service: 06/20/18 Note: Called patient's phone number and subsequent phone number listed on file to make aware of urine culture and to assess patient's improvement No answer No phone number listed as first phone number, second phone number listed is a family member - unable to leave message She will be sent a letter on this date, 06/23/18 Macrobid sent to pharmacy
== END 2018-06-20 07:55 | disposition home or self-care (01) ==
LOC: ED 01:07
DX: K80.20 Calculus of gallbladder without cholecystitis without obstruction (principal); K83.8 Other specified diseases of biliary tract; K57.30 Diverticulosis of large intestine without perforation or abscess without bleeding; I10 Essential (primary) hypertension; E11.9 Type 2 diabetes mellitus without complications; E78.00 Pure hypercholesterolemia, unspecified; D64.9 Anemia, unspecified; I65.23 Occlusion and stenosis of bilateral carotid arteries; R55 Syncope and collapse; J44.9 Chronic obstructive pulmonary disease, unspecified; K21.9 Gastro-esophageal reflux disease without esophagitis; F41.9 Anxiety disorder, unspecified; F32.9 Major depressive disorder, single episode, unspecified; F17.210 Nicotine dependence, cigarettes, uncomplicated; Z87.01 Personal history of pneumonia (recurrent); Z85.038 Personal history of other malignant neoplasm of large intestine; Z86.73 Personal history of transient ischemic attack (TIA), and cerebral infarction without residual deficits
CPT/HCPCS: 36415; 74177; 80053; 81003; 81015; 82150; 83605; 83690; 83735; 85025; 85610; 85730; 86140; 87077; 87086; 87186; 96361; 96374; 96375; 99285; A9270-GY; J2270; J2765; Q9967

== ENCOUNTER 2018-06-23 12:04 | Inpatient (IN) | payer MEDICARE, MEDICAID ==
[2018-06-23] MEDS ORDERED: Meperidine SYRINGE* 50 MG/ML IV ONE (12:31)
[2018-06-23] MEDS ORDERED: Ondansetron INJ* 2 MG/ML VIAL IV ONE (12:32)
--- NOTE | 2018-06-23 12:33 | ED ---
Abdominal Pain/Female - HPI Summary HPI Summary: Pt is a 62 y/o F presenting to the ED with a chief complaint of abd pain first onset last week, but has gotten worse since this past weekend, 06/20/18. The pain used to be intermittent, but it is now constant and has associated nausea and vomiting. She reports that an Oxycodone will take the edge off but only for about three hours and does not work as well as Tylenol or Aleve. She was with Dr. Sales this morning as a follow up appointment, and she recommended she come back to the ED to have her gallbladder out as soon as possible. The pain is located in her mid-epigastrium and spreads to her R flank, and is described as a sharp, stabbing pain, worsened by movement. She denies fevers. - History of Current Complaint Chief Complaint: EDAbdPain Stated Complaint: GALL BLADER PAIN PER PT COMMING FROM DR Time Seen by Provider: 06/23/18 12:14 Hx Obtained From: Patient Onset/Duration: Gradual Onset, Lasting Weeks, Still Present Timing: Constant Severity Initially: Moderate Severity Currently: Severe Pain Intensity: 10 Pain Scale Used: 0-10 Numeric Location: Discrete At: RUQ Radiates: Yes Radiates to: Flank Character: Sharp Aggravating Factor(s): Movement Alleviating Factor(s): Nothing Associated Signs and Symptoms: Positive: Nausea, Vomiting. Negative: Fever Allergies/Adverse Reactions: Allergies Allergy/AdvReac Type Severity Reaction Status Date / Time Penicillins Allergy Severe Anaphylatic Verified 06/23/18 12:14 Shock strawberry Allergy Intermediate Swelling Verified 06/23/18 12:15 Of Face,Lips,& Throat cefazolin Allergy Mild Rash And Verified 06/23/18 12:15 Itching erythromycin base Allergy Mild Rash Verified 06/23/18 12:15 [From Erythrocin] Sulfa (Sulfonamide Allergy Mild Rash Verified 06/23/18 12:15 Antibiotics) Tetracyclines Allergy Mild Hives Verified 06/23/18 12:15 Home Medications: Home Medications Aspirin EC TAB* [Ecotrin EC Low Dose 81 MG*] 81 mg PO DAILY 06/23/18 [History Confirmed 06/23/18] Budesonide/Formote 160/4.5(NF) [Symbicort 160/4.5 (NF)] 2 puff INH BID 06/23/18 [History Confirmed 06/23/18] Docusate Sodium [Stool Softener] 100 mg PO TID 06/23/18 [History Confirmed 06/23] Omeprazole (Nf) [Prilosec (NF)] 40 mg PO DAILY 06/23/18 [History Confirmed 06/23] traMADol TAB* [Ultram*] 50 mg PO DAILY PRN 06/23/18 [History Confirmed 06/23/18] PMH/Surg Hx/FS Hx/Imm Hx Previously Healthy: No Endocrine/Hematology History: Reports: Hx Diabetes, Hx Anemia Denies: Hx Anticoagulant Therapy, Hx Systemic Lupus Erythematosus, Hx Thyroid Disease, Hx Unexplained Bleeding Cardiovascular History: Reports: Hx Angina, Hx Hypercholesterolemia, Hx Hypotension, Hx Hypertension, Hx Syncope, Other Cardiovascular Problems/ Disorders - bilateral carotid stenosis,aortic blockage Denies: Hx Aneurysm, Hx Angioplasty, Hx Auto Implanted Cardiovert Defib, Hx Cardiac Arrest, Hx Cardiomegaly, Hx Congenital Heart Disease, Hx Congestive Heart Failure, Hx Coronary Artery Disease, Hx Deep Vein Thrombosis, Hx Embolism , Hx Myocardial Infarction, Hx Pacemaker/ICD, Hx Peripheral Vascular Disease, Hx Rheumatic Fever, Hx Valvular Heart Disease Respiratory History: Reports: Hx Asthma, Hx Chronic Obstructive Pulmonary Disease (COPD), Hx Pneumonia, Hx Pulmonary Edema, Hx Seasonal Allergies, Hx Sleep Apnea - sleeps with 2L O2 at home PRN, Other Respiratory Problems/ Disorders - PNA Denies: Hx Chronic Bronchitis, Hx Cystic Fibrosis, Hx Lung Cancer, Hx Pleural Effusion, Hx Pulmonary Embolism GI History: Reports: Hx Gastroesophageal Reflux Disease, Hx Ulcer - distant past Denies: Hx Cirrhosis, Hx Crohn's Disease, Hx Diverticulosis History: Reports: Hx Acute Renal Failure, Hx Renal Disease Denies: Hx Dialysis Musculoskeletal History: Reports: Hx Arthritis - bilateral knees, left shoulder , Hx Back Problems - herniated disks, Hx Bursitis, Other Musculoskeletal History - HERNIATED DISC Denies: Hx Rheumatoid Arthritis Sensory History: Reports: Hx Contacts or Glasses, Hx Vision Problem Denies: Hx Cataracts, Hx Hearing Aid Opthamlomology History: Reports: Hx Contacts or Glasses, Hx Vision Problem Denies: Hx Cataracts Neurological History: Reports: Hx Headaches, Hx Transient Ischemic Attacks (TIA) Denies: Hx Dementia, Hx Developmental Delay, Hx Migraine, Hx Nerve Disease, Hx Seizures, Hx Spinal Cord Injury Psychiatric History: Reports: Hx Anxiety, Hx Depression, Hx Inpatient Treatment , Hx Suicide Attempt - attempted to harm self 5 years ago, Hx Substance Abuse - as a kid, Other Psychiatric Issues/Disorders - claustrophobia Denies: Hx Eating Disorder, Hx Panic Disorder, Hx of Violent Episodes Against Others - Cancer History Cancer Type, Location and Year: Colon cancer - IN REMISSION Hx Chemotherapy: No Hx Radiation Therapy: No - Surgical History Surgery Procedure, Year, and Place: tubal ligation, laparascopic surgery for ovarian cyst, cardiac cath- NO STENTS PLACED PER PT 06/15/15 Hx Anesthesia Reactions: No - Immunization History Date of Tetanus Vaccine: unknown Date of Influenza Vaccine: 2014 Infectious Disease History: Yes Infectious Disease History: Denies: Hx Clostridium Difficile, Hx Hepatitis, Hx Human Immunodeficiency Virus (HIV), Hx of Known/Suspected MRSA, Hx Shingles, Hx Tuberculosis, Hx Known/ Suspected VRE, Hx Known/Suspected VRSA, History Other Infectious Disease, Traveled Outside the [place] in Last 30 Days - Family History Known Family History: Positive: Cardiac Disease - MD - father. , Other Family History: Colon CA - father - Social History Alcohol Use: Rare Hx Substance Use: No Substance Use Type: Reports: None Hx Tobacco Use: Yes - start 1970 Smoking Status (MU): Light Every Day Tobacco Smoker Type: Cigarettes Amount Used/How Often: 1 pack to 1 and a half a day Length of Time of Smoking/Using Tobacco: 40yrs Have You Smoked in the Last Year: Yes Review of Systems Negative: Fever Positive: Abdominal Pain, Vomiting, Nausea All Other Systems Reviewed And Are Negative: Yes Physical Exam - Summary Physical Exam Summary: Appearance: The patient is well-nourished in no acute distress and in no acute pain. Skin: The skin is warm and dry and skin color reflects adequate perfusion. HEENT: The head is normocephalic and atraumatic. The pupils are equal and reactive. The conjunctivae are clear and without drainage. Nares are patent and without drainage. Mouth reveals moist mucous membranes and the throat is without erythema and exudate. The external ears are intact. The ear canals are patent and without drainage. The tympanic membranes are intact. Neck: The neck is supple with full range of motion and non-tender. There are no carotid bruits. There is no neck vein distension. Respiratory: Chest is non-tender. Lungs are clear to auscultation and breath sounds are symmetrical and equal. Cardiovascular: Heart is regular rate and rhythm. There is no murmur or rub auscultated. There is no peripheral edema and pulses are symmetrical and equal. Abdomen: The abdomen is tender in the RUQ. There are normal bowel sounds heard in all four quadrants and there is no organomegaly palpated. Musculoskeletal: There is no back tenderness noted. Extremities are non-tender with full range of motion. There is good capillary refill. There is no peripheral edema or calf tenderness elicited. Neurological: Patient is alert and oriented to person, place and time. The patient has symmetrical motor strength in all four extremities. Cranial nerves are grossly intact. Deep tendon reflexes are symmetrical and equal in all four extremities. Psychiatric: The patient has an appropriate affect and does not exhibit any anxiety or depression. Triage Information Reviewed: Yes Vital Signs On Initial Exam: Initial Vitals Temp Pulse Resp BP Pulse Ox 98.7 F 87 19 172/83 92 06/23/18 12:06 06/23/18 12:06 06/23/18 12:06 06/23/18 12:06 06/23/18 12:06 Vital Signs Reviewed: Yes Diagnostics - Vital Signs Vital Signs Temp Pulse Resp BP Pulse Ox 06/23/18 12:06 98.7 F 87 19 172/83 92 - Laboratory Result Diagrams: 06/23/18 12:38 06/23/18 12:38 Lab Statement: Any lab studies that have been ordered have been reviewed, and results considered in the medical decision making process. - Ultrasound No standard instances Ultrasound Interpretation Completed By: Radiologist Summary of Ultrasound Findings: Gallbladder US. Hepatomegaly with hepatic steatosis. No evidence of biliary duct dilatation. Cholelithiasis is noted. ED physician has reviewed this report. Abdominal Pain Fem Course/Dx - Course Course Of Treatment: Ms. Coughlin presented with severe intractable right upper quadrant pain. She was here a few days ago and evaluated by surgery. She does have gallstones on ultrasound. Urine culture was obtained on her previous visit and returned today with Escherichia coli growing. She has no phone therefore let it was sent to her house and a prescription for Macrobid. Her urine looks worse today with nitrates and I recommended treating her UTI and discharged. She has no phone and no help at home and is in severe pain. I spoke with the hospitalist to consult for possible admission. - Diagnoses Provider Diagnoses: Pyelonephritis, Biliary colic Discharge - Sign-Out/Discharge Documenting (check all that apply): Patient Departure - Discharge Plan Condition: Stable Disposition: ADMITTED TO [facility] Referrals: George Bishop MD [Primary Care Provider] - - Billing Disposition and Condition Condition: STABLE Disposition: Admitted to [facility] - Attestation Statements Document Initiated by Julianeibe: Yes Documenting Scribe: Zabrina Chang Provider For Whom Scribe is Documenting (Include Credential): Antony Rangel MD. Scribe Attestation: Zabrina Ramirez, scribed for Antony Rangel MD. on 06/23/18 at 1745. Scribe Documentation Reviewed: Yes Provider Attestation: The documentation as recorded by the Zabrina reyes accurately reflects the service I personally performed and the decisions made by me, Antony Rangel MD. Status of Scribe Document: Viewed Consult Consult: 1500 - I spoke with Dr. Kramer who will be coming to evaluate the patient. Dr. Kramer will be accepting the pt to [facility].
[2018-06-23 12:56] LABS: ABS Basophils 0.1 10^3/ul (0-0.2); ABS Eosinophils 0.2 10^3/ul (0-0.6); ABS Lymphocytes 1.7 10^3/ul (1.0-4.8); ABS Monocytes 0.5 10^3/ul (0-0.8); ABS Neutrophils 8.9 10^3/ul (1.5-7.7); Eosinophil % 1.7 %; Hematocrit 39 % (35-47); Hemoglobin 12.7 g/dL (12.0-16.0); Lymphocyte % 14.6 %; Mean Corpuscular HGB Conc 33 g/dL (31-36); Mean Corpuscular Hemoglobin 27 pg (27-31); Mean Corpuscular Volume 82 fL (80-97); Mean Platelet Volume 9.4 fL (7.4-10.4); Platelet Count 224 10^3/uL (150-450); Red Blood Count 4.77 10^6 /uL (3.70-4.87); Red Cell Distribution Width 16 % (10.5-15); White Blood Count 11.3 10^3/uL (3.5-10.8)
[2018-06-23] MEDS ORDERED: HYDROmorphone INJ1* 1 MG/ML SYRINGE IV SLOW PU ONE (13:08)
[2018-06-23 13:14] LABS: Albumin/Globulin Ratio 1.2 (1-3); BUN/Creatinine Ratio 19.5 (8-20); C Reactive Protein 30.38 mg/L (<8.01); Calcium 9.1 mg/dL (8.6-10.3); EGFR Non-African American 71.1 (>60); Globulin 3.4 g/dL (2-4); Potassium 4.5 mmol/L (3.5-5.0); Total Bilirubin 0.6 mg/dL (0.2-1.0); Total Protein 7.4 g/dL (6.4-8.9)
[2018-06-23 14:06] LABS: Urine Appearance Cloudy; Urine Bacteria 2+ (Absent); Urine Bilirubin Negative (Negative); Urine Blood Negative (Negative); Urine Color Amber; Urine Glucose Negative (Negative); Urine Ketones Negative (Negative); Urine Nitrite Positive (Negative); Urine Protein 1+(30 mg/dL) (Negative); Urine Red Blood Cell Trace(0-2/hpf) (Absent); Urine Specific Gravity 1.027 (1.010-1.030); Urine Squamous Epithelial Cell Present (Absent); Urine Urobilinogen Negative (Negative); Urine White Blood Cell 2+(11-20/hpf) (Absent)
[2018-06-23] MEDS ORDERED: Albuterol 2.5 MG/3 ML NEB.SOL* (0.083%) INH PRN (17:01)
[2018-06-23] MEDS ORDERED: oxyCODONE/Acetamin 5/325 MG* TAB PO PRN (17:10)
[2018-06-23] MEDS ORDERED: Albuterol HFA INHALER* 8 gm MDI INH PRN (17:10)
[2018-06-23] MEDS ORDERED: Dextrose 50% Syringe 50 ML* 25 GM/50 ML SYRINGE IV PUSH PRN (17:24)
[2018-06-23] MEDS: Acetaminophen TAB* 325 MG PO PRN (18:01)
[2018-06-23] MEDS: Mometasone/Formoter 200/5 MDI INH SCH (19:33)
[2018-06-23] MEDS: traMADol TAB* 50 MG PO PRN (20:07)
[2018-06-23] MEDS: NS 0.9% 1000 ML** 1,000 ML IV SCH (20:08)
[2018-06-23] MEDS ORDERED: Budesonide/Formote 160/4.5(NF) MDI INH SCH (21:00)
[2018-06-23] MEDS ORDERED: Mometasone/Formoter 100/5 MDI INH SCH (21:00)
[2018-06-23] MEDS: Enoxaparin(*) 40 MG/0.4 ML SYR SUBCUT SCH (21:23)
[2018-06-23] MEDS: Docusate CAP* 100 MG PO SCH (21:27)
--- NOTE | 2018-06-23 22:33 | HP ---
CC: Dr. Bishop, Dr. Sales * HISTORY AND PHYSICAL: DATE OF ADMISSION: 06/23/18 PROVIDER: Michelle Sorto NP PRIMARY CARE PROVIDER: Dr. Bishop. ATTENDING PHYSICIAN WHILE IN THE HOSPITAL: Dr. Joelle New * (dictated by Michelle Sorto NP). CHIEF COMPLAINT: Abdominal pain. HISTORY OF PRESENT ILLNESS: Ms. Coughlin is a 62-year-old female with a past medical history significant for hypertension, hyperlipidemia, diabetes, COPD, asthma, obesity, GERD, history of colon cancer, and anxiety, who presented to the emergency room from her primary care doctor's office for abdominal pain. The patient reports that she has had abdominal pain on and off for the past 2 weeks that has progressively become worse. She does report she now has nausea and vomiting associated with her abdominal pain. She was seen in her primary care doctor's office today and sent for further evaluation. The patient has been worked up as an outpatient for gallbladder disease and has been referred to Surgery for evaluation. The patient reports that she was also seen on Friday in the emergency room for the same and was discharged home and instructed to follow up with her primary care provider and call for surgeon on Friday. The patient reports that she does not have any way to contact the surgeon and had no phone, and she knew she had an appointment with her primary care doctor, so she followed up with them today. The patient also reports that she has had urinary frequency, dark urine, and voiding small amounts. She does report fevers. She reports leg swelling. She does also report a cough with green sputum. She reports this started this morning. She does report that her shortness of breath is mildly worse. She does report nausea and vomiting. Denies any diarrhea. She does report abdominal pain, right upper quadrant. She denies any hematuria. She does report frequency and urgency. Denies any focal weakness, sensory loss, visual complaints, dysphagia, arthralgias, or myalgias. She does report scabbed abrasions to bilateral lower legs from itching and dry skin. She does report that she has eczema and she does have dry itchy skin and scabbed areas noted to her back. She denies any psychosis or anxiety. Due to the patient's abdominal pain, we were asked to see and evaluate her for admission. PAST MEDICAL HISTORY: 1. Hypertension. 2. Hyperlipidemia. 3. Diabetes. 4. COPD. 5. Asthma. 6. Osteoarthritis. 7. Obesity. 8. GERD. 9. Anxiety. 10. Depression. 11. History of colon cancer. PAST SURGICAL HISTORY: Cardiac catheterization in 2016, tubal ligation, ovarian cyst, laparoscopy surgery. MEDICATIONS: Home medications include: 1. Tramadol 50 mg p.o. daily p.r.n. 2. Acetaminophen 650 mg p.o. q.4 hours as needed. 3. Glipizide 5 mg p.o. b.i.d. 4. Oxycodone 1 tab p.o. q.6 hours as needed for pain. 5. Docusate 100 mg p.o. t.i.d. 6. Omeprazole 40 mg p.o. daily. 7. Aspirin 81 mg p.o. daily. 8. Celexa 20 mg p.o. daily. 9. Dulera 2 puffs b.i.d. 10. Reglan 10 mg p.o. q.6 hours as needed. 11. Zofran 4 mg p.o. q.8 hours p.r.n. nausea. 12. Symbicort 2 puffs b.i.d. 13. Albuterol HFA inhaler 2 puffs q.6 hours as needed. ALLERGIES: 1. PENICILLIN. 2. STRAWBERRIES. 3. CEFAZOLIN. 4. ERYTHROMYCIN. 5. SULFA. 6. TETRACYCLINE. FAMILY HISTORY: Father with an DC in his 70s. Mother and father both with diabetes. Father with a history of colon cancer. SOCIAL HISTORY: The patient reports that she smokes 2 packs per day. She rolls her own cigarettes. She denies any alcohol or illicit drug use. She is . She lives alone. Surrogate decision maker in the event she is unable to make any decisions is her son, Ming. She is a full code. REVIEW OF SYSTEMS: A 11-point review of systems was completed. All pertinent positives are mentioned in the HPI. PHYSICAL EXAMINATION GENERAL: At this time, Ms. Coughlin is a 62-year-old female. She is resting on the stretcher in the emergency room. She is not in any acute distress. VITAL SIGNS: Blood pressure 112/56, heart rate 70, respirations are 16, O2 saturation 94% on 3 L, temp is 98.8. HEENT: Head is atraumatic, normocephalic. Eyes: EOMs are intact. Sclerae anicteric and not pale. Oral mucosa appeared to be moist. NECK: Supple. LUNGS: Diminished bilaterally. No wheezes, rales, or rhonchi. CARDIAC: S1, S2. Regular rate and rhythm. No murmurs, rubs or gallops. ABDOMEN: Soft. She does have right upper quad tenderness with palpation. Bowel sounds are present x4. Abdomen is obese. BACK: She does have scabbed abrasions noted to her back. EXTREMITIES: She is able to move all 4 extremities. There is no clubbing or cyanosis. Pedal pulses are +1 bilaterally. NEUROLOGIC: She is awake, alert, and oriented x3. Speech is clear. Thought process is intact. No gross focal deficits. SKIN: She has dried scabbed areas noted to bilateral legs and posterior back. PSYCH: The patient is calm and cooperative. She is alert and oriented x4. DIAGNOSTIC STUDIES/LAB DATA: WBCs are 11.3, RBCs 4.77, hemoglobin 12.7, hematocrit is 39, platelet count is 224. Sodium 138, potassium 4.5, chloride 100, carbon dioxide is 31, anion gap 7, BUN 16, creatinine 0.82, glucose was 219 , lactic acid 1.2, calcium 9.1. ASTs were 16, ALTs were 13, alkaline phosphatase was 91. C-reactive protein was 30.38. Lipase was 16. Urine was frankie, cloudy, pH was 5, specific gravity 1.027, urine protein was 1+ . Urine ketones were negative, blood was negative. Nitrites were positive. Bilirubin, urobilinogen, leukocyte esterase were negative. Urine wbc's were 2+ , rbc's were trace. Squamous epithelial cells were present. Bacteria was 2+. Hyaline casts were present. Glucose was negative. She had an EKG which showed sinus rhythm at a rate of 72. QTc was 460. She had a gallbladder ultrasound, radiologist's impression: Hepatomegaly with hepatic steatosis. No evidence of biliary duct dilation. Cholelithiasis is noted. Gallstones measure up to 0.3 cm. Common bile duct measures 0.8 cm. There are no focal lesions or intrahepatic ductal dilation. Chest x-ray is pending. ASSESSMENT AND PLAN: Ms. Coughlin is a 62-year-old female with a past medical history significant for hypertension, hyperlipidemia, diabetes, chronic obstructive pulmonary disease, asthma, osteoarthritis, obesity, gastroesophageal reflux disease, anxiety, depression, and history of colon cancer, who presented to the emergency room with abdominal pain from her primary care's office. She will be admitted under observation for: 1. Abdominal pain. I suspect this could be related to cholelithiasis, but the patient does not have acute cholecystitis. The patient was noted to have a urinary tract infection. This could also be contributing to her abdominal pain , though a majority of her abdominal pain is her right upper quadrant. I will place her on Levaquin 750 mg IV q.24 hours as the patient has multiple medication allergies and has tolerated Levaquin in the past. She does have a urinary culture from 06/20/18 which shows Escherichia coli, which was susceptible to levofloxacin. We will continue to monitor the patient's symptoms. If her symptoms should worsen, we could consult Surgery for further recommendations on the patient's abdominal pain. 2. Hypertension. The patient is not currently on any medications for hypertension. 3. Depression. The patient will continue her Celexa at 20 mg p.o. daily. 4. Asthma. The patient will continue on Dulera and albuterol HFA inhaler as needed for shortness of breath. 5. Gastroesophageal reflux disease. The patient will continue on omeprazole as previously prescribed. 6. Diabetes. I will place the patient on finger sticks a.c. with lispro sliding scale. 7. FEN. The patient can have a carbohydrate consistent diet. 8. DVT prophylaxis. I will place her on Lovenox subcu q.24 hours. 9. Code status. She is a full code. TIME SPENT: Time spent on this admission was approximately 60 minutes, greater than half that time was spent at the bedside reviewing the events leading thus far to her hospitalization, performing my physical exam, and reviewing my plan of care. I have discussed with my attending, Dr. Joelle New; she is in agreement with my plan. MICHELLE AZRA, CHILD LIFE SPECIALIST [id number]/[facility] #: [id number] [facility]ITALNati
[2018-06-23] MEDS: Levofloxacin 750 MG IVPREMIX(* 750 MG/150 ML BAG IVPB SCH (23:08)
[2018-06-23] MEDS: Ondansetron INJ* 2 MG/ML VIAL IV PRN (23:14)
[2018-06-24] MEDS: traMADol TAB* 50 MG PO PRN ×3 (01:47→20:08)
[2018-06-24] MEDS: Ondansetron INJ* 2 MG/ML VIAL IV PRN ×3 (03:57→14:53)
[2018-06-24] MEDS: Acetaminophen TAB* 325 MG PO PRN ×4 (05:00→22:58)
[2018-06-24] MEDS: Mometasone/Formoter 200/5 MDI INH SCH ×2 (07:44→20:03)
[2018-06-24] MEDS: Albuterol 2.5 MG/3 ML NEB.SOL* (0.083%) INH SCH ×2 (07:44→20:03)
[2018-06-24 07:52] LABS: ABS Basophils 0.1 10^3/ul (0-0.2); ABS Eosinophils 0.3 10^3/ul (0-0.6); ABS Lymphocytes 1.4 10^3/ul (1.0-4.8); ABS Monocytes 0.5 10^3/ul (0-0.8); ABS Neutrophils 5.1 10^3/ul (1.5-7.7); Eosinophil % 3.9 %; Hematocrit 35 % (35-47); Hemoglobin 11.3 g/dL (12.0-16.0); Lymphocyte % 19.1 %; Mean Corpuscular HGB Conc 32 g/dL (31-36); Mean Corpuscular Hemoglobin 27 pg (27-31); Mean Corpuscular Volume 82 fL (80-97); Platelet Count 184 10^3/uL (150-450); Red Blood Count 4.25 10^6 /uL (3.70-4.87); Red Cell Distribution Width 16 % (10.5-15); White Blood Count 7.3 10^3/uL (3.5-10.8)
[2018-06-24 07:59] LABS: BUN/Creatinine Ratio 17.4 (8-20); EGFR African American 81.4 (>60); EGFR Non-African American 67.3 (>60); Potassium 4.3 mmol/L (3.5-5.0)
--- NOTE | 2018-06-24 09:06 | PN ---
Subjective Date of Service: 06/24/18 Interval History: Ms. Coughlin reports that she continues to have right sided abdominal pain and nausea. She denies other complaint. Objective Active Medications: Acetaminophen (Tylenol Tab*) 650 mg PO Q4H PRN Albuterol (Ventolin 2.5 Mg/3 Ml Neb.Shefali*) 2.5 mg INH [id number] AWAKE PRN Albuterol (Ventolin Hfa Inhaler*) 2 puff INH Q6H PRN Albuterol (Ventolin 2.5 Mg/3 Ml Neb.Shefali*) 2.5 mg INH BID WANDY Aspirin (Aspirin Ec Tab*) 81 mg PO DAILY WANDY Citalopram Hydrobromide (Celexa Tab*) 20 mg PO DAILY WANDY Dextrose (D50w Syringe 50 Ml*) 12.5 gm IV PUSH .FOR FS < 60 - SS PRN Docusate Sodium (Colace Cap*) 100 mg PO TID WANDY Enoxaparin Sodium (Lovenox(*)) 40 mg SUBCUT Q24H [facility] Sodium Chloride (Ns 0.9% 1000 Ml) 1,000 mls @ 100 mls/hr IV PER RATE WANDY Levofloxacin/Dextrose (Levaquin 750 Mg Ivpremix(*)) 750 mg in 150 mls @ 100 mls /hr IVPB Q24H WANDY; Protocol Insulin Human Lispro (Humalog*) 0 units SUBCUT AC WANDY; Protocol Mometasone Furoate/Formoterol Fumar (Dulera 200/5 Mdi*) 2 puff INH BID WANDY Ondansetron HCl (Zofran Inj*) 4 mg IV Q4H PRN Pantoprazole Sodium (Protonix Tab*) 40 mg PO DAILY WANDY Tramadol HCl (Ultram*) 50 mg PO Q6H PRN Vital Signs: Temp Pulse Resp BP Pulse Ox 98.2 F 102 20 113/59 94 06/24/18 11:19 06/24/18 11:19 06/24/18 11:19 06/24/18 11:19 06/24/18 11:19 Oxygen Devices in Use Now: Nasal Cannula Appearance: Female lying in bed in NAD Eyes: No Scleral Icterus Ears/Nose/Mouth/Throat: Mucous Membranes Moist Respiratory: Symmetrical Chest Expansion and Respiratory Effort, Clear to Auscultation Cardiovascular: NL Sounds; No Murmurs; No JVD, No Edema Extremities: No Edema Skin: No Rash or Ulcers Neurological: Alert and Oriented x 3, NL Muscle Strength and Tone Nutrition: Taking PO's Result Diagrams: 06/24/18 07:34 06/24/18 07:34 Assess/Plan/Problems-Billing Assessment: Ms. Coughlin is a 62 yo F with a PMH of HTN, HLD, DM, COPD, Colon Cancer, and anxiety who was admitted on 06/23/18 with right upper quadrant abdominal pain with concern for possible biliary colic and UTI. - Patient Problems (1) Right upper quadrant pain Comment: - ? Biliary colic. - Plan for MRCP based on dilatation of common bile duct seen on CT abd from previous ER visit on 06/20. Plan for lorazepam x 1 for claustrophia and anxiety. - Gallbladder US negative in ED. LFTs normal. (2) UTI (urinary tract infection) Comment: - Continue levaquin, awaiting culture results (3) Bipolar disorder Comment: - Continue Citalopram. (4) COPD (chronic obstructive pulmonary disease) Comment: - No evidence of acute exacerbation - Continue dulera, albuterol MDI and nebs (5) Chronic respiratory failure Comment: - Likely combination of COPD and obesity hypoventilation syndrome - Continue O2 per home routine (6) GERD (gastroesophageal reflux disease) Comment: - Continue pantoprazole (7) Tobacco abuse Comment: - encouraged cessation (8) Diabetes mellitus Comment: - Hold glipizide, continue BGs with lispro SSI coverage (9) HLD (hyperlipidemia) Comment: - Continue statin (10) HTN (hypertension) Comment: - normotensive (11) DVT prophylaxis Comment: - Lovenox (12) Full code status Status and Disposition: OBV. Anticipate discharge to home when medically stable.
[2018-06-24] MEDS: Insulin LISPRO* 1 UNITS UNIT SUBCUT SCH ×3 (10:57→16:46)
[2018-06-24] MEDS: NS 0.9% 1000 ML** 1,000 ML IV SCH (10:58)
[2018-06-24] MEDS: Pantoprazole TAB * 40 MG TAB PO SCH (11:00)
[2018-06-24] MEDS: Citalopram TAB* 20 MG PO SCH (11:00)
[2018-06-24] MEDS: Docusate CAP* 100 MG PO SCH ×3 (11:00→21:24)
[2018-06-24] MEDS: Aspirin EC TAB* 81 MG TAB.EC PO SCH (11:00)
[2018-06-24] MEDS ORDERED: Nicotine Lozenge* 4 MG LOZENGE MT PRN (15:12)
[2018-06-24] MEDS ORDERED: LORazepam TAB(*) 0.5 MG PO ONE (17:00)
[2018-06-24] MEDS: Benzonatate CAP* 100 MG PO PRN (20:09)
[2018-06-24] MEDS: Enoxaparin(*) 40 MG/0.4 ML SYR SUBCUT SCH (21:24)
[2018-06-24] MEDS: Levofloxacin 750 MG IVPREMIX(* 750 MG/150 ML BAG IVPB SCH (21:24)
[2018-06-25] MEDS: traMADol TAB* 50 MG PO PRN ×4 (02:05→23:24)
[2018-06-25] MEDS: NS 0.9% 1000 ML** 1,000 ML IV SCH ×2 (02:09→13:10)
[2018-06-25] MEDS: Ondansetron INJ* 2 MG/ML VIAL IV PRN ×2 (03:35→11:20)
[2018-06-25] MEDS: Acetaminophen TAB* 325 MG PO PRN ×3 (05:00→21:08)
[2018-06-25] MEDS: Benzonatate CAP* 100 MG PO PRN (05:01)
[2018-06-25] MEDS: Albuterol 2.5 MG/3 ML NEB.SOL* (0.083%) INH SCH ×2 (07:20→19:01)
[2018-06-25] MEDS: Mometasone/Formoter 200/5 MDI INH SCH ×2 (07:21→19:01)
[2018-06-25] MEDS: Insulin LISPRO* 1 UNITS UNIT SUBCUT SCH ×3 (07:48→17:19)
[2018-06-25] MEDS: Citalopram TAB* 20 MG PO SCH (08:22)
[2018-06-25] MEDS: Docusate CAP* 100 MG PO SCH ×3 (08:22→21:08)
[2018-06-25] MEDS: Aspirin EC TAB* 81 MG TAB.EC PO SCH (08:22)
[2018-06-25] MEDS: Pantoprazole TAB * 40 MG TAB PO SCH (08:22)
--- NOTE | 2018-06-25 16:26 | PN ---
Subjective Date of Service: 06/25/18 Interval History: Patient reports pain is unchanged since admission. Reports she is passing stool without difficulty. Reports nausea, but has not vomited. Patient is frustrated as she has been dealing with this issues for "20 days" and she does not have any support at home or in the community. Denies cp, sob, fever, chills, diarrhea, bloody stools. Objective Active Medications: Acetaminophen (Tylenol Tab*) 650 mg PO Q4H PRN PRN Reason: FEVER/PAIN Last Admin: 06/25/18 11:18 Dose: 650 mg Albuterol (Ventolin 2.5 Mg/3 Ml Neb.Shefali*) 2.5 mg INH [id number] AWAKE PRN PRN Reason: sob/wheezing Last Admin: 06/23/18 21:09 Dose: 2.5 mg Albuterol (Ventolin Hfa Inhaler*) 2 puff INH Q6H PRN PRN Reason: SOB/WHEEZING Albuterol (Ventolin 2.5 Mg/3 Ml Neb.Shefali*) 2.5 mg INH BID [facility] Last Admin: 06/25/18 07:20 Dose: 2.5 mg Aspirin (Aspirin Ec Tab*) 81 mg PO DAILY [facility] Last Admin: 06/25/18 08:22 Dose: 81 mg Benzonatate (Tessalon Cap*) 100 mg PO BID PRN PRN Reason: COUGH Last Admin: 06/25/18 05:01 Dose: 100 mg Citalopram Hydrobromide (Celexa Tab*) 20 mg PO DAILY [facility] Last Admin: 06/25/18 08:22 Dose: 20 mg Dextrose (D50w Syringe 50 Ml*) 12.5 gm IV PUSH .FOR FS < 60 - SS PRN PRN Reason: FS < 60 Docusate Sodium (Colace Cap*) 100 mg PO TID [facility] Last Admin: 06/25/18 13:47 Dose: Not Given Enoxaparin Sodium (Lovenox(*)) 40 mg SUBCUT Q24H [facility] Last Admin: 06/24/18 21:24 Dose: 40 mg Sodium Chloride (Ns 0.9% 1000 Ml) 1,000 mls @ 100 mls/hr IV PER RATE [facility] Last Admin: 06/25/18 13:10 Dose: 100 mls/hr Insulin Human Lispro (Humalog*) 0 units SUBCUT AC [facility]; Protocol Last Admin: 06/25/18 11:27 Dose: Not Given Levofloxacin (Levaquin Tab*) 250 mg PO Q24H [facility]; Protocol Mometasone Furoate/Formoterol Fumar (Dulera 200/5 Mdi*) 2 puff INH BID [facility] Last Admin: 06/25/18 07:21 Dose: 2 puff Nicotine Polacrilex (Nicotine Lozenge*) 4 mg MT Q2H PRN PRN Reason: CRAVINGS Ondansetron HCl (Zofran Inj*) 4 mg IV Q4H PRN PRN Reason: NAUSEA Last Admin: 06/25/18 11:20 Dose: 4 mg Pantoprazole Sodium (Protonix Tab*) 40 mg PO DAILY [facility] Last Admin: 06/25/18 08:22 Dose: 40 mg Tramadol HCl (Ultram*) 50 mg PO Q6H PRN PRN Reason: PAIN Last Admin: 06/25/18 08:22 Dose: 50 mg Vital Signs - 8 hr 06/25/18 06/25/18 06/25/18 08:22 08:40 10:22 Temperature 98.6 F Pulse Rate 104 Respiratory 19 18 17 Rate Blood Pressure 132/54 (mmHg) O2 Sat by Pulse Oximetry 06/25/18 06/25/18 11:19 15:51 Temperature 98.1 F 98.1 F Pulse Rate 62 70 Respiratory 18 20 Rate Blood Pressure 118/73 120/60 (mmHg) O2 Sat by Pulse 98 90 Oximetry Oxygen Devices in Use Now: Nasal Cannula Appearance: Comfortable, NAD Eyes: No Scleral Icterus Ears/Nose/Mouth/Throat: Clear Oropharnyx, Mucous Membranes Moist Neck: NL Appearance and Movements; NL JVP Respiratory: Symmetrical Chest Expansion and Respiratory Effort Cardiovascular: NL Sounds; No Murmurs; No JVD, RRR, No Edema Abdominal: - - Abd soft. Tender to right quads. BS normoactive. No rebound tenderness. Lymphatic: No Cervical Adenopathy Extremities: No Edema Skin: No Rash or Ulcers Neurological: Alert and Oriented x 3 Nutrition: - - Started on PO this afternoon. Result Diagrams: 06/24/18 07:34 06/24/18 07:34 Additional Lab and Data: Laboratory Results - last 24 hr 06/24/18 06/25/18 06/25/18 16:36 07:41 11:26 POC Glucose (mg/dL) 137 H 132 H 155 H Microbiology and Other Data: Microbiology 06/25/18 10:35 Gram Stain - Final Sputum Expectorated 06/23/18 13:44 Urine Culture - Final Urine Escherichia Coli Normal Benita Assess/Plan/Problems-Billing Assessment: Ms. Coughlin is a 62 yo F with a PMH of HTN, HLD, DM, COPD, Colon Cancer, and anxiety who was admitted on 06/23/18 with right upper quadrant abdominal pain with concern for possible biliary colic and UTI. - Patient Problems (1) Right upper quadrant pain Comment: - ? Biliary colic. - Dilatation of common bile duct seen on CT abd from previous ER visit on 06/20, therefore, MRCP completed revealed cholelithiasis without cholecystitis and suggestive of nonobstructioning choledocholithiasis - Gallbladder US negative in ED. - LFTs normal on admisison and will repeat today. - Tramadol for pain. - No other acute findings on ERCP or Abd CT from 06/20 which is reassuring (2) Choledocholithiasis Comment: - Nonobstructiong choledocholithiasis suggested from MRCP. - Discussed with GI and Surgery. GI recommends intra operative cholangiogram or ERCP. Surgery recommends ERCP than surgery. Discussed plan with GI and Surgery that if patient continues to be stable, tolerates PO, and LFTS remain normal she can be discharged with follow up with Dr Huerta Friday or Friday for ERCP. - I also discussed transfering to another facility as we cannot offer ERCP here today and patient refused. (3) UTI (urinary tract infection) Comment: - Continue levaquin, but changed to PO. - Levaquin continued due to drug allergies. (4) Bipolar disorder Comment: - Continue Citalopram. (5) COPD (chronic obstructive pulmonary disease) Comment: - No evidence of acute exacerbation - Continue dulera, albuterol MDI and nebs (6) Chronic respiratory failure Comment: - Likely combination of COPD and obesity hypoventilation syndrome - Continue O2 per home routine (7) GERD (gastroesophageal reflux disease) Comment: - Continue pantoprazole (8) Diabetes mellitus Comment: - Hold glipizide, continue BGs with lispro SSI coverage (9) HTN (hypertension) Comment: - normotensive (10) Full code status (11) DVT prophylaxis Comment: - Lovenox Status and Disposition: Inpatient. Anticipate discharge to home when medically stable. Attending: Funmilayo Monroy
[2018-06-25 16:46] LABS: Albumin 3.6 g/dL (3.2-5.2); Albumin/Globulin Ratio 1.2 (1-3); Globulin 2.9 g/dL (2-4); Indirect Bilirubin 0.3 mg/dL (0.3-1.0); Total Bilirubin 0.4 mg/dL (0.2-1.0); Total Protein 6.5 g/dL (6.4-8.9)
[2018-06-25] MEDS ORDERED: Cephalexin CAP* 500 MG PO SCH (21:00)
[2018-06-25] MEDS: Enoxaparin(*) 40 MG/0.4 ML SYR SUBCUT SCH (21:08)
[2018-06-25] MEDS: Levofloxacin TAB* 250 MG PO SCH (21:08)
[2018-06-26] MEDS: Acetaminophen TAB* 325 MG PO PRN ×2 (05:40→12:55)
[2018-06-26] MEDS: Mometasone/Formoter 200/5 MDI INH SCH (07:29)
[2018-06-26] MEDS: Albuterol 2.5 MG/3 ML NEB.SOL* (0.083%) INH SCH (07:30)
[2018-06-26] MEDS: Insulin LISPRO* 1 UNITS UNIT SUBCUT SCH ×3 (08:37→17:02)
[2018-06-26] MEDS: traMADol TAB* 50 MG PO PRN (08:38)
[2018-06-26] MEDS: Citalopram TAB* 20 MG PO SCH (08:38)
[2018-06-26] MEDS: Pantoprazole TAB * 40 MG TAB PO SCH (08:38)
[2018-06-26] MEDS: Aspirin EC TAB* 81 MG TAB.EC PO SCH (08:38)
[2018-06-26] MEDS: Docusate CAP* 100 MG PO SCH ×2 (08:38→14:34)
[2018-06-26] MEDS: NS 0.9% 1000 ML** 1,000 ML IV SCH (08:39)
[2018-06-26] MEDS: Ondansetron INJ* 2 MG/ML VIAL IV PRN (09:54)
[2018-06-26 13:11] LABS: ABS Basophils 0.1 10^3/ul (0-0.2); ABS Eosinophils 0.3 10^3/ul (0-0.6); ABS Lymphocytes 1.3 10^3/ul (1.0-4.8); ABS Monocytes 0.4 10^3/ul (0-0.8); ABS Neutrophils 5.9 10^3/ul (1.5-7.7); Eosinophil % 3.6 %; Hematocrit 35 % (35-47); Hemoglobin 11.2 g/dL (12.0-16.0); Lymphocyte % 16.4 %; Mean Corpuscular HGB Conc 32 g/dL (31-36); Mean Corpuscular Hemoglobin 27 pg (27-31); Mean Corpuscular Volume 83 fL (80-97); Mean Platelet Volume 9.3 fL (7.4-10.4); Platelet Count 181 10^3/uL (150-450); Red Blood Count 4.23 10^6 /uL (3.70-4.87); Red Cell Distribution Width 16 % (10.5-15)
[2018-06-26 13:27] LABS: Albumin 3.7 g/dL (3.2-5.2); Albumin/Globulin Ratio 1.3 (1-3); BUN/Creatinine Ratio 10.6 (8-20); Calcium 8.3 mg/dL (8.6-10.3); EGFR African American 110.5 (>60); EGFR Non-African American 91.4 (>60); Globulin 2.9 g/dL (2-4); Indirect Bilirubin 0.2 mg/dL (0.3-1.0); Potassium 4.6 mmol/L (3.5-5.0); Total Bilirubin 0.3 mg/dL (0.2-1.0); Total Protein 6.6 g/dL (6.4-8.9)
[2018-06-26] MEDS ORDERED: Nystatin TOP POWDER* 15 GM BTL TOPICAL SCH (14:00)
[2018-06-26] MEDS: Benzonatate CAP* 100 MG PO PRN (14:34)
--- NOTE | 2018-06-26 16:01 | PN ---
"Hospitalist Progress Note Date of Service: 06/26/18 The Drug Utilization Report below displays all of the controlled substance prescriptions, if any, that your patient has filled in the last twelve months. The information displayed on this report is compiled from pharmacy submissions to the Department, and accurately reflects the information as submitted by the pharmacies. This report was requested by: Jennifer Villela | Reference #: [id number] You have not added a [facility] number. Keeping your [facility] number(s) up to date on the My [facility] Numbers page will enable the separation of your prescriptions from others ' in the search results. Others' Prescriptions Patient Name: Bennie Coughlin Date: 1955 Address: [address] [place] [address] Sex: Female Rx Written Rx Dispensed Drug Quantity Days Supply Prescriber Name 06/20/2018 06/20/2018 oxycodone-acetaminophen 5-325 mg tablet 14 4 Omega Moe 04/01/2018 04/01/2018 oxycodone-acetaminophen 5-325 mg tablet 9 3 Jennifer Villela Patient Name: Bennie Coughlin Date: 1955 Address: [address] [place] [address] Sex: Female Rx Written Rx Dispensed Drug Quantity Days Supply Prescriber Name 12/17/2017 12/18/2017 tramadol hcl 50 mg tablet 14 14 Sofya Doss"
[2018-06-26 16:17] VITALS: BP 138/62
[2018-06-26] MEDS: Levofloxacin TAB* 250 MG PO SCH (18:02)
--- NOTE | 2018-06-26 20:08 | DS ---
CC: Dr. Li Sales; Dr. George Bishop; Dr. Negrete; Dr. Steward * DISCHARGE SUMMARY: DATE OF ADMISSION: 06/23/18 DATE OF DISCHARGE: 06/26/18 PRIMARY CARE PROVIDERS: Dr. Li Sales and Dr. George Bishop at [facility]. ATTENDING PHYSICIAN: Dr. George Bishop * (dictated by Renuka Terry NP) PRIMARY DIAGNOSES: 1. Right upper quadrant pain. 2. Choledocholithiasis. 3. Cholelithiasis. 4. Urinary tract infection. SECONDARY DIAGNOSES: 1. Bipolar disorder. 2. Chronic obstructive pulmonary disease. 3. Chronic respiratory failure. 4. Gastroesophageal reflux disease. 5. Diabetes. 6. Hypertension. CONSULTATIONS WHILE IN THE HOSPITAL: Dr. Negrete and Dr. Steward from . DISCHARGE HOME MEDICATIONS: Continued home medications: 1. Tramadol 50 mg p.o. daily p.r.n. 2. Tylenol 650 mg p.o. q.4 hours as needed. 3. Glipizide 5 mg p.o. b.i.d. 4. Oxycodone 1 tab p.o. q.6 hours as needed for pain. 5. Colace 100 mg p.o. t.i.d. 6. Omeprazole 40 mg p.o. daily. 7. Aspirin 81 mg p.o. daily. 8. Celexa 20 mg p.o. daily. 9. Dulera 2 puffs inhalation b.i.d. 10. Reglan 10 mg p.o. q.6 hours as needed. 11. Zofran 4 mg q.8 hours p.r.n. nausea. 12. Symbicort 2 puffs b.i.d. 13. Albuterol HFA inhaler 2 puffs q.6 hours as needed. New home medications: Levaquin 250 mg p.o. daily. The patient will have 1 more dose of 06/27/18 and then she will complete her course. HISTORY OF PRESENT ILLNESS/HOSPITAL COURSE: Mrs. Coughlin is a 62-year-old female with past medical history significant for hypertension, hyperlipidemia, diabetes, COPD, asthma, obesity, GERD, colon cancer, and anxiety; who presented to the emergency room on 06/23/18 due to abdominal pain. Please see history and physical dictated by Michelle Sorto NP for complete summary of events leading up to hospitalization, but in short, the patient has abdominal pain and was noted to have cholelithiasis on ultrasound. She had also recently been presented to the ED and had a CT of her abdomen, which revealed dilated common bile duct. In addition, she was noted to have a urinalysis that was concerning for UTI. Therefore, she was admitted to the hospital. While in the hospital, the patient was provided with IV fluids. She remained stable with no documented fever, tachycardia, leukocytosis. She also has been able to advance her diet and is currently eating a low fat regular diet. While in the hospital , the patient also had an MRCP, which revealed cholelithiasis with no cholecystitis. In addition, there were findings to suggest nonobstructing choledocholithiasis in the distal CBD. Given these findings, her case was discussed with GI who recommended a followup ERCP, which could be completed as an outpatient as the patient is stable and has no elevation in her LFTs. I discussed outpatient followup with the patient versus transferring to another facility to have ERCP and possible gallbladder removed and the patient declined transfer. The patient is agreeable to outpatient followup. The patient is stable for discharge home. REVIEW OF SYSTEMS: The patient continues to complain of right upper abdominal pain that extends into right mid and lower quads. She reports it is mildly improved since admission. The patient reports occasional nausea that is resolved with Zofran. The patient is tolerating diet and p.o. fluids. The patient denies chest pain, shortness of breath, palpitations, diaphoresis, fever , chills, constipation, diarrhea. A 14-point review of systems is completed and all others are negative. PHYSICAL EXAM: General: Mrs. Coughlin is a 62-year-old female who is lying in bed. She appears to be in no acute distress. She appears stated age. Vital Signs: Temp 97.2, HR 61, RR 17, O2 saturation 98% on 2 L, which is her baseline , BP 140/63. HEENT: EOMs intact. PERRLA. Oral mucosa is moist without lesions. Posterior pharynx is clear. Neck: Supple. No lymphadenopathy. Cardiac: S1, S2 present. No murmurs, rubs, or gallops. Regular rate and rhythm. Respiratory: Lungs are clear to auscultation. Good aeration. No wheezes, rhonchi, or rales. Abdomen: Abdomen is soft, large, nondistended. The patient reports tenderness throughout right side. No masses, rebound tenderness, or rigidity. Extremities: No edema. No clubbing, cyanosis. Pedal pulses 2+ bilaterally. Musculoskeletal: No pain or deformity. Skin: No rashes or lesions. Neuro: Neuro exam is grossly intact. No focal deficits or weakness. LABORATORY DATA: Sodium 137, potassium 4.6, chloride 103, carbon dioxide 30, BUN 7, creatinine 0.66, glucose 159. Total bilirubin 0.30, direct bilirubin 0.10, indirect bilirubin 0.2, AST 11, ALT 10, alk phos 79. Total protein 6.6. Albumin 3.7, globulin 2.9, new globulin/globulin ratio 1.3. Lipase 16. DISCHARGE PLAN/FOLLOWUP: 1. Abdominal pain: The patient reports this abdominal pain is chronic for her. This has been going on for about 20 days. The patient is tolerating p.o. pain meds and p.o. antinausea meds and is agreeable to discharge with followup with Dr. Steward on , which I have set up for the patient. At that point, Dr. Steward will be consulted for possible ERCP. The patient will be sent home with tramadol and Zofran. If she needs refills, I will consult the [facility] Prescription database. We suspect her right upper quadrant pain could be secondary to biliary colic given cholelithiasis without cholecystitis in addition to suggestion of a nonobstructing choledocholithiasis. 2. Choledocholithiasis: As mentioned above, the MRCP was suggestive of a nonobstructing choledocholithiasis. The patient will follow up with GI on as an outpatient. The patient has been educated on signs and symptoms of new or worsening symptoms and when to return to the emergency department. 3. Cholelithiasis. The patient is noted to have cholelithiasis without cholecystitis. I have discussed this with surgery who recommend she has an ERCP first and they would be happy to see her as an outpatient for the removal of her gallbladder. 4. Urinary tract infection: As mentioned above, the patient's UA on admission was suggestive of a UTI. She was started on Levaquin given her multiple drug allergies. She has 2 more days to complete this course. 5. Bipolar disorder: The patient is to continue her citalopram. 6. Chronic obstructive pulmonary disease: The patient is not in exacerbation. She will continue her inhalers as same. The patient is on supplemental O2, which she should continue at home, which is her baseline. 7. Gastroesophageal reflux disease: Continue pantoprazole. 8. Diabetes: The patient is to continue her glipizide. 9. Hypertension: The patient is normotensive and not noted to be on any medication for her documented diagnosis of hypertension. Therefore, I would recommend that she follow up with [facility] regarding blood pressure monitoring and further evaluation and treatment if needed, but again, the patient is normotensive. 10. Followup: I have set up the patient for followup on , 07/02/18 at [address] Steward. I have also contacted Dr. Steward to give him a heads up about this patient and he is agreeable to see her. I have also called [facility] for the patient to see either Dr. Bishop or Dr. Sales on 06/30/18. I could not set up an appointment at this time as the office is closed, but the coordinator has said that Friday will not be a problem and they will contact the patient with the appropriate time. 11. Education: The patient was educated at length on signs and symptoms of new or worsening condition and when to return to the emergency department. The patient stated understanding. This is a summarized report of a complex medical history and hospital stay. For further details, please see entire medical record. TIME SPENT: Approximately 40 minutes was spent on this discharge, greater than half of the time was spent [id number] with the patient discussing discharge plan and instructions. RENUKA TERRY, HAYDEE [id number]/[facility] #: [id number] [place]
== END 2018-06-26 18:45 | disposition home or self-care (01) | DRG 445 ==
LOC: ED 12:04 → MED 16:58 → OBSVTOIN 06-24 16:00
PROVIDERS: ADMIT Internal Medicine; ATTEND Hospitalist
DX: K80.70 Calculus of gallbladder and bile duct without cholecystitis without obstruction (principal); N39.0 Urinary tract infection, site not specified; J96.10 Chronic respiratory failure, unspecified whether with hypoxia or hypercapnia; N12 Tubulo-interstitial nephritis, not specified as acute or chronic; Z68.42 Body mass index [BMI] 45.0-49.9, adult; E66.2 Morbid (severe) obesity with alveolar hypoventilation; B96.20 Unspecified Escherichia coli [E. coli] as the cause of diseases classified elsewhere; J44.9 Chronic obstructive pulmonary disease, unspecified; I10 Essential (primary) hypertension; E78.5 Hyperlipidemia, unspecified; K21.9 Gastro-esophageal reflux disease without esophagitis; E11.9 Type 2 diabetes mellitus without complications; F31.9 Bipolar disorder, unspecified; F41.9 Anxiety disorder, unspecified; M19.90 Unspecified osteoarthritis, unspecified site; Z85.038 Personal history of other malignant neoplasm of large intestine; Z79.84 Long term (current) use of oral hypoglycemic drugs; Z79.1 Long term (current) use of non-steroidal anti-inflammatories (NSAID); Z79.82 Long term (current) use of aspirin; Z79.891 Long term (current) use of opiate analgesic; Z79.51 Long term (current) use of inhaled steroids; Z79.899 Other long term (current) drug therapy; Z88.1 Allergy status to other antibiotic agents; Z88.0 Allergy status to penicillin; Z88.2 Allergy status to sulfonamides; Z88.8 Allergy status to other drugs, medicaments and biological substances; Z91.018 Allergy to other foods; Z82.49 Family history of ischemic heart disease and other diseases of the circulatory system; Z83.3 Family history of diabetes mellitus; Z80.0 Family history of malignant neoplasm of digestive organs; F17.210 Nicotine dependence, cigarettes, uncomplicated
CPT/HCPCS: 36415; 71046; 74181; 76376; 76705; 80048; 80053; 80076; 81003; 81015; 82248; 83605; 83690; 85025; 86140; 87070; 87077; 87086; 87186; 87205; 93005; 94640; 99283; A9270-GY; G0378; J1170; J1650; J2405

== ENCOUNTER → 2018-07-02 01:45 | Emergency (ER) | payer MEDICARE, MEDICAID ==
[~2018-07-02 01:45] MED LIST: Acetaminophen TAB* 325 MG PO ONE; predniSONE TAB* 20 MG PO ONE
--- NOTE | 2018-07-02 01:54 | ED ---
Allergic Reaction/Systemic - HPI Summary HPI Summary: Patient is a 62 y/o F presenting to ED via EMS for concerns of allergic reaction as a result of bee sting at left thigh. She endorses previous "severe" allergic reactions to bee stings that had required epi-pen usage. Bee sting occurred around 45 minutes ago. She notes that she did not have an epi-pen at the time for this incident, family members called EMS. EMS gave Benadryl and duoneb. Patient notes that her present reaction to the bee sting is less severe than previous episodes. However, patient still endorses SOB and claims she had felt her throat closing. She denies rash. In the room, she reports feeling light -headedness. PMHx of COPD and asthma. She states that she is currently trying to quit smoking. On triage, associated severity is rated 6/10, nothing is noted to aggravate/alleviate Sx. Home medications and allergies are reviewed. - History of Current Complaint Chief Complaint: EDAllergicReaction Time Seen by Provider: 07/02/18 01:48 Hx Obtained From: Patient Onset/Duration: Started minutes ago - 45 minutes ago, Still Present Timing: Constant, Lasting Minutes - 45 minutes ago Severity Initially: Moderate Severity Currently: Moderate Pain Intensity: 6 Pain Scale Used: 0-10 Numeric Location: Discrete @ - left thigh Aggravating Factor(s): Nothing Alleviating Factor(s): Nothing Associated Signs And Symptoms: Positive: Difficulty Breathing, Lightheadedness, Throat Tightening - Allergies/Home Medications Allergies/Adverse Reactions: Allergies Allergy/AdvReac Type Severity Reaction Status Date / Time Penicillins Allergy Severe Anaphylatic Verified 06/23/18 12:14 Shock strawberry Allergy Intermediate Swelling Verified 06/23/18 12:15 Of Face,Lips,& Throat cefazolin Allergy Mild Rash And Verified 06/23/18 12:15 Itching erythromycin base Allergy Mild Rash Verified 06/23/18 12:15 [From Erythrocin] Sulfa (Sulfonamide Allergy Mild Rash Verified 06/23/18 12:15 Antibiotics) Tetracyclines Allergy Mild Hives Verified 06/23/18 12:15 PMH/Surg Hx/FS Hx/Imm Hx Endocrine/Hematology History: Reports: Hx Diabetes, Hx Anemia Denies: Hx Anticoagulant Therapy, Hx Systemic Lupus Erythematosus, Hx Thyroid Disease, Hx Unexplained Bleeding Cardiovascular History: Reports: Hx Angina, Hx Hypercholesterolemia, Hx Hypotension, Hx Hypertension, Hx Syncope, Other Cardiovascular Problems/ Disorders - bilateral carotid stenosis,aortic blockage Denies: Hx Aneurysm, Hx Angioplasty, Hx Auto Implanted Cardiovert Defib, Hx Cardiac Arrest, Hx Cardiomegaly, Hx Congenital Heart Disease, Hx Congestive Heart Failure, Hx Coronary Artery Disease, Hx Deep Vein Thrombosis, Hx Embolism , Hx Myocardial Infarction, Hx Pacemaker/ICD, Hx Peripheral Vascular Disease, Hx Rheumatic Fever, Hx Valvular Heart Disease Respiratory History: Reports: Hx Asthma, Hx Chronic Obstructive Pulmonary Disease (COPD) - 2lpm at home, Hx Pneumonia, Hx Pulmonary Edema, Hx Seasonal Allergies, Hx Sleep Apnea - sleeps with 2L O2 at home PRN, Other Respiratory Problems/Disorders - PNA Denies: Hx Chronic Bronchitis, Hx Cystic Fibrosis, Hx Lung Cancer, Hx Pleural Effusion, Hx Pulmonary Embolism GI History: Reports: Hx Gastroesophageal Reflux Disease, Hx Ulcer - distant past Denies: Hx Cirrhosis, Hx Crohn's Disease, Hx Diverticulosis History: Reports: Hx Acute Renal Failure, Hx Renal Disease Denies: Hx Dialysis Musculoskeletal History: Reports: Hx Arthritis - bilateral knees, left shoulder , Hx Back Problems - herniated disks, Hx Bursitis, Other Musculoskeletal History - HERNIATED DISC Denies: Hx Rheumatoid Arthritis Sensory History: Reports: Hx Contacts or Glasses, Hx Vision Problem Denies: Hx Cataracts, Hx Hearing Aid Opthamlomology History: Reports: Hx Contacts or Glasses, Hx Vision Problem Denies: Hx Cataracts Neurological History: Reports: Hx Headaches, Hx Transient Ischemic Attacks (TIA) Denies: Hx Dementia, Hx Developmental Delay, Hx Migraine, Hx Nerve Disease, Hx Seizures, Hx Spinal Cord Injury Psychiatric History: Reports: Hx Anxiety, Hx Depression, Hx Panic Disorder - SEVERE, Hx Inpatient Treatment, Hx Suicide Attempt - attempted to harm self 5 years ago, Hx Substance Abuse - as a kid, Other Psychiatric Issues/Disorders - claustrophobia Denies: Hx Eating Disorder, Hx of Violent Episodes Against Others - Cancer History Cancer Type, Location and Year: Colon cancer - IN [place] Hx Chemotherapy: No Hx Radiation Therapy: No - Surgical History Surgery Procedure, Year, and Place: LAPROSCOPIC REMOVAL OF FALLOPIAN TUBE AND OVARY,. HEART CATH FOR CLOT RETREVAL (UNSUCCESSFUL, NO STENTS PLACED),. COLONOSCOPIES WITH POLYPS REMOVED,. LEG FOR FBs AFTER ACCIDENT (ERWIN IN LEG TO CLOSE),. I&D OF LEG (MULTIPLE) FROM SPIDER BITE, Hx Anesthesia Reactions: No - Immunization History Date of Tetanus Vaccine: unknown Date of Influenza Vaccine: 2014 Infectious Disease History: Denies: Hx Clostridium Difficile, Hx Hepatitis, Hx Human Immunodeficiency Virus (HIV), Hx of Known/Suspected MRSA, Hx Shingles, Hx Tuberculosis, Hx Known/ Suspected VRE, Hx Known/Suspected VRSA, History Other Infectious Disease - Family History Known Family History: Positive: Cardiac Disease - [place] - father. , Other Family History: Colon [place] - father - Social History Alcohol Use: None Hx Substance Use: No Substance Use Type: Reports: None Hx Tobacco Use: Yes - start 1970 Smoking Status (MU): Light Every Day Tobacco Smoker Type: Cigarettes Amount Used/How Often: 1 pack to 1 and a half a day Length of Time of Smoking/Using Tobacco: 40yrs Have You Smoked in the Last Year: Yes Review of Systems ENT: Other - POSITIVE - THROAT TIGHTENING Positive: Shortness Of Breath Negative: Rash Neurological: Other - POSITIVE - LIGHTHEADEDNESS All Other Systems Reviewed And Are Negative: Yes Physical Exam - Summary Physical Exam Summary: Appearance: Well-appearing, morbidly obese, lying in bed comfortably, no acute distress Skin: Warm, dry, no obvious rash; at left thigh where patient was stung, mild erythema is noted, no significant local reaction Eyes: sclera anicteric, no conjunctival pallor ENT: mucous membranes moist, pharynx appears normal Neck: Supple, nontender Respiratory: Clear to auscultation, no signs of respiratory distress Cardiovascular: Normal S1, S2. No murmurs. Normal distal pulses in tibial and radial bilaterally. Abdomen: Soft, nontender, normal active bowel sounds present Musculoskeletal: Normal, Strength/ROM Intact Neurological: A&Ox3, awake and alert, mentation is normal, speech is fluent and appropriate Psychiatric: affect is normal, does not appear anxious or depressed Triage Information Reviewed: Yes Vital Signs On Initial Exam: Initial Vitals Temp Pulse Resp BP Pulse Ox 99.2 F 75 20 172/85 97 07/02/18 01:48 07/02/18 01:48 07/02/18 01:48 07/02/18 01:48 07/02/18 01:48 Vital Signs Reviewed: Yes Diagnostics - Laboratory Lab Statement: Any lab studies that have been ordered have been reviewed, and results considered in the medical decision making process. - EKG 0210 Cardiac Rate: NL - rate of 71 BPM EKG Rhythm: Sinus Rhythm Summary of EKG Findings: EKG showed NSR at 71 BPM, P waves, QRS complex, and T waves are within normal limits, T waves and intervals are normal, no ischemic changes. This is a normal EKG Re-Evaluation - Re-Evaluation First Eval Re-Evaluation Time: 05:41 Change: Improved Comment: Patient's Sx are improved, she will be discharged to home, she is agreeable with this. Allergic Reaction Course/Dx - Course Course Of Treatment: Patient is a 62 y/o F presenting to ED via EMS for concerns of allergic reaction as a result of bee sting at left thigh. She endorses previous "severe" allergic reactions to bee stings that had required epi-pen usage. Bee sting occurred around 45 minutes ago. She notes that she did not have an epi-pen at the time for this incident, family members called EMS. EMS gave Benadryl and duoneb. Patient notes that her present reaction to the bee sting is less severe than previous episodes. However, patient still endorses SOB and claims she had felt her throat closing. She denies rash. In the room, she reports feeling light-headedness. PMHx of COPD and asthma. She states that she is currently trying to quit smoking. On physical exam, patient is noted to be morbidly obese and in no acute distress, at left thigh where the patient claims that she was stung mild erythema is noted, no significant local reaction. EKG showed NSR at 71 BPM, P waves, QRS complex, and T waves are within normal limits, T waves and intervals are normal, no ischemic changes. This is a normal EKG. UA was negative. During ED course, patient received prednisone 40 mg and Tylenol 975 mg PO. Patient's Sx are improved, she will be discharged to home, she is agreeable with this. - Diagnoses Provider Diagnoses: Insect sting Discharge - Sign-Out/Discharge Documenting (check all that apply): Patient Departure - discharge Patient Received Moderate/Deep Sedation with Procedure: No - Discharge Plan Condition: Good Disposition: HOME Patient Education Materials: Insect Bite or Sting (ED) Referrals: George Bishop MD [Primary Care Provider] - If Needed - Billing Disposition and Condition Condition: GOOD Disposition: Home - Attestation Statements Document Initiated by Scribe: Yes Documenting Scribe: [place] CALI Provider For Whom Julianeibdinesh is Documenting (Include Credential): PERRY ALMANZA MD Scribe Attestation: I, [place] CALI, scribed for PERRY ALMANZA MD on 07/03/18 at 1922. Scribe Documentation Reviewed: Yes Provider Attestation: The documentation as recorded by the OH reyes accurately reflects the service I personally performed and the decisions made by me, PERRY ALMANZA MD Status of Scribe Document: Viewed
[2018-07-02 03:57] LABS: Urine Appearance Clear; Urine Bilirubin Negative (Negative); Urine Blood Negative (Negative); Urine Color Yellow; Urine Glucose Negative (Negative); Urine Ketones Negative (Negative); Urine Nitrite Negative (Negative); Urine Protein Negative (Negative); Urine Specific Gravity 1.008 (1.010-1.030); Urine Urobilinogen Negative (Negative)
[2018-07-02 06:40] VITALS: BP 169/64
== END | disposition home or self-care (01) ==
LOC: ED 01:45
DX: T63.481A Toxic effect of venom of other arthropod, accidental (unintentional), initial encounter (principal); X58.XXXA Exposure to other specified factors, initial encounter; I10 Essential (primary) hypertension; I65.23 Occlusion and stenosis of bilateral carotid arteries; E11.9 Type 2 diabetes mellitus without complications; E78.00 Pure hypercholesterolemia, unspecified; D64.9 Anemia, unspecified; J44.9 Chronic obstructive pulmonary disease, unspecified; E66.01 Morbid (severe) obesity due to excess calories; M13.862 Other specified arthritis, left knee; M13.861 Other specified arthritis, right knee; M13.812 Other specified arthritis, left shoulder; F17.210 Nicotine dependence, cigarettes, uncomplicated; Z88.0 Allergy status to penicillin; Z88.3 Allergy status to other anti-infective agents; Z88.2 Allergy status to sulfonamides; Z88.8 Allergy status to other drugs, medicaments and biological substances; Z86.73 Personal history of transient ischemic attack (TIA), and cerebral infarction without residual deficits; Z68.42 Body mass index [BMI] 45.0-49.9, adult
CPT/HCPCS: 81003; 93005; 99283; A9270-GY; J7512

== ENCOUNTER 2018-07-28 22:38 | Emergency (ER) | payer MEDICARE, MEDICAID ==
--- NOTE | 2018-07-28 23:12 | ED ---
Complex/Multi-Sys Presentation - HPI Summary HPI Summary: 62 year old F brought in by [place] ambulance to [facility] with a chief complaint of right wrist pain and right hand pain s/p slipping on wet floor and falling on to her right side at home this morning. The patient rates the pain 10/10 in severity. Symptoms aggravated by nothing. Symptoms alleviated by nothing. Patient reports right hand tingliness. Patient denies LOC. - History Of Current Complaint Chief Complaint: EDFall Time Seen by Provider: 07/28/18 23:03 Hx Obtained From: Patient Onset/Duration: Still Present Timing: Constant Severity Currently: Severe Aggravating Factor(s): Nothing Alleviating Factor(s): Nothing Associated Signs And Symptoms: Positive: Other - right hand tingliness - Allergies/Home Medications Allergies/Adverse Reactions: Allergies Allergy/AdvReac Type Severity Reaction Status Date / Time Penicillins Allergy Severe Anaphylatic Verified 07/28/18 23:05 Shock strawberry Allergy Intermediate Swelling Verified 07/28/18 23:05 Of Face,Lips,& Throat cefazolin Allergy Mild Rash And Verified 07/28/18 23:05 Itching erythromycin base Allergy Mild Rash Verified 07/28/18 23:05 [From Erythrocin] Sulfa (Sulfonamide Allergy Mild Rash Verified 07/28/18 23:05 Antibiotics) Tetracyclines Allergy Mild Hives Verified 07/28/18 23:05 PMH/Surg Hx/FS Hx/Imm Hx Previously Healthy: No Endocrine/Hematology History: Reports: Hx Diabetes, Hx Anemia Denies: Hx Anticoagulant Therapy, Hx Systemic Lupus Erythematosus, Hx Thyroid Disease, Hx Unexplained Bleeding Cardiovascular History: Reports: Hx Angina, Hx Hypercholesterolemia, Hx Hypotension, Hx Hypertension, Hx Syncope, Other Cardiovascular Problems/ Disorders - bilateral carotid stenosis,aortic blockage Denies: Hx Aneurysm, Hx Angioplasty, Hx Auto Implanted Cardiovert Defib, Hx Cardiac Arrest, Hx Cardiomegaly, Hx Congenital Heart Disease, Hx Congestive Heart Failure, Hx Coronary Artery Disease, Hx Deep Vein Thrombosis, Hx Embolism , Hx Myocardial Infarction, Hx Pacemaker/ICD, Hx Peripheral Vascular Disease, Hx Rheumatic Fever, Hx Valvular Heart Disease Respiratory History: Reports: Hx Asthma, Hx Chronic Obstructive Pulmonary Disease (COPD) - 2lpm at home, Hx Pneumonia, Hx Pulmonary Edema, Hx Seasonal Allergies, Hx Sleep Apnea - sleeps with 2L O2 at home PRN, Other Respiratory Problems/Disorders - PNA Denies: Hx Chronic Bronchitis, Hx Cystic Fibrosis, Hx Lung Cancer, Hx Pleural Effusion, Hx Pulmonary Embolism GI History: Reports: Hx Gastroesophageal Reflux Disease, Hx Ulcer - distant past Denies: Hx Cirrhosis, Hx Crohn's Disease, Hx Diverticulosis History: Reports: Hx Acute Renal Failure, Hx Renal Disease Denies: Hx Dialysis Musculoskeletal History: Reports: Hx Arthritis - bilateral knees, left shoulder , Hx Back Problems - herniated disks, Hx Bursitis, Other Musculoskeletal History - HERNIATED DISC Denies: Hx Rheumatoid Arthritis Sensory History: Reports: Hx Contacts or Glasses, Hx Vision Problem Denies: Hx Cataracts, Hx Hearing Aid Opthamlomology History: Reports: Hx Contacts or Glasses, Hx Vision Problem Denies: Hx Cataracts Neurological History: Reports: Hx Headaches, Hx Transient Ischemic Attacks (TIA) Denies: Hx Dementia, Hx Developmental Delay, Hx Migraine, Hx Nerve Disease, Hx Seizures, Hx Spinal Cord Injury Psychiatric History: Reports: Hx Anxiety, Hx Depression, Hx Panic Disorder - SEVERE, Hx Inpatient Treatment, Hx Suicide Attempt - attempted to harm self 5 years ago, Hx Substance Abuse - as a kid, Other Psychiatric Issues/Disorders - claustrophobia Denies: Hx Eating Disorder, Hx of Violent Episodes Against Others - Cancer History Cancer Type, Location and Year: Colon cancer - IN [place] Hx Chemotherapy: No Hx Radiation Therapy: No - Surgical History Surgery Procedure, Year, and Place: LAPROSCOPIC REMOVAL OF FALLOPIAN TUBE AND OVARY,. HEART CATH FOR CLOT RETREVAL (UNSUCCESSFUL, NO STENTS PLACED),. COLONOSCOPIES WITH POLYPS REMOVED,. LEG FOR FBs AFTER ACCIDENT (ERWIN IN LEG TO CLOSE),. I&D OF LEG (MULTIPLE) FROM SPIDER BITE, Hx Anesthesia Reactions: No - Immunization History Date of Tetanus Vaccine: unknown Date of Influenza Vaccine: 2014 Infectious Disease History: No Infectious Disease History: Denies: Hx Clostridium Difficile, Hx Hepatitis, Hx Human Immunodeficiency Virus (HIV), Hx of Known/Suspected MRSA, Hx Shingles, Hx Tuberculosis, Hx Known/ Suspected VRE, Hx Known/Suspected VRSA, History Other Infectious Disease, Traveled Outside the [place] in Last 30 Days - Family History Known Family History: Positive: Cardiac Disease - [place] - father. Family History: Colon [place] - father - Social History Alcohol Use: None Hx Substance Use: No Substance Use Type: Reports: None Hx Tobacco Use: Yes - start 1970 Smoking Status (MU): Light Every Day Tobacco Smoker Type: Cigarettes Amount Used/How Often: 1 pack to 1 and a half a day Length of Time of Smoking/Using Tobacco: 40yrs Have You Smoked in the Last Year: Yes Review of Systems Positive: Other - right hand pain, right wrist pain Neurological: Negative - LOC, Other - right hand tingliness All Other Systems Reviewed And Are Negative: Yes Physical Exam - Summary Physical Exam Summary: VITAL SIGNS: Reviewed. GENERAL: Patient is a well-developed and nourished FEMALE who is lying comfortable in the stretcher. Patient is not in any acute respiratory distress. HEAD AND FACE: No signs of trauma. No ecchymosis, hematomas or skull depressions. No sinus tenderness. EYES: PERRLA, EOMI x 2, No injected conjunctiva, no nystagmus. EARS: Hearing grossly intact. Ear canals and tympanic membranes are within normal limits. MOUTH: Oropharynx within normal limits. NECK: Supple, trachea is midline, no adenopathy, no JVD, no carotid bruit, no c- spine tenderness, neck with full ROM CHEST: Symmetric, no tenderness at palpation LUNGS: Clear to auscultation bilaterally. No wheezing or crackles. CVS: Regular rate and rhythm, S1 and S2 present, no murmurs or gallops appreciated. ABDOMEN: Soft, non-tender. No signs of distention. No rebound no guarding, and no masses palpated. Bowel sounds are normal. EXTREMITIES: Tenderness over the right wrist and right hand, neurovascular is in tact NEURO: Alert and oriented x 3. No acute neurological deficits. Speech is normal and follows commands. SKIN: Dry and warm Triage Information Reviewed: Yes Vital Signs On Initial Exam: Initial Vitals Temp Pulse Resp BP Pulse Ox 97.9 F 81 18 147/75 95 07/28/18 22:56 07/28/18 22:56 07/28/18 22:56 07/28/18 22:56 07/28/18 22:56 Vital Signs Reviewed: Yes Diagnostics - Vital Signs Vital Signs Temp Pulse Resp BP Pulse Ox 07/28/18 22:56 97.9 F 81 18 147/75 95 - Laboratory Lab Statement: Any lab studies that have been ordered have been reviewed, and results considered in the medical decision making process. - Radiology Right hand x-ray Radiology Interpretation Completed By: ED Physician Summary of Radiographic Findings: Negative for fracture. Pending official report. Right wrist x-ray Radiology Interpretation Completed By: ED Physician Summary of Radiographic Findings: Negative for fracture. Pending official report. Complex Multi-Symp Course/Dx Course Of Treatment: 62 year old F brought in by [place] ambulance to [facility] with a chief complaint of right wrist pain and right hand pain s/p slipping on wet floor and falling on to her right side at home this morning. Physical exam findings: Tenderness over the right wrist and right hand, neurovascular is in tact. Right hand x-ray is negative for fracture. Right wrist x-ray is negative for fracture. In the ED course, the patient was given tramadol. Patient feels better and would like to go home. Patient will be discharged home with follow up from primary care provider in 3 days. Patient was instructed to return to ED for new or worsening symptoms. Patient understands and is agreeable to discharge plan. - Diagnoses Provider Diagnoses: Sprain Discharge - Sign-Out/Discharge Documenting (check all that apply): Patient Departure - Discharge Patient Received Moderate/Deep Sedation with Procedure: No - Discharge Plan Condition: Stable Disposition: HOME Patient Education Materials: Sprain (ED) Referrals: George Bishop MD [Primary Care Provider] - 3 Days Additional Instructions: Follow up with your primary care provider in 3 days. PLEASE RETURN TO THE EMERGENCY DEPARTMENT IMMEDIATELY FOR WORSENING OR CONCERNING SYMPTOMS. - Attestation Statements Document Initiated by Scribe: Yes Documenting Scribe: Blanca Elias Provider For Whom Julianeibe is Documenting (Include Credential): Garrison Moe MD Scribe Attestation: Blanca Ramirez, scribed for Garrison Moe MD on 07/29/18 at 0002. Status of Scribe Document: Ready
[2018-07-28] MEDS: traMADol TAB* 50 MG PO ONE (23:26)
[2018-07-29 02:45] VITALS: BP 149/98
== END 2018-07-29 02:44 | disposition home or self-care (01) ==
LOC: ED 22:38
DX: S63.501A Unspecified sprain of right wrist, initial encounter (principal); W01.0XXA Fall on same level from slipping, tripping and stumbling without subsequent striking against object, initial encounter; Y92.009 Unspecified place in unspecified non-institutional (private) residence as the place of occurrence of the external cause; E11.9 Type 2 diabetes mellitus without complications; I10 Essential (primary) hypertension; F17.210 Nicotine dependence, cigarettes, uncomplicated; M19.031 Primary osteoarthritis, right wrist
CPT/HCPCS: 99282; A9270-GY

== ENCOUNTER 2018-08-08 20:25 | Inpatient (IN) | payer MEDICARE, MEDICAID ==
--- NOTE | 2018-08-08 21:06 | ED ---
HPI Chest Pain - HPI Summary HPI Summary: This patient is a 62 year old female brought in by EMS presenting to [facility] with a chief complaint of chest pain since a few hours ago. She says she was outside when she started feeling a sudden onset of chest heaviness, nausea, vomiting, and shortness of breath. She says the shortness of breath resulted in near- syncope. She says EMS gave her medication with the nausea which relieved this symptom, but she still feels the chest heaviness. - History of Current Complaint Chief Complaint: EDChestPainROMI Time Seen by Provider: 08/08/18 20:58 Hx Obtained From: Patient Pain Intensity: 7 - Additional Pertinent History Primary Care Physician: JENNIFER - Allergy/Home Medications Allergies/Adverse Reactions: Allergies Allergy/AdvReac Type Severity Reaction Status Date / Time Penicillins Allergy Severe Anaphylatic Verified 07/28/18 23:05 Shock strawberry Allergy Intermediate Swelling Verified 07/28/18 23:05 Of Face,Lips,& Throat cefazolin Allergy Mild Rash And Verified 07/28/18 23:05 Itching erythromycin base Allergy Mild Rash Verified 07/28/18 23:05 [From Erythrocin] Sulfa (Sulfonamide Allergy Mild Rash Verified 07/28/18 23:05 Antibiotics) Tetracyclines Allergy Mild Hives Verified 07/28/18 23:05 PMH/Surg Hx/FS Hx/Imm Hx Endocrine/Hematology History: Reports: Hx Diabetes, Hx Anemia Denies: Hx Anticoagulant Therapy, Hx Systemic Lupus Erythematosus, Hx Thyroid Disease, Hx Unexplained Bleeding Cardiovascular History: Reports: Hx Angina, Hx Hypercholesterolemia, Hx Hypotension, Hx Hypertension, Hx Syncope, Other Cardiovascular Problems/ Disorders - bilateral carotid stenosis,aortic blockage Denies: Hx Aneurysm, Hx Angioplasty, Hx Auto Implanted Cardiovert Defib, Hx Cardiac Arrest, Hx Cardiomegaly, Hx Congenital Heart Disease, Hx Congestive Heart Failure, Hx Coronary Artery Disease, Hx Deep Vein Thrombosis, Hx Embolism , Hx Myocardial Infarction, Hx Pacemaker/ICD, Hx Peripheral Vascular Disease, Hx Rheumatic Fever, Hx Valvular Heart Disease Respiratory History: Reports: Hx Asthma, Hx Chronic Obstructive Pulmonary Disease (COPD) - 2lpm at home, Hx Pneumonia, Hx Pulmonary Edema, Hx Seasonal Allergies, Hx Sleep Apnea - sleeps with 2L O2 at home PRN, Other Respiratory Problems/Disorders - PNA Denies: Hx Chronic Bronchitis, Hx Cystic Fibrosis, Hx Lung Cancer, Hx Pleural Effusion, Hx Pulmonary Embolism GI History: Reports: Hx Gastroesophageal Reflux Disease, Hx Ulcer - distant past Denies: Hx Cirrhosis, Hx Crohn's Disease, Hx Diverticulosis History: Reports: Hx Acute Renal Failure, Hx Renal Disease Denies: Hx Dialysis Musculoskeletal History: Reports: Hx Arthritis - bilateral knees, left shoulder , Hx Back Problems - herniated disks, Hx Bursitis, Other Musculoskeletal History - HERNIATED DISC Denies: Hx Rheumatoid Arthritis Sensory History: Reports: Hx Contacts or Glasses, Hx Vision Problem Denies: Hx Cataracts, Hx Hearing Aid Opthamlomology History: Reports: Hx Contacts or Glasses, Hx Vision Problem Denies: Hx Cataracts Neurological History: Reports: Hx Headaches, Hx Transient Ischemic Attacks (TIA) Denies: Hx Dementia, Hx Developmental Delay, Hx Migraine, Hx Nerve Disease, Hx Seizures, Hx Spinal Cord Injury Psychiatric History: Reports: Hx Anxiety, Hx Depression, Hx Panic Disorder - SEVERE, Hx Inpatient Treatment, Hx Suicide Attempt - attempted to harm self 5 years ago, Hx Substance Abuse - as a kid, Other Psychiatric Issues/Disorders - claustrophobia Denies: Hx Eating Disorder, Hx of Violent Episodes Against Others - Cancer History Cancer Type, Location and Year: Colon cancer - IN REMISSION Hx Chemotherapy: No Hx Radiation Therapy: No - Surgical History Surgery Procedure, Year, and Place: LAPROSCOPIC REMOVAL OF FALLOPIAN TUBE AND OVARY,. HEART CATH FOR CLOT RETREVAL (UNSUCCESSFUL, NO STENTS PLACED),. COLONOSCOPIES WITH POLYPS REMOVED,. LEG FOR FBs AFTER ACCIDENT (ERWIN IN LEG TO CLOSE),. I&D OF LEG (MULTIPLE) FROM SPIDER BITE, Hx Anesthesia Reactions: No - Immunization History Date of Tetanus Vaccine: unknown Date of Influenza Vaccine: 2014 Infectious Disease History: No Infectious Disease History: Denies: Hx Clostridium Difficile, Hx Hepatitis, Hx Human Immunodeficiency Virus (HIV), Hx of Known/Suspected MRSA, Hx Shingles, Hx Tuberculosis, Hx Known/ Suspected VRE, Hx Known/Suspected VRSA, History Other Infectious Disease, Traveled Outside the [place] in Last 30 Days - Family History Known Family History: Positive: Cardiac Disease - [place] - father. Family History: Colon CA - father - Social History Alcohol Use: None Hx Substance Use: No Substance Use Type: Reports: None Hx Tobacco Use: Yes - start 1970 Smoking Status (MU): Light Every Day Tobacco Smoker Type: Cigarettes Amount Used/How Often: 1 pack to 1 and a half a day Length of Time of Smoking/Using Tobacco: 40yrs Have You Smoked in the Last Year: Yes Review of Systems Positive: Chest Pain Positive: Shortness Of Breath Positive: Abdominal Pain, Vomiting, Nausea Positive: Syncope All Other Systems Reviewed And Are Negative: Yes Physical Exam - Summary Physical Exam Summary: Appearance: The patient is well-nourished in no acute distress and in no acute pain. Skin: The skin is warm and dry and skin color reflects adequate perfusion. HEENT: The head is normocephalic and atraumatic. The pupils are equal and reactive. The conjunctivae are clear and without drainage. Nares are patent and without drainage. Mouth reveals moist mucous membranes and the throat is without erythema and exudate. The external ears are intact. The ear canals are patent and without drainage. The tympanic membranes are intact. Neck: The neck is supple with full range of motion and non-tender. There are no carotid bruits. There is no neck vein distension. Respiratory: Chest is non-tender. Lungs are clear to auscultation and breath sounds are symmetrical and equal. Mild expiratory wheezes. Cardiovascular: Heart is regular rate and rhythm. There is no murmur or rub auscultated. There is no peripheral edema and pulses are symmetrical and equal. Abdomen: The abdomen is soft and non-tender. There are normal bowel sounds heard in all four quadrants and there is no organomegaly palpated. Musculoskeletal: There is no back tenderness noted. Extremities are non-tender with full range of motion. There is good capillary refill. There is peripheral edema. Neurological: Patient is alert and oriented to person, place and time. The patient has symmetrical motor strength in all four extremities. Cranial nerves are grossly intact. Deep tendon reflexes are symmetrical and equal in all four extremities. Psychiatric: The patient has an appropriate affect and does not exhibit any anxiety or depression. Triage Information Reviewed: Yes Vital Signs On Initial Exam: Initial Vitals Temp Pulse Resp BP Pulse Ox 97.9 F 78 16 120/97 95 08/08/18 20:25 08/08/18 20:25 08/08/18 20:25 08/08/18 20:25 08/08/18 20:25 Vital Signs Reviewed: Yes Diagnostics - Vital Signs Vital Signs Temp Pulse Resp BP Pulse Ox 08/08/18 20:25 97.9 F 78 16 120/97 95 - Laboratory Result Diagrams: 08/09/18 06:34 08/09/18 06:34 Lab Statement: Any lab studies that have been ordered have been reviewed, and results considered in the medical decision making process. - Radiology CXR Radiology Interpretation Completed By: ED Physician Summary of Radiographic Findings: No acute process. Pending official radiologist report. - EKG 2031 Cardiac Rate: NL EKG Rhythm: Sinus Rhythm - 83 BPM Summary of EKG Findings: Nonspecific lateral changes, different from 07/02/18. Chest Pain Course/Dx - Course Course Of Treatment: Ms. Coughlin presented with the onset of chest pain. She still experiencing some chest pain on arrival here in the emergency department. She was kept on a monitor while EKG, chest x-ray and labs were obtained. Her initial workup is negative but I'm concerned for unstable angina and asked the hospitalist Dr. Sales to evaluate her. - Diagnoses Provider Diagnoses: Chest pain Discharge - Sign-Out/Discharge Documenting (check all that apply): Patient Departure - Discharge Plan Condition: Fair Disposition: ADMITTED TO [facility] - Billing Disposition and Condition Condition: FAIR Disposition: Admitted to [facility] - Attestation Statements Document Initiated by Scribe: Yes Documenting Scribe: Jeronimo Cason Provider For Whom Julianeibe is Documenting (Include Credential): Antony Rangel MD Scribe Attestation: Jeronimo Ramirez, scribed for Antony Rangel MD on 08/09/18 at 1015. Scribe Documentation Reviewed: Yes Provider Attestation: The documentation as recorded by the Jeronimo reyes accurately reflects the service I personally performed and the decisions made by me, Antony Rangel MD Status of Scribe Document: Viewed
[2018-08-08 21:19] LABS: Hematocrit 39 % (35-47); Mean Corpuscular HGB Conc 33 g/dL (31-36); Mean Corpuscular Hemoglobin 27 pg (27-31); Mean Corpuscular Volume 81 fL (80-97); Mean Platelet Volume 9.6 fL (7.4-10.4); Platelet Count 205 10^3/uL (150-450); Red Blood Count 4.84 10^6 /uL (3.70-4.87); Red Cell Distribution Width 16 % (10-15); White Blood Count 13.5 10^3/uL (3.5-10.8)
[2018-08-08 21:32] LABS: INR 1.02 (0.82-1.09)
[2018-08-08 21:36] LABS: Albumin 3.7 g/dL (3.2-5.2); Albumin/Globulin Ratio 1.2 (1-3); BUN/Creatinine Ratio 22.1 (8-20); Calcium 8.8 mg/dL (8.6-10.3); EGFR African American 65.4 (>60); EGFR Non-African American 54.1 (>60); Globulin 3.2 g/dL (2-4); Potassium 4.7 mmol/L (3.5-5.0); Total Bilirubin 0.4 mg/dL (0.2-1.0); Total Protein 6.9 g/dL (6.4-8.9)
[2018-08-08 22:07] LABS: Microcytosis 2+
[2018-08-08 22:08] LABS: ABS Basophils 0.1 10^3/ul (0-0.2); ABS Eosinophils 0.2 10^3/ul (0-0.6); ABS Lymphocytes 1.5 10^3/ul (1.0-4.8); ABS Monocytes 0.6 10^3/ul (0-0.8); ABS Neutrophils 11.1 10^3/ul (1.5-7.7); Eosinophil % 1.5 %; Lymphocyte % 10.9 %
--- NOTE | 2018-08-08 23:18 | ED ---
Progress - Progress Note Progress Note: This patient was signed out from Dr. Rangel to Dr. oMe at 22:00 08/08/18 pending labs. Bloodwork and chemistries obtained. The patient was admitted to [facility]. Course/Dx - Course Course Of Treatment: This patient was signed out from Dr. Rangel to Dr. Moe at 22:00 08/08/18 pending labs. Bloodwork and chemistries obtained. The patient was admitted to [facility]. - Diagnoses Provider Diagnoses: Chest pain Discharge - Sign-Out/Discharge Documenting (check all that apply): Patient Departure - admit, Receiving Sign- Out Receiving patient FROM: Antony Rangel All imaging exams completed and their final reports reviewed: Yes Patient Received Moderate/Deep Sedation with Procedure: No - Discharge Plan Condition: Fair Disposition: ADMITTED TO [facility] - Billing Disposition and Condition Condition: FAIR Disposition: Admitted to [facility] - Attestation Statements Document Initiated by Julianeibe: Yes Documenting Scribe: Chandana Haney Provider For Whom Tank is Documenting (Include Credential): Garrison Moe MD Scribe Attestation: Chandana Ramirez scribed for Garrison Moe MD on 08/09/18 at 0512. Scribe Documentation Reviewed: Yes Provider Attestation: The documentation as recorded by the Chandana reyes accurately reflects the service I personally performed and the decisions made by Kassi leal MD Status of Scribe Document: Viewed
[2018-08-08] MEDS ORDERED: Albuterol 2.5 MG/3 ML NEB.SOL* (0.083%) INH PRN (23:34)
[2018-08-08] MEDS ORDERED: Al Hydrox/Mg Hydrox/Simet LIQ* 30 ML UDC PO PRN (23:34)
[2018-08-08] MEDS ORDERED: Metoclopramide TAB* 10 MG PO PRN (23:37)
[2018-08-08] MEDS ORDERED: Albuterol HFA INHALER* 8 gm MDI INH PRN (23:37)
[2018-08-08] MEDS ORDERED: Pantoprazole IV* 40 MG IV SCH (23:45)
[2018-08-08] MEDS ORDERED: Dextrose 50% Syringe 50 ML* 25 GM/50 ML SYRINGE IV PUSH PRN (23:51)
[2018-08-09] MEDS: traMADol TAB* 50 MG PO PRN ×3 (00:44→15:53)
--- NOTE | 2018-08-09 01:58 | HP ---
CC: Dr. Bishop, [facility] * HISTORY AND PHYSICAL: DATE OF ADMISSION: 08/08/18 TIME OF ADMISSION: 11:30 p.m. CHIEF COMPLAINT: Chest pain. HISTORY OF PRESENT ILLNESS: This is a 62-year-old woman with history of cholelithiasis and GERD who presents to the emergency department with chest pain that began after dinner tonight. She said she went to sit outside without her oxygen and she felt a pressure in her chest. She took a baby aspirin and a Bowlegs water, but then had a sudden onset of feeling like someone stabbed her in the chest and then she started vomiting. Her neighbor came over and said she did not look well and called EMS. In the ambulance, she received " something for nausea and feels a little bit better now." However, she still complains of some chest pain that she points to her upper abdomen and feels a little bit nauseous. For dinner, she had a hamburger, cauliflower, and an orange. This is not an unusual meal for her. She had been feeling well prior to dinner; however, did note that she had a little bit of chest pressure yesterday also at rest. She gets around with a walker and a cane and admits that she does occasionally get exertional chest pain, but that was not what brought her to the ER this time. She did have a soft bowel movement today, but denies diarrhea. She has not had any fevers and is on no new medications. She does not use alcohol or illicit drugs and she has never had pain like this before. PAST MEDICAL HISTORY: COPD, on 2 L round the clock; however, she does take it off as she pleases, type 2 diabetes, cholelithiasis, GERD, S[place]; but she does not have her CPAP yet, hypertension, depression. She reports history of a blood clot in her chest; however, I have reviewed her CTAs here and I do not see evidence of this. She also has history of nicotine dependence and there was some documentation in her primary care notes of coronary artery disease. There are no cardiology records in our system. FAMILY HISTORY: Her dad had colon cancer. SOCIAL HISTORY: She gets meals on wheels. She lives alone. She smokes a pack of cigarettes per day and she walks with a cane or walker. REVIEW OF SYSTEMS: As per the HPI, the remainder of the 14-point review of systems is negative. PHYSICAL EXAMINATION GENERAL: Alert, well-appearing obese female, in no distress. VITAL SIGNS: Temperature 98.7, heart rate 71, respiratory rate 24, pulse ox 99 % on 2 L, blood pressure 132/77. HEENT: Pupils equal, round, and reactive to light. Oral mucosa is dry. NECK: No JVP or adenopathy. CHEST: She is in regular rate and rhythm with no murmurs. Her PMI is nondisplaced and her lungs are clear bilaterally. She is exquisitely tender to sternal palpation as well as epigastric palpation. She has diffuse end expiratory wheezing. ABDOMEN: Hyperactive bowel sounds throughout. She is tender to deep palpation in the epigastric area. She has a negative Garnica sign. EXTREMITIES: Dry skin. No edema, rashes, or ulcers. NEUROLOGIC: She is alert and oriented x3. Her strength is 5/5 in all extremities. DIAGNOSTIC STUDIES/LABORATORY DATA: Labs: White blood cells 13.5, hemoglobin 13.0, platelets 205. INR 1.02. Sodium 135, potassium 4.7, chloride 100, creatinine 1.04, glucose 258. AST 40, ALT 22, alk phos 98. Troponin 0.00. A chest x-ray shows no effusions, infiltrates, or pneumothorax. An EKG shows normal sinus rhythm, normal axis, normal intervals, and no ST- or T - wave changes. ASSESSMENT AND PLAN: This is a 62-year-old female with history of gastroesophageal reflux disease and cholelithiasis who presents to the emergency department with the sudden onset of chest and epigastric pain at rest after dinner today. 1. Chest/epigastric pain. Certainly, she has risk factors for coronary artery disease and has some documentation of history of coronary artery disease, though the actual history is unclear; however, her history is more suggestive of a GI etiology of her pain today. She also has a history of cholelithiasis; however, she is afebrile and her LFTs are largely unremarkable, so I am less suspicious for cholecystitis. Her EKG is nonischemic, but I will continue to trend her troponins and monitor her on telemetry. Again, I am more concerned for a GI source of her pain and vomiting. I will put her on Maalox and Protonix and continue with supportive care while we rule out acute coronary syndrome. 2. Chronic hypoxic respiratory failure, on 2 L of home oxygen, she has not required any increased oxygen requirements and her chest x-ray is unremarkable. She does have some wheezing on exam; however, she says she is due for her scheduled nebulizer and she denies shortness of breath. 3. Type 2 diabetes. Hold glipizide and put her on a carb control diet with Lispro sliding scale and fingersticks. 4. DVT prophylaxis. Lovenox subcu. 5. Disposition. Admit to OBV for acute coronary syndrome rule out and treatment of epigastric pain and nausea. [id number]/CPS #: [id number] MTDD
[2018-08-09] MEDS: Acetaminophen TAB* 325 MG PO PRN ×4 (02:43→21:45)
[2018-08-09] MEDS: Enoxaparin(*) 40 MG/0.4 ML SYR SUBCUT SCH ×2 (03:08→20:30)
[2018-08-09] MEDS ORDERED: Famotidine TAB* 20 MG PO ONE (03:18)
[2018-08-09] MEDS ORDERED: NICOTINE 10 MG INH PRN (04:07)
[2018-08-09 07:23] LABS: Albumin 3.3 g/dL (3.2-5.2); Calcium 8.2 mg/dL (8.6-10.3); Total Bilirubin 0.2 mg/dL (0.2-1.0)
[2018-08-09 07:29] LABS: Albumin/Globulin Ratio 1.1 (1-3); BUN/Creatinine Ratio 30.2 (8-20); EGFR African American 81.4 (>60); EGFR Non-African American 67.3 (>60); Globulin 3.1 g/dL (2-4); Total Protein 6.4 g/dL (6.4-8.9)
[2018-08-09 07:50] LABS: Hematocrit 38 % (35-47); Hemoglobin 12.6 g/dL (12.0-16.0); Mean Corpuscular HGB Conc 33 g/dL (31-36); Mean Corpuscular Hemoglobin 27 pg (27-31); Mean Corpuscular Volume 82 fL (80-97); Red Blood Count 4.64 10^6 /uL (3.70-4.87); Red Cell Distribution Width 16 % (10-15); White Blood Count 8.4 10^3/uL (3.5-10.8)
[2018-08-09] MEDS: Docusate CAP* 100 MG PO SCH ×3 (08:00→20:30)
[2018-08-09] MEDS: Aspirin EC TAB* 81 MG TAB.EC PO SCH (08:01)
[2018-08-09] MEDS: Pantoprazole TAB * 40 MG TAB PO SCH (08:01)
[2018-08-09] MEDS: Citalopram TAB* 20 MG PO SCH (08:01)
[2018-08-09] MEDS: Insulin LISPRO* 1 UNITS UNIT SUBCUT SCH ×4 (08:09→20:31)
[2018-08-09 08:10] LABS: ABS Eosinophils 0.2 10^3/ul (0-0.6); ABS Lymphocytes 1.7 10^3/ul (1.0-4.8); ABS Monocytes 0.4 10^3/ul (0-0.8); Eosinophil % 2.8 %; Lymphocyte % 20.3 %; Nucleated Red Blood Cells % 0.1; Platelet Count Platelets clumped. 10^3/uL (150-450)
[2018-08-09] MEDS: Mometasone/Formoter 100/5 MDI INH SCH ×2 (08:36→19:46)
[2018-08-09 08:42] LABS: Potassium 4.5 mmol/L (3.5-5.0)
--- NOTE | 2018-08-09 14:02 | PN ---
Subjective Date of Service: 08/09/18 Interval History: "My linda hurts". Pt stated that her substernal burning travelled down now localized in epigastrium. still c/o spigastric pain. Is chronically on 2 L 02 and smokes 1/2 ppd(down from 4 ppd previously) Objective Active Medications: Acetaminophen (Tylenol Tab*) 650 mg PO Q4H PRN PRN Reason: FEVER/PAIN Last Admin: 08/09/18 13:02 Dose: 650 mg Al Hydrox/Mg Hydrox/Simethicone (Maalox Plus*) 30 ml PO Q6H PRN PRN Reason: INDIGESTION Albuterol (Ventolin 2.5 Mg/3 Ml Neb.Shefali*) 2.5 mg INH [id number] AWAKE PRN PRN Reason: sob/wheezing Albuterol (Ventolin Hfa Inhaler*) 2 puff INH Q6H PRN PRN Reason: SOB/WHEEZING Aspirin (Aspirin Ec Tab*) 81 mg PO DAILY [facility] Last Admin: 08/09/18 08:01 Dose: 81 mg Citalopram Hydrobromide (Celexa Tab*) 20 mg PO DAILY [facility] Last Admin: 08/09/18 08:01 Dose: 20 mg Dextrose (D50w Syringe 50 Ml*) 12.5 gm IV PUSH .FOR FS < 60 - SS PRN PRN Reason: FS < 60 Docusate Sodium (Colace Cap*) 100 mg PO TID [facility] Last Admin: 08/09/18 12:31 Dose: Not Given Enoxaparin Sodium (Lovenox(*)) 40 mg SUBCUT BEDTIME [facility] Last Admin: 08/09/18 03:08 Dose: 40 mg Insulin Human Lispro (Humalog*) 0 units SUBCUT ACHS [facility]; Protocol Last Admin: 08/09/18 12:28 Dose: 3 units Metoclopramide HCl (Reglan Tab*) 10 mg PO Q6H PRN PRN Reason: NAUSEA/VOMITING Mometasone Furoate/Formoterol Fumar (Dulera 100/5 Mdi*) 2 puff INH BID [facility] Last Admin: 08/09/18 08:36 Dose: 2 puff Nicotine (Nicotine Inhaler*) 10 mg INH Q2H PRN PRN Reason: CRAVING Last Admin: 08/09/18 08:02 Dose: 10 mg Ondansetron HCl (Zofran Odt Tab*) 4 mg PO Q6H PRN PRN Reason: NAUSEA Pantoprazole Sodium (Protonix Tab*) 40 mg PO DAILY [facility] Last Admin: 08/09/18 08:01 Dose: 40 mg Sucralfate (Carafate*) 1 gm PO AC [facility] Tramadol HCl (Ultram*) 50 mg PO Q6H PRN PRN Reason: PAIN Last Admin: 08/09/18 08:01 Dose: 50 mg Vital Signs - 8 hr 08/09/18 08/09/18 08/09/18 07:23 08:01 08:39 Temperature 97.9 F Pulse Rate 58 73 Respiratory 20 20 18 Rate Blood Pressure 126/59 (mmHg) O2 Sat by Pulse 99 97 Oximetry 08/09/18 08/09/18 11:49 12:31 Temperature 97.4 F Pulse Rate 63 Respiratory 20 18 Rate Blood Pressure 141/75 (mmHg) O2 Sat by Pulse 99 Oximetry Oxygen Devices in Use Now: None Appearance: 62 yo f in nAD, aAOx3 Eyes: No Scleral Icterus, PERRLA Ears/Nose/Mouth/Throat: NL Teeth, Lips, Gums, Mucous Membranes Moist Neck: NL Appearance and Movements; NL JVP, Trachea Midline Respiratory: Symmetrical Chest Expansion and Respiratory Effort, Clear to Auscultation Cardiovascular: NL Sounds; No Murmurs; No JVD, RRR Abdominal: - - mild epigastric tenderness, no rebound, no guarding, BS+ Lymphatic: No Cervical Adenopathy Extremities: No Clubbing, Cyanosis, - - +1 nonpitting pedal edema b/l Skin: No Nodules or Sclerosis Neurological: Alert and Oriented x 3, NL Muscle Strength and Tone Result Diagrams: 08/09/18 06:34 08/09/18 06:34 Assess/Plan/Problems-Billing Assessment: Ms. Coughlin is a 62 yo F with a PMH of HTN, HLD, DM, COPD (on 2 L 02 at home), Colon Cancer, and anxiety who was admitted with CP/epigastric pain - Patient Problems (1) Epigastric abdominal pain Comment: cardiac work up unremarkable(trop neg, tleme with no arrythmia)-will d/ c telem The epigastric pain may be related to symptomatic cholelithiasis (GB US+ stones and CBD at 12 mm) Tom cont PPI and Pepcid, start Carafate Asked Dr. Lucia to see pt in AM (2) COPD (chronic obstructive pulmonary disease) Comment: - No evidence of acute exacerbation - Continue dulera, albuterol MDI and nebs (3) Diabetes mellitus Comment: - Hold glipizide, continue BGs with lispro SSI coverage (4) DVT prophylaxis Comment: - Lovenox Status and Disposition: cont OBV
[2018-08-09] MEDS: Ondansetron ODT TAB* 4 MG PO PRN (14:29)
[2018-08-09] MEDS: Sucralfate TAB* 1 GM PO SCH (15:53)
[2018-08-10] MEDS: traMADol TAB* 50 MG PO PRN ×2 (00:41→09:34)
[2018-08-10] MEDS: Acetaminophen TAB* 325 MG PO PRN ×2 (04:07→12:59)
[2018-08-10] MEDS: Mometasone/Formoter 100/5 MDI INH SCH (07:56)
[2018-08-10] MEDS: Insulin LISPRO* 1 UNITS UNIT SUBCUT SCH ×3 (09:32→17:16)
[2018-08-10] MEDS: Sucralfate TAB* 1 GM PO SCH ×3 (09:34→17:35)
[2018-08-10] MEDS: Citalopram TAB* 20 MG PO SCH (09:34)
[2018-08-10] MEDS: Aspirin EC TAB* 81 MG TAB.EC PO SCH (09:34)
[2018-08-10] MEDS: Pantoprazole TAB * 40 MG TAB PO SCH (09:34)
[2018-08-10] MEDS: Docusate CAP* 100 MG PO SCH ×2 (09:35→13:09)
[2018-08-10] MEDS: Ondansetron ODT TAB* 4 MG PO PRN (10:25)
--- NOTE | 2018-08-10 12:13 | PN ---
Subjective Date of Service: 08/10/18 Interval History: Pt still c/o epigastric discomfort and vomited her breakfast Objective Active Medications: Acetaminophen (Tylenol Tab*) 650 mg PO Q4H PRN PRN Reason: FEVER/PAIN Last Admin: 08/10/18 04:07 Dose: 650 mg Al Hydrox/Mg Hydrox/Simethicone (Maalox Plus*) 30 ml PO Q6H PRN PRN Reason: INDIGESTION Albuterol (Ventolin 2.5 Mg/3 Ml Neb.Shefali*) 2.5 mg INH [id number] AWAKE PRN PRN Reason: sob/wheezing Albuterol (Ventolin Hfa Inhaler*) 2 puff INH Q6H PRN PRN Reason: SOB/WHEEZING Aspirin (Aspirin Ec Tab*) 81 mg PO DAILY [facility] Last Admin: 08/10/18 09:34 Dose: 81 mg Citalopram Hydrobromide (Celexa Tab*) 20 mg PO DAILY [facility] Last Admin: 08/10/18 09:34 Dose: 20 mg Dextrose (D50w Syringe 50 Ml*) 12.5 gm IV PUSH .FOR FS < 60 - SS PRN PRN Reason: FS < 60 Docusate Sodium (Colace Cap*) 100 mg PO TID [facility] Last Admin: 08/10/18 09:35 Dose: Not Given Enoxaparin Sodium (Lovenox(*)) 40 mg SUBCUT BEDTIME [facility] Last Admin: 08/09/18 20:30 Dose: 40 mg Insulin Human Lispro (Humalog*) 0 units SUBCUT ACHS [facility]; Protocol Last Admin: 08/10/18 09:32 Dose: 2 units Metoclopramide HCl (Reglan Tab*) 10 mg PO Q6H PRN PRN Reason: NAUSEA/VOMITING Mometasone Furoate/Formoterol Fumar (Dulera 100/5 Mdi*) 2 puff INH BID [facility] Last Admin: 08/10/18 07:56 Dose: 2 puff Nicotine (Nicotine Inhaler*) 10 mg INH Q2H PRN PRN Reason: CRAVING Last Admin: 08/09/18 08:02 Dose: 10 mg Ondansetron HCl (Zofran Odt Tab*) 4 mg PO Q6H PRN PRN Reason: NAUSEA Last Admin: 08/10/18 10:25 Dose: 4 mg Pantoprazole Sodium (Protonix Tab*) 40 mg PO DAILY [facility] Last Admin: 08/10/18 09:34 Dose: 40 mg Sucralfate (Carafate*) 1 gm PO AC [facility] Last Admin: 08/10/18 09:34 Dose: 1 gm Tramadol HCl (Ultram*) 50 mg PO Q6H PRN PRN Reason: PAIN Last Admin: 08/10/18 09:34 Dose: 50 mg Vital Signs - 8 hr 08/10/18 08/10/18 08/10/18 04:15 04:16 07:36 Temperature 97.9 F 97.5 F Pulse Rate 58 55 Respiratory 18 18 19 Rate Blood Pressure 141/51 136/57 (mmHg) O2 Sat by Pulse 98 100 Oximetry 08/10/18 08/10/18 08/10/18 07:58 08:00 09:34 Temperature Pulse Rate 56 Respiratory 16 20 20 Rate Blood Pressure (mmHg) O2 Sat by Pulse 98 Oximetry 08/10/18 11:09 Temperature 97.2 F Pulse Rate 62 Respiratory 20 Rate Blood Pressure 108/54 (mmHg) O2 Sat by Pulse 98 Oximetry Oxygen Devices in Use Now: Nasal Cannula Appearance: 62 yo F in nAD, AAOx3 Eyes: No Scleral Icterus, PERRLA Ears/Nose/Mouth/Throat: NL Teeth, Lips, Gums, Mucous Membranes Moist Neck: NL Appearance and Movements; NL JVP, Trachea Midline Respiratory: Symmetrical Chest Expansion and Respiratory Effort, Clear to Auscultation Cardiovascular: NL Sounds; No Murmurs; No JVD, RRR Abdominal: - - soft, + epigastric tenderness, no rebound, no guarding, BS+ Extremities: No Clubbing, Cyanosis, - - trace ankle edema b/l Skin: No Rash or Ulcers, No Nodules or Sclerosis Neurological: Alert and Oriented x 3, NL Muscle Strength and Tone Result Diagrams: 08/09/18 06:34 08/09/18 06:34 Assess/Plan/Problems-Billing Assessment: Ms. Coughlin is a 62 yo F with a PMH of HTN, HLD, DM, COPD (on 2 L 02 at home), Colon Cancer, and anxiety who was admitted with CP/epigastric pain - Patient Problems (1) Epigastric abdominal pain Comment: cardiac work up unremarkable(trop neg, telem with no arrythmia)- d/c'd telem on 6/30/19 The epigastric pain may be related to symptomatic cholelithiasis (GB US+ stones and CBD at 12 mm) Cont PPI and Pepcid, start Carafate Asked Dr. Lucia to see pt . Pt may need to be transferred for ERCP (2) COPD (chronic obstructive pulmonary disease) Comment: - No evidence of acute exacerbation - Continue dulera, albuterol MDI and nebs (3) Diabetes mellitus Comment: - Hold glipizide, continue BGs with lispro SSI coverage (4) DVT prophylaxis Comment: - Lovenox Status and Disposition: OBV will be switched to inpatient
[2018-08-10 14:48] LABS: Albumin 3.4 g/dL (3.2-5.2); Albumin/Globulin Ratio 1.1 (1-3); BUN/Creatinine Ratio 29.8 (8-20); Calcium 8.4 mg/dL (8.6-10.3); EGFR African American 130.9 (>60); EGFR Non-African American 108.2 (>60); Globulin 3.1 g/dL (2-4); Potassium 4.8 mmol/L (3.5-5.0); Total Bilirubin 0.5 mg/dL (0.2-1.0); Total Protein 6.5 g/dL (6.4-8.9)
[2018-08-10 16:02] VITALS: BP 136/58
--- NOTE | 2018-08-10 17:51 | TRS ---
CC: Dr. Dunlap, [facility], [place], [place]; Dr. Steward, [facility]; Dr. Lucia, [facility]; Dr. Sales and Dr. Bishop, [facility] * TRANSFER SUMMARY: DATE OF ADMISSION: 08/08/18 DATE OF TRANSFER: 08/10/18 to [facility]. PRIMARY CARE PROVIDERS: Dr. Bishop and Dr. Sales from [facility] in [place]. DISPOSITION AT THE TIME OF TRANSFER: The patient is going to [facility] in [place], [place]. CONDITION AT THE TIME OF TRANSFER: Stable. TRANSFER DIAGNOSES: Epigastric pain likely due to symptomatic cholelithiasis in patient with history of partial common bowel duct obstruction. SECONDARY DIAGNOSES: 1. History of chronic obstructive pulmonary disease, on 2 L of oxygen continuously. 2. History of diabetes type 2. 3. Gastroesophageal reflux disease. 4. History of obstructive sleep apnea, not using CPAP. 5. Hypertension. 6. Depression. 7. History of possibility of pulmonary embolism, but currently not anticoagulated and her medical studies reviewed. There was no evidence of pulmonary embolism on recent CTAs. 8. History of ongoing tobacco dependence. MEDICATIONS AT HOME: Included: 1. Ultram 50 mg every 6 hours p.r.n. 2. Glipizide 5 mg b.i.d. 3. Zofran 4 mg every 6 hours p.r.n. 4. Omeprazole 40 mg daily. 5. Dulera 100/5 two puffs inhalation b.i.d. 6. Reglan 10 mg every 6 hours p.r.n. 7. Colace 100 mg 3 times a day. 8. Celexa 20 mg daily. 9. Symbicort 160/4.5 two puffs inhalation b.i.d. 10. Aspirin 81 daily. 11. Albuterol inhaler on a p.r.n. basis 12. Acetaminophen on a p.r.n. basis Current medications while hospitalized include: 1. Acetaminophen on a p.r.n. basis. 2. Simethicone was p.r.n. 3. Carafate 1 g a.c. scheduled. 4. Protonix 40 mg daily. 5. Zofran 4 mg every 6 hours p.r.n. 6. Nicotine inhaler on a p.r.n. basis. 7. Dulera 100/5 two inhalations b.i.d. 8. Reglan 10 mg every 6 hours p.r.n. 9. Insulin lispro sliding scale. 10. Lovenox 40 mg subcutaneous daily. 11. Celexa 20 mg daily. 12. Aspirin 81 daily. 13. Albuterol inhaler on a p.r.n. basis. 14. Albuterol nebulizer on a p.r.n. basis. LABORATORY DATA PERFORMED DURING THE HOSPITAL STAY: Included on 08/09/18, white blood cell count 8.4, hemoglobin 12.6, hematocrit 38, and platelets were clumped, but at admission day prior were 105. On 08/10/18, sodium was 134, potassium 2.8, carbon dioxide 31, BUN 17, creatinine 0.57. Liver function tests were unremarkable. Glucose level of 195. Gallbladder ultrasound obtained on 08/09/18, impression: "Hepatic steatosis with common bile duct measuring up to 1.2 cm, distal common bile duct is not well visualized and the possibility of common bile duct stone is not excluded. The gallbladder is partially contracted. Clinical correlation is indicated." Portable chest x-ray obtained on admission, impression: "No active cardiopulmonary disease is noted." The patient's MRCP labs obtained on 06/24/18 showed cholelithiasis without cholecystitis. Additional findings suggested an obstructive choledocholithiasis in the distal CBD." Furthermore, in the body of the report, it was noted that the patient had mild common bile duct dilatation measuring 0.8 cm, which is unchanged compared to prior studies with a small rounded partial filling defect within the distal common bile duct, which was not seen previously. Normal common bile duct termination at the ampulla." HOSPITALIZATION COURSE: Bennie Coughlin is a morbidly obese 62-year-old female with history of oxygen-dependent COPD who presented to the hospital complaining of chest pain and epigastric pain. Initially, she was evaluated for cardiac source of her pain. Her troponins were negative and her telemetry monitoring showed no arrhythmias. At this point, the patient noted that her chest pain is actually in the epigastrium. She was noted to have intermittent nausea and vomiting and had very poor p.o. intake. Discussed with the patient that a month prior, on 06/24/18, the patient presented in the hospital with similar symptoms and at that point, her gallbladder was noted to have cholelithiasis and her MRCP showed at least partial common bile duct obstruction. Due to the patient's symptoms at that point resolving, she was discharged from the hospital. Our ER caption writer, who was able to perform ERCP, was not available during her main hospital stay and the patient was recommended to follow up with Dr. Steward as outpatient for possibility of ERCP as outpatient. Unfortunately, the patient missed this appointment and on 08/08/18, she presented to the hospital with epigastric pain again. Her gallbladder ultrasound showed once again cholelithiasis, but the common bile duct was 1.2 cm , which was wider than before. Her liver functions were unremarkable. The patient tolerated limited diet, but whenever we tried to advance she continued to have more epigastric pain, nausea, and vomiting. At that point, I discussed the case with our caption writer specialist. Unfortunately, Dr. Steward was again not available to see the patient due to vacation. At that point, transfer of this patient with symptomatic cholelithiasis and likely choledocholithiasis was advised by the [facility]. [facility] kindly requested the patient for transfer and Dr. Dunlap was the hospitalist who accepted the patient. The patient is going to be transferred for ERCP today to [facility]. At discharge, the patient is hemodynamically stable, alert and oriented x3, complaints of mild epigastric discomfort and she has mild tenderness on abdominal evaluation. She is tolerating clears. For physical exam at the time of discharge, please see the progress note. Please note that this is a short summary of the patient's hospitalization. Please refer to further medical records for details. TIME SPENT: Approximately 45 minutes were spent on the patient's transfer. [id number]/[facility] #: [id number] KAITLIN
== END 2018-08-10 18:50 | disposition short-term general hospital (02) | DRG 445 ==
LOC: ED 20:25 → MEDTELE 23:34 → OBSVTOIN 08-10 12:13
PROVIDERS: ADMIT Internal Medicine; ATTEND Internal Medicine
DX: K80.71 Calculus of gallbladder and bile duct without cholecystitis with obstruction (principal); Z68.42 Body mass index [BMI] 45.0-49.9, adult; J96.11 Chronic respiratory failure with hypoxia; Z99.81 Dependence on supplemental oxygen; E66.01 Morbid (severe) obesity due to excess calories; J44.9 Chronic obstructive pulmonary disease, unspecified; E11.9 Type 2 diabetes mellitus without complications; K21.9 Gastro-esophageal reflux disease without esophagitis; G47.33 Obstructive sleep apnea (adult) (pediatric); I10 Essential (primary) hypertension; F32.9 Major depressive disorder, single episode, unspecified; F17.210 Nicotine dependence, cigarettes, uncomplicated; Z86.711 Personal history of pulmonary embolism; Z80.0 Family history of malignant neoplasm of digestive organs
CPT/HCPCS: 36415; 71045; 76705; 80053; 83690; 84484; 85025; 85060; 85610; 93005; 94640; 99285; 99406; A9270-GY; G0378; J1650

== ENCOUNTER 2018-09-10 22:33 | Inpatient (IN) | payer MEDICARE, MEDICAID ==
[2018-09-10] MEDS ORDERED: NS 0.9% 1000 ML** 2,000 ML IV ONE (22:39)
[2018-09-10] MEDS ORDERED: Morphine 10 MG/ML VIAL (1 ml) IV ONE (22:39)
[2018-09-10] MEDS ORDERED: Ondansetron INJ* 2 MG/ML VIAL IV ONE (22:39)
--- NOTE | 2018-09-10 22:45 | ED ---
GI/ HPI - HPI Summary HPI Summary: This pt is a 62 y/o female presenting to [facility] via EMS for abd pain and loose stools x3 days, worsening tonight. Pt reports she was at the beginning of August in the ED and was transferred to [facility] for gallstones. Pt had an ERCP done at [facility] and was discharged home on 08/16/18. Pt notes she was advised to come to the ED if she had any loose stools, fever, chills, no appetite, inability to keep food down. Pt notes loose stools became worse today. Today around noon she states she began to have nausea. Yesterday pt reports her ankles began to swell up. Pt was given Tramadol for the pain but notes this makes her drowsy. She was recommended to take Ibuprofen. PMHx includes type 2 DM, COPD, asthma, obesity (she reports losing weight from 500 lbs down to 302 lbs). - History of Current Complaint Stated Complaint: ABD PAIN PER EMS Hx Obtained From: Patient Onset/Duration: Started Days Ago, Still Present Timing: Lasting Days Current Severity: Moderate Pain Intensity: 8 Location of Pain: Diffuse Associated Signs and Symptoms: Positive: Nausea, Diarrhea, Abdominal Pain, Other : - edema in ankles. Negative: Fever Aggravating Factor(s): Nothing Alleviating Factor(s): Nothing - Additional Pertinent History Primary Care Physician: JENNIFER - Allergy/Home Medications Allergies/Adverse Reactions: Allergies Allergy/AdvReac Type Severity Reaction Status Date / Time Penicillins Allergy Severe Anaphylatic Verified 09/10/18 23:29 Shock strawberry Allergy Intermediate Swelling Verified 09/10/18 23:29 Of Face,Lips,& Throat cefazolin Allergy Mild Rash And Verified 09/10/18 23:29 Itching erythromycin base Allergy Mild Rash Verified 09/10/18 23:29 [From Erythrocin] Sulfa (Sulfonamide Allergy Mild Rash Verified 09/10/18 23:29 Antibiotics) Tetracyclines Allergy Mild Hives Verified 09/10/18 23:29 PMH/Surg Hx/FS Hx/Imm Hx Endocrine/Hematology History: Reports: Hx Diabetes, Hx Anemia Denies: Hx Anticoagulant Therapy, Hx Systemic Lupus Erythematosus, Hx Thyroid Disease, Hx Unexplained Bleeding Cardiovascular History: Reports: Hx Angina, Hx Hypercholesterolemia, Hx Hypotension, Hx Hypertension, Hx Syncope, Other Cardiovascular Problems/ Disorders - bilateral carotid stenosis,aortic blockage Denies: Hx Aneurysm, Hx Angioplasty, Hx Auto Implanted Cardiovert Defib, Hx Cardiac Arrest, Hx Cardiomegaly, Hx Congenital Heart Disease, Hx Congestive Heart Failure, Hx Coronary Artery Disease, Hx Deep Vein Thrombosis, Hx Embolism , Hx Myocardial Infarction, Hx Pacemaker/ICD, Hx Peripheral Vascular Disease, Hx Rheumatic Fever, Hx Valvular Heart Disease Respiratory History: Reports: Hx Asthma, Hx Chronic Obstructive Pulmonary Disease (COPD) - 2lpm at home, Hx Pneumonia, Hx Pulmonary Edema, Hx Seasonal Allergies, Hx Sleep Apnea - sleeps with 2L O2 at home PRN, Other Respiratory Problems/Disorders - PNA Denies: Hx Chronic Bronchitis, Hx Cystic Fibrosis, Hx Lung Cancer, Hx Pleural Effusion, Hx Pulmonary Embolism GI History: Reports: Hx Gastroesophageal Reflux Disease, Hx Ulcer - distant past Denies: Hx Cirrhosis, Hx Crohn's Disease, Hx Diverticulosis History: Reports: Hx Acute Renal Failure, Hx Renal Disease Denies: Hx Dialysis Musculoskeletal History: Reports: Hx Arthritis - bilateral knees, left shoulder , Hx Back Problems - herniated disks, Hx Bursitis, Other Musculoskeletal History - HERNIATED DISC Denies: Hx Rheumatoid Arthritis Sensory History: Reports: Hx Contacts or Glasses, Hx Vision Problem Denies: Hx Cataracts, Hx Hearing Aid Opthamlomology History: Reports: Hx Contacts or Glasses, Hx Vision Problem Denies: Hx Cataracts Neurological History: Reports: Hx Headaches, Hx Transient Ischemic Attacks (TIA) Denies: Hx Dementia, Hx Developmental Delay, Hx Migraine, Hx Nerve Disease, Hx Seizures, Hx Spinal Cord Injury Psychiatric History: Reports: Hx Anxiety, Hx Depression, Hx Panic Disorder - SEVERE, Hx Inpatient Treatment, Hx Suicide Attempt - attempted to harm self 5 years ago, Hx Substance Abuse - as a kid, Other Psychiatric Issues/Disorders - claustrophobia Denies: Hx Eating Disorder, Hx of Violent Episodes Against Others - Cancer History Cancer Type, Location and Year: Colon cancer - IN REMISSION Hx Chemotherapy: No Hx Radiation Therapy: No - Surgical History Surgery Procedure, Year, and Place: LAPROSCOPIC REMOVAL OF FALLOPIAN TUBE AND OVARY,. HEART CATH FOR CLOT RETREVAL (UNSUCCESSFUL, NO STENTS PLACED),. COLONOSCOPIES WITH POLYPS REMOVED,. LEG FOR FBs AFTER ACCIDENT (ERWIN IN LEG TO CLOSE),. I&D OF LEG (MULTIPLE) FROM SPIDER BITE,. ERCP - August 28 Hx Anesthesia Reactions: No - Immunization History Date of Tetanus Vaccine: unknown Date of Influenza Vaccine: 2014 Infectious Disease History: No Infectious Disease History: Denies: Hx Clostridium Difficile, Hx Hepatitis, Hx Human Immunodeficiency Virus (HIV), Hx of Known/Suspected MRSA, Hx Shingles, Hx Tuberculosis, Hx Known/ Suspected VRE, Hx Known/Suspected VRSA, History Other Infectious Disease, Traveled Outside the [place] in Last 30 Days - Family History Known Family History: Positive: Cardiac Disease - [place] - father. Family History: Colon CA - father - Social History Alcohol Use: None Hx Substance Use: No Substance Use Type: Reports: None Hx Tobacco Use: Yes - start 1970 Smoking Status (MU): Light Every Day Tobacco Smoker Type: Cigarettes Amount Used/How Often: 1 pack to 1 and a half a day Length of Time of Smoking/Using Tobacco: 40yrs Have You Smoked in the Last Year: Yes Review of Systems Negative: Fever Gastrointestinal: Other - POSITIVE: loose stools Positive: Abdominal Pain, Nausea Positive: Edema All Other Systems Reviewed And Are Negative: Yes Physical Exam - Summary Physical Exam Summary: Appearance: Obese woman lying in the stretcher comfortably in no acute distress Skin: Warm, dry, no obvious rash Eyes: sclera anicteric, no conjunctival pallor ENT: mucous membranes moist, pharynx appears normal Neck: Supple, nontender Respiratory: Clear to auscultation, no signs of respiratory distress Cardiovascular: Normal S1, S2. No murmurs. Normal distal pulses in tibial and radial bilaterally. Abdomen: Soft, diffusely tender with marked tenderness in the RUQ, normal active bowel sounds present Musculoskeletal: Strength/ROM Intact, Mild edema in legs bilaterally. Neurological: A&Ox3, awake and alert, mentation is normal, speech is fluent and appropriate Psychiatric: affect is normal, does not appear anxious or depressed Triage Information Reviewed: Yes Vital Signs On Initial Exam: Initial Vitals Temp Pulse Resp BP Pulse Ox 98.5 F 79 16 195/85 99 09/10/18 22:37 09/10/18 22:37 09/10/18 22:37 09/10/18 22:37 09/10/18 22:37 Vital Signs Reviewed: Yes Diagnostics - Vital Signs Vital Signs Temp Pulse Resp BP Pulse Ox 09/10/18 22:37 98.5 F 79 16 195/85 99 - Laboratory Result Diagrams: 09/11/18 07:50 09/11/18 10:33 Lab Statement: Any lab studies that have been ordered have been reviewed, and results considered in the medical decision making process. - Ultrasound No standard instances Ultrasound Interpretation Completed By: Radiologist Summary of Ultrasound Findings: Gallbladder US IMPRESSION: 1. There are small echogenic calculi in the gallbladder lumen consistent with cholelithiasis but no abnormal gallbladder wall thickening and negative sonographic Garnica sign and therefore not specific for acute cholecystitis. 2. There is prominence of the common bile duct measuring up to 12 mm diameter at the berkley hepatis but no visible obstructing calculus to the extent visualized. Dr. Newton has reviewed this report. GIGU Course/Dx - Course Assessment/Plan: Pt is a 62 y/o female presenting to [facility] via EMS for abd pain and loose stools x3 days, worsening tonight. Pt with recent ERCP done at the beginning of August 2018 at [facility] and discharged home on 08/16/18. Lab results unremarkable except for WBC of 12.5, glucose of 187, lipase of 292. Gallbladder US IMPRESSION: 1. There are small echogenic calculi in the gallbladder lumen consistent with cholelithiasis but no abnormal gallbladder wall thickening and negative sonographic Garnica sign and therefore not specific for acute cholecystitis. 2. There is prominence of the common bile duct measuring up to 12 mm diameter at the berkley hepatis but no visible obstructing calculus to the extent visualized. In the ED course the pt was given IV fluids, morphine, Zofran, compazine. Discussed the case with Dr. Monroy, hospitalist, who accepted the pt for admission. - Diagnoses Provider Diagnoses: Cholecystitis - Physician Notifications Discussed Care Of Patient With: Funmilayo Monroy - hospitalist Time Discussed With Above Provider: 03:18 Instructed by Provider To: Admit As Inpatient Discharge - Sign-Out/Discharge Documenting (check all that apply): Patient Departure - Admit to [facility] Patient Received Moderate/Deep Sedation with Procedure: No - Discharge Plan Condition: Stable Disposition: ADMITTED TO [facility] - Billing Disposition and Condition Condition: STABLE Disposition: Admitted to [facility] - Attestation Statements Document Initiated by Scribe: Yes Documenting Scribe: Huma Wisdom Provider For Whom Scribe is Documenting (Include Credential): Antony Newton MD Scribe Attestation: Huma Ramirez, scribed for Antony Newton MD on 09/12/18 at 0605. [email or web address] Documentation Reviewed: Yes Provider Attestation: The documentation as recorded by the scribe, Huma Wisdom accurately reflects the service I personally performed and the decisions made by me, Antony Newton MD Status of Tank Document: Viewed
[2018-09-10 23:05] LABS: Hematocrit 40 % (35-47); Hemoglobin 13.2 g/dL (12.0-16.0); Mean Corpuscular HGB Conc 33 g/dL (31-36); Mean Corpuscular Hemoglobin 26 pg (27-31); Mean Corpuscular Volume 80 fL (80-97); Mean Platelet Volume 9.3 fL (7.4-10.4); Platelet Count 229 10^3/uL (150-450); Red Blood Count 5.05 10^6 /uL (3.70-4.87); Red Cell Distribution Width 17 % (10-15); White Blood Count 12.5 10^3/uL (3.5-10.8)
[2018-09-10 23:16] LABS: ABS Basophils 0.1 10^3/ul (0-0.2); ABS Eosinophils 0.3 10^3/ul (0-0.6); ABS Monocytes 0.7 10^3/ul (0-0.8); ABS Neutrophils 9.7 10^3/ul (1.5-7.7); Eosinophil % 2.2 %; Lymphocyte % 15.6 %
[2018-09-10 23:23] LABS: Albumin 4.1 g/dL (3.2-5.2); Albumin/Globulin Ratio 1.1 (1-3); BUN/Creatinine Ratio 17.5 (8-20); Calcium 9.8 mg/dL (8.6-10.3); EGFR African American 66.1 (>60); EGFR Non-African American 54.7 (>60); Globulin 3.6 g/dL (2-4); Potassium 4.3 mmol/L (3.5-5.0); Total Bilirubin 0.5 mg/dL (0.2-1.0); Total Protein 7.7 g/dL (6.4-8.9)
[2018-09-11] MEDS ORDERED: Morphine 4 MG/ML VIAL (1 ml) 4 MG/ML VIAL IV ONE (00:50)
[2018-09-11] MEDS ORDERED: PROCHLORPERAZINE INJ 5 MG/ML 2 ML VIAL IV ONE (00:50)
[2018-09-11] MEDS ORDERED: Albuterol/Ipratropium NEB.SOL* Albuterol 2.5 MG/Ipratropium 0.5 MG 3 ML INH PRN (05:36)
[2018-09-11] MEDS ORDERED: Albuterol HFA INHALER* 8 gm MDI INH PRN (05:36)
[2018-09-11] MEDS ORDERED: Dextrose 50% VIAL 50 ml IV PUSH PRN (05:38)
[2018-09-11] MEDS ORDERED: Pantoprazole IV* 40 MG IV ONE (06:00)
[2018-09-11] MEDS: NS 0.9% 1000 ML** 1,000 ML IV SCH (06:39)
[2018-09-11] MEDS: Mometasone/Formoter 100/5 MDI INH SCH ×2 (07:29→20:02)
--- NOTE | 2018-09-11 08:37 | HP ---
CC: Dr. Bishop * HISTORY AND PHYSICAL: DATE OF ADMISSION: 09/11/18 PRIMARY CARE PROVIDER: Dr. Bishop. CHIEF COMPLAINT: Abdominal pain, nausea, vomiting, and diarrhea. HISTORY OF PRESENT ILLNESS: Ms. Coughlin is a 62-year-old female who has a history of O2-dependent COPD, type 2 diabetes, hypertension, and ongoing tobacco abuse, who presents to the emergency room with complaints of abdominal pain, nausea, vomiting, and diarrhea. The patient's story began several months ago, at which time she was diagnosed with a nonobstructing common bile duct stone. She had an MRCP in June that revealed this. At the end of July, the patient was hospitalized for evaluation of epigastric pain and vomiting. At that point, she was transferred to [facility] for ERCP. The patient states that she underwent the ERCP and they broke up the stone. She does not report having a stent placed. She states that she was doing well from the time of discharge, which was on 08/16/18, until approximately 3 days prior. The patient states she then began to develop loose stools. She was having several bowel movements per day. She also developed vomiting associated with eating. She developed hot and cold chills. On 09/10/18, the patient woke up and states that she had to "run to the bathroom." She had both diarrhea and vomited. She took some Pepto-Bismol, but she had another 2 episodes of diarrhea. Later in the day, she was still nauseous and still vomiting. She was unable to even keep down water. At approximately 4:30 p.m., she felt as if she was having low blood sugar. She checked her sugar, it was low at 63. She ate a peanut butter and jelly sandwich and immediately vomited that back up. The patient continued to have diarrhea and vomiting frequently throughout the rest of the afternoon. At approximately 6 p.m., the patient's friend called EMS to bring her to the emergency room. The patient initially did not mention any abdominal pain; however, when I asked her specifically, she did state that she had severe right upper quadrant abdominal pain off and on all day. She states that the intensity increased over the course of the day. She described it as a severe cramp. This is very similar to pain she had in late July/early August. PAST MEDICAL HISTORY: 1. O2-dependent COPD. 2. Type 2 diabetes. 3. GERD. 4. SOULEYMANE. 5. Hypertension. 6. Depression. 7. Coronary artery disease. 8. Tobacco abuse. 9. History of colon cancer. 10. History of ectopic . MEDICATIONS: 1. DuoNeb 1 neb inhaled q.12 hours p.r.n. shortness of breath. 2. Colace 100 mg p.o. t.i.d. 3. Celexa 20 mg p.o. daily. 4. Symbicort 160/4.5 two puffs inhaled twice daily. 5. Albuterol 2 puffs inhaled q.6 hours p.r.n. shortness of breath. 6. Tylenol 650 mg p.o. q.4 hours p.r.n. pain. 7. Glipizide 5 mg p.o. b.i.d. 8. Zofran 4 mg p.o. q.6 hours p.r.n. nausea. 9. Omeprazole 40 mg p.o. daily. 10. Dulera 100/5 two puffs inhaled twice daily. 11. Tramadol 50 mg p.o. q.6 hours p.r.n. pain. 12. Aspirin 81 mg p.o. daily. ALLERGIES: BACTRIM, TETRACYCLINE, PENICILLIN, KEFLEX, and ERYTHROMYCIN. FAMILY HISTORY: Mom of heart disease. Dad of heart disease. He also had colon cancer. SOCIAL HISTORY: The patient is currently smoking one-half pack per day. She smokes since the age of 18. She denies any alcohol use. She is disabled. She is . She has 1 son who is her healthcare proxy. REVIEW OF SYSTEMS: A complete 11-system review of systems is obtained. Pertinent positives and negatives are as per HPI and otherwise negative. PHYSICAL EXAMINATION GENERAL: The patient is a well-developed, middle-aged female seen lying in the stretcher, and in no acute distress. VITAL SIGNS: Blood pressure 141/80, pulse 60, respirations 10, temp 98.5, O2 sat 97% on 2 L. HEENT: Pupils are equal and round. Extraocular muscles are intact. Oropharynx is clear. Oral mucosa is dry. PULMONARY: Lungs are clear to auscultation bilaterally. CARDIAC: Normal S1, S2. Regular rate and rhythm. I do not appreciate any murmurs. There is mild bilateral lower extremity pitting edema. ABDOMEN: Bowel sounds present. Abdomen is soft, nondistended. She is tender to palpation in the right upper quadrant and in between the right upper and lower quadrants. MUSCULOSKELETAL: There is no cyanosis or clubbing of the digits. There is full active range of motion of all 4 extremities. SKIN: Warm and dry. She has chronic skin changes noted to the bilateral legs. There is a small open wound to the right anterior stiles. There is no surrounding erythema. NEUROLOGIC: Cranial nerves II through XII are grossly intact. Sensation is intact to light touch throughout. Strength is 5/5 and symmetric to both upper and lower extremities bilaterally. PSYCHIATRIC: The patient is alert. She is oriented x3. Affect appears appropriate. DIAGNOSTIC STUDIES/LAB DATA: WBC 12.5, hemoglobin 13.2, hematocrit 40, platelets 229. Sodium 134, potassium 4.3, chloride 96, CO2 30, BUN 18, creatinine 1.03, glucose 187, calcium 9.8, bilirubin 0.5, AST 11, ALT 10, alk phos 109, albumin 4.1, lipase 292. Gallbladder ultrasound reveals small echogenic calculi in the gallbladder lumen consistent with cholelithiasis, but no abnormal gallbladder wall thickening and a negative sonographic Garnica sign and therefore nonspecific for acute cholecystitis. There is prominence of the common bile duct measuring up to 12 mm in diameter at the berkley hepatis, but no visible obstructing calculus to the extent visualized. ASSESSMENT AND PLAN: Ms. Coughlin is a 62-year-old female who has been dealing with symptomatic cholelithiasis and choledocholithiasis over the last couple of months, who presents to the emergency room with complaints of a sudden onset of nausea, vomiting, diarrhea, and abdominal pain. 1. Nausea, vomiting, diarrhea, and abdominal pain. At this point, the patient states her symptoms are very similar to how she felt just prior to the ERCP. It may be that she is again suffering from symptomatic cholelithiasis. It also appears that she has mild pancreatitis. I question if she may have passed a small stone as it is clear there are stones still in the gallbladder. The patient would likely benefit from cholecystectomy soon to address this issue to prevent further episodes requiring hospitalization. The patient will have p.r.n. morphine for pain. She does not appear to be actively infected at this time. I am going to hold off on any antibiotic therapy. She will continue with IV fluid hydration if she appears still to be somewhat dry. She will have p.r.n. Zofran for nausea. She will continue on clear liquids alone for right now until her pancreatitis is resolved. 2. O2-dependent chronic obstructive pulmonary disease. There are no signs of exacerbation at this time. We will continue supplemental oxygen and her home respiratory regimen. 3. Type 2 diabetes. I am holding the patient's glipizide for now. She will be placed on a lispro sliding scale a.c., h.s. 4. Gastroesophageal reflux disease. We will start IV Protonix in place of her usual omeprazole. 5. Hypertension. Blood pressure has been generally under control. She did have what appears to be some hypotension around 1 o'clock in the morning. This seems to be likely not accurate, though we will continue to monitor for hypotension. She is not on any medications for her blood pressure, we will monitor this. 6. Depression. Continue Celexa. 7. Coronary artery disease/tobacco abuse. We will continue aspirin. I will provide nicotine patch. 8. DVT prophylaxis: According to the Adult Thrombosis Prophylaxis Risk Factor Assessment Guide, the patient has a total risk factor score of 2, making her moderate risk. Heparin 5000 units subcutaneous q.12 hours will be utilized as DVT prophylaxis. 9. Code status is full. TIME SPENT: 65 minutes was spent admitting this patient, of which greater than half was spent [id number] with the patient reviewing her history and performing physical exam. [id number]/[facility] #: [id number] KAITLIN
[2018-09-11 08:53] LABS: CO2 Carbon Dioxide 24 mmol/L (22-32); Calcium 8.4 mg/dL (8.6-10.3); Chloride 101 mmol/L (101-111); Sodium 133 mmol/L (135-145)
[2018-09-11] MEDS: Aspirin EC TAB* 81 MG TAB.EC PO SCH (08:56)
[2018-09-11] MEDS: Insulin LISPRO* 1 UNITS UNIT SUBCUT SCH ×4 (08:57→20:57)
[2018-09-11] MEDS: Citalopram TAB* 20 MG PO SCH (08:57)
[2018-09-11] MEDS: Morphine 4 MG/ML VIAL (1 ml) 4 MG/ML VIAL IV PRN ×3 (08:58→20:10)
[2018-09-11] MEDS: Heparin VIAL(*) 5000 UNITS/ML VIAL (FIVE THOUSAND) SUBCUT SCH ×2 (08:58→21:03)
[2018-09-11 08:59] LABS: BUN/Creatinine Ratio 18.8 (8-20); Blood Urea Nitrogen 15 mg/dL (6-24); EGFR African American 88.5 (>60); EGFR Non-African American 73.2 (>60); Glucose 195 mg/dL (70-100)
[2018-09-11 09:00] LABS: Anion Gap 8 mmol/L (2-11)
[2018-09-11 09:07] LABS: ABS Eosinophils 0.2 10^3/ul (0-0.6); ABS Lymphocytes 1.9 10^3/ul (1.0-4.8); ABS Monocytes 0.6 10^3/ul (0-0.8); ABS Neutrophils 6.8 10^3/ul (1.5-7.7); ABS Nucleated RBC 0.1 10^3/ul; Eosinophil % 2.5 %; Hematocrit 41 % (35-47); Hemoglobin 12.5 g/dL (12.0-16.0); Lymphocyte % 19.4 %; Mean Corpuscular HGB Conc 31 g/dL (31-36); Mean Corpuscular Hemoglobin 27 pg (27-31); Mean Corpuscular Volume 87 fL (80-97); Mean Platelet Volume 10.8 fL (7.4-10.4); Nucleated Red Blood Cells % 0.5; Platelet Count 202 10^3/uL (150-450); Red Cell Distribution Width 17 % (10-15); White Blood Count 9.6 10^3/uL (3.5-10.8)
[2018-09-11] MEDS: Nicotine PATCH 14 MG/24 HR* PATCH TRANSDERM SCH (09:08)
--- NOTE | 2018-09-11 18:09 | PN ---
Subjective Date of Service: 09/11/18 Interval History: Patient seen and examined. States she is still nauseous. Vomiting has subsided. Diarrhea has subsided. No SOB, no chest pain. Still having right sided abdominal pain. No fevers or chills. Objective Active Medications: Acetaminophen (Tylenol Tab*) 650 mg PO Q4H PRN PRN Reason: PAIN - MILD Albuterol (Ventolin Hfa Inhaler*) 2 puff INH Q6H PRN PRN Reason: SOB/WHEEZING Albuterol/Ipratropium (Duoneb (Albuterol 2.5 Mg/Ipratropium 0.5 Mg)) 1 neb INH Q12H PRN PRN Reason: SHORTNESS OF BREATH Aspirin (Aspirin Ec Tab*) 81 mg PO DAILY [facility] Last Admin: 09/11/18 08:56 Dose: 81 mg Citalopram Hydrobromide (Celexa Tab*) 20 mg PO DAILY [facility] Last Admin: 09/11/18 08:57 Dose: 20 mg Dextrose (Dextrose 50% Vial 50 Ml*) 25 ml IV PUSH .FOR FS < 60 - SS PRN PRN Reason: FS < 60 Heparin Sodium (Porcine) (Heparin Vial(*)) 5,000 units SUBCUT Q12HR [facility] Last Admin: 09/11/18 08:58 Dose: 5,000 units Sodium Chloride (Ns 0.9% 1000 Ml) 1,000 mls @ 100 mls/hr IV PER RATE [facility] Last Admin: 09/11/18 06:39 Dose: 100 mls/hr Insulin Human Lispro (Humalog*) 0 units SUBCUT ACHS [facility]; Protocol Last Admin: 09/11/18 16:29 Dose: Not Given Mometasone Furoate/Formoterol Fumar (Dulera 100/5 Mdi*) 2 puff INH BID [facility] Last Admin: 09/11/18 07:29 Dose: 2 puff Morphine Sulfate (Morphine 4 Mg/Ml Vial (1 Ml)) 4 mg IV Q4H PRN PRN Reason: PAIN - SEVERE Last Admin: 09/11/18 14:29 Dose: 4 mg Nicotine (Nicotine Patch 14 Mg/24 Hr*) 1 patch TRANSDERM DAILY [facility] Last Admin: 09/11/18 09:08 Dose: Not Given Ondansetron HCl (Zofran Inj*) 4 mg IV Q6H PRN PRN Reason: NAUSEA Pantoprazole Sodium (Protonix Iv*) 40 mg IV Q24H [facility] Pharmacy Profile Note (Nicotine Patch Removal Note*) 1 note FOLLOW UP 2100 [facility] Vital Signs - 8 hr 09/11/18 09/11/18 09/11/18 11:15 14:29 16:31 Temperature 97.0 F Pulse Rate 60 Respiratory 16 18 16 Rate Blood Pressure 136/59 (mmHg) O2 Sat by Pulse 100 Oximetry Oxygen Devices in Use Now: Nasal Cannula Appearance: alert, NAD Eyes: No Scleral Icterus, PERRLA Ears/Nose/Mouth/Throat: NL Teeth, Lips, Gums, Mucous Membranes Moist Neck: NL Appearance and Movements; NL JVP, Trachea Midline Respiratory: Symmetrical Chest Expansion and Respiratory Effort, Clear to Auscultation Cardiovascular: NL Sounds; No Murmurs; No JVD, RRR, No Edema Abdominal: - - tender right upper quadrant Extremities: No Edema, No Clubbing, Cyanosis Neurological: Alert and Oriented x 3 Nutrition: - - tolerating clears Result Diagrams: 09/11/18 07:50 09/11/18 10:33 Assess/Plan/Problems-Billing Assessment: this is a 62 year old female that has history of gallstones with recent ERCP that presented to the ED with report of 3 days of n/v/d. - Patient Problems (1) Biliary colic Code(s): K80.50 - CALCULUS OF BILE DUCT W/O CHOLANGITIS OR CHOLECYST W/O OBST SNOMED Code(s): 72734862 Comment: - Patient with n/v/d and elevated lipase - US with stones, no acute christopher, had ERCP at [facility], small obstructing stone may have passed? - Still with abdominal pain, may benefit from surgical consult tomorrow if pain worsens to discuss cholecystectomy - Does not appear toxic - Follow labs, and stool studies, continue clears and advance as tolerated (2) COPD (chronic obstructive pulmonary disease) Code(s): J44.9 - CHRONIC OBSTRUCTIVE PULMONARY DISEASE, UNSPECIFIED SNOMED Code(s): 46065082 Comment: - No evidence of acute exacerbation - Continue dulera, albuterol MDI and nebs, O2 PRN (3) Tobacco abuse Code(s): Z72.0 - TOBACCO USE SNOMED Code(s): 459377246 Comment: - nicotine replacement (4) Diabetes mellitus Code(s): E11.9 - TYPE 2 DIABETES MELLITUS WITHOUT COMPLICATIONS SNOMED Code(s) : 06388575 Comment: - Hold glipizide, continue BGs with lispro SSI coverage (5) HLD (hyperlipidemia) Code(s): E78.5 - HYPERLIPIDEMIA, UNSPECIFIED SNOMED Code(s): 23335125 Comment: - Continue statin (6) HTN (hypertension) Code(s): I10 - ESSENTIAL (PRIMARY) HYPERTENSION SNOMED Code(s): 89615466 Comment: - normotensive (7) Obesity, Class III, BMI 40-49.9 (morbid obesity) Code(s): E66.01 - MORBID (SEVERE) OBESITY DUE TO EXCESS CALORIES SNOMED Code(s ): 511644746 Comment: - BMI 45 (8) DVT prophylaxis Code(s): DRH9278 - SNOMED Code(s): 591415385 Comment: - HSQ (9) Full code status Code(s): Z78.9 - OTHER SPECIFIED HEALTH STATUS SNOMED Code(s): 511689817 Status and Disposition: Inpatient.
[2018-09-11 18:47] LABS: Urine Appearance Cloudy; Urine Bacteria 1+ (Absent); Urine Bilirubin Negative (Negative); Urine Blood 1+ (Negative); Urine Color Yellow; Urine Glucose Negative (Negative); Urine Ketones Negative (Negative); Urine Nitrite Positive (Negative); Urine Protein Negative (Negative); Urine Red Blood Cell Trace(0-2/hpf) (Absent); Urine Specific Gravity 1.011 (1.010-1.030); Urine Squamous Epithelial Cell Present (Absent); Urine Urobilinogen Negative (Negative); Urine White Blood Cell 2+(11-20/hpf) (Absent)
[2018-09-11] MEDS: Nicotine Patch Removal NOTE FOLLOW UP SCH (21:06)
[2018-09-11] MEDS: Acetaminophen TAB* 325 MG PO PRN (23:00)
[2018-09-12] MEDS: NS 0.9% 1000 ML** 1,000 ML IV SCH ×2 (02:38→21:02)
[2018-09-12] MEDS: Morphine 4 MG/ML VIAL (1 ml) 4 MG/ML VIAL IV PRN ×3 (02:39→16:18)
[2018-09-12] MEDS: Ondansetron INJ* 2 MG/ML VIAL IV PRN (03:24)
[2018-09-12] MEDS: Pantoprazole IV* 40 MG IV SCH (05:23)
[2018-09-12 06:56] LABS: ABS Eosinophils 0.3 10^3/ul (0-0.6); ABS Lymphocytes 1.4 10^3/ul (1.0-4.8); ABS Monocytes 0.4 10^3/ul (0-0.8); ABS Neutrophils 4.7 10^3/ul (1.5-7.7); Eosinophil % 4.2 %; Hematocrit 35 % (35-47); Hemoglobin 11.8 g/dL (12.0-16.0); Lymphocyte % 20.5 %; Mean Corpuscular HGB Conc 34 g/dL (31-36); Mean Corpuscular Hemoglobin 27 pg (27-31); Mean Corpuscular Volume 80 fL (80-97); Mean Platelet Volume 9.5 fL (7.4-10.4); Platelet Count 180 10^3/uL (150-450); Red Blood Count 4.39 10^6 /uL (3.70-4.87); Red Cell Distribution Width 16 % (10-15); White Blood Count 6.8 10^3/uL (3.5-10.8)
[2018-09-12 07:06] LABS: BUN/Creatinine Ratio 12.3 (8-20); EGFR African American 98.4 (>60); EGFR Non-African American 81.3 (>60); Potassium 4.3 mmol/L (3.5-5.0)
[2018-09-12] MEDS: Mometasone/Formoter 100/5 MDI INH SCH ×2 (07:22→19:25)
[2018-09-12] MEDS: Insulin LISPRO* 1 UNITS UNIT SUBCUT SCH ×4 (09:55→21:01)
[2018-09-12] MEDS: Nicotine PATCH 14 MG/24 HR* PATCH TRANSDERM SCH (09:56)
[2018-09-12] MEDS: Citalopram TAB* 20 MG PO SCH (09:56)
[2018-09-12] MEDS: Aspirin EC TAB* 81 MG TAB.EC PO SCH (09:56)
[2018-09-12] MEDS: Heparin VIAL(*) 5000 UNITS/ML VIAL (FIVE THOUSAND) SUBCUT SCH ×2 (09:56→21:00)
[2018-09-12 10:28] LABS: Albumin 3.2 g/dL (3.2-5.2); Albumin/Globulin Ratio 1.1 (1-3); Indirect Bilirubin 0.4 mg/dL (0.3-1.0); Total Bilirubin 0.5 mg/dL (0.2-1.0); Total Protein 6.2 g/dL (6.4-8.9)
--- NOTE | 2018-09-12 11:35 | CONS ---
CONSULTATION REPORT: DATE OF CONSULT: 09/12/18. CHIEF COMPLAINT: Abdominal pain. HISTORY OF PRESENT ILLNESS: This is a pleasant 62-year-old female who was admitted for abdominal ric n. Apparently, she has had a history of recent abdominal pain and workup which revealed gallstones a s well as choledocholithiasis. She underwent ESWL in [place] on 08/16/18 by report. She did have re current pain about 3 days ago, no fevers, chills, nausea, or vomiting today, however, over the past 3 days has developed some loose stools and she had some vomiting associated with eating. She said she initially had some hot, cold chills. Workup here included ultrasound which revealed benign appearing gallbladder without pericholecystic fluid or wall thickening, some small stones; a dilated common bi le duct without obvious evidence of stones. Her white blood cell count was normal. LFTs were not do ne. Lipase was normal today. PAST MEDICAL HISTORY: 1. Type 2 diabetes. 2. O2 dependent COPD. 3. GERD. 4. Osteoarthritis. 5. Hypertension. 6. Depression. 7. Coronary artery disease. 8. Tobacco abuse. MEDICATIONS: At home include: 1. DuoNeb. 2. Colace. 3. Celexa. 4. Symbicort. 5. Albuterol. 6. Tylenol. 7. Glipizide. 8. Zofran. 9. Omeprazole. 10. Dulera. 11. Tramadol. 12. Aspirin. ALLERGIES: BACTRIM, TETRACYCLINE, PENICILLIN, KEFLEX, ERYTHROMYCIN. FAMILY HISTORY: Mother had coronary artery disease. Father had coronary artery disease as well as c olon cancer. SOCIAL HISTORY: She smokes half a pack of cigarettes a day for many years. No alcohol use. She is . REVIEW OF SYSTEMS: General: Denies weight loss, change in appetite. HEENT: No changes in vision, hearing, or swallowing. No sore throat. Cardiac: No chest pain. Pulmonary: No cough. GI: No bl ood per rectum. : No hematuria. Skin: Denies rash. Neuro: No headache or dizziness. Musculosk eletal: No extremity weakness. Psych: No anxiety or depression. PHYSICAL EXAM: General: A pleasant female sitting up in bed, appears comfortable. She is afebrile. Vital signs stable. HEENT: Sclerae are anicteric. Oral mucosa is pink and moist. Neck is supple. No JVD. Heart is regular. Lungs are clear anteriorly. Abdomen is obese, soft, tender in the righ t upper quadrant. No masses or organomegaly are easily palpable. Extremities: No clubbing, cyanosi s, or edema. Neuro exam was grossly intact. No focal motor or sensory deficits. Psych: She is aler t and oriented x3. IMPRESSION: Abdominal pain of unknown etiology. She does not appear to have cholecystitis by ultras ound. She has a dilated common bile duct with no evidence of stones. PLAN/RECOMMENDATIONS: Plan will be for evaluation of liver function tests, evaluate for elevated sherrie irubin, and consider MRCP to evaluate for presence of common duct stones. She may need a cholecystec beth. [id number]/[facility] #: [id number]
[2018-09-12] MEDS ORDERED: Lorazepam PYXIS KEY PRN (11:41)
[2018-09-12] MEDS ORDERED: LORazepam INJ* 2 MG/ML 1 ML VIAL IV PUSH ONE (11:42)
--- NOTE | 2018-09-12 14:15 | PN ---
Subjective Date of Service: 09/12/18 Interval History: Ms. Coughlin is not feeling any better today. She is still having abdominal pain - not as bad as when she first arrived at the hospital, but still 08/19. Has been able to tolerate clears. Vomited twice during this admission. No concerns from nursing. Family History: Unchanged from Admission Social History: Unchanged from Admission Past Medical History: Unchanged from Admission Objective Active Medications: Acetaminophen (Tylenol Tab*) 650 mg PO Q4H PRN PAIN - MILD Albuterol (Ventolin Hfa Inhaler*) 2 puff INH Q6H PRN SOB/WHEEZING Albuterol/Ipratropium (Duoneb (Albuterol 2.5 Mg/Ipratropium 0.5 Mg)) 1 neb INH Q12H PRN SHORTNESS OF BREATH Aspirin (Aspirin Ec Tab*) 81 mg PO DAILY [facility] Citalopram Hydrobromide (Celexa Tab*) 20 mg PO DAILY [facility] Dextrose (Dextrose 50% Vial 50 Ml*) 25 ml IV PUSH .FOR FS < 60 - SS PRN FS < 60 Heparin Sodium (Porcine) (Heparin Vial(*)) 5,000 units SUBCUT Q12HR [facility] Sodium Chloride (Ns 0.9% 1000 Ml) 1,000 mls @ 100 mls/hr IV PER RATE [facility] Insulin Human Lispro (Humalog*) 0 units SUBCUT ACHS [facility]; Protocol Mometasone Furoate/Formoterol Fumar (Dulera 100/5 Mdi*) 2 puff INH BID [facility] Morphine Sulfate (Morphine 4 Mg/Ml Vial (1 Ml)) 4 mg IV Q4H PRN PAIN - SEVERE Nicotine (Nicotine Patch 14 Mg/24 Hr*) 1 patch TRANSDERM DAILY [facility] Ondansetron HCl (Zofran Inj*) 4 mg IV Q6H PRN NAUSEA Pantoprazole Sodium (Protonix Iv*) 40 mg IV Q24H [facility] Vital Signs - 8 hr 09/12/18 09/12/18 09/12/18 06:59 08:00 10:53 Temperature 98.5 F 98.6 F Pulse Rate 59 63 Respiratory 16 16 20 Rate Blood Pressure 127/59 118/102 (mmHg) O2 Sat by Pulse 96 97 Oximetry 09/12/18 09/12/18 09/12/18 11:52 11:53 13:05 Temperature Pulse Rate Respiratory 20 20 17 Rate Blood Pressure (mmHg) O2 Sat by Pulse Oximetry Appearance: Middle-aged unkempt female sitting in bed in NAD Eyes: No Scleral Icterus Ears/Nose/Mouth/Throat: Mucous Membranes Moist Neck: NL Appearance and Movements; NL JVP, Trachea Midline Respiratory: Symmetrical Chest Expansion and Respiratory Effort, Clear to Auscultation Cardiovascular: NL Sounds; No Murmurs; No JVD, RRR Abdominal: - - Normoactive BS; Tender throughout, worst in RUQ and RLQ Neurological: Alert and Oriented x 3 Lines/Tubes/Other Access: Clean, Dry and Intact Peripheral IV Result Diagrams: 09/12/18 06:34 09/12/18 06:34 Assess/Plan/Problems-Billing Assessment: Ms. Coughlin 62 yo F with PMH of COPD, DM, CAD, GERD, and HTN; who was recently noted to have gallstones and underwent an ERCP, now presented with recurrent N/V /D. - Patient Problems (1) Choledocholithiasis Code(s): K80.50 - CALCULUS OF BILE DUCT W/O CHOLANGITIS OR CHOLECYST W/O OBST Comment: - Presented with abdominal pain and N/V - Lipase elevated on admission, now resolved - US showing stones, but no acute christopher - Recently underwent ERCP at [facility] Surgery consult; recommends MRCP today - Clear liquids (2) COPD (chronic obstructive pulmonary disease) Code(s): J44.9 - CHRONIC OBSTRUCTIVE PULMONARY DISEASE, UNSPECIFIED Comment: - No evidence of acute exacerbation - Oxygen PRN - Continue Dulera, albuterol (3) Diabetes mellitus Code(s): E11.9 - TYPE 2 DIABETES MELLITUS WITHOUT COMPLICATIONS Comment: - Hold glipizide - Continue Lispro SS (4) HTN (hypertension) Code(s): I10 - ESSENTIAL (PRIMARY) HYPERTENSION Comment: - Normotensive off medication (5) GERD (gastroesophageal reflux disease) Code(s): K21.9 - GASTRO-ESOPHAGEAL REFLUX DISEASE WITHOUT ESOPHAGITIS Comment : - Continue pantoprazole (6) Depression Code(s): F32.9 - MAJOR DEPRESSIVE DISORDER, SINGLE EPISODE, UNSPECIFIED Comment: - Continue citalopram (7) Obesity, Class III, BMI 40-49.9 (morbid obesity) Code(s): E66.01 - MORBID (SEVERE) OBESITY DUE TO EXCESS CALORIES Comment: - BMI 45 (8) DVT prophylaxis Comment: - Heparin SQ (9) Full code status Code(s): Z78.9 - OTHER SPECIFIED HEALTH STATUS Comment: Status and Disposition: Inpatient. Anticipate d/c home when medically stable. Attending: Staci Hassan
[2018-09-12] MEDS: Nicotine Patch Removal NOTE FOLLOW UP SCH (21:01)
[2018-09-13] MEDS: Morphine 4 MG/ML VIAL (1 ml) 4 MG/ML VIAL IV PRN ×4 (00:04→21:43)
[2018-09-13] MEDS: Ondansetron INJ* 2 MG/ML VIAL IV PRN (03:17)
[2018-09-13] MEDS: Pantoprazole IV* 40 MG IV SCH (05:58)
[2018-09-13 06:53] LABS: BUN/Creatinine Ratio 8.8 (8-20); Calcium 8.1 mg/dL (8.6-10.3); EGFR African American 106.8 (>60); EGFR Non-African American 88.3 (>60); Potassium 4.1 mmol/L (3.5-5.0)
[2018-09-13] MEDS: Mometasone/Formoter 100/5 MDI INH SCH ×2 (07:27→20:40)
[2018-09-13] MEDS: Insulin LISPRO* 1 UNITS UNIT SUBCUT SCH ×4 (07:49→21:42)
--- NOTE | 2018-09-13 08:41 | PN ---
Progress Note - Progress Note Date of Service: 09/13/18 SOAP: Subjective: []continued nausea with food ruq pain Objective: [] Temp Pulse Resp BP Pulse Ox 98.2 F 64 20 145/62 96 09/13/18 03:15 09/13/18 07:27 09/13/18 07:27 09/13/18 03:15 09/13/18 07:27 Laboratory Last Values WBC 6.8 10^3/uL (3.5-10.8) 09/12/18 06:34 RBC 4.39 10^6 /uL (3.70-4.87) 09/12/18 06:34 Hgb 11.8 g/dL (12.0-16.0) L 09/12/18 06:34 Hct 35 % (35-47) 09/12/18 06:34 MCV 80 fL (80-97) 09/12/18 06:34 MCH 27 pg (27-31) 09/12/18 06:34 MCHC 34 g/dL (31-36) 09/12/18 06:34 RDW 16 % (10-15) H 09/12/18 06:34 Plt Count 180 10^3/uL (150-450) 09/12/18 06:34 MPV 9.5 fL (7.4-10.4) 09/12/18 06:34 Neut % (Auto) 69.3 % 09/12/18 06:34 Lymph % (Auto) 20.5 % 09/12/18 06:34 [place] % (Auto) 5.3 % 09/12/18 06:34 Eos % (Auto) 4.2 % 09/12/18 06:34 Baso % (Auto) 0.7 % 09/12/18 06:34 Absolute Neuts (auto) 4.7 10^3/ul (1.5-7.7) 09/12/18 06:34 Absolute Lymphs (auto) 1.4 10^3/ul (1.0-4.8) 09/12/18 06:34 Absolute Monos (auto) 0.4 10^3/ul (0-0.8) 09/12/18 06:34 Absolute Eos (auto) 0.3 10^3/ul (0-0.6) 09/12/18 06:34 Absolute Basos (auto) 0.0 10^3/ul (0-0.2) 09/12/18 06:34 Absolute Nucleated RBC 0.0 10^3/ul 09/12/18 06:34 Nucleated RBC % 0.0 09/12/18 06:34 Sodium 140 mmol/L (135-145) 09/13/18 05:42 Potassium 4.1 mmol/L (3.5-5.0) 09/13/18 05:42 Chloride 106 mmol/L (101-111) 09/13/18 05:42 Carbon Dioxide 31 mmol/L (22-32) 09/13/18 05:42 Anion Gap 3 mmol/L (2-11) 09/13/18 05:42 BUN 6 mg/dL (6-24) 09/13/18 05:42 Creatinine 0.68 mg/dL (0.51-0.95) 09/13/18 05:42 Est GFR ( Amer) 106.8 (>60) 09/13/18 05:42 Est GFR (Non-Af Amer) 88.3 (>60) 09/13/18 05:42 BUN/Creatinine Ratio 8.8 (8-20) 09/13/18 05:42 Glucose 117 mg/dL (70-100) H 09/13/18 05:42 POC Glucose (mg/dL) 99 mg/dL (70-100) 09/13/18 07:40 Calcium 8.1 mg/dL (8.6-10.3) L 09/13/18 05:42 Total Bilirubin 0.50 mg/dL (0.2-1.0) 09/12/18 06:34 Direct Bilirubin 0.10 mg/dL (0.03-0.18) 09/12/18 06:34 Indirect Bilirubin 0.4 mg/dL (0.3-1.0) 09/12/18 06:34 AST 12 U/L (13-39) L 09/12/18 06:34 ALT 9 U/L (7-52) 09/12/18 06:34 Alkaline Phosphatase 93 U/L (34-104) 09/12/18 06:34 Total Protein 6.2 g/dL (6.4-8.9) L 09/12/18 06:34 Albumin 3.2 g/dL (3.2-5.2) 09/12/18 06:34 Globulin 3.0 g/dL (2-4) 09/12/18 06:34 Albumin/Globulin Ratio 1.1 (1-3) 09/12/18 06:34 Lipase 23 U/L (11.0-82.0) 09/12/18 06:34 Urine Color Yellow 09/11/18 18:30 Urine Appearance Cloudy 09/11/18 18:30 Urine pH 5.0 (5-9) 09/11/18 18:30 Ur Specific Snyder 1.011 (1.010-1.030) 09/11/18 18:30 Urine Protein Negative (Negative) 09/11/18 18:30 Urine Ketones Negative (Negative) 09/11/18 18:30 Urine Blood 1+ (Negative) A 09/11/18 18:30 Urine Nitrate Positive (Negative) A 09/11/18 18:30 Urine Bilirubin Negative (Negative) 09/11/18 18:30 Urine Urobilinogen Negative (Negative) 09/11/18 18:30 Ur Leukocyte Esterase 1+ (Negative) A 09/11/18 18:30 Urine WBC (Auto) 2+(11-20/hpf) (Absent) A 09/11/18 18:30 Urine RBC (Auto) Trace(0-2/hpf) (Absent) 09/11/18 18:30 Ur Squamous Epith Cells Present (Absent) A 09/11/18 18:30 Urine Bacteria 1+ (Absent) A 09/11/18 18:30 Urine Glucose Negative (Negative) 09/11/18 18:30 Intake & Output 09/11/18 09/12/18 09/13/18 09/14/18 06:59 06:59 06:59 06:59 Intake Total 1999 2285 990 Output Total 1400 Balance 1999 2285 -410 Weight 307 lb 314 lb 11.2 oz 314 lb 11.2 oz Intake: IV Fluids 1999 1965 500 NS (0.9%) 1965 500 Oral 320 490 Output: Urine 1400 Other: Estimated Void Medium Date of Last Bowel 09/10/18 Movement # Voids 0 Assessment: []cholecystitis Plan: []laparoscopiuc cholecystectomy 09/14/18 surgery discussed with risks ibnlt bleeding infection, injury to bowel, bile ducts, liver, other discussed along with persistent symptoms, she wishes to proceed, all questions answered
[2018-09-13] MEDS: Citalopram TAB* 20 MG PO SCH (08:57)
[2018-09-13] MEDS: Heparin VIAL(*) 5000 UNITS/ML VIAL (FIVE THOUSAND) SUBCUT SCH ×2 (08:57→21:42)
[2018-09-13] MEDS: Aspirin EC TAB* 81 MG TAB.EC PO SCH (08:57)
[2018-09-13] MEDS: Nicotine PATCH 14 MG/24 HR* PATCH TRANSDERM SCH (08:59)
[2018-09-13] MEDS ORDERED: cefTRIAXone(*) 1 GM in NS 0.9% 50 ML* 50 ML IVPB SCH (14:00)
[2018-09-13] MEDS ORDERED: Ciprofloxacin 400MG IVPREMIX(* 400 MG/200 ML BAG IVPB SCH (14:00)
--- NOTE | 2018-09-13 14:21 | PN ---
Subjective Date of Service: 09/13/18 Interval History: Ms. Coughlin is feeling poor today. She continues to have nearly constant RUQ pain. Appetite is poor and she is having some nausea, but has been able to drink godwin suzy. Denies CP, SOB, cough. No concerns from nursing. Family History: Unchanged from Admission Social History: Unchanged from Admission Past Medical History: Unchanged from Admission Objective Active Medications: Acetaminophen (Tylenol Tab*) 650 mg PO Q4H PRN PAIN - MILD Albuterol (Ventolin Hfa Inhaler*) 2 puff INH Q6H PRN SOB/WHEEZING Albuterol/Ipratropium (Duoneb (Albuterol 2.5 Mg/Ipratropium 0.5 Mg)) 1 neb INH Q12H PRN SHORTNESS OF BREATH Aspirin (Aspirin Ec Tab*) 81 mg PO DAILY [facility] Citalopram Hydrobromide (Celexa Tab*) 20 mg PO DAILY [facility] Dextrose (Dextrose 50% Vial 50 Ml*) 25 ml IV PUSH .FOR FS < 60 - SS PRN FS < 60 Heparin Sodium (Porcine) (Heparin Vial(*)) 5,000 units SUBCUT Q12HR [facility] Lactated Ringer's (Lactated Ringers 1000 Ml Bag*) 1,000 mls @ 75 mls/hr IV PER RATE [facility] Ciprofloxacin/Dextrose (Cipro 400 Mg Ivpremix(*)) 400 mg in 200 mls @ 200 mls/ hr IVPB Q12H [facility]; Protocol Insulin Human Lispro (Humalog*) 0 units SUBCUT ACHS [facility]; Protocol Mometasone Furoate/Formoterol Fumar (Dulera 100/5 Mdi*) 2 puff INH BID [facility] Morphine Sulfate (Morphine 4 Mg/Ml Vial (1 Ml)) 4 mg IV Q4H PRN PAIN - SEVERE Nicotine (Nicotine Patch 14 Mg/24 Hr*) 1 patch TRANSDERM DAILY [facility] Ondansetron HCl (Zofran Inj*) 4 mg IV Q6H PRN NAUSEA Pantoprazole Sodium (Protonix Iv*) 40 mg IV Q24H [facility] Vital Signs - 8 hr 09/13/18 09/13/18 09/13/18 07:25 07:27 07:31 Temperature 98.3 F Pulse Rate 64 69 Respiratory 20 20 16 Rate Blood Pressure 135/65 (mmHg) O2 Sat by Pulse 96 96 Oximetry 09/13/18 09/13/18 09/13/18 08:00 11:20 14:09 Temperature 98.1 F Pulse Rate 61 Respiratory 20 16 16 Rate Blood Pressure 111/45 (mmHg) O2 Sat by Pulse 100 Oximetry Oxygen Devices in Use Now: Nasal Cannula - 2L Appearance: Middle-aged unkempt female laying in bed in NAD Eyes: No Scleral Icterus Ears/Nose/Mouth/Throat: Mucous Membranes Moist Neck: NL Appearance and Movements; NL JVP, Trachea Midline Respiratory: Symmetrical Chest Expansion and Respiratory Effort, Clear to Auscultation Cardiovascular: NL Sounds; No Murmurs; No JVD, RRR Abdominal: - - Normoactive BS, soft, tender RUQ and RLQ Neurological: Alert and Oriented x 3 Lines/Tubes/Other Access: Clean, Dry and Intact Peripheral IV Nutrition: Taking PO's Result Diagrams: 09/12/18 06:34 09/13/18 05:42 Assess/Plan/Problems-Billing Assessment: Ms. Coughlin 62 yo F with PMH of COPD, DM, CAD, GERD, and HTN; who was recently noted to have gallstones and underwent an ERCP, now presented with recurrent N/V /D. - Patient Problems (1) Cholelithiasis Comment: - Presented with abdominal pain and N/V - Lipase elevated on admission, now resolved - US showing stones, but no acute christopher - MRCP shows cholelithiasis and distended GB, but no choledocholithiasis - Appreciate Surgery consult; plan for cholecystecomy tomorrow - NPO after midnight - RCRI score is 1 indicating a 6% 30-day risk of , OR, or cardiac arrest; EKG shows NSR with a rate of 70, borderline long QTc; last echo in 2016 showed an EF of 60% and no significant valvular abnormalities, no indication for repeat echo at this point; she does carry a history of COPD and S[place], 2L oxygen dependent at baseline; CXR showing some opacities, not concerning for pneumonia at this point as she is asymptomatic and respiratory status is at baseline; urine culture growing E. coli for which the patient has been placed on cipro; the patient does not require further workup and has been medically optimized for lap christopher tomorrow (2) UTI (urinary tract infection) Comment: - Urine culture growing 75-100k colonies E. coli, multi-resistant - Asymptomatic, but necessary to treat as she is scheduled for surgery and at high risk for infection - Start aztreonam (3) COPD (chronic obstructive pulmonary disease) Code(s): J44.9 - CHRONIC OBSTRUCTIVE PULMONARY DISEASE, UNSPECIFIED Comment: - No evidence of acute exacerbation - Oxygen PRN - Continue Dulera, albuterol (4) Diabetes mellitus Code(s): E11.9 - TYPE 2 DIABETES MELLITUS WITHOUT COMPLICATIONS Comment: - Hold glipizide - Continue Lispro SS (5) HTN (hypertension) Code(s): I10 - ESSENTIAL (PRIMARY) HYPERTENSION Comment: - Normotensive off medication (6) GERD (gastroesophageal reflux disease) Code(s): K21.9 - GASTRO-ESOPHAGEAL REFLUX DISEASE WITHOUT ESOPHAGITIS Comment : - Continue pantoprazole (7) Depression Code(s): F32.9 - MAJOR DEPRESSIVE DISORDER, SINGLE EPISODE, UNSPECIFIED Comment: - Continue citalopram (8) Obesity, Class III, BMI 40-49.9 (morbid obesity) Code(s): E66.01 - MORBID (SEVERE) OBESITY DUE TO EXCESS CALORIES Comment: - BMI 45 (9) DVT prophylaxis Comment: - Heparin SQ (10) Full code status Code(s): Z78.9 - OTHER SPECIFIED HEALTH STATUS Comment: Status and Disposition: Inpatient. Surgery tomorrow. Anticipate d/c home when medically stable. Attending: Staci Hassan
[2018-09-13] MEDS: Aztreonam (*) 1 GM in NS 0.9% 50 ML* 50 ML IVPB SCH (16:37)
[2018-09-13] MEDS: Nicotine Patch Removal NOTE FOLLOW UP SCH (21:00)
[2018-09-13] MEDS ORDERED: Lactated Ringers 1000 ML Bag* 1,000 ML IV SCH (23:00)
[2018-09-14] MEDS: Aztreonam (*) 1 GM in NS 0.9% 50 ML* 50 ML IVPB SCH ×4 (00:40→23:54)
[2018-09-14] MEDS: Ondansetron INJ* 2 MG/ML VIAL IV PRN (02:32)
[2018-09-14] MEDS: Morphine 4 MG/ML VIAL (1 ml) 4 MG/ML VIAL IV PRN ×3 (04:50→20:53)
[2018-09-14] MEDS: Pantoprazole IV* 40 MG IV SCH (04:55)
[2018-09-14 05:36] LABS: ABS Eosinophils 0.2 10^3/ul (0-0.6); ABS Lymphocytes 1.3 10^3/ul (1.0-4.8); ABS Monocytes 0.4 10^3/ul (0-0.8); ABS Neutrophils 5.5 10^3/ul (1.5-7.7); Eosinophil % 2.2 %; Hematocrit 33 % (35-47); Hemoglobin 10.8 g/dL (12.0-16.0); Lymphocyte % 17.9 %; Mean Corpuscular HGB Conc 33 g/dL (31-36); Mean Corpuscular Hemoglobin 27 pg (27-31); Mean Corpuscular Volume 81 fL (80-97); Mean Platelet Volume 9.6 fL (7.4-10.4); Platelet Count 176 10^3/uL (150-450); Red Blood Count 4.06 10^6 /uL (3.70-4.87); Red Cell Distribution Width 16 % (10-15); White Blood Count 7.4 10^3/uL (3.5-10.8)
[2018-09-14 05:39] LABS: INR 0.99 (0.82-1.09)
[2018-09-14 05:49] LABS: BUN/Creatinine Ratio 13.3 (8-20); Calcium 8.2 mg/dL (8.6-10.3); EGFR African American 95.4 (>60); EGFR Non-African American 78.8 (>60); Potassium 4.4 mmol/L (3.5-5.0)
[2018-09-14] MEDS: Insulin LISPRO* 1 UNITS UNIT SUBCUT SCH ×4 (07:37→20:53)
[2018-09-14] MEDS: Nicotine PATCH 14 MG/24 HR* PATCH TRANSDERM SCH (07:52)
[2018-09-14] MEDS: Mometasone/Formoter 100/5 MDI INH SCH ×2 (08:28→20:20)
[2018-09-14] MEDS ORDERED: Levalbuterol 0.63MG/3ML NEB* UNIT OF USE INH ONE ×2 (10:06→10:50)
[2018-09-14] MEDS ORDERED: Buffered Lidocaine 1% SYRIN* 1 ML/SYRINGE INTRADERM ONE (10:06)
[2018-09-14] MEDS ORDERED: Dexamethasone IV* 4 MG/ML 1 ML (4 MG) IV SLOW PU ONE (10:06)
--- NOTE | 2018-09-14 10:21 | PN ---
Progress Note - Progress Note Date of Service: 09/14/18 SOAP: Subjective: Still with right upper quadrant pain Nausea Objective: Temp Pulse Resp BP Pulse Ox 98.6 F 63 16 116/52 96 09/14/18 07:15 09/14/18 08:29 09/14/18 08:29 09/14/18 07:15 09/14/18 08:29 Intake & Output 09/12/18 09/13/18 09/14/18 09/15/18 06:59 06:59 06:59 06:59 Intake Total 2285 990 1337 Output Total 1400 0 Balance 2285 -410 1337 Weight 314 lb 11.2 oz 314 lb 11.2 oz Intake: IV Fluids 1965 500 57 ABX Azetrenam 57 NS (0.9%) 1965 500 IVPB 50 ABX Azetrenam 50 Oral 924 071 4380 Output: Urine 1400 0 Other: Estimated Void Medium Date of Last Bowel 09/10/18 Movement # Voids 0 PEX:Comfortable Lungs are clear-decreased breath sounds at the bases Abd is soft and slightly distended. Bowel sounds are present Tenderness RUQ--no generalized abdominal pain, slight guarding RUQ Laboratory Results - last 24 hr 09/13/18 09/13/18 09/13/18 05:42 11:48 16:51 WBC RBC Hgb Hct MCV MCH MCHC RDW Plt Count MPV Neut % (Auto) Lymph % (Auto) [place] % (Auto) Eos % (Auto) Baso % (Auto) Absolute Neuts (auto) Absolute Lymphs (auto) Absolute Monos (auto) Absolute Eos (auto) Absolute Basos (auto) Absolute Nucleated RBC Nucleated RBC % INR (Anticoag Therapy) Sodium Potassium Chloride Carbon Dioxide Anion Gap BUN Creatinine Est GFR ( Amer) Est GFR (Non-Af Amer) BUN/Creatinine Ratio Glucose POC Glucose (mg/dL) 117 H 186 H Hemoglobin A1c 8.1 H Calcium 09/13/18 09/14/18 09/14/18 21:24 04:45 04:45 WBC 7.4 RBC 4.06 Hgb 10.8 L Hct 33 L MCV 81 MCH 27 MCHC 33 RDW 16 H Plt Count 176 MPV 9.6 Neut % (Auto) 74.2 Lymph % (Auto) 17.9 [place] % (Auto) 5.2 Eos % (Auto) 2.2 Baso % (Auto) 0.5 Absolute Neuts (auto) 5.5 Absolute Lymphs (auto) 1.3 Absolute Monos (auto) 0.4 Absolute Eos (auto) 0.2 Absolute Basos (auto) 0.0 Absolute Nucleated RBC 0.0 Nucleated RBC % 0.0 INR (Anticoag Therapy) 0.99 Sodium Potassium Chloride Carbon Dioxide Anion Gap BUN Creatinine Est GFR ( Amer) Est GFR (Non-Af Amer) BUN/Creatinine Ratio Glucose POC Glucose (mg/dL) 141 H Hemoglobin A1c Calcium 09/14/18 09/14/18 04:45 07:10 WBC RBC Hgb Hct MCV MCH MCHC RDW Plt Count MPV Neut % (Auto) Lymph % (Auto) [place] % (Auto) Eos % (Auto) Baso % (Auto) Absolute Neuts (auto) Absolute Lymphs (auto) Absolute Monos (auto) Absolute Eos (auto) Absolute Basos (auto) Absolute Nucleated RBC Nucleated RBC % INR (Anticoag Therapy) Sodium 141 Potassium 4.4 Chloride 105 Carbon Dioxide 34 H Anion Gap 2 BUN 10 Creatinine 0.75 Est GFR ( Amer) 95.4 Est GFR (Non-Af Amer) 78.8 BUN/Creatinine Ratio 13.3 Glucose 152 H POC Glucose (mg/dL) 137 H Hemoglobin A1c Calcium 8.2 L Assessment: Gallstones-right upper quadrant abdominal pain with nausea Choledochalithiasis-s/p ERCP MRCP shows no common duct stones at present Plan: Laparoscopic cholecystectomy today. She has been having chronic right upper quadrant pain with known gallstones and also documented common duct stones that have been removed and also is having nausea and vomiting. To prevent recurrent common duct stones and risks I recommend choleystectomy. She would like to proceed and gives her consent. The procedure was discussed with her and the risks of, but not limited to, of bleeding, infection, abscess, open procedure, bile leak, injury to peritoneal and retroperitoneal structures, common bile duct injury, pain and the risks of anesthesia, blood clot and pulmonary embolus were all explained. She is morbidly obese and has several medical issues and she understands she is at increased risk for surgical intervention. She understands and wishes to proceed. Discussed with hospitalist as well.
[2018-09-14] MEDS ORDERED: Dexamethasone IV* 4 MG/ML 1 ML (4 MG) ONE (10:48)
[2018-09-14] MEDS: Lactated Ringers 1000 ML Bag* 1,000 ML IV SCH ×2 (10:55→15:56)
[2018-09-14] MEDS ORDERED: Midazolam* 1 MG/ML 2 ML VIAL (2 MG) ONE (11:59)
[2018-09-14] MEDS ORDERED: fentaNYL* 50 MCG/ML 2 ML VIAL (100 MCG VIAL) ONE ×3 (12:06→14:18)
[2018-09-14] MEDS ORDERED: Rocuronium* 10 MG/ML VIAL ONE ×2 (12:06→12:41)
[2018-09-14] MEDS ORDERED: Propofol* 10 MG/ML 20 ML BTL ONE (12:06)
[2018-09-14] MEDS: Aspirin EC TAB* 81 MG TAB.EC PO SCH (12:22)
[2018-09-14] MEDS: Citalopram TAB* 20 MG PO SCH (12:22)
--- NOTE | 2018-09-14 12:36 | PN ---
Subjective Date of Service: 09/14/18 Interval History: Ms. Coughlin is not feeling well this morning. She had continued abdominal pain last night and did not sleep well because staff kept waking her. She is agreeable to showering this morning. She denies SOB, CP. No concerns from nursing. Family History: Unchanged from Admission Social History: Unchanged from Admission Past Medical History: Unchanged from Admission Objective Active Medications: Acetaminophen (Tylenol Tab*) 650 mg PO Q4H PRN PAIN - MILD Albuterol (Ventolin Hfa Inhaler*) 2 puff INH Q6H PRN SOB/WHEEZING Albuterol/Ipratropium (Duoneb (Albuterol 2.5 Mg/Ipratropium 0.5 Mg)) 1 neb INH Q12H PRN SHORTNESS OF BREATH Aspirin (Aspirin Ec Tab*) 81 mg PO DAILY WANDY Citalopram Hydrobromide (Celexa Tab*) 20 mg PO DAILY WANDY Dextrose (Dextrose 50% Vial 50 Ml*) 25 ml IV PUSH .FOR FS < 60 - SS PRN FS < 60 Lactated Ringer's (Lactated Ringers 1000 Ml Bag*) 1,000 mls @ 75 mls/hr IV PER RATE WANDY Aztreonam 1 gm/ Sodium (Chloride) 50 mls @ 200 mls/hr IVPB Q8H WANDY Lactated Ringer's (Lactated Ringers 1000 Ml Bag*) 1,000 mls @ 125 mls/hr IV PER RATE WANDY Insulin Human Lispro (Humalog*) 0 units SUBCUT ACHS WANDY; Protocol Mometasone Furoate/Formoterol Fumar (Dulera 100/5 Mdi*) 2 puff INH BID WANDY Morphine Sulfate (Morphine 4 Mg/Ml Vial (1 Ml)) 4 mg IV Q4H PRN PAIN - SEVERE Nicotine (Nicotine Patch 14 Mg/24 Hr*) 1 patch TRANSDERM DAILY WANDY Ondansetron HCl (Zofran Inj*) 4 mg IV Q6H PRN NAUSEA Pantoprazole Sodium (Protonix Iv*) 40 mg IV Q24H WANDY Vital Signs - 8 hr 09/14/18 09/14/18 09/14/18 04:50 05:50 07:15 Temperature 98.6 F Pulse Rate 58 Respiratory 18 18 16 Rate Blood Pressure 116/52 (mmHg) O2 Sat by Pulse 95 Oximetry 09/14/18 09/14/18 07:42 08:29 Temperature Pulse Rate 63 Respiratory 16 16 Rate Blood Pressure (mmHg) O2 Sat by Pulse 96 Oximetry Oxygen Devices in Use Now: Nasal Cannula - 2L Appearance: Middle-aged female laying in bed in NAD Eyes: No Scleral Icterus Ears/Nose/Mouth/Throat: Mucous Membranes Moist Neck: NL Appearance and Movements; NL JVP, Trachea Midline Respiratory: Symmetrical Chest Expansion and Respiratory Effort, Clear to Auscultation Cardiovascular: NL Sounds; No Murmurs; No JVD, RRR Abdominal: - - Soft, tender to RUQ Neurological: Alert and Oriented x 3 Lines/Tubes/Other Access: Clean, Dry and Intact Peripheral IV Result Diagrams: 09/14/18 04:45 09/14/18 04:45 Assess/Plan/Problems-Billing Assessment: Ms. Coughlin 62 yo F with PMH of COPD, DM, CAD, GERD, and HTN; who was recently noted to have gallstones and underwent an ERCP, now presented with recurrent N/V /D. - Patient Problems (1) Cholelithiasis Comment: - Presented with abdominal pain and N/V - Lipase elevated on admission, now resolved - US showing stones, but no acute christopher - MRCP shows cholelithiasis and distended GB, but no choledocholithiasis - Appreciate Surgery consult - Cholecystectomy today (2) UTI (urinary tract infection) Comment: - Urine culture growing 75-100k colonies E. coli, multi-resistant - Asymptomatic, but necessary to treat as she is going to the OR and at high risk for infection - Continue aztreonam (day 2/5) (3) COPD (chronic obstructive pulmonary disease) Code(s): J44.9 - CHRONIC OBSTRUCTIVE PULMONARY DISEASE, UNSPECIFIED Comment: - No evidence of acute exacerbation - Oxygen PRN - Continue Dulera, albuterol (4) Diabetes mellitus Code(s): E11.9 - TYPE 2 DIABETES MELLITUS WITHOUT COMPLICATIONS Comment: - Hold glipizide - Continue Lispro SS (5) HTN (hypertension) Code(s): I10 - ESSENTIAL (PRIMARY) HYPERTENSION Comment: - Normotensive off medication (6) GERD (gastroesophageal reflux disease) Code(s): K21.9 - GASTRO-ESOPHAGEAL REFLUX DISEASE WITHOUT ESOPHAGITIS Comment : - Continue pantoprazole (7) Depression Code(s): F32.9 - MAJOR DEPRESSIVE DISORDER, SINGLE EPISODE, UNSPECIFIED Comment: - Continue citalopram (8) Obesity, Class III, BMI 40-49.9 (morbid obesity) Code(s): E66.01 - MORBID (SEVERE) OBESITY DUE TO EXCESS CALORIES Comment: - BMI 45 (9) DVT prophylaxis Comment: - SCDs (10) Full code status Code(s): Z78.9 - OTHER SPECIFIED HEALTH STATUS Comment: Status and Disposition: Inpatient. Surgery tomorrow. Anticipate d/c home when medically stable, likely tomorrow. Attending: Li Sales
[2018-09-14] MEDS ORDERED: Naloxone* 0.4 MG/ML 1 ML VIAL IV PRN (13:06)
[2018-09-14] MEDS ORDERED: HYDROmorphone INJ1* 1 MG/ML SYRINGE IV PRN (13:06)
[2018-09-14] MEDS ORDERED: Ondansetron INJ* 2 MG/ML VIAL IV PRN (13:06)
[2018-09-14] MEDS ORDERED: Glycopyrrolate IV* 0.2 MG/ML 1 ML VIAL ONE (13:29)
[2018-09-14] MEDS ORDERED: Neostigmine Methylsulfate* 1 MG/ML 10 ML VIAL (1 mg/ml) ONE (13:29)
--- NOTE | 2018-09-14 13:38 | BRIEFOPN ---
Brief Operative Note - Surgery Procedures: Procedures OPERATIVE REPORT Pre-op: Gallstones, right upper quadrant abdominal pain Post-Op: Same Procedure:Laparoscopic cholecystectomy Surgeon: MD Ye Asst: CORINE Lazaro Anes: general with local , Dr. Valderrama IVF:1 liter of crystalloid EBL:min Specimen: gallbladder Drain: none Wound: 3 Findings: Gallstones, mild thickening of gallbladder wall To PACU
[2018-09-14] MEDS ORDERED: Sugammadex * 200 MG/2 ML VIAL IV PUSH ONE (13:45)
[2018-09-14] MEDS ORDERED: Bupivacaine 0.25% W/EPI* 10 ML SDV ONE (13:59)
[2018-09-14] MEDS ORDERED: Ondansetron INJ* 2 MG/ML VIAL ONE (14:05)
[2018-09-14] MEDS: fentaNYL* 50 MCG/ML 2 ML VIAL (100 MCG VIAL) IV PRN ×4 (14:19→15:25)
[2018-09-14] MEDS: oxyCODONE/Acetamin 5/325 MG* TAB PO PRN ×2 (17:20→23:53)
[2018-09-14] MEDS: Nicotine Patch Removal NOTE FOLLOW UP SCH (20:54)
--- NOTE | 2018-09-14 21:49 | OP ---
DATE OF OPERATION: 09/14/18 - ROOM #433 DATE OF : 59 SURGEON: Jai Belcher MD [employer] OPERATOR: CORINE Sen ANESTHESIOLOGIST: Dr. Valderrama. ANESTHESIA: General with local. PRE-OP DIAGNOSIS: Right upper quadrant abdominal pain and cholelithiasis. POST-OP DIAGNOSIS: Right upper quadrant abdominal pain and cholelithiasis. OPERATIVE PROCEDURE: Laparoscopic cholecystectomy. ESTIMATED BLOOD LOSS: Minimal. WOUND CLASSIFICATION: III. COMPLICATIONS: None. DRAINS: None. SPECIMENS: Gallbladder. FINDINGS: The patient had multiple small gallstones as well as mild thickening of the gallbladder wall, but not significant acute calculous cholecystitis. DESCRIPTION OF PROCEDURE: Written and informed consent was obtained, the abdomen was marked with indelible ink and preoperative antibiotics were administered. The patient was taken to the operating room, placed in the supine position. Sequential compression devices and warming blanket were applied. General anesthesia was administered. The abdomen was prepped and draped in the usual sterile fashion. Time-out verification was completed. Initially, a 5 mm Optiview port under direct vision was used to pass through the anterior abdominal wall in the left upper abdominal wall and the peritoneal cavity was entered in the usual fashion under direct vision. The 5-mm port was used to insufflate the abdomen to 15 mmHg. The scope was inserted and we evaluated carefully the left upper quadrant to rule out any injury, there appeared to be none. A 5-mm port was placed in the midline abdomen above the umbilicus, and an 11 mm epigastric port was placed under direct vision in the epigastric port and two 5- mm ports were placed on the right-sided abdominal wall. There was omentum above the liver and this was taken down. The liver appeared to be normal. The gallbladder was identified. It was slightly whitish in color and mildly thickened wall, but without evidence of what it would be considered acute calculous cholecystitis. It was nondistended. It was easily grasped and elevated up over the liver bed. The peritoneum along the medial and lateral aspects of the gallbladder was then divided and the cystic duct and artery were carefully identified and dissected as they entered the gallbladder. I took a considerable portion of the inferior part of the gallbladder off the liver bed using a critical view technique to assure myself of these structures. The cyst duct was not dilated and was triply clipped and divided. Likewise, the cystic duct was doubly clipped and divided. The gallbladder was removed from the liver bed using cautery and placed in an EndoCatch bag. The right upper quadrant was irrigated and hemostasis was assured. The gallbladder was removed from the epigastric port without difficulty. All ports were removed under direct vision of the camera. There was no abdominal wall bleeding. All 5 incisions were approximated with subcuticular 4-0 Vicryl suture and Steri-Strips were applied. The patient tolerated the procedure well and was taken to the recovery room in stable condition. [id number]/[facility] #: [id number] [facility]
[2018-09-15] MEDS: Morphine 4 MG/ML VIAL (1 ml) 4 MG/ML VIAL IV PRN ×3 (03:48→21:46)
[2018-09-15] MEDS: Ondansetron INJ* 2 MG/ML VIAL IV PRN ×3 (04:50→23:18)
[2018-09-15 06:14] LABS: ABS Basophils 0.2 10^3/ul (0-0.2); ABS Lymphocytes 0.8 10^3/ul (1.0-4.8); ABS Monocytes 0.6 10^3/ul (0-0.8); ABS Neutrophils 14.2 10^3/ul (1.5-7.7); Hematocrit 34 % (35-47); Mean Corpuscular HGB Conc 32 g/dL (31-36); Mean Corpuscular Hemoglobin 26 pg (27-31); Mean Corpuscular Volume 82 fL (80-97); Mean Platelet Volume 9.9 fL (7.4-10.4); Platelet Count 170 10^3/uL (150-450); Red Blood Count 4.19 10^6 /uL (3.70-4.87); Red Cell Distribution Width 16 % (10-15); White Blood Count 15.7 10^3/uL (3.5-10.8)
[2018-09-15 06:26] LABS: BUN/Creatinine Ratio 13.4 (8-20); Calcium 8.2 mg/dL (8.6-10.3); EGFR African American 108.6 (>60); EGFR Non-African American 89.8 (>60); Potassium 4.6 mmol/L (3.5-5.0)
[2018-09-15] MEDS: oxyCODONE/Acetamin 5/325 MG* TAB PO PRN ×4 (06:43→21:50)
[2018-09-15] MEDS: Pantoprazole IV* 40 MG IV SCH (06:44)
[2018-09-15] MEDS: Mometasone/Formoter 100/5 MDI INH SCH ×2 (09:00→20:00)
[2018-09-15] MEDS: Insulin LISPRO* 1 UNITS UNIT SUBCUT SCH ×4 (09:33→21:46)
[2018-09-15] MEDS: Citalopram TAB* 20 MG PO SCH (09:33)
[2018-09-15] MEDS: Aspirin EC TAB* 81 MG TAB.EC PO SCH (09:33)
[2018-09-15] MEDS: Nicotine PATCH 14 MG/24 HR* PATCH TRANSDERM SCH (09:35)
[2018-09-15] MEDS: Aztreonam (*) 1 GM in NS 0.9% 50 ML* 50 ML IVPB SCH (09:53)
--- NOTE | 2018-09-15 11:10 | PN ---
Progress Note - Progress Note Date of Service: 09/15/18 SOAP: Subjective: Doing well-pain is well controlled Had some nausea earlier this morning Has been OOB Objective: Temp Pulse Resp BP Pulse Ox 98.4 F 60 14 121/47 94 09/15/18 03:15 09/15/18 09:00 09/15/18 09:00 09/15/18 03:15 09/15/18 09:00 Intake & Output 09/13/18 09/14/18 09/15/18 09/16/18 06:59 06:59 06:59 06:59 Intake Total 990 1337 2050 Output Total 1400 0 500 Balance -410 1337 1550 Weight 314 lb 11.2 oz Intake: IV Fluids 390 14 7428 ABX Azetrenam 57 50 LR 1300 NS (0.9%) 500 IVPB 50 ABX Azetrenam 50 Oral 490 1230 700 Output: Urine 1400 0 500 Other: Estimated Void Medium PEX: Comfortable Lungs clear with decreased breath sounds at the bases Abd is soft and slightly distended. Incisions CDI, few bowel sounds present Laboratory Results - last 24 hr 09/14/18 09/14/18 09/15/18 16:03 20:14 05:39 WBC 15.7 H RBC 4.19 Hgb 11.0 L Hct 34 L MCV 82 MCH 26 L MCHC 32 RDW 16 H Plt Count 170 MPV 9.9 Neut % (Auto) 90.4 Lymph % (Auto) 5.0 [place] % (Auto) 3.5 Eos % (Auto) 0.0 Baso % (Auto) 1.1 Absolute Neuts (auto) 14.2 H Absolute Lymphs (auto) 0.8 L Absolute Monos (auto) 0.6 Absolute Eos (auto) 0.0 Absolute Basos (auto) 0.2 Absolute Nucleated RBC 0.0 Nucleated RBC % 0.0 Sodium Potassium Chloride Carbon Dioxide Anion Gap BUN Creatinine Est GFR ( Amer) Est GFR (Non-Af Amer) BUN/Creatinine Ratio Glucose POC Glucose (mg/dL) 191 H 158 H Calcium 09/15/18 09/15/18 05:39 07:28 WBC RBC Hgb Hct MCV MCH MCHC RDW Plt Count MPV Neut % (Auto) Lymph % (Auto) [place] % (Auto) Eos % (Auto) Baso % (Auto) Absolute Neuts (auto) Absolute Lymphs (auto) Absolute Monos (auto) Absolute Eos (auto) Absolute Basos (auto) Absolute Nucleated RBC Nucleated RBC % Sodium 139 Potassium 4.6 Chloride 103 Carbon Dioxide 30 Anion Gap 6 BUN 9 Creatinine 0.67 Est GFR ( Amer) 108.6 Est GFR (Non-Af Amer) 89.8 BUN/Creatinine Ratio 13.4 Glucose 204 H POC Glucose (mg/dL) 202 H Calcium 8.2 L Assessment: POD# 1 s/p lap choly-doing well Labs noted Plan: Analgesia Advance diet Increase activity Plan d/c tomorrow--she lives alone.
[2018-09-15] MEDS: Nystatin TOP POWDER* 15 GM BTL TOPICAL SCH ×2 (12:51→21:45)
--- NOTE | 2018-09-15 15:07 | PN ---
Subjective Date of Service: 09/15/18 Interval History: Ms. Coughlin is feeling better today. Still having some abdominal pain, but it is improved. She is concerned about swelling around an incision. Did not get what she wanted for breakfast this morning and is very upset about that. She normally eats a soft diet at home. She is concerned about going home and having further issues. She does not have a phone at home. Denies CP, SOB. No concerns from nursing. Family History: Unchanged from Admission Social History: Unchanged from Admission Past Medical History: Unchanged from Admission Objective Active Medications: Acetaminophen (Tylenol Tab*) 650 mg PO Q4H PRN PAIN - MILD Albuterol (Ventolin Hfa Inhaler*) 2 puff INH Q6H PRN SOB/WHEEZING Albuterol/Ipratropium (Duoneb (Albuterol 2.5 Mg/Ipratropium 0.5 Mg)) 1 neb INH Q12H PRN SHORTNESS OF BREATH Aspirin (Aspirin Ec Tab*) 81 mg PO DAILY WANDY Citalopram Hydrobromide (Celexa Tab*) 20 mg PO DAILY WANDY Dextrose (Dextrose 50% Vial 50 Ml*) 25 ml IV PUSH .FOR FS < 60 - SS PRN FS < 60 Lactated Ringer's (Lactated Ringers 1000 Ml Bag*) 1,000 mls @ 75 mls/hr IV PER RATE WANDY Aztreonam 1 gm/ Sodium (Chloride) 50 mls @ 200 mls/hr IVPB Q8H WANDY Lactated Ringer's (Lactated Ringers 1000 Ml Bag*) 1,000 mls @ 125 mls/hr IV PER RATE [facility] Insulin Human Lispro (Humalog*) 0 units SUBCUT ACHS WANDY; Protocol Mometasone Furoate/Formoterol Fumar (Dulera 100/5 Mdi*) 2 puff INH BID WANDY Morphine Sulfate (Morphine 4 Mg/Ml Vial (1 Ml)) 4 mg IV Q4H PRN PAIN - SEVERE Nystatin (Nystatin Top Powder*) 1 applic TOPICAL TID WANDY Ondansetron HCl (Zofran Inj*) 4 mg IV Q6H PRN NAUSEA Oxycodone/Acetaminophen (Percocet 5/325 Tab*) 1 tab PO Q4H PRN MODERATE PAIN Pantoprazole Sodium (Protonix Iv*) 40 mg IV Q24H [facility] Vital Signs - 8 hr 09/15/18 09/15/18 09/15/18 07:39 08:00 09:00 Temperature 98.0 F Pulse Rate 56 60 Respiratory 16 15 14 Rate Blood Pressure 124/88 (mmHg) O2 Sat by Pulse 97 96 94 Oximetry 09/15/18 09/15/18 09/15/18 11:19 12:13 14:13 Temperature 98.0 F Pulse Rate 128 92 Respiratory 17 15 Rate Blood Pressure 104/46 (mmHg) O2 Sat by Pulse 91 Oximetry Oxygen Devices in Use Now: Nasal Cannula - 2L Appearance: Middle-aged female sitting in bed in NAD Eyes: No Scleral Icterus Ears/Nose/Mouth/Throat: Mucous Membranes Moist Neck: NL Appearance and Movements; NL JVP, Trachea Midline Respiratory: Symmetrical Chest Expansion and Respiratory Effort, Clear to Auscultation Cardiovascular: NL Sounds; No Murmurs; No JVD, RRR Abdominal: - - Soft, mildly tender throughout Extremities: - - Mild nonpitting BLE Neurological: Alert and Oriented x 3 Lines/Tubes/Other Access: Clean, Dry and Intact Peripheral IV Nutrition: Taking PO's Result Diagrams: 09/15/18 05:39 09/15/18 05:39 Assess/Plan/Problems-Billing Assessment: Ms. Coughlin 62 yo F with PMH of COPD, DM, CAD, GERD, and HTN; who was recently noted to have gallstones and underwent an ERCP, now presented with recurrent N/V /D. - Patient Problems (1) Cholelithiasis Comment: - Presented with abdominal pain and N/V - Lipase elevated on admission, now resolved - US showing stones, but no acute christopher - MRCP shows cholelithiasis and distended GB, but no choledocholithiasis - Uncomplicated cholecystectomy yesterday - Advance diet as tolerated per Surgery (2) UTI (urinary tract infection) Comment: - Urine culture growing 75-100k colonies E. coli, multi-resistant - Asymptomatic, but necessary to treat as she is at high risk for infection d/t surgery - Continue nitrofurantoin (day 3/5, previoulsy on aztreonam) (3) COPD (chronic obstructive pulmonary disease) Code(s): J44.9 - CHRONIC OBSTRUCTIVE PULMONARY DISEASE, UNSPECIFIED Comment: - No evidence of acute exacerbation - Oxygen PRN - Continue Dulera, albuterol (4) Diabetes mellitus Code(s): E11.9 - TYPE 2 DIABETES MELLITUS WITHOUT COMPLICATIONS Comment: - Hold glipizide - Continue Lispro SS (5) HTN (hypertension) Code(s): I10 - ESSENTIAL (PRIMARY) HYPERTENSION Comment: - Normotensive off medication (6) GERD (gastroesophageal reflux disease) Code(s): K21.9 - GASTRO-ESOPHAGEAL REFLUX DISEASE WITHOUT ESOPHAGITIS Comment : - Continue pantoprazole (7) Depression Code(s): F32.9 - MAJOR DEPRESSIVE DISORDER, SINGLE EPISODE, UNSPECIFIED Comment: - Continue citalopram (8) Obesity, Class III, BMI 40-49.9 (morbid obesity) Code(s): E66.01 - MORBID (SEVERE) OBESITY DUE TO EXCESS CALORIES Comment: - BMI 45 (9) DVT prophylaxis Comment: - SCDs (10) Full code status Code(s): Z78.9 - OTHER SPECIFIED HEALTH STATUS Comment: Status and Disposition: Inpatient. Anticipate d/c home when medically stable, likely tomorrow if cleared by Surgery. Attending: Li Sales
[2018-09-15] MEDS: Nitrofurantoin Macrocrystals* 100 MG CAP PO SCH (21:45)
[2018-09-16] MEDS: oxyCODONE/Acetamin 5/325 MG* TAB PO PRN (05:21)
[2018-09-16] MEDS: Pantoprazole IV* 40 MG IV SCH (05:22)
[2018-09-16] MEDS: Ondansetron INJ* 2 MG/ML VIAL IV PRN ×3 (05:22→22:38)
[2018-09-16 05:57] LABS: Hematocrit 33 % (35-47); Hemoglobin 10.7 g/dL (12.0-16.0); Mean Corpuscular HGB Conc 33 g/dL (31-36); Mean Corpuscular Hemoglobin 27 pg (27-31); Mean Corpuscular Volume 82 fL (80-97); Platelet Count 197 10^3/uL (150-450); Red Cell Distribution Width 17 % (10-15); White Blood Count 15.4 10^3/uL (3.5-10.8)
[2018-09-16] MEDS: Mometasone/Formoter 100/5 MDI INH SCH ×2 (07:42→19:48)
[2018-09-16 07:52] LABS: ABS Basophils 0.1 10^3/ul (0-0.2); ABS Eosinophils 0.1 10^3/ul (0-0.6); ABS Lymphocytes 1.5 10^3/ul (1.0-4.8); ABS Monocytes 0.8 10^3/ul (0-0.8); Eosinophil % 0.6 %; Lymphocyte % 9.7 %
[2018-09-16] MEDS: Morphine 4 MG/ML VIAL (1 ml) 4 MG/ML VIAL IV PRN ×2 (09:05→22:38)
[2018-09-16] MEDS: Aspirin EC TAB* 81 MG TAB.EC PO SCH (09:05)
[2018-09-16] MEDS: Citalopram TAB* 20 MG PO SCH (09:05)
[2018-09-16] MEDS: Insulin LISPRO* 1 UNITS UNIT SUBCUT SCH ×4 (09:06→21:35)
[2018-09-16] MEDS: Nitrofurantoin Macrocrystals* 100 MG CAP PO SCH ×2 (09:07→21:35)
[2018-09-16] MEDS: Nystatin TOP POWDER* 15 GM BTL TOPICAL SCH ×3 (09:30→21:36)
--- NOTE | 2018-09-16 10:06 | PN ---
Progress Note - Progress Note Date of Service: 09/16/18 SOAP: Subjective: Still having nausea and vomited once yesterday Incisional abdominal pain Passing flatus, no BM Has been OOB and ambulated to bathroom Objective: Temp Pulse Resp BP Pulse Ox 98.8 F 53 17 146/67 95 09/16/18 03:15 09/16/18 07:43 09/16/18 09:05 09/16/18 03:15 09/16/18 07:43 Intake & Output 09/14/18 09/15/18 09/16/18 09/17/18 06:59 06:59 06:59 06:59 Intake Total 1337 2050 460 Output Total 0 500 0 Balance 1337 1550 460 Intake: IV Fluids 57 1350 ABX Azetrenam 57 50 LR 1300 IVPB 50 ABX Azetrenam 50 Oral 1230 700 460 Output: Urine 0 500 0 PEX: Comfortable-awake and alert ABd is soft and slightly distended. Bowel sounds present throughout, hyperactive and some high pitched. Incisions CDI Laboratory Results - last 24 hr 09/15/18 09/15/18 09/15/18 11:08 16:54 19:55 WBC RBC Hgb Hct MCV MCH MCHC RDW Plt Count MPV Neut % (Auto) Lymph % (Auto) [place] % (Auto) Eos % (Auto) Baso % (Auto) Absolute Neuts (auto) Absolute Lymphs (auto) Absolute Monos (auto) Absolute Eos (auto) Absolute Basos (auto) Absolute Nucleated RBC Neutrophils % Lymphocytes % Monocytes % Eosinophils % Nucleated RBC % Normal RBC Morphology Hem Pathologist Commnt POC Glucose (mg/dL) 163 H 258 H 99 09/16/18 09/16/18 09/16/18 04:01 05:40 07:25 WBC 15.4 H RBC 4.00 Hgb 10.7 L Hct 33 L MCV 82 MCH 27 MCHC 33 RDW 17 H Plt Count 197 MPV 10.0 Neut % (Auto) 83.9 Lymph % (Auto) 9.7 [place] % (Auto) 5.2 Eos % (Auto) 0.6 Baso % (Auto) 0.6 Absolute Neuts (auto) 13.0 H Absolute Lymphs (auto) 1.5 Absolute Monos (auto) 0.8 Absolute Eos (auto) 0.1 Absolute Basos (auto) 0.1 Absolute Nucleated RBC 0.0 Neutrophils % 83.0 Lymphocytes % 14.0 Monocytes % 2.0 Eosinophils % 1.0 Nucleated RBC % 0.0 Normal RBC Morphology Normal Hem Pathologist Commnt POC Glucose (mg/dL) 224 H 180 H Assessment: POD#2 s/p lap choly for gallstones Persistent leukocytosis--?? source Nausea No fever or tachycardia Plan: Back to clear liquids Check labs-chemistry and LFT's-- Observe for now Care discussed with patient She is not ready for discharge
[2018-09-16 10:30] LABS: ALT 15 U/L (7-52); AST 17 U/L (13-39); Albumin 3.4 g/dL (3.2-5.2); Albumin/Globulin Ratio 1.1 (1-3); Alkaline Phosphatase 73 U/L (34-104); Anion Gap 6 mmol/L (2-11); BUN/Creatinine Ratio 16.7 (8-20); Blood Urea Nitrogen 16 mg/dL (6-24); CO2 Carbon Dioxide 31 mmol/L (22-32); Calcium 8.1 mg/dL (8.6-10.3); Chloride 102 mmol/L (101-111); EGFR African American 71.7 (>60); EGFR Non-African American 59.3 (>60); Globulin 3.1 g/dL (2-4); Glucose 173 mg/dL (70-100); Sodium 139 mmol/L (135-145); Total Protein 6.5 g/dL (6.4-8.9)
[2018-09-16] MEDS ORDERED: Polyethylene Glycol 3350* 17 GM PACKET PO PRN (11:52)
[2018-09-16] MEDS ORDERED: Lactated Ringers 1000 ML Bag* 1,000 ML IV ONE (11:52)
[2018-09-16] MEDS: Docusate CAP* 100 MG PO PRN (12:15)
[2018-09-16] MEDS: HYDROcodone/ACETAMIN 5-325 MG* 1 TAB PO PRN ×2 (15:41→20:32)
--- NOTE | 2018-09-16 17:07 | PN ---
Subjective Date of Service: 09/16/18 Interval History: Patient is feeling Nauseated today and feeling constipated. Patient has persistent pain in RUQ consistent with presurgical pain. Patient denies CP, SOB , Dizziness, diarrhea, or other pain. Family History: Unchanged from Admission Social History: Unchanged from Admission Past Medical History: Unchanged from Admission Objective Active Medications: Acetaminophen (Tylenol Tab*) 650 mg PO Q4H PRN PRN Reason: PAIN - MILD Last Admin: 09/11/18 23:00 Dose: 650 mg Hydrocodone Bitart/Acetaminophen ([place] 5-325 Tab*) 1 tab PO Q4H PRN PRN Reason: PAIN - MODERATE Last Admin: 09/16/18 15:41 Dose: 1 tab Albuterol (Ventolin Hfa Inhaler*) 2 puff INH Q6H PRN PRN Reason: SOB/WHEEZING Albuterol/Ipratropium (Duoneb (Albuterol 2.5 Mg/Ipratropium 0.5 Mg)) 1 neb INH Q12H PRN PRN Reason: SHORTNESS OF BREATH Aspirin (Aspirin Ec Tab*) 81 mg PO DAILY [facility] Last Admin: 09/16/18 09:05 Dose: 81 mg Citalopram Hydrobromide (Celexa Tab*) 20 mg PO DAILY [facility] Last Admin: 09/16/18 09:05 Dose: 20 mg Dextrose (Dextrose 50% Vial 50 Ml*) 25 ml IV PUSH .FOR FS < 60 - SS PRN PRN Reason: FS < 60 Docusate Sodium (Colace Cap*) 100 mg PO BID PRN PRN Reason: CONSTIPATION Last Admin: 09/16/18 12:15 Dose: 100 mg Lactated Ringer's (Lactated Ringers 1000 Ml Bag*) 1,000 mls @ 100 mls/hr IV ONCE ONE Stop: 09/16/18 21:51 Last Admin: 09/16/18 12:14 Dose: 100 mls/hr Insulin Human Lispro (Humalog*) [address] [facility]; Protocol Last Admin: 09/16/18 12:15 Dose: 2 units Miscellaneous (Ativan Pyxis Massey) 1 ea N/A .ATIVAN IV MASSEY PRN PRN Reason: PYXIS MASSEY Mometasone Furoate/Formoterol Fumar (Dulera 100/5 Mdi*) 2 puff INH BID [facility] Last Admin: 09/16/18 07:42 Dose: 2 puff Morphine Sulfate (Morphine 4 Mg/Ml Vial (1 Ml)) 4 mg IV Q4H PRN PRN Reason: PAIN - SEVERE Last Admin: 09/16/18 09:05 Dose: 4 mg Nitrofurantoin Macrocrystals (Macrodantin*) 100 mg PO BID [facility] Last Admin: 09/16/18 09:07 Dose: 100 mg Nystatin (Nystatin Top Powder*) 1 applic TOPICAL TID [facility] Last Admin: 09/16/18 14:27 Dose: 1 applic Ondansetron HCl (Zofran Inj*) 4 mg IV Q6H PRN PRN Reason: NAUSEA Last Admin: 09/16/18 15:41 Dose: 4 mg Pantoprazole Sodium (Protonix Iv*) 40 mg IV Q24H [facility] Last Admin: 09/16/18 05:22 Dose: 40 mg Polyethylene Glycol/Electrolytes (Miralax*) 17 gm PO DAILY PRN PRN Reason: CONSTIPATION Senna (Senokot 8.6 Mg Tab*) 1 tab PO DAILY PRN PRN Reason: CONSTIPATION Vital Signs - 8 hr 09/16/18 09/16/18 09/16/18 09:05 11:59 15:41 Temperature 98.3 F Pulse Rate 55 Respiratory 17 18 17 Rate Blood Pressure 139/58 (mmHg) O2 Sat by Pulse 94 Oximetry Oxygen Devices in Use Now: Nasal Cannula Appearance: Patient is a 62yo female who appears older than stated age and is sitting in the bed in [facility]. Eyes: No Scleral Icterus, PERRLA Ears/Nose/Mouth/Throat: NL Teeth, Lips, Gums, Clear Oropharnyx, Mucous Membranes Moist Neck: NL Appearance and Movements; NL JVP, Trachea Midline Respiratory: Symmetrical Chest Expansion and Respiratory Effort, Clear to Auscultation Cardiovascular: NL Sounds; No Murmurs; No JVD, RRR, No Edema Abdominal: No Hepatosplenomegaly, - - RUQ pain Lymphatic: No Cervical Adenopathy Extremities: No Edema, No Clubbing, Cyanosis Skin: No Nodules or Sclerosis Neurological: Alert and Oriented x 3, NL Sensation, NL Muscle Strength and Tone , - - CN II-XII intact. Result Diagrams: 09/16/18 05:40 09/16/18 09:45 Microbiology and Other Data: Microbiology 09/11/18 18:30 Urine Culture - Final Urine Escherichia Coli Assess/Plan/Problems-Billing Assessment: Ms. Coughlin 62 yo F with PMH of COPD, DM, CAD, GERD, and HTN; who was recently noted to have gallstones and underwent an ERCP, now presented with recurrent N/V /D. S/P Lorna and improving slowly. - Patient Problems (1) Biliary colic Current Visit: Yes Status: Acute Code(s): K80.50 - CALCULUS OF BILE DUCT W/ O CHOLANGITIS OR CHOLECYST W/O OBST SNOMED Code(s): 73146181 Comment: - Patient with n/v/d and elevated lipase - S/P Lorna - Still with abdominal pain, continue to treat, no signs of infection - Does not appear toxic - N/V likely related to medications and post-surgical slowed bowel motility - Bowel Regimen. - WBC count post op likely reactive. (2) Bipolar disorder Current Visit: No Status: Acute Comment: - Continue Citalopram. (3) COPD (chronic obstructive pulmonary disease) Current Visit: No Status: Acute Code(s): J44.9 - CHRONIC OBSTRUCTIVE PULMONARY DISEASE, UNSPECIFIED SNOMED Code(s): 62674439 Comment: - No evidence of acute exacerbation - Oxygen PRN - Continue Dulera, albuterol (4) Chronic respiratory failure Current Visit: No Status: Acute Code(s): J96.10 - CHRONIC RESPIRATORY FAILURE, UNSP W HYPOXIA OR HYPERCAPNIA SNOMED Code(s): 98341098 Comment: - Likely combination of COPD and obesity hypoventilation syndrome - Continue O2 per home routine (5) Diabetes mellitus Current Visit: No Status: Chronic Priority: High Onset Date: 12/17/14 Code(s): E11.9 - TYPE 2 DIABETES MELLITUS WITHOUT COMPLICATIONS SNOMED Code(s) : 62377862 Comment: - Hold glipizide - Continue Lispro SS (6) HLD (hyperlipidemia) Current Visit: No Status: Chronic Priority: High Code(s): E78.5 - HYPERLIPIDEMIA, UNSPECIFIED SNOMED Code(s): 96656087 Comment: - Continue statin (7) HTN (hypertension) Current Visit: No Status: Chronic Priority: High Code(s): I10 - ESSENTIAL (PRIMARY) HYPERTENSION SNOMED Code(s): 09026778 Comment: - Normotensive off medication (8) Full code status Current Visit: No Status: Acute Code(s): Z78.9 - OTHER SPECIFIED HEALTH STATUS SNOMED Code(s): 889810301 Comment: (9) DVT prophylaxis Current Visit: No Status: Acute Priority: High Code(s): QOG0186 - SNOMED Code(s): 435532094 Comment: - SCDs Status and Disposition: Inpatient. Anticipate d/c home when medically stable, likely tomorrow if cleared by Surgery.
[2018-09-16] MEDS: Senna TAB 8.6 mg* TAB PO PRN (22:38)
[2018-09-17] MEDS: Acetaminophen TAB* 325 MG PO PRN (01:05)
[2018-09-17] MEDS: Pantoprazole IV* 40 MG IV SCH (05:49)
[2018-09-17 06:07] LABS: Hematocrit 33 % (35-47); Hemoglobin 10.9 g/dL (12.0-16.0); Mean Corpuscular HGB Conc 33 g/dL (31-36); Mean Corpuscular Hemoglobin 27 pg (27-31); Mean Corpuscular Volume 82 fL (80-97); Mean Platelet Volume 9.3 fL (7.4-10.4); Platelet Count 174 10^3/uL (150-450); Red Blood Count 4.05 10^6 /uL (3.70-4.87); Red Cell Distribution Width 17 % (10-15); White Blood Count 7.3 10^3/uL (3.5-10.8)
[2018-09-17 06:27] LABS: BUN/Creatinine Ratio 14.5 (8-20); Calcium 8.3 mg/dL (8.6-10.3); EGFR Non-African American 86.8 (>60); Potassium 3.8 mmol/L (3.5-5.0)
[2018-09-17] MEDS: Nystatin TOP POWDER* 15 GM BTL TOPICAL SCH ×3 (07:46→22:22)
[2018-09-17] MEDS: Citalopram TAB* 20 MG PO SCH (07:50)
[2018-09-17] MEDS: Aspirin EC TAB* 81 MG TAB.EC PO SCH (07:50)
[2018-09-17] MEDS: Nitrofurantoin Macrocrystals* 100 MG CAP PO SCH (07:50)
--- NOTE | 2018-09-17 08:50 | PN ---
Progress Note - Progress Note Date of Service: 09/17/18 SOAP: Subjective: Feels much better Tolerating clear liquids No further nausea-wants to eat Showered yesterday Objective: Temp Pulse Resp BP Pulse Ox 97.9 F 55 16 112/41 99 09/17/18 07:22 09/17/18 03:15 09/17/18 07:22 09/17/18 07:22 09/17/18 07:22 Intake & Output 09/15/18 09/16/18 09/17/18 09/18/18 06:59 06:59 06:59 06:59 Intake Total 2050 460 2900 120 Output Total 500 0 Balance 1634 442 9160 120 Intake: IV Fluids 1350 1005 ABX Azetrenam 50 LR 1300 1005 Oral 662 238 1245 120 Output: Urine 500 0 Other: Estimated Void Medium # Voids 1 PEX: Comfortable Lungs are clear Abd is soft and slightly distended. Bowel sounds are present. Incisions CDI Laboratory Results - last 24 hr 09/16/18 09/16/18 09/16/18 05:40 09:45 11:34 WBC RBC Hgb Hct MCV MCH MCHC RDW Plt Count MPV Hem Pathologist Commnt Sodium 139 Potassium 4.0 Chloride 102 Carbon Dioxide 31 Anion Gap 6 BUN 16 Creatinine 0.96 H Est GFR ( Amer) 71.7 Est GFR (Non-Af Amer) 59.3 BUN/Creatinine Ratio 16.7 Glucose 173 H POC Glucose (mg/dL) 133 H Calcium 8.1 L Total Bilirubin 0.30 Direct Bilirubin 0.00 L Indirect Bilirubin Facs Teacher AST 17 ALT 15 Alkaline Phosphatase 73 Total Protein 6.5 Albumin 3.4 Globulin 3.1 Albumin/Globulin Ratio 1.1 Lipase < 10 L 09/16/18 09/16/18 09/17/18 16:40 20:34 05:42 WBC 7.3 RBC 4.05 Hgb 10.9 L Hct 33 L MCV 82 MCH 27 MCHC 33 RDW 17 H Plt Count 174 MPV 9.3 Hem Pathologist Commnt Sodium Potassium Chloride Carbon Dioxide Anion Gap BUN Creatinine Est GFR ( Amer) Est GFR (Non-Af Amer) BUN/Creatinine Ratio Glucose POC Glucose (mg/dL) 103 H 176 H Calcium Total Bilirubin Direct Bilirubin Indirect Bilirubin AST ALT Alkaline Phosphatase Total Protein Albumin Globulin Albumin/Globulin Ratio Lipase 09/17/18 05:42 WBC RBC Hgb Hct MCV MCH MCHC RDW Plt Count MPV Hem Pathologist Commnt Sodium 143 Potassium 3.8 Chloride 105 Carbon Dioxide 33 H Anion Gap 5 BUN 10 Creatinine 0.69 Est GFR ( Amer) 105.0 Est GFR (Non-Af Amer) 86.8 BUN/Creatinine Ratio 14.5 Glucose 98 POC Glucose (mg/dL) Calcium 8.3 L Total Bilirubin Direct Bilirubin Indirect Bilirubin AST ALT Alkaline Phosphatase Total Protein Albumin Globulin Albumin/Globulin Ratio Lipase Assessment: S/P lap choly for gallstones Nausea-resolved WBC normalized Plan: Advance diet If tolerates, she would like to go home tomorrow Will arrange outpatient follow up.
[2018-09-17] MEDS: HYDROcodone/ACETAMIN 5-325 MG* 1 TAB PO PRN ×2 (09:01→17:11)
[2018-09-17] MEDS: Docusate CAP* 100 MG PO PRN ×2 (09:02→22:23)
[2018-09-17] MEDS: Senna TAB 8.6 mg* TAB PO PRN ×2 (09:02→22:22)
[2018-09-17] MEDS: Mometasone/Formoter 100/5 MDI INH SCH ×2 (09:12→19:39)
[2018-09-17] MEDS: Insulin LISPRO* 1 UNITS UNIT SUBCUT SCH ×4 (10:01→22:21)
[2018-09-17] MEDS: Morphine 4 MG/ML VIAL (1 ml) 4 MG/ML VIAL IV PRN (12:04)
--- NOTE | 2018-09-17 15:50 | PN ---
Subjective Date of Service: 09/17/18 Interval History: Patient has improved abdominal pain in the same place and improved nausea today without vomiting. Patient feels as if the morphine helps with her nausea, but that the antibiotic and oral pain medications exacerbate her nausea. Patient still feels somewhat constipated. Patient Patient denies CP, SOB, Dizziness, or other pain. Family History: Unchanged from Admission Social History: Unchanged from Admission Past Medical History: Unchanged from Admission Objective Active Medications: Acetaminophen (Tylenol Tab*) 650 mg PO Q4H PRN PRN Reason: PAIN - MILD Last Admin: 09/17/18 01:05 Dose: 650 mg Hydrocodone Bitart/Acetaminophen ([place] 5-325 Tab*) 1 tab PO Q4H PRN PRN Reason: PAIN - MODERATE Last Admin: 09/17/18 09:01 Dose: 1 tab Albuterol (Ventolin Hfa Inhaler*) 2 puff INH Q6H PRN PRN Reason: SOB/WHEEZING Albuterol/Ipratropium (Duoneb (Albuterol 2.5 Mg/Ipratropium 0.5 Mg)) 1 neb INH Q12H PRN PRN Reason: SHORTNESS OF BREATH Aspirin (Aspirin Ec Tab*) 81 mg PO DAILY [facility] Last Admin: 09/17/18 07:50 Dose: 81 mg Citalopram Hydrobromide (Celexa Tab*) 20 mg PO DAILY [facility] Last Admin: 09/17/18 07:50 Dose: 20 mg Dextrose (Dextrose 50% Vial 50 Ml*) 25 ml IV PUSH .FOR FS < 60 - SS PRN PRN Reason: FS < 60 Docusate Sodium (Colace Cap*) 100 mg PO BID PRN PRN Reason: CONSTIPATION Last Admin: 09/17/18 09:02 Dose: 100 mg Insulin Human Lispro (Humalog*) 0 units SUBCUT [facility]; Protocol Last Admin: 09/17/18 13:19 Dose: Not Given Miscellaneous (Ativan Pyxis Massey) 1 ea N/A .ATIVAN IV MASSEY PRN PRN Reason: PYXIS MASSEY Mometasone Furoate/Formoterol Fumar (Dulera 100/5 Mdi*) 2 puff INH BID [facility] Last Admin: 09/17/18 09:12 Dose: Not Given Morphine Sulfate (Morphine 4 Mg/Ml Vial (1 Ml)) 4 mg IV Q4H PRN PRN Reason: PAIN - SEVERE Last Admin: 09/17/18 12:04 Dose: 4 mg Nystatin (Nystatin Top Powder*) 1 applic TOPICAL TID [facility] Last Admin: 09/17/18 07:46 Dose: 1 applic Ondansetron HCl (Zofran Inj*) 4 mg IV Q6H PRN PRN Reason: NAUSEA Last Admin: 09/16/18 22:38 Dose: 4 mg Pantoprazole Sodium (Protonix Iv*) 40 mg IV Q24H [facility] Last Admin: 09/17/18 05:49 Dose: 40 mg Polyethylene Glycol/Electrolytes (Miralax*) 17 gm PO DAILY PRN PRN Reason: CONSTIPATION Senna (Senokot 8.6 Mg Tab*) 1 tab PO DAILY PRN PRN Reason: CONSTIPATION Last Admin: 09/17/18 09:02 Dose: 1 tab Vital Signs - 8 hr 09/17/18 09/17/18 09/17/18 08:00 09:01 09:13 Pulse Rate 57 Respiratory 16 16 Rate O2 Sat by Pulse 99 Oximetry 09/17/18 09/17/18 12:04 13:20 Pulse Rate Respiratory 18 16 Rate O2 Sat by Pulse Oximetry Oxygen Devices in Use Now: Nasal Cannula Appearance: Patient is a 62yo female who appears stated age and is sitting in the bed in [facility]. Eyes: No Scleral Icterus, PERRLA Ears/Nose/Mouth/Throat: NL Teeth, Lips, Gums, Clear Oropharnyx, Mucous Membranes Moist Neck: NL Appearance and Movements; NL JVP Respiratory: Symmetrical Chest Expansion and Respiratory Effort, Clear to Auscultation Cardiovascular: NL Sounds; No Murmurs; No JVD, RRR, No Edema Abdominal: No Hepatosplenomegaly, - - Tender to palpation in RUQ. Lymphatic: No Cervical Adenopathy Extremities: No Edema, No Clubbing, Cyanosis Skin: No Rash or Ulcers, No Nodules or Sclerosis Neurological: Alert and Oriented x 3, NL Sensation, NL Muscle Strength and Tone , - - CN II-XII intact. Result Diagrams: 09/17/18 05:42 09/17/18 05:42 Microbiology and Other Data: Microbiology 09/11/18 18:30 Urine Culture - Final Urine Escherichia Coli Assess/Plan/Problems-Billing Assessment: Ms. Crannell 62 yo F with PMH of COPD, DM, CAD, GERD, and HTN; who was recently noted to have gallstones and underwent an ERCP, now presented with recurrent N/V /D. S/P Lorna and improving slowly. - Patient Problems (1) Biliary colic Current Visit: Yes Status: Acute Code(s): K80.50 - CALCULUS OF BILE DUCT W/ O CHOLANGITIS OR CHOLECYST W/O OBST SNOMED Code(s): 57206200 Comment: - Patient with n/v/d and elevated lipase - S/P Lorna - Still with abdominal pain, continue to treat, no signs of infection - Does not appear toxic - N/V likely related to medications and post-surgical slowed bowel motility - Bowel Regimen. - WBC count post op likely reactive. - Advance diet per surgery. (2) Bipolar disorder Current Visit: No Status: Acute Comment: - Continue Citalopram. (3) COPD (chronic obstructive pulmonary disease) Current Visit: No Status: Acute Code(s): J44.9 - CHRONIC OBSTRUCTIVE PULMONARY DISEASE, UNSPECIFIED SNOMED Code(s): 55170972 Comment: - No evidence of acute exacerbation - Oxygen PRN - Continue Dulera, albuterol (4) Chronic respiratory failure Current Visit: No Status: Acute Code(s): J96.10 - CHRONIC RESPIRATORY FAILURE, UNSP W HYPOXIA OR HYPERCAPNIA SNOMED Code(s): 50907802 Comment: - Likely combination of COPD and obesity hypoventilation syndrome - Continue O2 per home routine (5) Diabetes mellitus Current Visit: No Status: Chronic Priority: High Onset Date: 12/17/14 Code(s): E11.9 - TYPE 2 DIABETES MELLITUS WITHOUT COMPLICATIONS SNOMED Code(s) : 40709247 Comment: - Hold glipizide - Continue Lispro SS - Excellent control. (6) HLD (hyperlipidemia) Current Visit: No Status: Chronic Priority: High Code(s): E78.5 - HYPERLIPIDEMIA, UNSPECIFIED SNOMED Code(s): 37987691 Comment: - Continue statin (7) HTN (hypertension) Current Visit: No Status: Chronic Priority: High Code(s): I10 - ESSENTIAL (PRIMARY) HYPERTENSION SNOMED Code(s): 14825709 Comment: - Normotensive off medication (8) Full code status Current Visit: No Status: Acute Code(s): Z78.9 - OTHER SPECIFIED HEALTH STATUS SNOMED Code(s): 038113034 Comment: (9) DVT prophylaxis Current Visit: No Status: Acute Priority: High Code(s): NCL8598 - SNOMED Code(s): 556226275 Comment: - SCDs Status and Disposition: Inpatient. Anticipate d/c home when medically stable, likely tomorrow if cleared by Surgery.
[2018-09-18] MEDS: HYDROcodone/ACETAMIN 5-325 MG* 1 TAB PO PRN ×3 (01:35→12:48)
[2018-09-18] MEDS: Acetaminophen TAB* 325 MG PO PRN (05:29)
[2018-09-18] MEDS: Pantoprazole IV* 40 MG IV SCH (05:30)
[2018-09-18] MEDS: Mometasone/Formoter 100/5 MDI INH SCH (07:19)
[2018-09-18] MEDS: Citalopram TAB* 20 MG PO SCH (08:41)
[2018-09-18] MEDS: Aspirin EC TAB* 81 MG TAB.EC PO SCH (08:41)
[2018-09-18] MEDS: Insulin LISPRO* 1 UNITS UNIT SUBCUT SCH ×2 (08:41→12:09)
[2018-09-18] MEDS: Nystatin TOP POWDER* 15 GM BTL TOPICAL SCH (10:36)
--- NOTE | 2018-09-18 12:05 | PN ---
Progress Note - Progress Note Date of Service: 09/18/18 SOAP: Subjective: Doing well Tolerating po Minimal pain Ready to go home today Objective: Temp Pulse Resp BP Pulse Ox 98.4 F 56 16 116/50 98 09/18/18 03:19 09/18/18 03:19 09/18/18 10:38 09/18/18 03:19 09/18/18 08:45 PEX: Comfortable Abd is soft and non-distended. Bowel sounds are present, incisions CDI Assessment: S/P lap choly Tolerating po and doing well Plan: D/C home today Outpatient followup arranged Instructions given
[2018-09-18 12:48] VITALS: BP 139/53
--- NOTE | 2018-09-19 01:20 | DS ---
CC: Dr. Li Sales* DISCHARGE SUMMARY: DATE OF ADMISSION: 09/11/18 DATE OF DISCHARGE: 09/18/18 PRIMARY CARE PROVIDER: Dr. Li Sales, of the [facility]. ATTENDING PHYSICIAN WHILE IN THE HOSPITAL: Dr. Li Sales.* (DICTATED BY CORINE BRADSHAW) PRIMARY DISCHARGE DIAGNOSES: 1. Acute cholecystitis, status post cholecystectomy. 2. Mild pancreatitis, resolved. SECONDARY DISCHARGE DIAGNOSES: 1. Oxygen-dependent chronic obstructive pulmonary disease. 2. Diabetes mellitus, type 2. 3. Gastroesophageal reflux disease. 4. Obstructive sleep apnea. 5. Hypertension. 6. Depression. 7. Coronary artery disease. 8. Tobacco use. 9. History of colon cancer. 10. History of ectopic . STUDIES DONE WHILE IN THE HOSPITAL: Gallbladder ultrasound from 09/11/18 read as a small echogenic calculi in the gallbladder lumen consistent with cholelithiasis, but there is no abnormal gallbladder wall thickening and negative sonographic Garnica sign and therefore nonspecific for acute cholecystitis. There is prominence of the common bile duct measuring up to 12 mm diameter in the portal hepatis and no visible obstructing calculus to the extent visualized. MRCP from 09/12/18 read as cholelithiasis with a semi- distended gallbladder, common bile duct measures 0.9 cm, unchanged. No choledocholithiasis identified. Chest x-ray from 10/14/18 read as negative bibasilar airspace consolidation with hyperinflated lungs consistent with atelectasis. Infiltrate is possible, but this is less likely. Gallbladder shows acute on chronic cholecystitis or cholelithiasis. MEDICATIONS AT DISCHARGE: 1. Tylenol 650 mg p.o. q.4 hours as needed. 2. Albuterol 2 puffs inhalation q.4 hours as needed. 3. Citalopram 20 mg p.o. daily. 4. Dulera 100/5 one puff inhalation b.i.d. 5. Glipizide 5 mg b.i.d. 6. Docusate sodium 100 mg p.o. t.i.d. 7. Omeprazole 40 mg p.o. daily. 8. Aspirin 81 mg p.o. daily. 9. Symbicort 2 puffs inhalation b.i.d. 10. Zofran 4 mg p.o. q.6 hours as needed. 11. Tramadol 50 mg p.o. q.4 hours as needed. 12. Albuterol ipratropium nebulizer solution 1 neb inhalation q.12 hours as needed. 13. Tylenol 650 mg p.o. q.4 hours as needed. 14. [place] 5/325 one tab p.o. q.4 hours as needed. 15. MiraLAX 17 g p.o. daily as needed. 16. Senna 1 tab p.o. daily as needed. New medications on discharge: 1. [place]. 2. MiraLAX. 3. Senna. Medications discontinued on discharge: None. HOSPITAL COURSE: This is a brief summary of the patient's presentation. For more details, please see the history and physical from Dr. Funmilayo Monroy on 03/31. In brief, the patient is a 62-year-old female with the past medical history significant for the above; who presented to the emergency department several months ago with an obstructing common bile duct stone and was transferred and had an MRCP at the end of July. She went to [facility] for an ERCP and approximately 3 days before her admission, she developed vomiting, right upper quadrant pain, and some diarrhea. The patient went to the emergency department, was found to have concerns for possible cholelithiasis, mild pancreatitis, and possible choledocholithiasis. The patient was admitted to the hospital. The patient had no active signs of infection. The patient seen in consultation by Dr. Mejia of General Surgery, who believed there was concern for cholecystitis and recommended a laparoscopic cholecystectomy. The patient was medically optimized. On 08/13/18, the patient was found to have a urinary tract infection and was treated with aztreonam, which was then switched to nitrofurantoin. The patient underwent a laparoscopic cholecystectomy on 09/14/18. The patient had a relatively long postoperative course due to inability to tolerate foods; however, the patient on 09/18/18 was able to tolerate a full meal, able to be control her pain with oral medications only, and was stable enough to discharge to home. PHYSICAL EXAMINATION: On the date of discharge: General: The patient is a 62 - year-old female who appears stated age, sitting comfortably in bed, in no acute distress. Vital Signs: Temperature 98.8, pulse rate 64, respiratory rate 18, oxygen saturation 98% on room air, blood pressure 139/53. HEENT: Head normocephalic and atraumatic. Sclerae anicteric. No conjunctival injection. Nasal mucosa moist. Oral mucosa moist. No oropharyngeal erythema, discharge, or exudate. Neck: Supple and nontender. No lymphadenopathy. No carotid bruits auscultated. No JVD. Cardiac: Regular rate and rhythm. No clicks, murmurs, gallops, or rubs. Pulses 2+ in the dorsalis pedis, posterior tibialis, or radial areas. Respiratory: Diminished throughout. Clear to auscultation bilaterally. No wheezes, rales, or rhonchi. Good air exchange bilaterally. Abdomen: Right upper quadrant tenderness. Scars consistent with a laparoscopic cholecystectomy. Bowel sounds present and normoactive in all 4 quadrants. Genitourinary: No suprapubic or CVA tenderness. Skin: Clean and intact. No rashes. Neuro: Cranial nerves II through XII intact. No focal deficits. Alert and oriented x3. Psychiatric: Pleasant and cooperative. DISCHARGE PLAN: The patient will be discharged to home. The patient should have wound care per surgery discharge instructions. The patient should take [place] as needed for pain. The patient did not have a bowel movement before her discharge from the hospital, but stated she felt she would be able to go better at home. The patient should continue to take laxatives to facilitate a bowel movement. The patient should have a consistent carbohydrate diet that is also heart healthy. The patient should follow up with primary care provider within 1 week for general medical management to ensure improvement in her symptoms and the patient should return to the hospital for high fevers, severe abdominal pain , bleeding from her incision sites, or other alarming symptoms. The patient should follow up with Dr. Jai Belcher on 09/23/18 at 4 p.m. TIME SPENT: Approximately 60 minutes spent on discharge of the patient, 30 of which was spent [id number] with the patient obtaining history and physical and discussing treatment plan. CORINE BRADSHAW [id number]/CPS #: [id number]
== END 2018-09-18 14:45 | disposition home or self-care (01) | DRG 417 ==
LOC: ED 22:33 → MEDTELE 09-11 05:34 → MED 09-18 01:17
PROVIDERS: ADMIT Hospitalist; ATTEND Internal Medicine
PROC: 0FT44ZZ Resection of Gallbladder, Percutaneous Endoscopic Approach (ICD-10-PCS; principal; 2018-09-14 13:00)
PROC: 5A09357 Assistance with Respiratory Ventilation, Less than 24 Consecutive Hours, Continuous Positive Airway Pressure (ICD-10-PCS; 2018-09-15)
DX: K80.00 Calculus of gallbladder with acute cholecystitis without obstruction (principal); K85.90 Acute pancreatitis without necrosis or infection, unspecified; N39.0 Urinary tract infection, site not specified; Z68.42 Body mass index [BMI] 45.0-49.9, adult; J96.10 Chronic respiratory failure, unspecified whether with hypoxia or hypercapnia; F41.0 Panic disorder [episodic paroxysmal anxiety]; F31.9 Bipolar disorder, unspecified; F40.240 Claustrophobia; E66.01 Morbid (severe) obesity due to excess calories; I25.10 Atherosclerotic heart disease of native coronary artery without angina pectoris; K21.9 Gastro-esophageal reflux disease without esophagitis; J44.9 Chronic obstructive pulmonary disease, unspecified; I10 Essential (primary) hypertension; E11.9 Type 2 diabetes mellitus without complications; G47.33 Obstructive sleep apnea (adult) (pediatric); E78.00 Pure hypercholesterolemia, unspecified; F17.210 Nicotine dependence, cigarettes, uncomplicated; I35.0 Nonrheumatic aortic (valve) stenosis; I65.23 Occlusion and stenosis of bilateral carotid arteries; M17.0 Bilateral primary osteoarthritis of knee; M19.012 Primary osteoarthritis, left shoulder; Z16.24 Resistance to multiple antibiotics; R11.2 Nausea with vomiting, unspecified; K59.00 Constipation, unspecified; D72.829 Elevated white blood cell count, unspecified; B96.20 Unspecified Escherichia coli [E. coli] as the cause of diseases classified elsewhere; Z88.0 Allergy status to penicillin; Z85.038 Personal history of other malignant neoplasm of large intestine; Z86.010 Personal history of colon polyps; Z88.1 Allergy status to other antibiotic agents; Z88.2 Allergy status to sulfonamides; Z91.018 Allergy to other foods; Z91.5 Personal history of self-harm; Z80.0 Family history of malignant neoplasm of digestive organs; Z82.49 Family history of ischemic heart disease and other diseases of the circulatory system; Z86.73 Personal history of transient ischemic attack (TIA), and cerebral infarction without residual deficits; Z86.711 Personal history of pulmonary embolism; Z99.81 Dependence on supplemental oxygen; Z79.82 Long term (current) use of aspirin; Z79.84 Long term (current) use of oral hypoglycemic drugs
CPT/HCPCS: 36415; 71045; 74181; 76376; 76705; 80048; 80053; 80076; 81003; 81015; 82248; 83036; 83690; 85025; 85027; 85060; 85610; 87077; 87086; 87186; 88304; 93005; 94640; 94660; 99285; A9270-GY; J0744; J0780; J1100; J1644; J2060; J2250; J2270; J2405; J2704; J2710; J3010

== ENCOUNTER 2018-10-13 18:17 | Emergency (ER) | payer MEDICARE, MEDICAID ==
[2018-10-13] MEDS ORDERED: oxyCODONE/Acetamin 5/325 MG* TAB PO ONE (19:09)
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
[2018-10-13 19:59] LABS: ABS Basophils 0.1 10^3/ul (0-0.2); ABS Eosinophils 0.2 10^3/ul (0-0.6); ABS Lymphocytes 2.1 10^3/ul (1.0-4.8); ABS Monocytes 0.6 10^3/ul (0-0.8); ABS Neutrophils 9.3 10^3/ul (1.5-7.7); Eosinophil % 1.3 %; Hematocrit 39 % (35-47); Hemoglobin 13.1 g/dL (12.0-16.0); Lymphocyte % 17.3 %; Mean Corpuscular HGB Conc 33 g/dL (31-36); Mean Corpuscular Hemoglobin 27 pg (27-31); Mean Corpuscular Volume 80 fL (80-97); Mean Platelet Volume 9.7 fL (7.4-10.4); Platelet Count 213 10^3/uL (150-450); Red Blood Count 4.93 10^6 /uL (3.70-4.87); Red Cell Distribution Width 17 % (10-15); White Blood Count 12.3 10^3/uL (3.5-10.8)
[2018-10-13 20:14] LABS: Albumin 4.1 g/dL (3.2-5.2); Albumin/Globulin Ratio 1.4 (1-3); BUN/Creatinine Ratio 19.3 (8-20); Calcium 8.8 mg/dL (8.6-10.3); EGFR African American 84.6 (>60); EGFR Non-African American 69.9 (>60); Total Bilirubin 0.6 mg/dL (0.2-1.0); Total Protein 7.1 g/dL (6.4-8.9)
[2018-10-13] MEDS ORDERED: Lidocaine Patch REMOVE* 1 NOTE MISC SCH (21:00)
[2018-10-13] MEDS ORDERED: Acetaminophen TAB* 325 MG PO ONE ×2 (21:01)
[2018-10-13] MEDS ORDERED: Lidocaine PATCH 5%* 1 PATCH TRANSDERM SCH (21:45)
[2018-10-13 21:56] VITALS: BP 113/65
== END 2018-10-13 22:25 | disposition home or self-care (01) ==
LOC: ED 18:17
DX: M25.551 Pain in right hip (principal); R07.81 Pleurodynia; F17.210 Nicotine dependence, cigarettes, uncomplicated; J45.909 Unspecified asthma, uncomplicated; J44.9 Chronic obstructive pulmonary disease, unspecified; Z86.711 Personal history of pulmonary embolism; K21.9 Gastro-esophageal reflux disease without esophagitis; R51 Headache; Z86.73 Personal history of transient ischemic attack (TIA), and cerebral infarction without residual deficits; F41.9 Anxiety disorder, unspecified; F32.9 Major depressive disorder, single episode, unspecified; Z85.038 Personal history of other malignant neoplasm of large intestine; I10 Essential (primary) hypertension; E11.9 Type 2 diabetes mellitus without complications; D64.9 Anemia, unspecified; Z88.0 Allergy status to penicillin; Z79.899 Other long term (current) drug therapy; Y09 Assault by unspecified means; R10.9 Unspecified abdominal pain
CPT/HCPCS: 36415; 70450; 71046; 72125; 80053; 85025; 99285; A9270-GY

== ENCOUNTER 2018-11-03 12:17 | Emergency (ER) | payer MEDICARE, MEDICAID ==
[2018-11-03] MEDS ORDERED: guaiFENesin 100 mg/5 ml LIQ unit dose cup PO ONE (12:53)
[2018-11-03] MEDS ORDERED: Albuterol/Ipratropium NEB.SOL* Albuterol 2.5 MG/Ipratropium 0.5 MG 3 ML INH ONE (12:54)
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
[2018-11-03 14:35] VITALS: BP 125/70
== END 2018-11-03 14:15 | disposition home or self-care (01) ==
LOC: ED 12:17
DX: J44.1 Chronic obstructive pulmonary disease with (acute) exacerbation (principal); E11.9 Type 2 diabetes mellitus without complications; D64.9 Anemia, unspecified; E78.00 Pure hypercholesterolemia, unspecified; I10 Essential (primary) hypertension; K21.9 Gastro-esophageal reflux disease without esophagitis; F41.9 Anxiety disorder, unspecified; F32.9 Major depressive disorder, single episode, unspecified; F17.210 Nicotine dependence, cigarettes, uncomplicated; Z86.73 Personal history of transient ischemic attack (TIA), and cerebral infarction without residual deficits; Z99.81 Dependence on supplemental oxygen; Z85.038 Personal history of other malignant neoplasm of large intestine; Z90.49 Acquired absence of other specified parts of digestive tract; Z88.1 Allergy status to other antibiotic agents; Z88.0 Allergy status to penicillin; Z88.2 Allergy status to sulfonamides; Z79.82 Long term (current) use of aspirin; Z79.84 Long term (current) use of oral hypoglycemic drugs; Z79.899 Other long term (current) drug therapy; R60.0 Localized edema; E78.5 Hyperlipidemia, unspecified; E66.9 Obesity, unspecified; I25.10 Atherosclerotic heart disease of native coronary artery without angina pectoris
CPT/HCPCS: 71046; 93306; 99283; A9270-GY

== ENCOUNTER 2019-03-21 12:31 | Emergency (ER) | payer MEDICARE, MEDICAID ==
[2019-03-21] MEDS ORDERED: Ibuprofen TAB* 600 MG PO ONE (12:40)
--- OUTSIDE RECORDS SUMMARY | 2019-03-21 13:17 | XMS REPORT ---
:1955 Author Organization [facility] Care Team Providers Name Role Phone Unavailable Unavailable Unavailable Problems Condition Condition Condition Status Onset Resolution Last Treating Comments Name Details Category Date Date Treatment Clinician Date Pain in Pain in Diagnosis Active Ashli unspecified unspecified 03-12 Jarquin knee knee Osteoarthri Osteoarthri Diagnosis Active Ashli tis of tis of 03-12 Jarquin knee, knee, unspecified unspecified Allergies, Adverse Reactions, Alerts Allergy Name Allergy Status Severity Reaction(s) Onset Inactive Treating Comments Type Date Date Clinician Penicillins Allergen Active Unknown Reaction 2019-0 [place] [facility] Unknown 2-20 Joe Tetracycline Allergen Active Unknown Reaction 2019-0 [place] [facility] Unknown 2-20 Joe Sulfa Allergen Active Unknown Reaction 2019-0 [place] (Sulfonamide Group Unknown 2-20 Joe Antibiotics) erythromycin Base Active Unknown Reaction 2019-0 [place] base Ingredient Unknown 2-20 Joe cefazolin Base Active Unknown Reaction 2019-0 [place] Ingredient Unknown 2-20 Joe strawberry Base Active Unknown Reaction 2019-0 [place] Ingredient Unknown 2-20 Joe Medications Ordered Filled Start Stop Current Ordering Indication Dosage Frequency Signature Comments Components Medication Medication Date Date Medication? Clinician (SIG) Name Name No Known No Known No None None None Medications Medications For This For This Patient Patient Procedures This patient has no known procedures. Results This patient has no known results.
--- OUTSIDE RECORDS SUMMARY | 2019-03-21 13:17 | XMS REPORT ---
:1955 Author Organization [facility] Care Team Providers Name Role Phone Unavailable [...] Clinician Penicillins Allergen Active Unknown Reaction 2019-0 [facility] [facility] Unknown 2-20 Joe Tetracycline Allergen Active Unknown Reaction 2019-0 [facility] [facility] Unknown 2-20 Joe Sulfa Allergen Active Unknown Reaction 2019-0 [place] (Sulfonamide Group Unknown 2-20 Joe Antibiotics) erythromycin Base Active Unknown Reaction 2019-0 [place] base Ingredient Unknown 2-20 Joe cefazolin Base Active Unknown Reaction 2019-0 [place] Ingredient Unknown 2-20 Joe strawberry Base Active Unknown Reaction 2019-0 [place] Ingredient Unknown 2-20 Joe Medications Ordered Filled Start Stop Current Ordering Indication Dosage Frequency Signature Comments Components Medication Medication Date Date Medication? Clinician (SIG) Name Name No Known No Known No None None None Medications Medications For This For This Patient Patient Procedures This patient has no known procedures. Results This patient has no known results.
--- OUTSIDE RECORDS SUMMARY | 2019-03-21 13:17 | XMS REPORT | Continuity of Care Document ---
:1955 External Reference #:[id number] Author Name Li Sales DO (transmitted by agent of provider Brittany Ayala) Address [address] [place] [address] Care Team Providers Name Role Phone Li Sales DO - Hospitalist Care Team Information Bucket Chucker Problems Active Problems Provider Date Pulmonary emphysema Alpa Mckeon M.D. Onset: 12/31/2012 Type 2 diabetes mellitus Alpa Mckeon M.D. Onset: 12/31/2012 Essential hypertension Alpa Mckeon M.D. Onset: 12/31/2012 Disorder of lumbar disc Alpa Mckeon M.D. Onset: 12/31/2012 Tobacco user Alpa Mckeon M.D. Onset: 12/31/2012 Morbid obesity Alpa Mckeon M.D. Onset: 12/31/2012 Osteoarthritis of knee Darlin Purvis M.D. Onset: 09/29/2014 Note: moderate to severe Carotid artery stenosis Darlin Purvis M.D. Onset: 03/02/2015 Borderline personality disorder Darlin Purvis M.D. Onset: 03/02/2015 Sleep apnea Darlin Purvis M.D. Onset: 03/08/2015 Depressive disorder Darlin Purvis M.D. Onset: 03/08/2015 Note: ?bipolar , does not want to see psych Subclavian steal syndrome Darlin Purvis M.D. Onset: 04/07/2015 Note: R brachiocephalic stenosis Gastritis Darlin Purvis M.D. Onset: 12/26/2015 Note: midl to moderate Feeling suicidal Alexis Brooks, N.PMal Onset: 12/15/2017 Bipolar disorder Alexis Brooks N.P. Onset: 12/15/2017 Chronic obstructive lung disease Alexis Brooks N.P. 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 Stress incontinence (female) (male) Li Sales DO Onset: 10/02/2018 Social History Type Date Description Comments Sex Unknown Tobacco Use Start: Unknown 40 yr Tobacco Use Start: Unknown current cigarette smoker Tobacco Use Start: Unknown Patient is a current cigarette smoker, smokes every day Tobacco Use Start: Unknown Current Cigarette Did smoke 4 PPD Smoker 1 Pack Daily Smoking Status Reviewed: 03/08/19 Current Cigarette Did smoke 4 PPD Smoker 1 Pack Daily ETOH Use Has consumed alcohol in the past ETOH Use quit 10 yr, 6 pk beer, qt Moi Araiza, ephfredrine Recreational Drug Use Denies Drug Use Tobacco Use Start: Unknown Patient is a current smoker, smokes every day Recreational Drug Use Formerly used Cocaine tried 3 yrs ( sporadically cocaine ) Tobacco Use Start: Unknown Light tobacco smoker 08/05/18 Quit (10 or fewer cigarettes/day) Exercise Type/Frequency Does not exercise Allergies, Adverse Reactions, Alerts Active Allergies Reaction Severity Comments Date Penicillin hives 09/05/2006 Erythromycin hives 09/05/2006 Tetracycline 03/11/2013 Keflex 03/11/2013 Strawberries 03/11/2013 Medications Active Medications SIG Qnty Indications Ordering Date Provider Nicorette use one every hour 504units Z72.0 Li Sales, 03/08/2019 4mg as needed for DO Lozenges cravings Carpal Tunnel Wrist dispense one right 2units G56.03 Li Sales, 03/08 Stabilizer/Large/X-L and one left brace DO arge wear every night Misc Lidoderm apply to knees for 60units M25.569 Li Sales, 03/08/2019 5% Patches 12 hours a day DO Betamethasone apply to affected 60ml L30.9 Li Mónica, 03/08/2019 Dipropionate area once a day DO 0.05% for two weeks and Lotion then stop Nebulizer dispense one 1units J44.9 Li Sales, 03/08/2019 Kit/Tubing/Mouthpiec DO e Kit Ibuprofen 200 take 3 tabs twice 120tabs M25.569 Li Sales, 03/08/2019 200mg a day as needed DO Tablets for pain Eucerin apply to affected 57gm Li Sales, 10/02/2018 Cream area twice a day DO Fluoxetine HCL Take One Capsule 30caps George Bishop MD 10/02/2018 10mg By Mouth Every Day Capsules Roller Walker with a seat 1units R60.0 Li Sales, 10/02/2018 Misc DO Wheelchair dispense one wide 1units R60.0 iL Sales, 10/02/2018 [facility] wheelchair DO Furosemide Take One Tablet By 30tabs R60.0 George Bishop MD 10/02/2018 40mg Mouth Every Day Tablets Eql Pads Bladder use 5 per day as 100units N39.3 Li Sales, 2018 Protection/Long needed DO Length/Ultimate Absorbency [facility] Lasix 1 by mouth once a 5tabs Li Sales, 09/25/2018 40mg Tablets day DO Symbicort 2 puff twice a day 6gm George Bishop MD 04/23/2018 160-4.5mcg/Act Aerosol Albuterol Sulfate 1 application 90ml J44.9 Li Sales, 04/20/2018 every 4 hours as DO (2.5mg/3ML) 0.083% needed Nebulizer Onetouch Ultra Blue for use daily. 100units E11.628 George Bishop MD 2018 Strips Lancets Super Thin 3 times daily and 100units F32.9 George Bishop MD 2018 28G as needed Thin 28G Misc Onetouch Ultra 2 use 1 time daily 1units K21.9 George Bishop MD 04/20/2018 to test blood w/Device Kit glucose for diabetes mellitus Omeprazole 1 by mouth every 30caps K21.9 iL Sales, 04/20/2018 40mg day DO Capsules DR Call use every 2 hours 168units F17.210 George Bishop MD 04/20/2018 10mg Inhaler as needed for nicotine cravings. Onetouch Ultra Blue test as directed 100units E11.9 George Bishop MD 2015 up to 2-3 times a Strips day dxe11.59 Regular Tub Transfer 1units Darlin Purvis, 10/12/2014 Bench Robert Onetouch Ultra 2 check blood up to 1units Darlin Purvis, 12/22/2013 3 times daily Dx M.D. W/Device Kit 250.02 Albuterol Sulfate 2 puffs every 6 5gm Li Sales, hours as needed DO Powder shortness of breath Glipizide take one tablet by 60tabs George Bishop MD 5mg Tablets mouth twice a day Tylenol 8 Hour 1 by mouth twice a 60tabs Li Sales, 650mg day as needed DO Tablets ER Aspirin 81 1 by mouth every 30tabs Li Sales, 81mg day DO Tablets DR Hilldaermiasetron dissolve one 30tabs George Bishop MD 4mg tablet orally Tablets Dispers every 8 hours as needed for nausea. Tramadol HCL 1 tablets by mouth 45tabs Li Sales, 50mg every 8 hours as DO Tablets needed pain History Medications Furosemide 1 by mouth every 3tabs Li Sales, DO 09/22/2018 - 20mg Tablets day 09/25/2018 Medications Administered in Office Medication SIG Qnty Indications Ordering Provider Date Celestone 3 mg and 3mg Oneida Mccullough, 08/09/2011 Injection M.D. Celestone 3 mg and 3mg Oneida Sadia, 08/09/2011 Injection M.D. Immunizations CPT Code Status Date Vaccine Lot # [id number] Given 11/23/2014 Influenza Virus Vaccine, Quadrivalent, Split, [id number] Preservative Free [id number] Given 09/29/2014 Pneumococcal Conjugate Vaccine 13 Valent For [id number] Intramuscular Use Vital Signs Date Vital Result Comment 03/08/2019 2:12pm Height 68.5 inches 5'8.50" Weight 300.00 lb Heart Rate 64 /min BP Systolic Sitting 143 mmHg BP Diastolic Sitting 71 mmHg Body Temperature 98.5 F O2 % BldC Oximetry 99 % BMI (Body Mass Index) 44.9 kg/m2 10/02/2018 3:35pm Height 68.5 inches 5'8.50" Weight 303.38 lb Heart Rate 72 /min BP Systolic 146 mmHg BP Diastolic 74 mmHg Body Temperature 99.0 F O2 % BldC Oximetry 90 % BMI (Body Mass Index) 45.5 kg/m2 Results Test Acquired Date Facility Test Result H/L Range Note CBC Auto 02/20/2019 [facility] White Blood 11.6 10^3/uL High 3.5-10.[address] [place] [address] [phone] Red Blood Count 4.82 10^6/uL Normal 3.70-4.87 Hemoglobin 12.4 g/dL Normal 12.0-16.0 Hematocrit 38 % Normal 35-47 Mean Corpuscular Volume 80 fL Normal 80-97 Mean Corpuscular Hemoglobin 26 pg Low 27-31 Mean Corpuscular HGB Conc 32 g/dL Normal 31-36 Red Cell Distribution Width 16 % High 10-15 Platelet Count 237 10^3/uL Normal 150-450 Mean Platelet Volume 9.7 fL Normal 7.4-10.4 Abs Neutrophils 8.9 10^3/uL High 1.5-7.7 Abs Lymphocytes 1.6 10^3/uL Normal 1.0-4.8 Abs Monocytes 0.7 10^3/uL Normal 0-0.8 Abs Eosinophils 0.3 10^3/uL Normal 0-0.6 Abs Basophils 0.1 10^3/uL Normal 0-0.2 Abs Nucleated RBC 0.0 10^3/uL Granulocyte % 76.4 % Lymphocyte % 14.1 % Monocyte % 5.8 % Eosinophil % 2.4 % Basophil % 1.3 % Nucleated Red Blood Cells % 0.0 Manual Differential 02/20/2019 [facility] Neutrophil % 82.0 % [address] [place] [address] [phone] Lymphocytes % 13.0 % Monocytes % 5.0 % RBC Morphology Normal Normal Comp Metabolic 02/20/2019 [facility] Sodium 138 mmol/L Normal 135-145 Panel [address] [place] [address] [phone] Potassium 4.4 mmol/L Normal 3.5-5.0 Chloride 99 mmol/L Low 101-111 Co2 Carbon Dioxide 33 mmol/L High 22-32 Anion Gap 6 mmol/L Normal 2-11 Glucose 175 mg/dL High 70-100 Blood Urea Nitrogen 18 mg/dL Normal 6-24 Creatinine 0.87 mg/dL Normal 0.51-0.95 BUN/Creatinine Ratio 20.7 High 8-20 Calcium 8.8 mg/dL Normal 8.6-10.3 Total Protein 6.9 g/dL Normal 6.4-8.9 Albumin 3.8 g/dL Normal 3.2-5.2 Globulin 3.1 g/dL Normal 2-4 Albumin/Globulin Ratio 1.2 Normal 1-3 Total Bilirubin 0.30 mg/dL Normal 0.2-1.0 Alkaline Phosphatase 95 U/L Normal 34-104 Alt 17 U/L Normal 7-52 Ast 20 U/L Normal 13-39 Egfr Non- 66.2 >60 Egfr 80.1 >60 1 Laboratory test 02/20/2019 [facility] Troponin-I (TnI) 0.01 ng/ mL <0.03 2 finding [address] [place] [address] [phone] Pathologist Review (SEE NOTE) 3 Comp Metabolic 10/13/2018 [facility] Sodium 138 mmol/L Normal 135-145 Panel [address] [place] [address] [phone] Potassium 4.0 mmol/L Normal 3.5-5.0 Chloride 100 mmol/L Low 101-111 Co2 Carbon Dioxide 32 mmol/L Normal 22-32 Anion Gap 6 mmol/L Normal 2-11 Glucose 115 mg/dL High 70-100 Blood Urea Nitrogen 16 mg/dL Normal 6-24 Creatinine 0.83 mg/dL Normal 0.51-0.95 BUN/Creatinine Ratio 19.3 Normal 8-20 Calcium 8.8 mg/dL Normal 8.6-10.3 Total Protein 7.1 g/dL Normal 6.4-8.9 Albumin 4.1 g/dL Normal 3.2-5.2 Globulin 3.0 g/dL Normal 2-4 Albumin/Globulin Ratio 1.4 Normal 1-3 Total Bilirubin 0.60 mg/dL Normal 0.2-1.0 Alkaline Phosphatase 99 U/L Normal 34-104 Alt 13 U/L Normal 7-52 Ast 16 U/L Normal 13-39 Egfr Non- 69.9 >60 Egfr 84.6 >60 4 CBC Auto 10/13/2018 [facility] White Blood 12.3 10^3/uL High 3.5-10.[address] [place] [address] [phone] Red Blood Count 4.93 10^6/uL High 3.70-4.87 Hemoglobin 13.1 g/dL Normal 12.0-16.0 Hematocrit 39 % Normal 35-47 Mean Corpuscular Volume 80 fL Normal 80-97 Mean Corpuscular Hemoglobin 27 pg Normal 27-31 Mean Corpuscular HGB Conc 33 g/dL Normal 31-36 Red Cell Distribution Width 17 % High 10-15 Platelet Count 213 10^3/uL Normal 150-450 Mean Platelet Volume 9.7 fL Normal 7.4-10.4 Abs Neutrophils 9.3 10^3/uL High 1.5-7.7 Abs Lymphocytes 2.1 10^3/uL Normal 1.0-4.8 Abs Monocytes 0.6 10^3/uL Normal 0-0.8 Abs Eosinophils 0.2 10^3/uL Normal 0-0.6 Abs Basophils 0.1 10^3/uL Normal 0-0.2 Abs Nucleated RBC 0.0 10^3/uL Granulocyte % 76.0 % Lymphocyte % 17.3 % Monocyte % 4.5 % Eosinophil % 1.3 % Basophil % 0.9 % Nucleated Red Blood Cells % 0.0 Laboratory test 09/14/2018 [facility] Surgical SEE RESULT [address] [place] [address] [phone] CBC Auto Diff 09/10/2018 [facility] White Blood 12.5 High 3.5- [address] Count 10^3/uL 0.8 [place] [address] [phone] Red Blood Count 5.05 10^6/uL High 3.70-4.87 Hemoglobin 13.2 g/dL Normal 12.0-16.0 Hematocrit 40 % Normal 35-47 Mean Corpuscular Volume 80 fL Normal 80-97 Mean Corpuscular Hemoglobin 26 pg Low 27-31 Mean Corpuscular HGB Conc 33 g/dL Normal 31-36 Red Cell Distribution Width 17 % High 10-15 Platelet Count 229 10^3/uL Normal 150-450 Mean Platelet Volume 9.3 fL Normal 7.4-10.4 Abs Neutrophils 9.7 10^3/uL High 1.5-7.7 Abs Lymphocytes 2.0 10^3/uL Normal 1.0-4.8 Abs Monocytes 0.7 10^3/uL Normal 0-0.8 Abs Eosinophils 0.3 10^3/uL Normal 0-0.6 Abs Basophils 0.1 10^3/uL Normal 0-0.2 Abs Nucleated RBC 0.0 10^3/uL Granulocyte % 76.1 % Lymphocyte % 15.6 % Monocyte % 5.2 % Eosinophil % 2.2 % Basophil % 0.9 % Nucleated Red Blood Cells % 0.0 Urinalysis Profile 09/10/2018 [facility] Urine Color Yellow [address] [place] [address] [phone] Urine Appearance Cloudy Urine Specific [place] 1.011 Normal 1.010-1.030 Urine pH 5.0 Normal 5-9 Urine Urobilinogen Negative Negative Urine Ketones Negative Negative Urine Protein Negative Negative Urine Leukocytes 1+ Abnormal Negative Urine Blood 1+ Abnormal Negative Urine Nitrite Positive Abnormal Negative Urine Bilirubin Negative Negative Urine Glucose Negative Negative Urine White Blood Cell 2+(11-20/hpf) Abnormal Absent Urine Red Blood Cell Trace(0-2/hpf) Absent Urine Bacteria 1+ Abnormal Absent Urine Squamous Epithelial Cell Present Abnormal Absent Urine Culture And 09/10/2018 [facility] Urine Culture SEE RESULT [address] [place] [address] [phone] 1 Because ethnic data is not always readily available, this report includes an eGFR for both -Americans and non- Americans. The National Kidney Disease Education Program (NKDEP) does not endorse the use of the MDRD equation for patients that are not between the ages of 18 and 70, are , have extremes of body size, muscle mass, or nutritional status, or are non- or non-. According to the National Kidney Foundation, irrespective of diagnosis, the stage of the disease is based on the level of kidney function: Stage Description GFR(mL/min/1.73 m(2)) 1 Kidney damage with normal or decreased GFR 90 2 Kidney damage with mild decrease in GFR 60-89 3 Moderate decrease in GFR 30-59 4 Severe decrease in GFR 15-29 5 Kidney failure <15 (or dialysis) 2 Troponin-I testing on Plasma Separator Tubes (PST) has a known false positive rate of 0.20-0.40%. All positive troponins reflex immediately to secondary confirmatory testing. Using the [employer] DxI 800 Access Immunoassay systems, the 99th percentile upper reference limit was demonstrated to be < 0.03 ng/mL. 3 Absolute neutrophilia. Reviewed by Ashli Mckeon MD 4 Because ethnic data is not always readily available, this report includes an eGFR for both -Americans and non- Americans. The National Kidney Disease Education Program (NKDEP) does not endorse the use of the MDRD equation for patients that are not between the ages of 18 and 70, are , have extremes of body size, muscle mass, or nutritional status, or are non- or non-. According to the National Kidney Foundation, irrespective of diagnosis, the stage of the disease is based on the level of kidney function: Stage Description GFR(mL/min/1.73 m(2)) 1 Kidney damage with normal or decreased GFR 90 2 Kidney damage with mild decrease in GFR 60-89 3 Moderate decrease in GFR 30-59 4 Severe decrease in GFR 15-29 5 Kidney failure <15 (or dialysis) 5 SEE RESULT BELOW Name: BENNIE COUGHLIN : [address]: Irene Cary MD Acct: [id number] Unit: [id number] AGE: 62 Location: [place] [address] Re09/11/18 SEX: F Status: ADM IN SPEC: [id number] BETTIE: 09/14/[address] [facility] [address]: Jai Belcher MD REQ: [id number] RECD: 09/14/18 STATUS: SOUT _ ORDERED: LEVEL 3 FINAL DIAGNOSIS Gallbladder, cholecystectomy: -- Acute and chronic cholecystitis. -- Cholelithiasis. PRE-OPERATIVE DIAGNOSIS Symptomatic cholelithiasis GROSS DESCRIPTION The specimen is received in formalin labeled, Gallbladder, and consists of a 9.5 x 4.0 x 1.0 cm intact gallbladder. The serosa is glistening smooth yellow-pink with focal fibrofatty adhesions. The wall thickness averages 0.4 cm. The mucosa is bosselated to trabeculated yellow-michel. Within the lumen is minimal viscid yellow bile admixed with a 3.5 x 1.0 x 0.4 cm aggregate of brown-black friable choleliths, ranging in size from less than 0.1 cm to 0.5 x 0.5 x 0.4 cm. The cystic duct contains a 2.0 x 1.5 x 0.6 cm aggregate of dark brown friable choleliths. Pastor sections are submitted in one cassette. Signed by and Reported on: Ashli Mckeon MD 09/15/18 1131 END OF REPORT DEPARTMENT OF PATHOLOGY, [address] [place] [address] Cliff Jane M.D. Director [facility] # [id number] 6 SEE RESULT BELOW Name: BENNIE COUGHLIN : [address]: Staci Hassan MD Acct: [id number] Unit: [id number] AGE: 62 Location: [place] [address] Re09/11/18 SEX: F Status: ADM IN SPEC: [id number] BETTIE: 09/11/[address]: Antony Newton MD REQ: [id number] RECD: 09/11/18 STATUS: COMP OTHR DR: George Bishop MD _ SOURCE: URINE SPDESC: ORDERED: Urine Culture Procedure Result Reported Site Urine Culture Final 09/13/18- 1028 ML Organism 1 ESCHERICHIA COLI [place] Count 75-100,000 (Many) CFU/ML 1. ESCHERICHIA COLI M.I.C. RX --------- ------ Ampicillin >=32 R Cefazolin <=4 S Cefepime <=1 S Ceftriaxone <=1 S Ciprofloxacin >=4 R Gentamicin >=16 R Levofloxacin >=8 R Meropenem <=0.25 S Nitrofurantoin <=16 S Tetracycline >=16 R Pipercillin/Tazobactam <=4 S Trimethoprim/Sulfamethoxazole >=320 R Amoxicillin/Clavulanic Acid 16 I Aztreonam <=1 S Contact the Microbiology Department for any additional antibiotic reporting. * ML - Main Lab . END OF REPORT DEPARTMENT OF PATHOLOGY, [address] [place] [address] Cliff Jane M.D. Director [facility] # [id number] Procedures Date Code Description Status 11/03/2018 79904 ECHO Transthorasic Realtime 2D W Doppler & Color Flow Completed Hosp 09/14/2018 48081 Laparoscopy Cholecystectomy Completed 09/14/2018 35362 Laparoscopy Cholecystectomy Completed 09/13/2018 40151 EKG, Interpretation Only Completed 12/20/2015 [id number] Colonoscopy Completed 07/16/2013 [id number] Diabetic Retinal Eye Exam Completed Medical Devices Description No Information Available Encounters Type Date Location Provider Dx Diagnosis Office Visit 03/08/2019 [facility] Internal Li Sales, DO Z72.0 Tobacco use 2:40p Medicine - Suite R G56.03 Carpal tunnel syndrome, bilateral upper limbs M25.569 Pain in unspecified knee L30.9 Dermatitis, unspecified J44.9 Chronic obstructive pulmonary disease, unspecified Office Visit 10/02/2018 3:00p [facility] Internal Li Sales, R60.0 Localized edema Medicine - Suite DO R N39.3 Stress incontinence (female) (male) F32.9 Major depressive disorder, single episode, unspecified E11.9 Type 2 diabetes mellitus without complications Office Visit 09/18/2018 3:20p [facility] Jere K80.50 [facility] [place] duct w/o Hospitalists cholangitis or cholecyst w/o obst J44.9 Chronic obstructive pulmonary disease, unspecified E11.9 Type 2 diabetes mellitus without complications K21.9 Gastro-esophageal reflux disease without esophagitis Office Visit 09/17/2018 3:19p [facility] Jere K80.50 [facility] [place] duct w/o Hospitalists cholangitis or cholecyst w/o obst F31.9 Bipolar disorder, unspecified J96.10 Chronic respiratory failure, unsp w hypoxia or hypercapnia E78.5 Hyperlipidemia, unspecified Office Visit 09/16/2018 3:19p [facility] Jere K80.50 [facility] [place] duct w/o Hospitalists cholangitis or cholecyst w/o obst F31.9 Bipolar disorder, unspecified E78.5 Hyperlipidemia, unspecified Office Visit 09/15/2018 3:19p [facility] Lacy Ricarda, K80.50 [facility] CERTIFIED PATHOLOGY ASSISTANT duct w/o Hospitalists cholangitis or cholecyst w/o obst N39.0 Urinary tract infection, site not specified K21.9 Gastro-esophageal reflux disease without esophagitis Office Visit 09/14/2018 3:18p [facility] Lacy Ricarda, K80.50 [facility] CERTIFIED PATHOLOGY ASSISTANT duct w/o Hospitalists cholangitis or cholecyst w/o obst N39.0 Urinary tract infection, site not specified E66.01 Morbid (severe) obesity due to excess calories E11.9 Type 2 diabetes mellitus without complications Office Visit 09/13/2018 3:18p [facility] Lacy Ricarda, K80.50 [facility] CERTIFIED PATHOLOGY ASSISTANT duct w/o Hospitalists cholangitis or cholecyst w/o obst N39.0 Urinary tract infection, site not specified J44.9 Chronic obstructive pulmonary disease, unspecified K21.9 Gastro-esophageal reflux disease without esophagitis Office Visit 09/13/2018 Surgical Wally Medina K80.01 [facility] Naty Mejia MD gallbladder w acute cholecystitis w obstruction Office Visit 09/12/2018 [facility] Lacy Ricarda, K80.50 [facility] 3:17p [facility],pc CERTIFIED PATHOLOGY ASSISTANT duct w/o Hospitalists cholangitis or cholecyst w/o obst J44.9 Chronic obstructive pulmonary disease, unspecified E11.9 Type 2 diabetes mellitus without complications Z68.42 Body mass index (BMI) 45.0-49.9, adult Office Visit 09/12/2018 7:00a Surgical Wally Medina K80.20 [facility] MD Roberto gallbladder w/o 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 unspecified Hospitalists R11.2 Nausea with vomiting, unspecified J44.9 Chronic obstructive pulmonary disease, unspecified E11.9 Type 2 diabetes mellitus without complications Assessments Date Code Description Provider 03/08/2019 Z72.0 Tobacco use Li Sales, DO 03/08/2019 G56.03 Carpal tunnel syndrome, bilateral upper Li Senner, DO limbs 03/08/2019 M25.569 Pain in unspecified knee Li Mónica, DO 03/08/2019 L30.9 Dermatitis, unspecified Li Senner, DO 03/08/2019 J44.9 Chronic obstructive pulmonary disease, Li Senner, DO unspecified 11/03/2018 R60.9 Edema, unspecified Douglas Carter M.D. 10/02/2018 R60.0 Localized edema Lianais Sales, DO 10/02/2018 N39.3 Stress incontinence (female) (male) Li Senroberta, DO 10/02/2018 F32.9 Major depressive disorder, single Li Senner, DO episode, unspecified 10/02/2018 E11.9 Type 2 diabetes mellitus without Li Senner, DO complications 09/18/2018 K80.50 [facility] duct without cholangitis CORINE Wells or cholecystitis without obstruction 09/18/2018 K80.12 Calculus of gallbladder with acute and Jai Belcher MD chronic cholecystitis without obstruction 09/18/2018 J44.9 Chronic obstructive pulmonary disease, CORINE Wells unspecified 09/18/2018 E11.9 Type 2 diabetes mellitus without CORINE Wells complications 09/18/2018 K21.9 Gastro-esophageal reflux disease without CORINE Wells esophagitis 09/17/2018 K80.50 [facility] of bile duct without cholangitis CORINE Wells or cholecystitis without obstruction 09/17/2018 K80.12 Calculus of gallbladder with acute and Jai Belcher MD chronic cholecystitis without obstruction 09/17/2018 F31.9 Bipolar disorder, unspecified CORINE Wells 09/17/2018 J96.10 Chronic respiratory failure, unspecified CORINE Wells whether with hypoxia or hypercapnia 09/17/2018 E78.5 Hyperlipidemia, unspecified CORINE Wells 09/16/2018 K80.50 [facility]culus of bile duct without cholangitis CORINE Wells or cholecystitis without obstruction 09/16/2018 K80.00 Calculus of gallbladder with acute Jai Belcher MD cholecystitis without obstruction 09/16/2018 F31.9 Bipolar disorder, unspecified CORINE Wells 09/16/2018 E78.5 Hyperlipidemia, unspecified CORINE Wells 09/15/2018 K80.50 Calculus of bile duct without cholangitis Lacy Ricarda, CERTIFIED PATHOLOGY ASSISTANT or cholecystitis without obstruction 09/15/2018 K80.00 Calculus of gallbladder with acute Jai Belcher MD cholecystitis without obstruction 09/15/2018 N39.0 Urinary tract infection, site not Lacy Ricarda, CERTIFIED PATHOLOGY ASSISTANT specified 09/15/2018 K21.9 Gastro-esophageal reflux disease without Lacy Ricarda, CERTIFIED PATHOLOGY ASSISTANT esophagitis 09/14/2018 K80.50 Calculus of bile duct without cholangitis Lacy Ricarda, CERTIFIED PATHOLOGY ASSISTANT or cholecystitis without obstruction 09/14/2018 K80.12 Calculus of gallbladder with acute and CORINE Travis chronic cholecystitis without obstruction 09/14/2018 N39.0 Urinary tract infection, site not Lacy Ricarda, CERTIFIED PATHOLOGY ASSISTANT specified 09/14/2018 K80.12 Calculus of gallbladder with acute and Jai Belcher MD chronic cholecystitis without obstruction 09/14/2018 E66.01 Morbid (severe) obesity due to excess Lacy Ricarda, CERTIFIED PATHOLOGY ASSISTANT calories 09/14/2018 K80.01 Calculus of gallbladder with acute Jai Belcher MD cholecystitis with obstruction 09/14/2018 E11.9 Type 2 diabetes mellitus without Lacy Ricarda, CERTIFIED PATHOLOGY ASSISTANT complications 09/13/2018 Z13.6 Encounter for screening for Negro Baldwin DO [facility] cardiovascular disorders 09/13/2018 K80.50 Calculus of bile duct without cholangitis Lacy Ricarda, CERTIFIED PATHOLOGY ASSISTANT or cholecystitis without obstruction 09/13/2018 K80.01 Calculus of gallbladder with acute Wally Mejia MD cholecystitis with obstruction 09/13/2018 N39.0 Urinary tract infection, site not Lacy Ricarda, CERTIFIED PATHOLOGY ASSISTANT specified 09/13/2018 J44.9 Chronic obstructive pulmonary disease, Lacy Ricarda, CERTIFIED PATHOLOGY ASSISTANT unspecified 09/13/2018 K21.9 Gastro-esophageal reflux disease without Lacy Ricarda, CERTIFIED PATHOLOGY ASSISTANT esophagitis 09/12/2018 K80.50 Calculus of bile duct without cholangitis Lacy Ricarda, CERTIFIED PATHOLOGY ASSISTANT or cholecystitis without obstruction 09/12/2018 K80.20 Calculus of gallbladder without Wally Mejia MD cholecystitis without obstruction 09/12/2018 J44.9 Chronic obstructive pulmonary disease, Lacy Ricarda, CERTIFIED PATHOLOGY ASSISTANT unspecified 09/12/2018 R10.84 Generalized abdominal pain Wally Mejia MD 09/12/2018 E11.9 Type 2 diabetes mellitus without Lacy Ricarda, CERTIFIED PATHOLOGY ASSISTANT complications 09/12/2018 Z68.42 Body mass index (BMI) 45.0-49.9, adult Lacy Ricarda, CERTIFIED PATHOLOGY ASSISTANT 09/11/2018 R19.7 Diarrhea, unspecified Funmilayo Porfirio, D.O. 09/11/2018 R11.2 Nausea with vomiting, unspecified Funmilayo Porfirio, D.O. 09/11/2018 J44.9 Chronic obstructive pulmonary disease, Funmilayo Porfirio, D.O. unspecified 09/11/2018 E11.9 Type 2 diabetes mellitus without Funmilayo Porfirio, D.O. complications Plan of Treatment Future Appointment(s):05/17/2019 2:00 pm - Li Sales DO at [facility] - Suite 03/08/2019 - Li Sales DOZ72.0 Tobacco useNew Medication :Nicorette 4 mg - use one every hour as needed for cravingsFollow up:1-2 [id number] Carpal tunnel syndrome, bilateral upper limbsNew Medication:Carpal Tunnel Wrist Stabilizer/Large/X-Large - dispense one right and one left brace wear every [id number] Pain in unspecified kneeNew Medication:Lidoderm 5 % - apply to knees for 12 hours a dayIbuprofen 200 200 mg - take 3 tabs twice a day as needed for painNew Xrays:Knees Bilateral Standing Ap, Ordered: Referral:[facility]/ Nurse SpecL30.9 Dermatitis, unspecifiedNew Medication:Betamethasone Dipropionate 0.05 % - apply to affected area once a day for two weeks and then stopJ44.9 Chronic obstructive pulmonary disease, unspecifiedNew Medication:Nebulizer Kit/Tubing/ Mouthpiece - dispense one Functional Status Description No Information Available Mental Status Description No Information Available Referrals Refer to Reason for Referral Status Appt Date [facility] Created [address] [place] [address] [phone]
--- OUTSIDE RECORDS SUMMARY | 2019-03-21 13:17 | XMS REPORT ---
:1955 Author Organization [facility] Care Team Providers Name Role Phone Unavailable Unavailable Unavailable Problems This patient has no known problems. Allergies, Adverse Reactions, Alerts Allergy Name Allergy Status Severity Reaction(s) Onset Inactive Treating Comments Type Date Date Clinician Penicillins Allergen Active Unknown Reaction 2019-0 [place] [facility] Unknown 2-20 Joe Tetracycline Allergen Active Unknown Reaction 2019-0 [place] [facility] Group Unknown 2-20 Joe Sulfa Allergen Active Unknown Reaction 2019-0 [place] (Sulfonamide Group Unknown 2-20 Joe Antibiotics) erythromycin Base Active Unknown Reaction 2019-0 [place] base Ingredient Unknown 2-20 Joe cefazolin Base Active Unknown Reaction 2019-0 [place] Ingredient Unknown 2-20 Joe strawberry Base Active Unknown Reaction 2019-0 [place] Ingredient Unknown 2-20 Joe Medications Ordered Filled Start Stop Current Ordering Indication Dosage Frequency Signature Comments Components Medication Medication Date Date Medication? Clinician (SIG) Name Name No Known No Known No None None None Medications Medications For This For This Patient Patient Procedures This patient has no known procedures. Results This patient has no known results.
--- OUTSIDE RECORDS SUMMARY | 2019-03-21 13:17 | XMS REPORT ---
:1955 Author Organization [facility] Care Team Providers Name Role Phone Unavailable Unavailable Unavailable Problems Condition Condition Condition Status Onset Resolution Last Treating Comments Name Details Category Date Date Treatment Clinician Date Pain in Pain in Diagnosis Active Leslye unspecified unspecified 03-12 Wendela knee knee Osteoarthri Osteoarthri Diagnosis Active Leslye tis of tis of 03-12 Wendela knee, knee, unspecified unspecified Allergies, Adverse Reactions, Alerts Allergy Name Allergy Status Severity Reaction(s) Onset Inactive Treating Comments Type Date Date Clinician Penicillins Allergen Active Unknown Reaction 2019-0 [place] Unknown 2-20 Joe Tetracycline Allergen Active Unknown Reaction 2019-0 [facility] s Group Unknown 2-20 Joe Sulfa Allergen Active Unknown Reaction 2019-0 [place] (Sulfonamide Group Unknown 2-20 Joe Antibiotics) erythromycin Base Active Unknown Reaction 2019-0 [place] base Ingredient Unknown 2-20 Joe cefazolin Base Active Unknown Reaction 2019-0 [place] Ingredient Unknown 2-20 Joe strawberry Base Active Unknown Reaction 2019-0 [place] Ingredient Unknown 2-20 Joe Medications Ordered Filled Start Stop Current Ordering Indication Dosage Frequency Signature Comments Components Medication Medication Date Date Medication? Clinician (SIG) Name Name No Known No Known No None None None Medications Medications For This For This Patient Patient Procedures This patient has no known procedures. Results This patient has no known results.
--- OUTSIDE RECORDS SUMMARY | 2019-03-21 13:17 | XMS REPORT ---
:1955 Author Organization [facility] Care Team Providers Name Role Phone Unavailable [...] Clinician Penicillins Allergen Active Unknown Reaction 2019-0 [place] [facility] Unknown 2-20 Joe Tetracycline Allergen Active Unknown Reaction 2019-0 [place] [facility] Group Unknown 2-20 Joe Sulfa Allergen Active Unknown Reaction 2019-0 [place] (Sulfonamide Group Unknown 2-20 Joe Antibiotics) erythromycin Base Active Unknown Reaction 2019-0 [place] base Ingredient Unknown 2-20 Joe cefazolin Base Active Unknown Reaction 2019-0 [place] Ingredient Unknown 2-20 Joe strawberry Base Active Unknown Reaction 2019-0 [place] Ingredient Unknown 2-20 Joe Medications Ordered Filled Start Stop Current Ordering Indication Dosage Frequency Signature Comments Components Medication Medication Date Date Medication? Clinician (SIG) Name Name No Known No Known No None None None Medications Medications For This For This Patient Patient Procedures This patient has no known procedures. Results This patient has no known results.
--- OUTSIDE RECORDS SUMMARY | 2019-03-21 13:17 | XMS REPORT ---
:1955 Author Organization [facility] Care Team Providers Name Role Phone Unavailable [...] Clinician Penicillins Allergen Active Unknown Reaction 2019-0 [place] [facility] Unknown 2-20 Joe Tetracycline Allergen Active Unknown Reaction 2019-0 [place] [facility] Group Unknown 2-20 Joe Sulfa Allergen Active Unknown Reaction 2019-0 [place] (Sulfonamide Group Unknown 2-20 Joe Antibiotics) erythromycin Base Active Unknown Reaction 2019-0 [place] base Ingredient Unknown 2-20 Joe cefazolin Base Active Unknown Reaction 2019-0 [place] Ingredient Unknown 2-20 Joe strawberry Base Active Unknown Reaction 2019-0 [place] Ingredient Unknown 2-20 Joe Medications Ordered Filled Start Stop Current Ordering Indication Dosage Frequency Signature Comments Components Medication Medication Date Date Medication? Clinician (SIG) Name Name No Known No Known No None None None Medications Medications For This For This Patient Patient Procedures This patient has no known procedures. Results This patient has no known results.
--- OUTSIDE RECORDS SUMMARY | 2019-03-21 13:17 | XMS REPORT ---
:1955 Author Organization [facility] Care Team Providers Name Role Phone Unavailable [...] Clinician Penicillins Allergen Active Unknown Reaction 2019-0 [place] [facility] Unknown 2-20 Joe Tetracycline Allergen Active Unknown Reaction 2019-0 [place] [facility] Group Unknown 2-20 Joe Sulfa Allergen Active Unknown Reaction 2019-0 [place] (Sulfonamide Group Unknown 2-20 Joe Antibiotics) erythromycin Base Active Unknown Reaction 2019-0 [place] base Ingredient Unknown 2-20 Joe cefazolin Base Active Unknown Reaction 2019-0 [place] Ingredient Unknown 2-20 Joe strawberry Base Active Unknown Reaction 2019-0 [place] Ingredient Unknown 2-20 Joe Medications Ordered Filled Start Stop Current Ordering Indication Dosage Frequency Signature Comments Components Medication Medication Date Date Medication? Clinician (SIG) Name Name No Known No Known No None None None Medications Medications For This For This Patient Patient Procedures This patient has no known procedures. Results This patient has no known results.
--- NOTE | 2019-03-21 13:32 | ED ---
Upper Extremity Pain - HPI Summary HPI Summary: This pt is a 63 Y/O F presenting to [facility] with a CC of a R wrist injury that took place after she fell out of bed this morning at 0800. She states that she has developed a bulge on her R wrist and is currently experiencing pain that is rated a 10/10 in severity. She states that she has decreased movement and that any form of wrist movement aggravates her pain. She denies any numbness/ tingling in her extremities, chills, N/V, and headache. She states that she has a PMHx of - History of Current Complaint Chief Complaint: EDExtremityUpper Stated Complaint: RIGHT WRIST PAIN PER EMS Time Seen by Provider: 03/21/19 12:35 - Allergies/Home Medications Allergies/Adverse Reactions: Allergies Allergy/AdvReac Type Severity Reaction Status Date / Time Penicillins Allergy Severe Anaphylatic Verified 03/21/19 12:37 Shock strawberry Allergy Intermediate Swelling Verified 03/21/19 12:37 Of Face,Lips,& Throat cefazolin Allergy Mild Rash And Verified 03/21/19 12:37 Itching erythromycin base Allergy Mild Rash Verified 03/21/19 12:37 [From Erythrocin] Sulfa (Sulfonamide Allergy Mild Rash Verified 03/21/19 12:37 Antibiotics) Tetracyclines Allergy Mild Hives Verified 03/21/19 12:37 Home Medications: Home Medications Budesonide/Formote 160/4.5(NF) [Symbicort 160/4.5 (NF)] 2 puff INH BID 03/21/19 [History Confirmed 03/21/19] Mometasone/Formoter 200/5 MDI* [Dulera 200/5 MDI*] 2 puff INH BID 03/21/19 [ History Confirmed 03/21/19] PMH/Surg Hx/FS Hx/Imm Hx Endocrine/Hematology History: Reports: Hx Diabetes, Hx Anemia Denies: Hx Anticoagulant Therapy, Hx Systemic Lupus Erythematosus, Hx Thyroid Disease, Hx Unexplained Bleeding Cardiovascular History: Reports: Hx Angina, Hx Hypercholesterolemia, Hx Hypotension, Hx Hypertension, Hx Syncope, Other Cardiovascular Problems/ Disorders - bilateral carotid stenosis,aortic blockage Denies: Hx Aneurysm, Hx Angioplasty, Hx Auto Implanted Cardiovert Defib, Hx Cardiac Arrest, Hx Cardiomegaly, Hx Congenital Heart Disease, Hx Congestive Heart Failure, Hx Coronary Artery Disease, Hx Deep Vein Thrombosis, Hx Embolism , Hx Myocardial Infarction, Hx Pacemaker/ICD, Hx Peripheral Vascular Disease, Hx Rheumatic Fever, Hx Valvular Heart Disease Respiratory History: Reports: Hx Asthma, Hx Chronic Obstructive Pulmonary Disease (COPD) - 2lpm at home, Hx Pneumonia, Hx Pulmonary Edema, Hx Seasonal Allergies, Hx Sleep Apnea - sleeps with 2L O2 at home PRN, Other Respiratory Problems/Disorders - PNA Denies: Hx Chronic Bronchitis, Hx Cystic Fibrosis, Hx Lung Cancer, Hx Pleural Effusion, Hx Pulmonary Embolism GI History: Reports: Hx Gastroesophageal Reflux Disease, Hx Ulcer - distant past Denies: Hx Cirrhosis, Hx Crohn's Disease, Hx Diverticulosis History: Reports: Hx Acute Renal Failure, Hx Renal Disease Denies: Hx Dialysis Musculoskeletal History: Reports: Hx Arthritis - bilateral knees, left shoulder , Hx Back Problems - herniated disks, Hx Bursitis, Other Musculoskeletal History - HERNIATED DISC Denies: Hx Rheumatoid Arthritis Sensory History: Reports: Hx Contacts or Glasses, Hx Vision Problem Denies: Hx Cataracts, Hx Hearing Aid Opthamlomology History: Reports: Hx Contacts or Glasses, Hx Vision Problem Denies: Hx Cataracts Neurological History: Reports: Hx Headaches, Hx Transient Ischemic Attacks (TIA) Denies: Hx Dementia, Hx Developmental Delay, Hx Migraine, Hx Nerve Disease, Hx Seizures, Hx Spinal Cord Injury Psychiatric History: Reports: Hx Anxiety, Hx Depression, Hx Panic Disorder - SEVERE, Hx Inpatient Treatment, Hx Suicide Attempt - attempted to harm self 5 years ago, Hx Substance Abuse - as a kid, Other Psychiatric Issues/Disorders - claustrophobia Denies: Hx Eating Disorder, Hx of Violent Episodes Against Others - Cancer History Cancer Type, Location and Year: Colon cancer - IN REM[place] Hx Chemotherapy: No Hx Radiation Therapy: No - Surgical History Surgery Procedure, Year, and Place: LAPROSCOPIC REMOVAL OF FALLOPIAN TUBE AND OVARY,. HEART CATH FOR CLOT RETREVAL (UNSUCCESSFUL, NO STENTS PLACED),. COLONOSCOPIES WITH POLYPS REMOVED,. LEG FOR FBs AFTER ACCIDENT (ERWIN IN LEG TO CLOSE),. I&D OF LEG (MULTIPLE) FROM SPIDER BITE,. ERCP - August 28. Cholecystectomy September 2018 Hx Anesthesia Reactions: No - Immunization History Date of Tetanus Vaccine: unknown Date of Influenza Vaccine: 2014 Infectious Disease History: No Infectious Disease History: Denies: Hx Clostridium Difficile, Hx Hepatitis, Hx Human Immunodeficiency Virus (HIV), Hx of Known/Suspected MRSA, Hx Shingles, Hx Tuberculosis, Hx Known/ Suspected VRE, Hx Known/Suspected VRSA, History Other Infectious Disease, Traveled Outside the [place] in Last 30 Days - Family History Known Family History: Positive: Cardiac Disease - [place] - father. , Diabetes, Other - Cancer Family History: Colon [place] - father - Social History Alcohol Use: None Hx Substance Use: No Substance Use Type: Reports: None Hx Tobacco Use: Yes - start 1971 Smoking Status (MU): Light Every Day Tobacco Smoker Type: Cigarettes Amount Used/How Often: 1 pack to 1 and a half a day Length of Time of Smoking/Using Tobacco: 40yrs Have You Smoked in the Last Year: Yes Physical Exam Vital Signs On Initial Exam: Initial Vitals Temp Pulse Resp BP Pulse Ox 97.8 F 75 22 175/125 98 03/21/19 12:34 03/21/19 12:34 03/21/19 12:34 03/21/19 12:34 03/21/19 12:34 Diagnostics - Vital Signs Vital Signs Temp Pulse Resp BP Pulse Ox 03/21/19 12:34 97.8 F 75 22 175/125 98 - Laboratory Lab Statement: Any lab studies that have been ordered have been reviewed, and results considered in the medical decision making process. Discharge ED - Discharge Plan Referrals: Li Sales DO [Primary Care Provider] - - Attestation Statements Document Initiated by Scribe: Yes
--- NOTE | 2019-03-21 13:50 | ED ---
Upper Extremity Pain - HPI Summary HPI Summary: This patient is a 63-year-old female presenting to the ED after a fall out of bed this morning. Patient is endorsing pain to the right wrist. Most notably to the distal portion of the right radius to the base of the thumb. Symptoms are worse with any movement, better with rest. She is able to move all fingers. Pulses +2 intact bilaterally. NV be intact. Denies any ecchymosis. Denies numbness or tingling. She does endorse a small amount of swelling to the radial portion of the wrist. No pain to the forearm. No pain to the elbow or to the shoulder. Denies any other injuries. She did not hit her head. Denies LOC. - History of Current Complaint Chief Complaint: EDExtremityUpper Stated Complaint: RIGHT WRIST PAIN PER EMS Time Seen by Provider: 03/21/19 12:35 Hx Obtained From: Patient Mechanism Of Injury: Blunt Trauma Onset/Duration: Started Hours Ago Timing: Constant Severity Initially: Moderate Severity Currently: Moderate Pain Location: Wrist Character: Aching Aggravating Factor(s): Movement, Lifting, Flexion, Extension, Abduction, Adduction Alleviating Factor(s): Ice Associated Signs & Symptoms: Positive: Swelling. Negative: Redness, Bruising, Weakness, Numbness/Tingling - Risk Factors Non-Orthopedic Risk Factor: Negative DVT Risk Factors: Negative Septic Arthritis Risk Factor: Negative Compartment Syndrome Risk Factors: Pain - Allergies/Home Medications Allergies/Adverse Reactions: Allergies Allergy/AdvReac Type Severity Reaction Status Date / Time Penicillins Allergy Severe Anaphylatic Verified 03/21/19 12:37 Shock strawberry Allergy Intermediate Swelling Verified 03/21/19 12:37 Of Face,Lips,& Throat cefazolin Allergy Mild Rash And Verified 03/21/19 12:37 Itching erythromycin base Allergy Mild Rash Verified 03/21/19 12:37 [From Erythrocin] Sulfa (Sulfonamide Allergy Mild Rash Verified 03/21/19 12:37 Antibiotics) Tetracyclines Allergy Mild Hives Verified 03/21/19 12:37 Home Medications: Home Medications Budesonide/Formote 160/4.5(NF) [Symbicort 160/4.5 (NF)] 2 puff INH BID 03/21/19 [History Confirmed 03/21/19] Mometasone/Formoter 200/5 MDI* [Dulera 200/5 MDI*] 2 puff INH BID 03/21/19 [ History Confirmed 03/21/19] PMH/Surg Hx/FS Hx/Imm Hx Previously Healthy: Yes Endocrine/Hematology History: Reports: Hx Diabetes, Hx Anemia Denies: Hx Anticoagulant Therapy, Hx Systemic Lupus Erythematosus, Hx Thyroid Disease, Hx Unexplained Bleeding Cardiovascular History: Reports: Hx Angina, Hx Hypercholesterolemia, Hx Hypotension, Hx Hypertension, Hx Syncope, Other Cardiovascular Problems/ Disorders - bilateral carotid stenosis,aortic blockage Denies: Hx Aneurysm, Hx Angioplasty, Hx Auto Implanted Cardiovert Defib, Hx Cardiac Arrest, Hx Cardiomegaly, Hx Congenital Heart Disease, Hx Congestive Heart Failure, Hx Coronary Artery Disease, Hx Deep Vein Thrombosis, Hx Embolism , Hx Myocardial Infarction, Hx Pacemaker/ICD, Hx Peripheral Vascular Disease, Hx Rheumatic Fever, Hx Valvular Heart Disease Respiratory History: Reports: Hx Asthma, Hx Chronic Obstructive Pulmonary Disease (COPD) - 2lpm at home, Hx Pneumonia, Hx Pulmonary Edema, Hx Seasonal Allergies, Hx Sleep Apnea - sleeps with 2L O2 at home PRN, Other Respiratory Problems/Disorders - PNA Denies: Hx Chronic Bronchitis, Hx Cystic Fibrosis, Hx Lung Cancer, Hx Pleural Effusion, Hx Pulmonary Embolism GI History: Reports: Hx Gastroesophageal Reflux Disease, Hx Ulcer - distant past Denies: Hx Cirrhosis, Hx Crohn's Disease, Hx Diverticulosis History: Reports: Hx Acute Renal Failure, Hx Renal Disease Denies: Hx Dialysis Musculoskeletal History: Reports: Hx Arthritis - bilateral knees, left shoulder , Hx Back Problems - herniated disks, Hx Bursitis, Other Musculoskeletal History - HERNIATED DISC Denies: Hx Rheumatoid Arthritis Sensory History: Reports: Hx Contacts or Glasses, Hx Vision Problem Denies: Hx Cataracts Opthamlomology History: Reports: Hx Contacts or Glasses, Hx Vision Problem Denies: Hx Cataracts Neurological History: Reports: Hx Headaches, Hx Transient Ischemic Attacks (TIA) Denies: Hx Dementia, Hx Developmental Delay, Hx Migraine, Hx Nerve Disease, Hx Seizures, Hx Spinal Cord Injury Psychiatric History: Reports: Hx Anxiety, Hx Depression, Hx Panic Disorder - SEVERE, Hx Inpatient Treatment, Hx Suicide Attempt - attempted to harm self 5 years ago, Hx Substance Abuse - as a kid, Other Psychiatric Issues/Disorders - claustrophobia Denies: Hx Eating Disorder, Hx of Violent Episodes Against Others - Cancer History Cancer Type, Location and Year: Colon cancer - IN REMISSION Hx Chemotherapy: No Hx Radiation Therapy: No - Surgical History Surgery Procedure, Year, and Place: LAPROSCOPIC REMOVAL OF FALLOPIAN TUBE AND OVARY,. HEART CATH FOR CLOT RETREVAL (UNSUCCESSFUL, NO STENTS PLACED),. COLONOSCOPIES WITH POLYPS REMOVED,. LEG FOR FBs AFTER ACCIDENT (ERWIN IN LEG TO CLOSE),. I&D OF LEG (MULTIPLE) FROM SPIDER BITE,. ERCP - August 28. Cholecystectomy September 2018 Hx Anesthesia Reactions: No - Immunization History Date of Tetanus Vaccine: unknown Date of Influenza Vaccine: 2014 Hx Pertussis Vaccination: No Immunizations Up to Date: Yes Infectious Disease History: No Infectious Disease History: Denies: Hx Clostridium Difficile, Hx Hepatitis, Hx Human Immunodeficiency Virus (HIV), Hx of Known/Suspected MRSA, Hx Shingles, Hx Tuberculosis, Hx Known/ Suspected VRE, Hx Known/Suspected VRSA, History Other Infectious Disease, Traveled Outside the [place] in Last 30 Days - Family History Known Family History: Positive: Cardiac Disease - [place] - father. , Diabetes, Other - Cancer Family History: Colon [place] - father - Social History Occupation: Unemployed Lives: Alone Alcohol Use: None Hx Substance Use: No Substance Use Type: Reports: None Hx Tobacco Use: Yes - start 1970 Smoking Status (MU): Light Every Day Tobacco Smoker Type: Cigarettes Amount Used/How Often: 1 pack to 1 and a half a day Length of Time of Smoking/Using Tobacco: 40yrs Have You Smoked in the Last Year: Yes Review of Systems Negative: Fever, Chills, Fatigue, Skin Diaphoresis Negative: Palpitations, Chest Pain Negative: Shortness Of Breath, Cough Genitourinary: Negative Positive: no symptoms reported, see HPI Positive: Arthralgia - right wrist pain. Negative: Myalgia Positive: Other - swelling to distal radius area. Negative: Rash, Bruising Neurological: Negative All Other Systems Reviewed And Are Negative: Yes Physical Exam Triage Information Reviewed: Yes Vital Signs On Initial Exam: Initial Vitals Temp Pulse Resp BP Pulse Ox 97.8 F 75 22 175/125 98 03/21/19 12:34 03/21/19 12:34 03/21/19 12:34 03/21/19 12:34 03/21/19 12:34 Vital Signs Reviewed: Yes Appearance: Positive: Well-Appearing, Well-Nourished Skin: Positive: Warm, Skin Color Reflects Adequate Perfusion Head/Face: Positive: Normal Head/Face Inspection Eyes: Positive: EOMI, Conjunctiva Clear Neck: Positive: Supple, No Lymphadenopathy Respiratory/Lung Sounds: Positive: Clear to Auscultation, Breath Sounds Present Cardiovascular: Positive: Pulses are Symmetrical in both Upper and Lower Extremities Musculoskeletal: Positive: Pain @ - right wrist Neurological: Positive: Alert, Oriented to Person Place, Time, Speech Normal Psychiatric: Positive: Affect/Mood Appropriate Procedures - Sedation Patient Received Moderate/Deep Sedation with Procedure: No Diagnostics - Vital Signs Vital Signs Temp Pulse Resp BP Pulse Ox 03/21/19 12:34 97.8 F 75 22 175/125 98 - Laboratory Lab Statement: Any lab studies that have been ordered have been reviewed, and results considered in the medical decision making process. Course/Dx - Course Course Of Treatment: Patient is evaluated for right wrist injury. Patient is able to move his fingertips, however is endorsing pain with thumb opposition. Able to flex and extend at the wrist only somewhat. Flexion and extension at the right elbow and right shoulder without discomfort. No other pain throughout. Patient was given ibuprofen 600 mg. X-ray obtained which shows no acute fracture. Thumb spica splint placed. She will follow-up with orthopedics if symptoms do not improve in the next few days. - Diagnoses Differential Diagnosis/HQI/PQRI: Positive: Fracture (Closed), Strain, Sprain Provider Diagnoses: Right wrist sprain Discharge ED - Sign-Out/Discharge Documenting (check all that apply): Patient Departure - Discharge Plan Condition: Stable Disposition: HOME Patient Education Materials: Wrist Injury (ED) Referrals: Li Sales DO [Primary Care Provider] - Jeronimo Demarco MD [Medical Doctor] - Additional Instructions: Please follow up with orthopedics for any worsening symptoms Ice to the area 3-4 times daily Ibuprofen 600mg three times daily - Billing Disposition and Condition Condition: STABLE Disposition: Home
[2019-03-21 14:07] VITALS: BP 108/60
== END 2019-03-21 14:05 | disposition home or self-care (01) ==
LOC: ED 12:31
DX: S63.501A Unspecified sprain of right wrist, initial encounter (principal); W06.XXXA Fall from bed, initial encounter; Y92.003 Bedroom of unspecified non-institutional (private) residence as the place of occurrence of the external cause; M19.031 Primary osteoarthritis, right wrist; M85.831 Other specified disorders of bone density and structure, right forearm; E11.22 Type 2 diabetes mellitus with diabetic chronic kidney disease; N18.9 Chronic kidney disease, unspecified; Z79.84 Long term (current) use of oral hypoglycemic drugs; J44.9 Chronic obstructive pulmonary disease, unspecified; Z99.81 Dependence on supplemental oxygen; Z79.82 Long term (current) use of aspirin; Z88.1 Allergy status to other antibiotic agents; Z88.0 Allergy status to penicillin; Z88.2 Allergy status to sulfonamides; Z91.018 Allergy to other foods; F17.210 Nicotine dependence, cigarettes, uncomplicated
CPT/HCPCS: 99282; A9270-GY

== ENCOUNTER 2019-03-28 23:36 | Observation (INO) | payer MEDICARE, MEDICAID ==
[2019-03-28] MEDS ORDERED: Albuterol 0.5% CONC NEB.SOL* 5 MG/ML 20 ml BOT INH ONE (23:46)
[2019-03-28] MEDS ORDERED: methylPREDNISolone 125 MG* 2 ML VIAL IV ONE (23:46)
--- OUTSIDE RECORDS SUMMARY | 2019-03-29 00:01 | XMS REPORT ---
:1955 Author Organization [facility] Care Team Providers Name Role Phone Unavailable Unavailable Unavailable Problems Condition Condition Condition Status Onset Resolution Last Treating Comments Name Details Category Date Date Treatment Clinician Date Pain in Pain in Diagnosis Active Asha unspecified unspecified 03-12 [place] knee knee RN Osteoarthri Osteoarthri Diagnosis Active Asha tis of tis of 03-12 [place] knee, knee, RN unspecified unspecified Pain frequent Pain Mgmt Resolve 2019-03-25 Thalia pain d 03-23 13:15:00 [place] 09:35: [id number] Pain knowledge/s Pain Mgmt Resolve 2019-03-25 Thalia kill d 03-23 13:15:00 [place] deficit: pt 09:35: [id number] 00 Pain knowledge/s Pain Mgmt Resolve 2019-03-25 Thalia kill d 03-23 13:15:00 [place] deficit: cg 09:35: [id number] 00 Respiratory dyspnea Respirator Active 2019-0 Thalia present y 03-23 [place] 09:35: [id number] Respiratory oxygen Respirator Active 2019-0 Thalia treatments y 03-23 [place] in home 09:35: [id number] 00 Respiratory lung sounds Respirator Active 2020-0 Thalia deficit y 03-23 [place] 09:35: [id number] 00 Respiratory nebulizer Respirator Active 2020-0 Thalia treatment y 03-23 [place] in home 09:35: [id number] 00 Endo/Jimmy anti-coagul Endo/Jimmy Active 2019-0 Thalia ation 03-23 [place] therapy 09:35: [id number] 00 Endo/Jimmy diabetic Endo/Jimmy Active 2019-0 Thalia foot care 03-23 [place] 09:35: [id number] 00 Nutrition nutritional Nutrition Active 2019-0 Thalia restriction 03-23 [place] s 09:35: [id number] 00 Elimination urinary Eliminatio Active 2020-0 Thalia incontinenc n 03-23 [place] e 09:35: [id number] 00 Neuro confusion Neuro/Emot Active 2020-0 Thalia present ion 03-23 [place] 09:35: [id number] 00 Neuro anxiety Neuro/Emot Active 2020-0 Thalia present ion 03-23 [place] 09:35: [id number] 00 Neuro depressive Neuro/Emot Active 2020-0 Thalia feelings ion 03-23 [place] present 09:35: [id number] 00 Neuro impaired Neuro/Emot Active 2020-0 Thalia decision-ma ion 03-23 [place] bud 09:35: [id number] 00 Activity ADL Activity Active 2020-0 Thalia assistance 03-23 [place] required 09:35: [id number] 00 Activity knowledge/s Activity Active 2020-0 Thalia kill 03-23 [place] deficit: pt 09:35: [id number] 00 Activity self-care Activity Active 2020-0 Thalia deficit 03-23 [place] 09:35: [id number] 00 Safety fall risk Safety Active 2020-0 Thalia factor 03-23 [place] present 09:35: [id number] 00 Safety risk for Safety Active 2020-0 Thalia hospitaliza 03-23 [place] tion 09:35: [id number] 00 Safety can be left Safety Active 2020-0 Thalia alone for 03-23 [place] only short 09:35: [id number] periods 00 Safety knowledge/s Safety Active 2020-0 Thalia kill 03-23 [place] deficit: pt 09:35: [id number] 00 Medication oral med Meds Active 2020-0 Thalia assistance 03-23 [place] required 09:35: [id number] 00 Medication knowledge/s Meds Active 2020-0 Thalia kill 03-23 [place] deficit: pt 09:35: [id number] 00 Musculoskel transfer Musculoske Active 2020-0 Thalia etal assistance letmn 03-23 [place] required 09:35: [id number] 00 Musculoskel requires Musculoske Active 2020-0 Thalia etal human letal 03-23 [place] assist to 09:35: [id number] leave home 00 Bed knowledge/s PT/OT: Bed Active 2020-0 [place] Mobility/Tr kill Mobility/T 03-23 Jw, ansfer deficit: pt ransfer 15:00: PT 00 [id number] Gait/Locomo knowledge/s PT/OT: Active [place] tion kill Gait/Locom 2-11 Jw, problems deficit: pt otion 15:00: PT 00 [id number] Gait/Locomo knowledge/s PT/OT: Active [place] tion kill Gait/Locom 2-11 Jw, problems deficit: cg otion 15:00: PT 00 [id number] Gait/Locomo gait PT/OT: Active 2019-0 [place] tion deficit Gait/Locom 2-11 Jw, problems otion 15:00: PT 00 [id number] Allergies, Adverse Reactions, Alerts Allergy Name Allergy Status Severity Reaction(s) Onset Inactive Treating Comments Type Date Date Clinician Penicillins Allergen Active Unknown Reaction [place] Group Unknown 2-20 Joe Tetracycline Allergen Active Unknown Reaction 20190 [place] Group Unknown 2-20 Joe Sulfa Allergen Active Unknown Reaction 0 [place] (Sulfonamide Group Unknown 2-20 Joe Antibiotics) erythromycin Base Active Unknown Reaction 0 [place] base Ingredient Unknown 2-20 Joe cefazolin Base Active Unknown Reaction 20190 [place] Ingredient Unknown 2-20 Joe strawberry Base Active Unknown Reaction 20190 [place] Ingredient Unknown 2-20 Joe Medications Ordered Filled Start Stop Current Ordering Indication Dosage Frequency Signature Comments Components Medication Medication Date Date Medication? Clinician (SIG) Name Name Nicorelief Nicorelief 0 Yes [place] Unknown Unknown 4 mg gum 4 mg gum 2-11 D.O.,Jilli an D Lidoderm 5 Lidoderm 5 Yes [place] Unknown Unknown % topical % topical 2-11 D.O.,Jilli cream cream an D ibuprofen ibuprofen 0 Yes [place] Unknown Unknown 200 mg 200 mg 2-11 D.O.,Jilli tablet tablet an D furosemide furosemide 2019-0 Yes [place] Unknown Unknown 40 mg 40 mg 2-11 D.O.,Jilli tablet tablet an D FLUoxetine FLUoxetine 2019-0 Yes [place] Unknown Unknown 10 mg 10 mg 2-11 D.O.,Jilli capsule capsule an D Symbicort Symbicort 2019-0 Yes [place] Unknown Unknown 160 mcg-4.5 160 mcg-4.5 2-11 D.O.,Jilli mcg/actuati mcg/actuati an D on HFA on HFA aerosol aerosol inhaler inhaler Nicotrol 10 Nicotrol 10 2020-0 Yes [place] Unknown Unknown mg mg 2-11 D.O.,Miriam inhalation inhalation an D cartridge cartridge omeprazole omeprazole 2020-0 Yes [place] Unknown Unknown 40 mg 40 mg 2-11 D.O.,Miriam capsule,del capsule,del an D ayed ayed release release glipiZIDE 5 glipiZIDE 5 2020-0 Yes [place] Unknown Unknown mg tablet mg tablet 2-11 D.O.,Miriam an D Tylenol 325 Tylenol 325 2020-0 Yes [place] Unknown Unknown mg tablet mg tablet 2-11 D.O.,Miriam an D Aspirin Low Aspirin Low 2020-0 Yes [place] Unknown Unknown Dose 81 mg Dose 81 mg 2-11 D.O.,Miriam tablet,jadiel tablet,jadiel an D yed release yed release ondansetron ondansetron 2020-0 Yes [place] Unknown Unknown 4 mg 4 mg 2-11 D.O.,Miriam disintegrat disintegrat an D ing tablet ing tablet traMADol 50 traMADol 50 2020-0 Yes [place] Unknown Unknown mg tablet mg tablet 2-11 D.O.,Miriam an D Dulera 100 Dulera 100 2020-0 Yes [place] Unknown Unknown mcg-5 mcg-5 2-11 D.O.,Miriam mcg/actuati mcg/actuati an D on HFA on HFA aerosol aerosol inhaler inhaler oxyCODONE-a oxyCODONE-a 2020-0 Yes [place] Unknown Unknown cetaminophe cetaminophe 2-11 D.O.,Miriam n 5 mg-325 n 5 mg-325 an D mg tablet mg tablet HYDROcodone HYDROcodone 2020-0 Yes [place] Unknown Unknown 5 5 2-11 D.O.,Miriam mg-acetamin mg-acetamin an D ophen 325 ophen 325 mg tablet mg tablet Vital Signs Vital Name Observation Time Observation Value Comments SYSTOLIC mm[Hg] 2019-03-25 18:10:22 130 mm[Hg] mm[Hg] Method: Sit SYSTOLIC mm[Hg] 2019-03-23 18:10:20 120 mm[Hg] mm[Hg] Method: Stand DIASTOLIC mm[Hg] 2019-03-25 18:10:22 80 mm[Hg] mm[Hg] Method: Sit DIASTOLIC mm[Hg] 2019-03-23 18:10:20 82 mm[Hg] mm[Hg] Method: Stand PULSE 2019-03-25 18:10:22 73 /min /min RESP RATE 2019-03-25 18:10:22 18 /min /min TEMP 2019-03-25 18:10:22 98.1 [degF] Procedures This patient has no known procedures. Results This patient has no known results.
--- OUTSIDE RECORDS SUMMARY | 2019-03-29 00:01 | XMS REPORT ---
:1955 Author Organization [facility] Care Team Providers Name Role Phone Unavailable [...] Resolve 2019-03-25 Thalia pain d 03-23 13:15:00 [place] 09:35: [id number] Pain knowledge/s Pain Mgmt Resolve 2019-03-25 Thalia kill d 03-23 13:15:00 [place] deficit: pt 09:35: [id number] 00 Pain knowledge/s Pain Mgmt Resolve 2019-03-25 Thalia kill d 03-23 13:15:00 [place] deficit: cg 09:35: [id number] 00 Respiratory dyspnea Respirator Active 2019-0 Thalia present y 03-23 [place] 09:35: [id number] 00 Respiratory oxygen Respirator Active 2019-0 Thalia treatments y 03-23 [place] in home 09:35: [id number] 00 Respiratory lung sounds Respirator Active 2020-0 Th[place] deficit y 03-23 [place] 09:35: [id number] 00 Respiratory nebulizer Respirator Active 2020-0 Thalia treatment y 03-23 [place] in home 09:35: [id number] 00 Endo/Jimmy anti-coagul Endo/Jimmy Active 2019-0 Thalia ation 03-23 [place] therapy 09:35: [id number] 00 Endo/Jimmy diabetic Endo/Jimmy Active 2019-0 Thalia foot care 03-23 [place] 09:35: [id number] 00 Nutrition nutritional Nutrition Active 2019-0 Thalia restriction 03-23 [place] s 09:35: [id number] 00 Elimination urinary Eliminatio Active 2020-0 Thalia incontinenc n 03-23 [place] e 09:35: [id number] 00 Neuro confusion Neuro/Emot Active 2020-0 Thalia present ion 03-23 [place] 09:35: [id number] 00 Neuro anxiety Neuro/Emot Active 2020-0 Thalia present ion 03-23 [place] 09:35: [id number] 00 Neuro depressive Neuro/Emot Active 2020-0 Thalia feelings ion 03-23 [place] present 09:35: [id number] 00 Neuro impaired Neuro/Emot Active 2020-0 Thalia decision-ma ion 03-23 [place] bud 09:35: [id number] 00 Activity ADL Activity Active 2020-0 Thalia assistance 03-23 [place] required 09:35: [id number] 00 Activity knowledge/s Activity Active 2020-0 Thalia kill 03-23 [place] deficit: pt 09:35: [id number] 00 Activity self-care Activity Active 2020-0 Thalia deficit 03-23 [place] 09:35: [id number] 00 Safety fall risk Safety Active 2020-0 Thalia factor 03-23 [place] present 09:35: [id number] 00 Safety risk for Safety Active 2020-0 Thalia hospitaliza 03-23 [place] tion 09:35: [id number] 00 Safety can be left Safety Active 2020-0 Thalia alone for 03-23 [place] only short 09:35: [id number] periods 00 Safety knowledge/s Safety Active 2020-0 Thalia kill 03-23 [place] deficit: pt 09:35: [id number] 00 Medication oral med Meds Active 2020-0 Thalia assistance 03-23 [place] required 09:35: [id number] 00 Medication knowledge/s Meds Active 2020-0 Thalia kill 03-23 [place] deficit: pt 09:35: [id number] 00 Musculoskel transfer Musculoske Active 2020-0 Thalia etal assistance letct 03-23 [place] required 09:35: [id number] 00 Musculoskel requires Musculoske Active 2020-0 Thalia etal human letal 03-23 [place] assist to 09:35: [id number] leave home 00 Bed knowledge/s PT/OT: Bed Active 2020-0 [place] Mobility/Tr kill Mobility/T 03-23 Jw, ansfer deficit: pt ransfer 15:00: PT 00 [id number] Gait/Locomo knowledge/s PT/OT: Active [place] tion kill Gait/Locom 2-11 Jw, problems deficit: pt otion 15:00: PT 00 [id number] Gait/Locomo knowledge/s PT/OT: Active [place] tion kill Gait/Locom 2-11 Jw, problems deficit: cg otion 15:00: PT 00 [id number] Gait/Locomo gait PT/OT: Active 2019-0 [place] t[place] deficit Gait/Locom 2-11 Jw, problems otion 15:00: PT 00 [id number] Allergies, Adverse Reactions, Alerts Allergy Name Allergy Status Severity Reaction(s) Onset Inactive Treating Comments Type Date Date Clinician Penicillins Allergen Active Unknown Reaction [place] Group Unknown 2-20 Joe Tetracycline Allergen Active Unknown Reaction 20190 [place] s Group Unknown 2-20 Joe Sulfa Allergen Active Unknown Reaction 0 [place] (Sulfonamide Group Unknown 2-20 Joe Antibiotics) erythromycin Base Active Unknown Reaction 0 [place] base Ingredient Unknown 2-20 Joe cefazolin Base Active Unknown Reaction 20190 [place] Ingredient Unknown 2-20 Joe strawberry Base Active Unknown Reaction 20190 [place] Ingredient Unknown 2-20 Joe Medications Ordered Filled [...]
--- OUTSIDE RECORDS SUMMARY | 2019-03-29 00:01 | XMS REPORT ---
:1955 Author Organization [facility] Care Team Providers Name Role Phone Unavailable Unavailable Unavailable Problems Condition Condition Condition Status Onset Resolution Last Treating Comments Name Details Category Date Date Treatment Clinician Date Pain in Pain in Diagnosis Active 2019-0 Ashli unspecified unspecified 03-12 [place] knee knee Osteoarthri Osteoarthri Diagnosis Active 2019-0 Ashli tis of tis of 03-12 [place] knee, knee, unspecified unspecified Pain frequent Pain Mgmt Active 2020-0 Thalia pain 03-23 [place] 09:35: [id number] Pain knowledge/s Pain Mgmt Active 2020-0 Thalia kill 03-23 [place] deficit: pt 09:35: [id number] 00 Pain knowledge/s Pain Mgmt Active 2020-0 Thalia kill 03-23 [place] deficit: cg 09:35: [id number] 00 Respiratory dyspnea Respirator Active 2020-0 Thalia present y 03-23 [place] 09:35: [id number] 00 Respiratory oxygen Respirator Active 2020-0 Thalia treatments y 03-23 [place] in home 09:35: [id number] 00 Respiratory lung sounds Respirator Active 2020-0 Thalia deficit y 03-23 [place] 09:35: [id number] 00 Respiratory nebulizer Respirator Active 2020-0 Thalia treatment y 03-23 [place] in home 09:35: [id number] 00 Endo/Jimmy anti-coagul Endo/Jimmy Active 2020-0 Thalia ation 03-23 [place] therapy 09:35: [id number] 00 Endo/Jimmy diabetic Endo/Jimmy Active 2020-0 Thalia foot care 03-23 [place] 09:35: [id number] 00 Nutrition nutritional Nutrition Active 2020-0 Thalia restriction 03-23 [place] s 09:35: [id number] 00 Elimination urinary Eliminatio Active 2020-0 Thalia incontinenc n 03-23 [place] e 09:35: [id number] 00 Neuro confusion Neuro/Emot Active 2020-0 Thalia present ion 03-23 [place] 09:35: [id number] 00 Neuro anxiety Neuro/Emot Active 2020-0 Thalia present ion 03-23 [place] 09:35: [id number] 00 Neuro depressive Neuro/Emot Active 2020-0 Thalia feelings ion 03-23 [place] present 09:35: [id number] 00 Neuro impaired Neuro/Emot Active 2020-0 Thalia decision-ma ion 03-23 [place] bud 09:35: [id number] 00 Activity ADL Activity Active 2020-0 Thalia assistance 03-23 [place] required 09:35: [id number] 00 Activity knowledge/s Activity Active 2020-0 Thalia kill 03-23 [place] deficit: pt 09:35: [id number] 00 Activity self-care Activity Active 2020-0 Thalia deficit 03-23 [place] 09:35: [id number] 00 Safety fall risk Safety Active 2020-0 Thalia factor 03-23 [place] present 09:35: [id number] 00 Safety risk for Safety Active 2020-0 Thalia hospitaliza 03-23 [place] tion 09:35: [id number] 00 Safety can be left Safety Active 2020-0 Thalia alone for 03-23 [place] only short 09:35: [id number] periods 00 Safety knowledge/s Safety Active 2020-0 Thalia kill 03-23 [place] deficit: pt 09:35: [id number] 00 Medication oral med Meds Active 2020-0 Thalia assistance 03-23 [place] required 09:35: [id number] 00 Medication knowledge/s Meds Active 2020-0 Thalia kill 03-23 [place] deficit: pt 09:35: [id number] 00 Musculoskel transfer Musculoske Active 2020-0 Thalia etal assistance letms 03-23 [place] required 09:35: [id number] 00 Musculoskel requires Musculoske Active 2020-0 Thalia etal human letal 03-23 [place] assist to 09:35: [id number] leave home 00 Bed knowledge/s PT/OT: Bed Active 2020-0 [place] Mobility/Tr kill Mobility/T 03-23 [place] deficit: pt gilmar 15:00: PT 00 [id number] Gait/Locomo knowledge/s PT/OT: Active 2020-0 [place] tion kill Gait/Locom 2-11 Jw, problems deficit: pt otion 15:00: PT 00 [id number] Gait/Locomo knowledge/s PT/OT: Active [place] tion kill Gait/Locom 2-11 Jw, problems deficit: cg otion 15:00: PT 00 [id number] Gait/Locomo gait PT/OT: Active [place] tion deficit Gait/Locom 2-11 Jw, problems otion 15:00: PT 00 [id number] Allergies, Adverse Reactions, Alerts Allergy Name Allergy Status Severity Reaction(s) Onset Inactive Treating Comments Type Date Date Clinician Penicillins Allergen Active Unknown Reaction [place] Group Unknown 2-20 Joe Tetracycline Allergen Active Unknown Reaction [place] s Group Unknown 2-20 Joe Sulfa Allergen Active Unknown Reaction [place] (Sulfonamide Group Unknown 2-20 Joe Antibiotics) erythromycin Base Active Unknown Reaction [place] base Ingredient Unknown 2-20 Joe cefazolin Base Active Unknown Reaction [place] Ingredient Unknown 2-20 Joe strawberry Base Active Unknown Reaction [place] Ingredient Unknown 2-20 Joe Medications Ordered Filled [...] D.O.,Jilli tablet tablet an D furosemide furosemide 0 Yes Senner Unknown Unknown 40 mg 40 mg 2-11 D.O.,Jilli tablet tablet an D FLUoxetine FLUoxetine 2019-0 Yes Senner Unknown Unknown 10 mg 10 mg 2-11 D.O.,Jilli capsule capsule an D Symbicort Symbicort 0 Yes [place]ner Unknown Unknown 160 mcg-4.5 160 mcg-4.5 2-11 D.O.,Jilli mcg/actuati mcg/actuati an D on HFA on HFA aerosol aerosol inhaler inhaler Nicotrol 10 Nicotrol 10 2019-0 Yes Senner Unknown Unknown mg mg 2-11 [...] D yed release yed release ondansetron ondansetron 2019-0 Yes Senner Unknown Unknown 4 mg 4 mg 2-11 D.O.,Miriam disintegrat disintegrat an D ing tablet ing tablet traMADol 50 traMADol 50 2020-0 Yes Senner Unknown Unknown mg tablet mg tablet 2-11 D.O.,Miriam an D Dulera 100 Dulera 100 2020-0 Yes Senner Unknown Unknown mcg-5 mcg-5 2-11 D.O.,Miriam mcg/actuati mcg/actuati an D on HFA on HFA aerosol aerosol inhaler inhaler oxyCODONE-a oxyCODONE-a 2019-0 Yes [place]ner Unknown Unknown cetaminophe cetaminophe 2-11 D.O.,Miriam n 5 mg-325 n 5 mg-325 an D mg tablet mg tablet HYDROcodone HYDROcodone 2019-0 Yes Senner Unknown Unknown 5 5 2-11 D.O.,Miriam mg-acetamin mg-acetamin an D ophen 325 ophen 325 mg tablet mg tablet Vital Signs Vital Name Observation Time Observation Value Comments SYSTOLIC mm[Hg] 2019-03-24 18:10:21 118 mm[Hg] mm[Hg] Method: Sit SYSTOLIC mm[Hg] 2019-03-23 18:10:20 120 mm[Hg] mm[Hg] Method: Stand DIASTOLIC mm[Hg] 2019-03-24 18:10:21 72 mm[Hg] mm[Hg] Method: Sit DIASTOLIC mm[Hg] 2019-03-23 18:10:20 82 mm[Hg] mm[Hg] Method: Stand PULSE 2019-03-24 18:10:21 78 /min /min RESP RATE 2019-03-24 18:10:21 22 /min /min TEMP 2019-03-24 18:10:21 97.6 [degF] Procedures This patient has no known procedures. Results This patient has no known results.
--- OUTSIDE RECORDS SUMMARY | 2019-03-29 00:01 | XMS REPORT ---
:1955 Author Organization [facility] Care Team Providers Name Role Phone Unavailable [...] Pain Mgmt Active 2020-0 Thalia pain 03-23 [place] 09:35: [id number] Pain knowledge/s Pain Mgmt Active 2020-0 Thalia kill 03-23 [place] deficit: pt 09:35: [id number] 00 Pain knowledge/s Pain Mgmt Active 2020-0 [place]alia kill 03-23 [place] deficit: cg 09:35: [id number] 00 Respiratory dyspnea Respirator Active 2020-0 Thalia present y 03-23 [place] 09:35: [id number] 00 Respiratory oxygen Respirator Active 2020-0 Thalia treatments y 03-23 [place] in home 09:35: [id number] 00 Respiratory lung sounds Respirator Active 2020-0 Th[place] deficit y 03-23 [place] 09:35: [id number] 00 Respiratory nebulizer Respirator Active 2020-0 Thalia treatment y 03-23 [place] in home 09:35: [id number] 00 Endo/Jimmy anti-coagul Endo/Jimmy Active 2020-0 Thalia ation 03-23 [place] therapy 09:35: [id number] 00 Endo/Jimmy diabetic Endo/Jimmy Active 2020-0 Thalia foot care 03-23 [place] 09:35: [id number] 00 Nutrition nutritional Nutrition Active 2020-0 Thalia restriction 03-23 [place] s 09:35: [id number] 00 Elimination urinary Eliminatio Active 2020-0 Thalia incontinenc n 03-23 [place] e 09:35: [id number] 00 Neuro confusion Neuro/Emot Active 2020-0 Thalia present ion [address] 09:35: [id number] 00 Neuro anxiety Neuro/Emot Active 2020-0 Thalia present ion [place] 09:35: [id number] 00 Neuro depressive Neuro/Emot Active 2020-0 Thalia feelings ion 03-23 [place] present 09:35: [id number] 00 Neuro impaired Neuro/Emot Active 2020-0 Thalia decision-ma ion 03-23 [place] bud 09:35: [id number] 00 Activity ADL Activity Active 2020-0 Thalia assistance 03-23 [place] required 09:35: [id number] 00 Activity knowledge/s Activity Active 2020-0 Thalia kill May deficit: pt 09:35: [id number] 00 Activity self-care Activity Active 2020-0 Thalia deficit 03-23 [place] 09:35: [id number] 00 Safety fall risk Safety Active 2020-0 Thalia factor 03-23 [place] present 09:35: [id number] 00 Safety risk for Safety Active 2020-0 Thalia hospitaliza 03-23 [place] tion 09:35: [id number] 00 Safety can be left Safety Active 2020-0 Thalia alone for 03-23 [place] only short 09:35: [id number] periods 00 Safety knowledge/s Safety Active 2020-0 Thalia kill 03-23 [place] deficit: pt 09:35: [id number] 00 Medication oral med Meds Active 2020-0 Thalia assistance [address] [place] [address] required 09:35: [id number] 00 Medication knowledge/s Meds Active 2020-0 Thalia kill 03-23 [place] deficit: pt 09:35: [id number] 00 Musculoskel transfer Musculoske Active 2020-0 Thalia etal assistance letal 03-23 [place] required 09:35: [id number] 00 Musculoskel requires Musculoske Active 2020-0 Thalia etal human letal 03-23 [place] assist to 09:35: [id number] leave home 00 Allergies, Adverse Reactions, Alerts Allergy Name Allergy Status Severity Reaction(s) Onset Inactive Treating Comments Type Date Date Clinician Penicillins Allergen Active Unknown Reaction 2019- [place] Group Unknown 2-20 Joe Tetracycline Allergen Active Unknown Reaction 2019-0 [place] s Group Unknown 2-20 Joe Sulfa Allergen Active Unknown Reaction [place] (Sulfonamide Group Unknown 2-20 Joe Antibiotics) erythromycin Base Active Unknown Reaction [place] base Ingredient Unknown 2-20 Joe cefazolin Base Active Unknown Reaction [place] Ingredient Unknown 2-20 Joe strawberry Base Active Unknown Reaction [place] Ingredient Unknown 2-20 Joe Medications Ordered Filled Start Stop Current Ordering Indication Dosage Frequency Signature Comments Components Medication Medication Date Date Medication? Clinician (SIG) Name Name No Known No Known No None None None Medications Medications For This For This Patient Patient Vital Signs Vital Name Observation Time Observation Value Comments SYSTOLIC mm[Hg] 2019-03-23 18:10:20 128 mm[Hg] mm[Hg] Method: Sit SYSTOLIC mm[Hg] 2019-03-23 18:10:20 120 mm[Hg] mm[Hg] Method: Stand DIASTOLIC mm[Hg] 2019-03-23 18:10:20 88 mm[Hg] mm[Hg] Method: Sit DIASTOLIC mm[Hg] 2019-03-23 18:10:20 82 mm[Hg] mm[Hg] Method: Stand PULSE 2019-03-23 18:10:20 80 /min /min RESP RATE 2019-03-23 18:10:20 16 /min /min TEMP 2019-03-23 18:10:20 98.3 [degF] Procedures This patient has no known procedures. Results This patient has no known results.
--- OUTSIDE RECORDS SUMMARY | 2019-03-29 00:01 | XMS REPORT ---
:1955 Author Organization [facility] Care Team Providers Name Role Phone Unavailable [...] Clinician Penicillins Allergen Active Unknown Reaction 2019-0 [place] Group Unknown 2-20 Joe Tetracycline Allergen Active Unknown Reaction 2019-0 [place] s Group Unknown 2-20 Joe Sulfa Allergen Active Unknown Reaction 2019-0 [place] (Sulfonamide Group Unknown 2-20 Joe Antibiotics) erythromycin Base Active Unknown Reaction 2019-0 [place] base Ingredient Unknown 2-20 Joe cefazolin Base Active Unknown Reaction 2019-0 [place] Ingredient Unknown 2-20 Joe strawberry Base Active Unknown Reaction 2019-0 [place] Ingredient Unknown 2-20 Joe Medications Ordered Filled Start Stop Current Ordering Indication Dosage Frequency Signature Comments Components Medication Medication Date Date Medication? Clinician (SIG) Name Name No Known No Known No None None None Medications Medications For This For This Patient Patient Procedures This patient has no known procedures. Results This patient has no known results.
--- NOTE | 2019-03-29 00:12 | ED ---
Shortness of Breath - HPI Summary HPI Summary: This pt is a 63 Y/O F presenting to [facility] with a CC of SOB that has been present since 03/26/2019. She states that she started producing thick yellow sputum with CP that was related to the coughing and is rated a 6/10 in severity. She states that she had a fever with a max temperature of 102 F. She states that she has been having aggravating symptoms when she lies flat. She states that she also has been having episodes of N/V and has been unable to keep any food or liquid down since tonight. She states that she has no alleviating symptoms and that her at home medications for asthma are not helping. She has a PMHx of asthma, COPD, and DM. - History of Current Complaint Chief Complaint: EDShortnessOfBreath Time Seen by Provider: 03/28/19 23:41 Hx Obtained From: Patient Onset/Duration: Sudden Onset, Lasting Days, Still Present, Worse Since - tonight Timing: Constant Current Severity: Moderate Dyspnea At: Rest Aggravating Factors: Recumbent Position Alleviating Factors: Nothing Associated Signs & Symptoms: Cough (Productive), Wheezing, Chest Pain w/Cough, Fever - F Related History: Obesity - Allergy/Home Medications Allergies/Adverse Reactions: Allergies Allergy/AdvReac Type Severity Reaction Status Date / Time Penicillins Allergy Severe Anaphylatic Verified 03/21/19 12:37 Shock strawberry Allergy Intermediate Swelling Verified 03/21/19 12:37 Of Face,Lips,& Throat cefazolin Allergy Mild Rash And Verified 03/21/19 12:37 Itching erythromycin base Allergy Mild Rash Verified 03/21/19 12:37 [From Erythrocin] Sulfa (Sulfonamide Allergy Mild Rash Verified 03/21/19 12:37 Antibiotics) Tetracyclines Allergy Mild Hives Verified 03/21/19 12:37 PMH/Surg Hx/FS Hx/Imm Hx Previously Healthy: Yes Endocrine/Hematology History: Reports: Hx Diabetes, Hx Anemia Denies: Hx Anticoagulant Therapy, Hx Systemic Lupus Erythematosus, Hx Thyroid Disease, Hx Unexplained Bleeding Cardiovascular History: Reports: Hx Angina, Hx Hypercholesterolemia, Hx Hypotension, Hx Hypertension, Hx Syncope, Other Cardiovascular Problems/ Disorders - bilateral carotid stenosis,aortic blockage Denies: Hx Aneurysm, Hx Angioplasty, Hx Auto Implanted Cardiovert Defib, Hx Cardiac Arrest, Hx Cardiomegaly, Hx Congenital Heart Disease, Hx Congestive Heart Failure, Hx Coronary Artery Disease, Hx Deep Vein Thrombosis, Hx Embolism , Hx Myocardial Infarction, Hx Pacemaker/ICD, Hx Peripheral Vascular Disease, Hx Rheumatic Fever, Hx Valvular Heart Disease Respiratory History: Reports: Hx Asthma, Hx Chronic Obstructive Pulmonary Disease (COPD) - 2lpm at home, Hx Pneumonia, Hx Pulmonary Edema, Hx Seasonal Allergies, Hx Sleep Apnea - sleeps with 2L O2 at home PRN, Other Respiratory Problems/Disorders - PNA Denies: Hx Chronic Bronchitis, Hx Cystic Fibrosis, Hx Lung Cancer, Hx Pleural Effusion, Hx Pulmonary Embolism GI History: Reports: Hx Gastroesophageal Reflux Disease, Hx Ulcer - distant past Denies: Hx Cirrhosis, Hx Crohn's Disease, Hx Diverticulosis History: Reports: Hx Acute Renal Failure, Hx Renal Disease Denies: Hx Dialysis Musculoskeletal History: Reports: Hx Arthritis - bilateral knees, left shoulder , Hx Back Problems - herniated disks, Hx Bursitis, Other Musculoskeletal History - HERNIATED DISC Denies: Hx Rheumatoid Arthritis Sensory History: Reports: Hx Contacts or Glasses, Hx Vision Problem Denies: Hx Cataracts Opthamlomology History: Reports: Hx Contacts or Glasses, Hx Vision Problem Denies: Hx Cataracts Neurological History: Reports: Hx Headaches, Hx Transient Ischemic Attacks (TIA) Denies: Hx Dementia, Hx Developmental Delay, Hx Migraine, Hx Nerve Disease, Hx Seizures, Hx Spinal Cord Injury Psychiatric History: Reports: Hx Anxiety, Hx Depression, Hx Panic Disorder - SEVERE, Hx Inpatient Treatment, Hx Suicide Attempt - attempted to harm self 5 years ago, Hx Substance Abuse - as a kid, Other Psychiatric Issues/Disorders - claustrophobia Denies: Hx Eating Disorder, Hx of Violent Episodes Against Others - Cancer History Cancer Type, Location and Year: Colon cancer - IN REMISSION Hx Chemotherapy: No Hx Radiation Therapy: No - Surgical History Surgical History: Yes Surgery Procedure, Year, and Place: LAPROSCOPIC REMOVAL OF FALLOPIAN TUBE AND OVARY,. HEART CATH FOR CLOT RETREVAL (UNSUCCESSFUL, NO STENTS PLACED),. COLONOSCOPIES WITH POLYPS REMOVED,. LEG FOR FBs AFTER ACCIDENT (ERWIN IN LEG TO CLOSE),. I&D OF LEG (MULTIPLE) FROM SPIDER BITE,. ERCP - August 28. Cholecystectomy September 2018 Hx Anesthesia Reactions: No - Immunization History Date of Tetanus Vaccine: unknown Date of Influenza Vaccine: 2014 Immunizations Up to Date: Yes Infectious Disease History: No Infectious Disease History: Denies: Hx Clostridium Difficile, Hx Hepatitis, Hx Human Immunodeficiency Virus (HIV), Hx of Known/Suspected MRSA, Hx Shingles, Hx Tuberculosis, Hx Known/ Suspected VRE, Hx Known/Suspected VRSA, History Other Infectious Disease, Traveled Outside the [place] in Last 30 Days - Family History Known Family History: Positive: Cardiac Disease - [place] - father. , Diabetes, Other - Cancer Family History: Colon CA - father - Social History Occupation: Retired Lives: Alone Alcohol Use: None Hx Substance Use: No Substance Use Type: Reports: None Hx Tobacco Use: Yes - start 1970 Smoking Status (MU): Light Every Day Tobacco Smoker Type: Cigarettes Amount Used/How Often: 1 pack to 1 and a half a day Length of Time of Smoking/Using Tobacco: 40yrs Have You Smoked in the Last Year: Yes Review of Systems Positive: Fever - F Positive: Chest Pain Positive: Shortness Of Breath, Cough - yellow thick sputum Positive: Vomiting, Nausea All Other Systems Reviewed And Are Negative: Yes Physical Exam - Summary Physical Exam Summary: Constitutional: Well-developed, Obese women on stretcher in no distress, alert Skin: Warm, Dry HENT: Normocephalic; Atraumatic Eyes: Conjunctiva normal Neck: Musculoskeletal ROM normal neck. (-) JVD, (-) Stridor, (-) Tracheal deviation Cardio: Rhythm regular, rate normal, Heart sounds normal; Intact distal pulses; The pedal pulses are 2+ and symmetric. Radial pulses are 2+ and symmetric. (-) Murmur Pulmonary/Chest wall: diffuse expiratory wheezes with reserved aeration, (-) Rales Abd: Soft, (-) tenderness, (-) Distension, (-) Guarding, (-) Rebound Musculoskeletal: (-) Edema Lymph: (-) Cervical adenopathy Neuro: Alert, Oriented x3 Psych: Mood and affect Normal Triage Information Reviewed: Yes Vital Signs On Initial Exam: Initial Vitals Temp Pulse Resp BP Pulse Ox 100.9 F 80 20 121/60 93 03/28/19 23:38 03/28/19 23:38 03/28/19 23:38 03/28/19 23:38 03/28/19 23:38 Vital Signs Reviewed: Yes Procedures - Sedation Patient Received Moderate/Deep Sedation with Procedure: No Diagnostics - Vital Signs Vital Signs Temp Pulse Resp BP Pulse Ox 03/28/19 23:38 100.9 F 80 20 121/60 93 - Laboratory Result Diagrams: 03/29/19 00:18 03/29/19 00:18 Lab Statement: Any lab studies that have been ordered have been reviewed, and results considered in the medical decision making process. - Radiology CXR Radiology Interpretation Completed By: ED Physician Summary of Radiographic Findings: No infiltrate. No pleural effusion. Pending offical review. Course/Dx - Course Course Of Treatment: This pt is a 63 Y/O F presenting to [facility] with a CC of SOB that has been present since 03/26/2019. She states that she started producing thick yellow sputum with CP that was related to the coughing and is rated a 6/ 10 in severity. She states that she had a fever with a max temperature of 102 F. She states that she has been having aggravating symptoms when she lies flat. She states that she also has been having episodes of N/V and has been unable to keep any food or liquid down since tonight. Her PE found diffuse expiratory wheezes with reserved aeration. CXR: No infiltrate. No pleural effusion. Her Lactic Acid is a 2.4 and she is positive for Influenza A. She will be admitted to [facility] for further work-ups given her Dx of Influenza and COPD exacerbation. - Diagnoses Provider Diagnoses: Influenza A, COPD exacerbation - Physician Notifications Discussed Care of Patient With: George Bishop Time Discussed With Above Provider: 01:16 Instructed by Provider To: Admit As Inpatient Admit/Transition Orders Completed By ED Provider: Yes Discharge ED - Sign-Out/Discharge Documenting (check all that apply): Patient Departure - admitted - Discharge Plan Condition: Stable Disposition: ADMITTED TO [facility] - Billing Disposition and Condition Condition: STABLE Disposition: Admitted to [facility] - Attestation Statements Document Initiated by Scribe: Yes Documenting Scribe: Jeremy Olmos Provider For Whom Tank is Documenting (Include Credential): Antony Newton MD Scribe Attestation: Jeremy Ramirez, soilaed for Antony Newton MD on 03/29/19 at 1922. Scribe Documentation Reviewed: Yes Provider Attestation: The documentation as recorded by the Jeremy reyes accurately reflects the service I personally performed and the decisions made by me, Antony Newton MD Status of Scribe Document: Viewed
[2019-03-29 00:33] LABS: ABS Basophils 0.1 10^3/ul (0-0.2); ABS Lymphocytes 1.8 10^3/ul (1.0-4.8); ABS Monocytes 0.7 10^3/ul (0-0.8); ABS Neutrophils 5.7 10^3/ul (1.5-7.7); Eosinophil % 0.5 %; Hematocrit 32 % (35-47); Hemoglobin 10.4 g/dL (12.0-16.0); Lymphocyte % 21.8 %; Mean Corpuscular HGB Conc 33 g/dL (31-36); Mean Corpuscular Hemoglobin 26 pg (27-31); Mean Corpuscular Volume 79 fL (80-97); Mean Platelet Volume 10.3 fL (7.4-10.4); Platelet Count 195 10^3/uL (150-450); Red Blood Count 4.04 10^6 /uL (3.70-4.87); Red Cell Distribution Width 17 % (10-15); White Blood Count 8.4 10^3/uL (3.5-10.8)
[2019-03-29 00:39] LABS: INR 1.05 (0.82-1.09)
[2019-03-29 00:51] LABS: Troponin I 0.01 ng/mL (<0.03)
[2019-03-29 00:57] LABS: Albumin 3.5 g/dL (3.2-5.2); Potassium 4.2 mmol/L (3.5-5.0); Total Bilirubin 0.4 mg/dL (0.2-1.0)
[2019-03-29 01:00] LABS: Influenza A Molecular POSITIVE (Negative)
[2019-03-29 01:03] LABS: Albumin/Globulin Ratio 1.3 (1-3); BUN/Creatinine Ratio 16.9 (8-20); EGFR African American 84.6 (>60); EGFR Non-African American 69.9 (>60); Globulin 2.8 g/dL (2-4); Total Protein 6.3 g/dL (6.4-8.9)
[2019-03-29] MEDS ORDERED: Oseltamivir CAP* 75 MG CAP PO ONE (01:15)
[2019-03-29] MEDS ORDERED: Acetaminophen TAB* 325 MG PO ONE (01:21)
[2019-03-29] MEDS ORDERED: Ondansetron INJ* 2 MG/ML VIAL IV ONE (01:51)
[2019-03-29] MEDS ORDERED: Albuterol HFA INHALER* 8 gm MDI INH PRN (02:49)
[2019-03-29] MEDS ORDERED: NS 0.9% 1000 ML** 1,000 ML IV ONE ×2 (02:50→10:30)
[2019-03-29] MEDS ORDERED: Dextrose 50% Syringe 50 ML* 25 GM/50 ML SYRINGE IV PUSH PRN (05:26)
[2019-03-29] MEDS ORDERED: Ondansetron INJ* 2 MG/ML VIAL IV PRN (05:31)
[2019-03-29] MEDS: Enoxaparin(*) 40 MG/0.4 ML SYR SUBCUT SCH (06:45)
--- NOTE | 2019-03-29 07:55 | PN ---
Subjective Date of Service: 03/29/19 Interval History: HD 1 on 03/29 63 F with PMH significant for oxygen-dependent COPD, T2DM, HTN, SOULEYMANE presented with productive cough associated with SOB and fever. FOund to have Influenza A and acute exacerbation of COPD with hyperlactemia. On tamiflu, inhalers and steroid burst. Vitals: stable; ON 2l OF OXYGEN Patient seen and examined at bedside. Patient says she is having productive cough for 5 days associated with SOB and fever. Also had nausea and vomiting. She says she uses oxygen at home-2L. she has chronic leg edema and uses lasix for that. She feels tired. HAs history of SOULEYMANE but does not use CPAP. Counselled on importance of CPAP but patient not willing to use it; had used it in the past. Objective Active Medications: Acetaminophen (Tylenol Tab*) 650 mg PO Q6H PRN PRN Reason: PAIN - MILD Albuterol (Ventolin Hfa Inhaler*) 1 puff INH Q4H PRN PRN Reason: SOB/WHEEZING Aspirin (Aspirin Ec Tab*) 81 mg PO DAILY [facility] Dextrose (D50w Syringe 50 Ml*) 12.5 gm IV PUSH .FOR FS < 60 - SS PRN PRN Reason: FS < 60 Enoxaparin Sodium (Lovenox(*)) 40 mg SUBCUT Q24H [facility] Last Admin: 03/29/19 06:45 Dose: 40 mg Fluoxetine HCl (Prozac Cap*) 10 mg PO DAILY [facility] Glipizide (Glucotrol Tab*) 5 mg PO DAILY [facility] Insulin Human Lispro (Humalog*) 0 units SUBCUT ACHS [facility]; Protocol Mometasone Furoate/Formoterol Fumar (Dulera 200/5 Mdi*) 2 puff INH BID [facility] Ondansetron HCl (Zofran Inj*) 4 mg IV Q6H PRN PRN Reason: NAUSEA Oseltamivir Phosphate (Tamiflu Susp 75 Mg Dose*) 75 mg PO 0800,1600 [facility] Prednisone (Deltasone 20 Mg Tab) 40 mg PO DAILY [facility] Tiotropium Manito (Spiriva Respimat 2.5 Mcg) 2 puff INH DAILY [facility] Vital Signs - 8 hr 03/29/19 03/29/19 03/29/19 00:04 00:11 00:21 Temperature Pulse Rate 83 82 83 Respiratory 20 Rate Blood Pressure 128/81 (mmHg) O2 Sat by Pulse 94 92 100 Oximetry 03/29/19 03/29/19 03/29/19 01:00 01:27 01:28 Temperature 99.6 F Pulse Rate 81 93 Respiratory Rate Blood Pressure 124/67 (mmHg) O2 Sat by Pulse 97 90 Oximetry 03/29/19 03/29/19 03/29/19 02:01 02:37 02:45 Temperature Pulse Rate 87 68 81 Respiratory Rate Blood Pressure 90/53 144/95 (mmHg) O2 Sat by Pulse 83 92 92 Oximetry 03/29/19 03/29/19 03/29/19 03:01 03:25 03:34 Temperature 98.2 F Pulse Rate 71 89 Respiratory 18 20 Rate Blood Pressure 132/76 (mmHg) O2 Sat by Pulse 93 98 Oximetry Oxygen Devices in Use Now: Nasal Cannula Exam: General - NAD, sitting up in bed, Eyes - PERRLA, EOM intact HEENT- no abnormality Lymph Nodes - No lymphadenopathy Cardiovascular - RRR no m/r/g, no JVD, no carotid bruits Lungs - wheezing heard all over the lungs; no crackles Skin - No rashes, skin warm and dry, no erythematous areas Abdomen - Normal bowel sounds, abdomen soft and nontender. small papules all over the abdomen Extremities - scabing and excoriation on right anterior leg. Musculo Skeletal - 5/5 strength, normal range of motion, no swollen or erythematous joints. Neurological Alert and oriented x 3, CN 2-12 grossly intact. Result Diagrams: 03/29/19 00:18 03/29/19 00:18 Assess/Plan/Problems-Billing Assessment: 63 F with PMH significant for oxygen-dependent COPD, T2DM, HTN, SOULEYMANE presented with productive cough associated with SOB and fever. FOund to have Influenza A and acute exacerbation of COPD with elevated lactic acid. On tamiflu, inhalers and steroid burst. receiving IV fluid - Patient Problems (1) COPD exacerbation Current Visit: Yes Status: Acute Code(s): J44.1 - CHRONIC OBSTRUCTIVE PULMONARY DISEASE W (ACUTE) EXACERBATION SNOMED Code(s): 804714095 Comment: -has productive cough and shortness of breath; but no increased oxygen requirement. -uses 2 L of oxygen at home and is currently on same -Has diffuse wheeze all over the lungs. -received IV methylprednisone in ED; will do prednisone burst- 40 mg daily for total of 5 days-(day2 on 03/29) -continue duoneb, dulera and spiriva (2) Influenza A Current Visit: Yes Status: Acute Code(s): J10.1 - FLU DUE TO OTH IDENT INFLUENZA VIRUS W OTH RESP MANIFEST SNOMED Code(s): 551850316 Comment: -Denies sick contact -did not receive flu shot this year. -continue tamiflu for 5 days(started on 03/29) (3) Elevated lactic acid level Current Visit: Yes Status: Acute Code(s): R79.89 - OTHER SPECIFIED ABNORMAL FINDINGS OF BLOOD CHEMISTRY SNOMED Code(s): 5481386 Comment: -has elevated lactic acid. - Does not meet sepsis criteria- has fever but no leucocytosis, tachycardia and tachypnea. -She states that she was not eating and drinking well in last few days- could be from dehydration. -received fluid yesterday; giving fluid now; patient is also taking lasix 40 mg for chronic water retention- will need to balance lasix an dfluids- we will hold lasix fornow and give fluids gently. Echo is normal with EF of 55-60%. -will trend lactate (4) GERD (gastroesophageal reflux disease) Current Visit: No Status: Acute Code(s): K21.9 - GASTRO-ESOPHAGEAL REFLUX DISEASE WITHOUT ESOPHAGITIS SNOMED Code(s): 133606531 Comment: - Continue pantoprazole (5) Depression Current Visit: No Status: Chronic Code(s): F32.9 - MAJOR DEPRESSIVE DISORDER , SINGLE EPISODE, UNSPECIFIED SNOMED Code(s): 16356258 Comment: - Continue prozac (6) Diabetes mellitus Current Visit: No Status: Chronic Priority: High Onset Date: 12/17/14 Code(s): E11.9 - TYPE 2 DIABETES MELLITUS WITHOUT COMPLICATIONS SNOMED Code(s) : 63704840 Comment: - Hold glipizide - Continue Lispro SS -BG on higher side; A1C is 8.1 (7) Obesity, Class III, BMI 40-49.9 (morbid obesity) Current Visit: No Status: Chronic Priority: High Code(s): E66.01 - MORBID (SEVERE) OBESITY DUE TO EXCESS CALORIES SNOMED Code(s): 058856064 Comment: - BMI 48.6 -continue counselling (8) Sleep apnea Current Visit: No Status: Chronic Priority: High Code(s): G47.30 - SLEEP APNEA, UNSPECIFIED SNOMED Code(s): 68168490 Comment: - used to use CPAP machine before but is not using at present and she does not want to use it -gave option for following with sleep clinic- but patient does not want it. (9) DVT prophylaxis Current Visit: No Status: Acute Priority: High Code(s): UPX1110 - SNOMED Code(s): 868847154 Comment: - lovenox (10) Full code status Current Visit: No Status: Acute Code(s): Z78.9 - OTHER SPECIFIED HEALTH STATUS SNOMED Code(s): 031839742 Comment: Status and Disposition: Observation Attending: Huma Lee Attestation Documenting Resident: Timmy Blanc Supervising Physician: Huma Lee Attestation: This service has been performed in part by a resident under the direction of a teaching physician.I, Huma Lee, performed the service, or was physically present during the critical, or ness portions of the service, furnished by the resident. I participated in the management of the patient.
[2019-03-29] MEDS: Albuterol/Ipratropium NEB.SOL* Albuterol 2.5 MG/Ipratropium 0.5 MG 3 ML INH PRN (08:24)
[2019-03-29] MEDS: Mometasone/Formoter 200/5 MDI INH SCH ×2 (08:28→19:21)
[2019-03-29] MEDS: SPIRIVA Respimat* (tiotropium) 2.5 mcg/inh Inhaler INH SCH (08:28)
[2019-03-29] MEDS: Acetaminophen TAB* 325 MG PO PRN ×4 (08:57→20:58)
[2019-03-29] MEDS: Aspirin EC TAB* 81 MG TAB.EC PO SCH (08:57)
[2019-03-29] MEDS: FLUoxetine CAP* 10 MG PO SCH (08:57)
[2019-03-29] MEDS: Insulin LISPRO* 1 UNITS UNIT SUBCUT SCH ×4 (08:58→20:57)
[2019-03-29] MEDS ORDERED: Furosemide TAB* 40 MG PO SCH (09:00)
[2019-03-29] MEDS ORDERED: glipiZIDE TAB* 5 MG PO SCH (09:00)
--- NOTE | 2019-03-29 11:17 | HP ---
HISTORY AND PHYSICAL: DATE OF ADMISSION: 03/29/19 ADMITTING PROVIDER: George Bishop MD. PRIMARY CARE PROVIDER: Dr. Li Sales. CHIEF COMPLAINT: Shortness of breath, fevers, vomiting, headache, muscle aches. HISTORY OF PRESENT ILLNESS: Bennie Coughlin is a 63-year-old female with past medical history of COPD with current smoking and chronic hypoxic respiratory failure, on 2 L nasal cannula; noninsulin-dependent diabetes mellitus; obstructive sleep apnea; hypertension; coronary artery disease; GERD; depression ; colon cancer; ectopic . Three days prior to admission, she developed decreased appetite, shortness of breath, low-grade fevers which seemed to be progressively increasing to the 101 to 102 range. She had headaches, nausea, frequent vomiting, muscle aches. She denied sick contacts. She did recently move to [place] on 02/16/19 (she loves it!). She is down to smoking 2 cigarettes a day. She did not get a flu shot this year. She fell 2 weeks ago and also 2 days ago. She has been having cough productive of yellow greenish sputum. She has had some wheezing. She presented to the [facility] Emergency Room and initial workup was significant for influenza A positive, lactic acidosis of 2.4, fever 100.9, and significant wheezing on exam. She got Solu-Medrol 125 mg and Tamiflu and was referred to the hospitalist service for influenza with suspected COPD exacerbation component. Chest x-ray was within normal limits, formal read pending. She has not eaten for 1 to 2 days because of significant nausea and vomiting. Notably she says that she takes both Dulera and Symbicort and has not been able to get her albuterol due to insurance issues on Medicaid. Still waiting also on some test strips. She initially had a CPAP machine, but that had to be left behind given her house had bed bugs when she moved to [place]. PAST MEDICAL HISTORY: 1. Chronic obstructive pulmonary disease with current hypoxic respiratory failure, on 2 L of O2. 2. Noninsulin-dependent diabetes mellitus. 3. Obstructive sleep apnea. 4. Hypertension. 5. CAD. 6. Depression. 7. Colon cancer. PAST SURGICAL HISTORY: Includes recent cholecystectomy on 09/14/18. MEDICATIONS: Include: 1. Glipizide 5 mg p.o. daily. 2. Omeprazole 40 mg p.o. daily. 3. Dulera 2 puffs inhaled b.i.d. 4. Lasix 40 mg p.o. q.a.m. 5. Prozac 10 mg p.o. daily. 6. Symbicort 2 puffs inhaled b.i.d. 7. Aspirin 81 mg daily. 8. Tylenol 650 mg p.o. q.6 hours p.r.n. ALLERGIES: PENICILLIN, severe anaphylactic shock; CEPHAZOLIN, mild rash and itching; TETRACYCLINE, hives; SULFA, rash; ERYTHROMYCIN, rash. FAMILY MEDICAL HISTORY: Mother of heart disease. Father of heart disease, also had colon cancer. SOCIAL HISTORY: The patient is a smoker since the age of 18, currently about __ ____ cigarettes a day. Denies alcohol use. Is disabled. . She desires to be a full code. Medical surrogate is her son Ming. REVIEW OF SYSTEMS: A complete 14-point review of systems is negative except as per HPI. PHYSICAL EXAMINATION GENERAL APPEARANCE: In no acute distress. VITAL SIGNS: Temperature 100.9, pulse 80, respiratory rate 20, satting 93% on room 2 L, blood pressure 121/60. HEENT: Normocephalic, atraumatic. Pupils equal, round, reactive to light. Extraocular movements intact. No scleral icterus. PULMONARY: She has no rhonchi, some slight wheezing, no rales. CARDIAC: Regular rate and rhythm. No murmurs, rubs, or gallops. ABDOMEN: Soft, nontender, nondistended. EXTREMITIES: Warm, well perfused. NEUROLOGIC: Cranial nerves II through XII intact grossly. Moving all extremities. SKIN: No lesions or rashes. LABORATORY DATA: White count 8.4, hemoglobin 10.4, hematocrit 32, platelets 195, INR 1.05. Sodium 135, potassium 4.2, chloride 98, carbon dioxide 29, BUN 14, creatinine 0.83, glucose 152, lactic acid 2.4, calcium 8.0, total bilirubin 0.4, AST 20, ALT 13, alk phos 84, troponin 0.01, albumin 3.5, influenza A is positive. IMAGING: PA and lateral chest x-ray: No acute process per my read but formal is pending. ASSESSMENT AND PLAN: Bennie Coughlin is a 63-year-old female with chronic obstructive pulmonary disease; chronic hypoxic respiratory failure; current smoker, though trying to cut back; coronary artery disease; hypertension; obstructive sleep apnea, until recently on CPAP, is presenting with symptoms of flu which has now been confirmed, influenza A positive. She is also reportedly wheezing significantly on initial Dr. Bishop's exam and got 125 Solu-Medrol there , will continue the Tamiflu, and I am going to continue her on prednisone 40 mg daily. Continue Dulera, albuterol, and Spiriva. Check a sputum culture. She meets 1 sepsis criteria with fevers, does have elevated lactic acidosis. She did not get any initial IV fluids, I am going to continue 100 cc an hour for now , repeat lactic acid with morning labs. Otherwise supportive care. For depression, continue Prozac. Continue aspirin 81 mg daily. She is a full code. Medical surrogate is her son. For DVT prophylaxis, I will give Lovenox 40 mg subcutaneous daily. She scores a 3 on the DVT risk calculator, high risk. [id number]/[facility] #: [id number] [place]
[2019-03-29] MEDS ORDERED: NS 0.9% 1000 ML** 1,000 ML IV SCH (12:00)
[2019-03-29] MEDS: Pantoprazole TAB * 40 MG TAB PO SCH (14:37)
[2019-03-29] MEDS: Oseltamivir SUSP 75 MG dose* 75 MG/12.5 ML ORAL.SYRIN PO SCH ×2 (16:57→17:10)
[2019-03-29] MEDS: Oseltamivir CAP* 75 MG CAP PO SCH (17:55)
[2019-03-30] MEDS: Enoxaparin(*) 40 MG/0.4 ML SYR SUBCUT SCH (05:19)
[2019-03-30] MEDS: Insulin LISPRO* 1 UNITS UNIT SUBCUT SCH ×3 (08:43→17:20)
[2019-03-30] MEDS: Aspirin EC TAB* 81 MG TAB.EC PO SCH (08:43)
[2019-03-30] MEDS: Oseltamivir CAP* 75 MG CAP PO SCH ×2 (08:43→16:31)
[2019-03-30] MEDS: Acetaminophen TAB* 325 MG PO PRN ×2 (08:44→13:02)
[2019-03-30] MEDS: Pantoprazole TAB * 40 MG TAB PO SCH (08:44)
[2019-03-30] MEDS: FLUoxetine CAP* 10 MG PO SCH (08:44)
[2019-03-30] MEDS: Albuterol/Ipratropium NEB.SOL* Albuterol 2.5 MG/Ipratropium 0.5 MG 3 ML INH PRN (09:00)
[2019-03-30] MEDS ORDERED: Benzonatate CAP* 100 MG PO SCH (09:00)
[2019-03-30] MEDS: SPIRIVA Respimat* (tiotropium) 2.5 mcg/inh Inhaler INH SCH (09:00)
[2019-03-30] MEDS: Mometasone/Formoter 200/5 MDI INH SCH ×2 (09:04→19:38)
[2019-03-30] MEDS ORDERED: Nystatin TOP POWDER* 15 GM BTL TOPICAL SCH (12:00)
[2019-03-30 12:07] VITALS: BP 125/48
--- NOTE | 2019-03-30 14:32 | DS ---
CC: Dr. Li Sales DISCHARGE SUMMARY: DATE OF ADMISSION: 03/29/19 DATE OF DISCHARGE: 03/30/19 PRIMARY CARE PROVIDER: Dr. Li Sales. DISPOSITION AT THE TIME OF DISCHARGE: Stable to be discharged to home. PRIMARY DIAGNOSES: 1. Chronic obstructive pulmonary disease exacerbation secondary to influenza A. 2. Elevated lactic acid. SECONDARY DIAGNOSES: 1. Chronic obstructive pulmonary disease, on chronic home oxygen. 2. Type 2 diabetes. 3. Hypertension. 4. Obstructive sleep apnea. 5. Depression. 6. Gastroesophageal reflux disease. 7. Obesity. MEDICATIONS AT THE TIME OF DISCHARGE: 1. Acetaminophen 650 mg p.o. q.6 hours p.r.n. 2. Aspirin 81 mg p.o. daily. 3. Fluoxetine 10 mg p.o. daily. 4. Furosemide 40 mg p.o. q.a.m. 5. Glipizide 5 mg p.o. daily. 6. Dulera 2 puffs inhaled b.i.d. 7. Omeprazole 40 mg p.o. daily. 8. Prednisone 40 mg for additional 3 days status post discharge. 9. Tamiflu 75 mg b.i.d. for an additional 3 days status post discharge. 10. Ipratropium albuterol nebulized solution, 1 nebulizer q.6 hours p.r.n. for severe shortness of b reath and add a nebulizer machine which is arranged to be discharged from her. Changes to medications include the addition of: 1. Ipratropium albuterol nebs, nebulizer machine. 2. Prednisone. 3. Tamiflu. HISTORY OF PRESENT ILLNESS AND HOSPITAL COURSE: This is a 63-year-old female who is domiciled in [facility] with the above past medical history, who presented with productive cough, associated shortn ess of breath, and fever to the emergency room and was found to be flu positive with labs showing karissa vated lactic acid, but no other associated SIRS criteria such as tachycardia, tachypnea, or leukocyto sis, but she did not meet criteria for sepsis. She was hospitalized secondary to her high-risk featu res under observation and her hospital course by problems is as follows: 1. Shortness of breath and cough. It is felt secondary to influenza with associated COPD exacerbati on. COPD exacerbation was treated with prednisone 40 mg for a total of 5 days. Furthermore, we have arranged for her to have an albuterol ipratropium nebulizer at home with new nebulizer machine. Fur thermore, the patient is already optimized on an inhaled corticosteroid. She is oxygen dependent as needed at baseline which also may be reflective of her obstructive sleep apnea requiring q.h.s. p.r.n . oxygen. She improved significantly, was stable to be discharged to home by hospital day #2. 2. COPD at baseline with p.r.n. 2 liters oxygen. Defer to primary care to determine if needed PFTs. No active tobacco use. The patient is optimized on inhaled corticosteroid, consider optimizing the patient on long-acting muscarinic depending on PFTs, either Spiriva or ume or Breo. 3. Influenza A. The patient's test is positive for influenza A. She was symptomatic with fevers. She had no evidence of end-organ damage other than elevated lactic acid which is probably associated from her coughing and shortness of breath. She was started on Tamiflu with significant improvement. 4. Elevated lactic acid. This reduced with fluid administration from 2.8 to 1.1 and likely recommen ded poor perfusion temporarily in the setting of illness from influenza A and shortness of breath in the setting of COPD. 5. Bmf-lguxobs-bwgvpqmpu diabetes. The patient is on home glipizide and this was continued. She wa s covered with sliding scale lispro while in the hospital. 6. SOULEYMANE. The patient does not appear to be compliant with CPAP at home and instead uses 2 liters q.h .s. p.r.n. oxygen, can continue to follow up with primary care. 7. GERD. Continue pantoprazole. 8. Depression. The patient's Prozac was continued. 9. Chronic venostasis ? The patient reports she takes furosemide daily for chronic fluid retention. No evidence of severe heart failure. Outpatient followup can be arranged for echocardiogram to det ermine if any component of heart failure with preserved ejection fraction. On day of discharge, the patient is tolerating diet. She is ambulating at her baseline which is limi alta. She has complaint of mild cough and rib pain, but this is amenable to Tylenol and benzonatate a nd she is amenable to be discharged to home with appropriate home care. LABS AND STUDIES DONE DURING THIS HOSPITALIZATION: Labs on presentation, on 03/29/19: White blood c ell count 8.4, hemoglobin 10.4, hematocrit 32, and platelets of 195. BMP shows sodium of 135, potass ium of 4.2, chloride 98, carbon dioxide 29, anion gap 8, BUN 14, creatinine 0.83, nnlyl-ep-sgyu gluco se 152, lactic acid is 2.2 which cleared to 1.1 after fluid administration. Calcium is 8, hemoglobin A1c is 8.1 at baseline. Influenza A was positive. Chest x-ray showed no active cardiopulmonary dis ease, hyperinflation. CONSULTS DURING THIS HOSPITALIZATION: None. ITEMS TO FOLLOW UP ON STATUS POST DISCHARGE: 1. COPD management. Can obtain PFTs on a nonurgent basis. Consider optimizing triple therapy if th e patient is in fact oxygen dependent or if in fact she uses oxygen secondary to needing it for her s evere sleep apnea while not being compliant on CPAP. 2. Influenza A and COPD exacerbation. Followup for the patient should be arranged to ensure her sym ptoms have improved. She was sent home with prednisone and Tamiflu, benzonatate, and home nebs. 3. Mild anemia. The patient appears to have a hemoglobin of 10.4. She has intermittent normocytic normochromic anemia throughout her life over the last couple of years and this may represent iron-def iciency anemia or anemia of chronic disease, can be worked up with routine cancer screenings. TIME SPENT: 45 minutes were spent on planning this discharge with half of that was spent directly at the bedside of the patient providing direct patient care. Plan of care was discussed with the patient, who has no further questions. Agrees to return to the h ospital if any acute decompensation in her status. Followup will be arranged with primary care. DISP OSITION: As above. Please do not hesitate to contact us if there are any questions about the care of this patient during this hospitalization. My cell phone is [phone]. [id number]/[facility] #: [id number]
== END 2019-03-30 18:15 | disposition home or self-care (01) ==
LOC: ED 23:36 → MEDTELE 03-29 02:34
PROVIDERS: ADMIT Internal Medicine; ATTEND Internal Medicine
DX: J44.1 Chronic obstructive pulmonary disease with (acute) exacerbation (principal); J10.1 Influenza due to other identified influenza virus with other respiratory manifestations; R74.0 Nonspecific elevation of levels of transaminase and lactic acid dehydrogenase [LDH]; E11.9 Type 2 diabetes mellitus without complications; G47.33 Obstructive sleep apnea (adult) (pediatric); F32.9 Major depressive disorder, single episode, unspecified; I25.10 Atherosclerotic heart disease of native coronary artery without angina pectoris; K21.9 Gastro-esophageal reflux disease without esophagitis; E66.01 Morbid (severe) obesity due to excess calories; I10 Essential (primary) hypertension; E78.00 Pure hypercholesterolemia, unspecified; R05 Cough; R06.2 Wheezing; F17.210 Nicotine dependence, cigarettes, uncomplicated; Z88.0 Allergy status to penicillin; Z88.2 Allergy status to sulfonamides; Z99.81 Dependence on supplemental oxygen; Z79.82 Long term (current) use of aspirin; Z79.899 Other long term (current) drug therapy; Z79.84 Long term (current) use of oral hypoglycemic drugs
CPT/HCPCS: 36415; 71046; 80053; 83036; 83605; 84484; 85025; 85610; 87040; 94640; 96361; 96372; 96374; 96375; 96376; 99285; A9270-GY; G0378; J1650; J2405; J2930; J3535; J7512; J7611

== ENCOUNTER 2020-07-31 23:28 | Observation (INO) ==
[2020-08-01] MEDS ORDERED: Albuterol/Ipratropium NEB.SOL (2.5/0.5 MG) 3 ML NEB.SOLN INH ONE (00:04)
[2020-08-01] MEDS ORDERED: methylPREDNISolone 125 mg 2 ML VIAL IV ONE (00:05)
[2020-08-01 00:58] LABS: ABS Basophils 0.1 10^3/ul (0-0.2); ABS Eosinophils 0.3 10^3/ul (0-0.6); ABS Lymphocytes 3.2 10^3/ul (1.0-4.8); ABS Monocytes 0.6 10^3/ul (0-0.8); ABS Neutrophils 6.2 10^3/ul (1.5-7.7); Eosinophil % 2.9 %; Hematocrit 42 % (35-47); Hemoglobin 13.6 g/dL (12.0-16.0); Lymphocyte % 30.6 %; Mean Corpuscular HGB Conc 32 g/dL (31-36); Mean Corpuscular Hemoglobin 27 pg (27-31); Mean Corpuscular Volume 84 fL (80-97); Mean Platelet Volume 10.2 fL (7.4-10.4); Platelet Count 185 10^3/uL (150-450); Red Blood Count 4.97 10^6 /uL (3.70-4.87); Red Cell Distribution Width 16 % (10-15); White Blood Count 10.3 10^3/uL (3.5-10.8)
[2020-08-01 01:14] LABS: Albumin 3.7 g/dL (3.2-5.2); Albumin/Globulin Ratio 1.2 (1-3); C Reactive Protein 22.52 mg/L (<8.01); Calcium 8.4 mg/dL (8.6-10.3); EGFR African American 63.6 (>60); EGFR Non-African American 52.5 (>60); Globulin 3.1 g/dL (2-4); Total Bilirubin 0.4 mg/dL (0.2-1.0); Total Protein 6.8 g/dL (6.4-8.9)
[2020-08-01 01:16] LABS: Troponin I 0.01 ng/mL (<0.03)
[2020-08-01 01:43] LABS: Potassium 5.2 mmol/L (3.5-5.0)
[2020-08-01] MEDS ORDERED: Albuterol 2.5mg/3 ml (0.083%) NEB.SOLN INH PRN (02:15)
[2020-08-01] MEDS ORDERED: Dextrose 50% Syringe 50 ml 25 GM/50 ML SYRINGE IV PUSH PRN ×2 (02:15→02:25)
[2020-08-01] MEDS ORDERED: Iodixanol (CONTRAST) 320 MG/ML 100 ML SDV IV ONE (02:41)
[2020-08-01] MEDS ORDERED: Beclomethasone 80 MCG MDI(NF) 80 MCG/PUFF MDI INH SCH (03:00)
[2020-08-01] MEDS ORDERED: Budesonide/Formote 160/4.5(NF) MDI INH SCH (03:00)
[2020-08-01] MEDS: Ondansetron 4 mg VIAL 2 MG/ML 2 ml VIAL IV PRN ×2 (07:22→23:20)
[2020-08-01] MEDS: Heparin 5000 UNITS/ML 1 mL VIAL SUBCUT SCH ×3 (07:57→21:16)
[2020-08-01] MEDS: SPIRIVA Respimat (tiotropium) 2.5 mcg/inh Inhaler INH SCH (08:27)
[2020-08-01] MEDS: Mometasone/Formoter 200/5 MDI INH SCH ×2 (08:27→19:00)
[2020-08-01] MEDS ORDERED: Aspirin EC 81 mg TAB.EC (enteric coated) PO SCH (09:00)
[2020-08-01] MEDS ORDERED: Omeprazole 20 mg CAP (NF) PO SCH (09:00)
[2020-08-01] MEDS ORDERED: Mometasone/Formoter 200/5 MDI INH SCH (09:00)
[2020-08-01 09:14] LABS: ABS Basophils 0.1 10^3/ul (0-0.2); ABS Monocytes 0.1 10^3/ul (0-0.8); ABS Neutrophils 7.2 10^3/ul (1.5-7.7); Eosinophil % 0.1 %; Hematocrit 43 % (35-47); Hemoglobin 13.9 g/dL (12.0-16.0); Lymphocyte % 12.2 %; Mean Corpuscular HGB Conc 33 g/dL (31-36); Mean Corpuscular Hemoglobin 27 pg (27-31); Mean Corpuscular Volume 83 fL (80-97); Mean Platelet Volume 10.2 fL (7.4-10.4); Platelet Count 174 10^3/uL (150-450); Red Blood Count 5.11 10^6 /uL (3.70-4.87); Red Cell Distribution Width 16 % (10-15); White Blood Count 8.4 10^3/uL (3.5-10.8)
[2020-08-01 09:28] LABS: INR 1.03 (0.82-1.09)
[2020-08-01 09:34] LABS: Calcium 8.7 mg/dL (8.6-10.3); EGFR Non-African American 67.8 (>60)
[2020-08-01 09:37] LABS: Troponin I 0.01 ng/mL (<0.03)
[2020-08-01 09:39] LABS: Potassium 6.1 mmol/L (3.5-5.0)
[2020-08-01] MEDS: Albuterol 2.5mg/3 ml (0.083%) NEB.SOLN INH SCH ×2 (12:34→18:59)
[2020-08-01] MEDS ORDERED: Albuterol 2.5mg/3 ml (0.083%) NEB.SOLN INH SCH (13:00)
[2020-08-01 17:07] LABS: Glucose Confirmatory 537 mg/dL (70-100)
[2020-08-01 20:43] LABS: Glucose Confirmatory 512 mg/dL (70-100)
[2020-08-01 21:15] LABS: Anion Gap 12 mmol/L (2-11); Blood Urea Nitrogen 23 mg/dL (6-24); CO2 Carbon Dioxide 24 mmol/L (22-32); Calcium 8.3 mg/dL (8.6-10.3); Chloride 93 mmol/L (101-111); EGFR African American 62.9 (>60); Potassium 4.9 mmol/L (3.5-5.0); Sodium 129 mmol/L (135-145)
[2020-08-01 21:16] LABS: Glucose 512 mg/dL (70-100)
[2020-08-01] MEDS ORDERED: Insulin GLARGINE 100 un/ml 10 ml VIAL SUBCUT ONE (21:41)
[2020-08-01] MEDS ORDERED: NS 0.9% 1000 ml BAG 1,000 ML IV ONE (21:42)
[2020-08-01 21:43] LABS: Lipase 17 U/L (11.0-82.0)
[2020-08-02] MEDS: Albuterol 2.5mg/3 ml (0.083%) NEB.SOLN INH SCH ×3 (00:49→12:11)
[2020-08-02] MEDS: Heparin 5000 UNITS/ML 1 mL VIAL SUBCUT SCH ×2 (05:37→13:03)
[2020-08-02 07:06] LABS: ABS Lymphocytes 1.1 10^3/ul (1.0-4.8); ABS Monocytes 0.6 10^3/ul (0-0.8); ABS Neutrophils 14.2 10^3/ul (1.5-7.7); Eosinophil % 0.2 %; Hematocrit 38 % (35-47); Hemoglobin 12.2 g/dL (12.0-16.0); Lymphocyte % 7.1 %; Mean Corpuscular HGB Conc 32 g/dL (31-36); Mean Corpuscular Hemoglobin 27 pg (27-31); Mean Corpuscular Volume 85 fL (80-97); Mean Platelet Volume 10.1 fL (7.4-10.4); Platelet Count 151 10^3/uL (150-450); Red Blood Count 4.51 10^6 /uL (3.70-4.87); Red Cell Distribution Width 16 % (10-15)
[2020-08-02 07:16] LABS: Calcium 7.9 mg/dL (8.6-10.3); EGFR Non-African American 60.3 (>60); Magnesium 1.9 mg/dL (1.9-2.7); Potassium 4.7 mmol/L (3.5-5.0)
[2020-08-02] MEDS ORDERED: Regadenoson 0.4 MG/5 ML SYRINGE ONE (07:23)
[2020-08-02] MEDS ORDERED: Aminophylline 25 MG/ML VIAL ONE (07:24)
[2020-08-02] MEDS: Mometasone/Formoter 200/5 MDI INH SCH (08:13)
[2020-08-02] MEDS: SPIRIVA Respimat (tiotropium) 2.5 mcg/inh Inhaler INH SCH (08:13)
[2020-08-02] MEDS ORDERED: Al Hydrox/Mg Hydrox/Simet LIQ 30 ML UDC PO PRN (09:20)
[2020-08-02 13:05] VITALS: BP 127/39
== END 2020-08-02 16:25 | disposition home or self-care (01) ==
LOC: MEDTELE 23:28 → ED 23:28 → MEDTELE 08-01 06:41
PROVIDERS: ADMIT Hospitalist; ATTEND Internal Medicine

== ENCOUNTER 2020-09-02 15:21 | Observation (INO) ==
[2020-09-02 16:16] LABS: ABS Basophils 0.1 10^3/ul (0-0.2); ABS Eosinophils 0.2 10^3/ul (0-0.6); ABS Lymphocytes 1.8 10^3/ul (1.0-4.8); ABS Monocytes 0.7 10^3/ul (0-0.8); ABS Neutrophils 9.6 10^3/ul (1.5-7.7); Eosinophil % 1.6 %; Hematocrit 40 % (35-47); Hemoglobin 13.5 g/dL (12.0-16.0); Lymphocyte % 14.3 %; Mean Corpuscular HGB Conc 34 g/dL (31-36); Mean Corpuscular Hemoglobin 28 pg (27-31); Mean Corpuscular Volume 84 fL (80-97); Nucleated Red Blood Cells % 0.1; Platelet Count 243 10^3/uL (150-450); Red Blood Count 4.82 10^6 /uL (3.70-4.87); Red Cell Distribution Width 16 % (10-15); White Blood Count 12.4 10^3/uL (3.5-10.8)
[2020-09-02 16:41] LABS: Albumin 3.7 g/dL (3.2-5.2); Albumin/Globulin Ratio 1.2 (1-3); Calcium 8.4 mg/dL (8.6-10.3); EGFR African American 73.9 (>60); EGFR Non-African American 61.1 (>60); Globulin 3.1 g/dL (2-4); Total Bilirubin 0.6 mg/dL (0.2-1.0); Total Protein 6.8 g/dL (6.4-8.9)
[2020-09-02] MEDS ORDERED: Iodixanol (CONTRAST) 320 MG/ML 100 ML SDV IV ONE (16:47)
[2020-09-02 16:51] LABS: Potassium 4.6 mmol/L (3.5-5.0)
[2020-09-02] MEDS ORDERED: Ondansetron 4 mg VIAL 2 MG/ML 2 ml VIAL IV PRN (20:24)
[2020-09-02] MEDS ORDERED: NS 0.9% 1000 ml BAG 1,000 ML IV SCH (20:30)
[2020-09-02 23:06] LABS: Troponin I 0.01 ng/mL (<0.03)
[2020-09-02] MEDS: Albuterol 2.5mg/3 ml (0.083%) NEB.SOLN INH PRN (23:55)
[2020-09-03] MEDS: Enoxaparin 40 MG/0.4 ML SYR SUBCUT SCH ×3 (00:36→20:45)
[2020-09-03] MEDS: Insulin GLARGINE 100 un/ml 10 ml VIAL SUBCUT SCH ×2 (00:38→21:51)
[2020-09-03] MEDS: Mometasone/Formoter 200/5 MDI INH SCH ×3 (00:40→19:20)
[2020-09-03 05:31] LABS: ABS Basophils 0.1 10^3/ul (0-0.2); ABS Eosinophils 0.3 10^3/ul (0-0.6); ABS Monocytes 0.7 10^3/ul (0-0.8); ABS Neutrophils 5.7 10^3/ul (1.5-7.7); Eosinophil % 3.1 %; Hematocrit 38 % (35-47); Hemoglobin 12.3 g/dL (12.0-16.0); Lymphocyte % 23.1 %; Mean Corpuscular HGB Conc 32 g/dL (31-36); Mean Corpuscular Hemoglobin 28 pg (27-31); Mean Corpuscular Volume 87 fL (80-97); Mean Platelet Volume 9.9 fL (7.4-10.4); Nucleated Red Blood Cells % 0.1; Platelet Count 176 10^3/uL (150-450); Red Blood Count 4.42 10^6 /uL (3.70-4.87); Red Cell Distribution Width 16 % (10-15); White Blood Count 8.8 10^3/uL (3.5-10.8)
[2020-09-03 05:40] LABS: Albumin 3.3 g/dL (3.2-5.2); Albumin/Globulin Ratio 1.3 (1-3); Calcium 7.6 mg/dL (8.6-10.3); EGFR African American 70.4 (>60); EGFR Non-African American 58.2 (>60); Globulin 2.5 g/dL (2-4); Potassium 3.8 mmol/L (3.5-5.0); Total Bilirubin 0.4 mg/dL (0.2-1.0); Total Protein 5.8 g/dL (6.4-8.9)
[2020-09-03] MEDS: SPIRIVA Respimat (tiotropium) 2.5 mcg/inh Inhaler INH SCH (07:11)
[2020-09-03] MEDS: Albuterol 2.5mg/3 ml (0.083%) NEB.SOLN INH PRN (08:22)
[2020-09-03 09:10] LABS: C Reactive Protein 16.78 mg/L (<8.01)
[2020-09-03] MEDS: Aspirin EC 81 mg TAB.EC (enteric coated) PO SCH (09:24)
[2020-09-03] MEDS: Fluticasone NASAL SPRAY 50MCG 16 gm SPRAY BTL INTRANASAL PRN (09:24)
[2020-09-03] MEDS: Al Hydrox/Mg Hydrox/Simet LIQ 30 ML UDC PO PRN (10:40)
[2020-09-03] MEDS: Albuterol 2.5mg/3 ml (0.083%) NEB.SOLN INH SCH ×2 (12:41→19:25)
[2020-09-04] MEDS: Albuterol 2.5mg/3 ml (0.083%) NEB.SOLN INH SCH ×3 (00:39→10:32)
[2020-09-04] MEDS: Nystatin TOP POWDER 15 GM BTL TOPICAL SCH ×3 (00:41→12:54)
[2020-09-04 06:01] LABS: Calcium 7.8 mg/dL (8.6-10.3); EGFR African American 97.7 (>60); EGFR Non-African American 80.8 (>60); Potassium 4.6 mmol/L (3.5-5.0)
[2020-09-04 06:03] LABS: Hematocrit 37 % (35-47); Hemoglobin 11.8 g/dL (12.0-16.0); Mean Corpuscular HGB Conc 32 g/dL (31-36); Mean Corpuscular Hemoglobin 27 pg (27-31); Mean Corpuscular Volume 85 fL (80-97); Mean Platelet Volume 10.3 fL (7.4-10.4); Platelet Count 154 10^3/uL (150-450); Red Blood Count 4.36 10^6 /uL (3.70-4.87); Red Cell Distribution Width 16 % (10-15); White Blood Count 11.6 10^3/uL (3.5-10.8)
[2020-09-04] MEDS: Mometasone/Formoter 200/5 MDI INH SCH (07:58)
[2020-09-04] MEDS: SPIRIVA Respimat (tiotropium) 2.5 mcg/inh Inhaler INH SCH (07:59)
[2020-09-04] MEDS: Al Hydrox/Mg Hydrox/Simet LIQ 30 ML UDC PO PRN (08:27)
[2020-09-04] MEDS: Fluticasone NASAL SPRAY 50MCG 16 gm SPRAY BTL INTRANASAL PRN (08:27)
[2020-09-04] MEDS: Aspirin EC 81 mg TAB.EC (enteric coated) PO SCH (08:28)
[2020-09-04 17:28] VITALS: BP 102/62
== END 2020-09-04 17:10 | disposition home or self-care (01) ==
LOC: ED 15:21 → MEDTELE 15:21
PROVIDERS: ADMIT Hospitalist; ATTEND Internal Medicine

== ENCOUNTER 2021-06-18 14:59 | Observation (INO) ==
[2021-06-18 16:19] LABS: ABS Basophils 0.1 10^3/ul (0-0.2); ABS Eosinophils 0.2 10^3/ul (0-0.6); ABS Lymphocytes 1.7 10^3/ul (1.0-4.8); ABS Monocytes 0.4 10^3/ul (0-0.8); ABS Neutrophils 7.9 10^3/ul (1.5-7.7); Eosinophil % 2.2 %; Hematocrit 35 % (35-47); Hemoglobin 11.2 g/dL (12.0-16.0); Lymphocyte % 16.5 %; Mean Corpuscular HGB Conc 32 g/dL (31-36); Mean Corpuscular Hemoglobin 26 pg (27-31); Mean Corpuscular Volume 82 fL (80-97); Mean Platelet Volume 9.1 fL (7.4-10.4); Nucleated Red Blood Cells % 0.1; Platelet Count 228 10^3/uL (150-450); Red Blood Count 4.24 10^6 /uL (3.70-4.87); Red Cell Distribution Width 15 % (10-15); White Blood Count 10.4 10^3/uL (3.5-10.8)
[2021-06-18 16:44] LABS: Activated Partial Thrombo Time 28.8 seconds (26.0-38.0); INR 0.98 (0.86-1.15)
[2021-06-18 17:24] LABS: Albumin 3.7 g/dL (3.2-5.2); Albumin/Globulin Ratio 1.5 (1-3); Calcium 8.3 mg/dL (8.6-10.3); Globulin 2.4 g/dL (2-4); Potassium 4.4 mmol/L (3.5-5.0); Total Bilirubin 0.3 mg/dL (0.2-1.0); Total Protein 6.1 g/dL (6.4-8.9); eGFR CKD-EPI 75.9 (>60)
[2021-06-18 18:17] LABS: Magnesium 1.9 mg/dL (1.9-2.7)
[2021-06-18] MEDS ORDERED: Fluticasone NASAL SPRAY 50MCG 16 gm SPRAY BTL INTRANASAL PRN (18:53)
[2021-06-18] MEDS ORDERED: Dextrose 50% Syringe 50 ml 25 GM/50 ML SYRINGE IV PUSH PRN (18:55)
[2021-06-18] MEDS ORDERED: Ondansetron ODT 4 mg TAB 4 MG TAB SL PRN (23:10)
[2021-06-18] MEDS: Enoxaparin 40 MG/0.4 ML SYR SUBCUT SCH (23:23)
[2021-06-19] MEDS ORDERED: Iodixanol (CONTRAST) 320 MG/ML 100 ML SDV IV ONE (00:50)
[2021-06-19 06:22] LABS: ABS Basophils 0.1 10^3/ul (0-0.2); ABS Eosinophils 0.3 10^3/ul (0-0.6); ABS Lymphocytes 1.9 10^3/ul (1.0-4.8); ABS Monocytes 0.5 10^3/ul (0-0.8); Eosinophil % 3.4 %; Hematocrit 33 % (35-47); Hemoglobin 10.6 g/dL (12.0-16.0); Lymphocyte % 21.9 %; Mean Corpuscular HGB Conc 32 g/dL (31-36); Mean Corpuscular Hemoglobin 27 pg (27-31); Mean Corpuscular Volume 82 fL (80-97); Mean Platelet Volume 9.2 fL (7.4-10.4); Platelet Count 197 10^3/uL (150-450); Red Blood Count 4.01 10^6 /uL (3.70-4.87); Red Cell Distribution Width 15 % (10-15); White Blood Count 8.7 10^3/uL (3.5-10.8)
[2021-06-19 07:14] LABS: Potassium 4.2 mmol/L (3.5-5.0); eGFR CKD-EPI 50.9 (>60)
[2021-06-19] MEDS: Mometasone/Formoter 200/5 MDI INH SCH ×2 (07:56→21:18)
[2021-06-19] MEDS: Tiotropium Brom/Olodaterol MDI INH SCH ×2 (07:57→08:34)
[2021-06-19] MEDS: Nicotine PATCH 21 MG/24 HR PATCH TRANSDERM SCH (08:39)
[2021-06-19] MEDS: Aspirin EC 81 mg TAB.EC (enteric coated) PO SCH (08:39)
[2021-06-19] MEDS ORDERED: Lactated Ringers 1000 ml BAG 1,000 ML IV SCH (15:00)
[2021-06-19 16:08] LABS: HDL Cholesterol 42.9 mg/dL
[2021-06-19] MEDS: Albuterol HFA INHALER 8 gm MDI INH PRN (16:08)
[2021-06-19] MEDS ORDERED: LORazepam 2 mg VIAL 1 ml IV PUSH ONE (18:08)
[2021-06-19] MEDS ORDERED: Lorazepam PYXIS KEY PRN (18:08)
[2021-06-19] MEDS: Enoxaparin 40 MG/0.4 ML SYR SUBCUT SCH (20:49)
[2021-06-20 08:08] LABS: ABS Eosinophils 0.3 10^3/ul (0-0.6); ABS Lymphocytes 1.5 10^3/ul (1.0-4.8); ABS Monocytes 0.4 10^3/ul (0-0.8); ABS Neutrophils 6.3 10^3/ul (1.5-7.7); Eosinophil % 3.3 %; Hematocrit 33 % (35-47); Hemoglobin 10.3 g/dL (12.0-16.0); Lymphocyte % 17.2 %; Mean Corpuscular HGB Conc 32 g/dL (31-36); Mean Corpuscular Hemoglobin 27 pg (27-31); Mean Corpuscular Volume 84 fL (80-97); Nucleated Red Blood Cells % 0.1; Red Blood Count 3.88 10^6 /uL (3.70-4.87); Red Cell Distribution Width 16 % (10-15); White Blood Count 8.5 10^3/uL (3.5-10.8)
[2021-06-20] MEDS: Aspirin EC 81 mg TAB.EC (enteric coated) PO SCH (08:23)
[2021-06-20] MEDS: Albuterol HFA INHALER 8 gm MDI INH PRN ×2 (08:24→21:50)
[2021-06-20] MEDS: Mometasone/Formoter 200/5 MDI INH SCH ×2 (08:24→21:01)
[2021-06-20] MEDS: Nicotine PATCH 21 MG/24 HR PATCH TRANSDERM SCH (08:25)
[2021-06-20] MEDS: Tiotropium Brom/Olodaterol MDI INH SCH (08:27)
[2021-06-20 08:35] LABS: Potassium 4.9 mmol/L (3.5-5.0); eGFR CKD-EPI 97.5 (>60)
[2021-06-20 08:44] LABS: Platelet Count Platelets clumped. 10^3/uL (150-450)
[2021-06-20] MEDS: Enoxaparin 40 MG/0.4 ML SYR SUBCUT SCH (21:30)
[2021-06-21] MEDS: Mometasone/Formoter 200/5 MDI INH SCH (08:05)
[2021-06-21] MEDS: Tiotropium Brom/Olodaterol MDI INH SCH (08:11)
[2021-06-21] MEDS: Nicotine PATCH 21 MG/24 HR PATCH TRANSDERM SCH (08:28)
[2021-06-21] MEDS: Aspirin EC 81 mg TAB.EC (enteric coated) PO SCH (08:45)
[2021-06-21 11:45] VITALS: BP 138/87
== END 2021-06-21 12:00 | disposition home or self-care (01) ==
LOC: ED 14:59 → EDHOLD 14:59 → SUATTDRO 06-19 13:28 → MEDTELE 06-19 16:14
PROVIDERS: ADMIT Internal Medicine; ATTEND Internal Medicine

== ENCOUNTER 2021-08-02 02:56 | Inpatient (IN) ==
[2021-08-02] MEDS ORDERED: methylPREDNISolone SOD SUCC 125 mg 2 ML VIAL IV ONE (03:02)
[2021-08-02] MEDS ORDERED: Albuterol HFA INHALER 8 gm MDI INH ONE (03:02)
[2021-08-02 03:45] LABS: Venous Bicarbonate HCO3 30.4 mmol/L (24-28)
[2021-08-02 03:46] LABS: ABS Basophils 0.1 10^3/ul (0-0.2); ABS Lymphocytes 0.7 10^3/ul (1.0-4.8); ABS Monocytes 0.3 10^3/ul (0-0.8); ABS Neutrophils 12.8 10^3/ul (1.5-7.7); Eosinophil % 0.3 %; Hematocrit 34 % (35-47); Hemoglobin 10.6 g/dL (12.0-16.0); Lymphocyte % 5.2 %; Mean Corpuscular HGB Conc 31 g/dL (31-36); Mean Corpuscular Hemoglobin 26 pg (27-31); Mean Corpuscular Volume 82 fL (80-97); Mean Platelet Volume 9.9 fL (7.4-10.4); Platelet Count 163 10^3/uL (150-450); Red Cell Distribution Width 17 % (10-15); White Blood Count 13.9 10^3/uL (3.5-10.8)
[2021-08-02 04:27] LABS: Albumin 3.8 g/dL (3.2-5.2); Albumin/Globulin Ratio 1.5 (1-3); Calcium 8.4 mg/dL (8.6-10.3); Globulin 2.5 g/dL (2-4); Potassium 4.7 mmol/L (3.5-5.0); Total Bilirubin 0.5 mg/dL (0.2-1.0); Total Protein 6.3 g/dL (6.4-8.9); eGFR CKD-EPI 76.9 (>60)
[2021-08-02 05:14] LABS: High Sensitivity Troponin 1 Hr 24 pg/mL (<15)
[2021-08-02] MEDS ORDERED: Dextrose 50% Syringe 50 ml 25 GM/50 ML SYRINGE IV PUSH PRN (05:55)
[2021-08-02] MEDS ORDERED: Albuterol/Ipratropium NEB.SOL (2.5/0.5 MG) 3 ML NEB.SOLN INH PRN (06:04)
[2021-08-02] MEDS: Enoxaparin 40 MG/0.4 ML SYR SUBCUT SCH (06:53)
[2021-08-02] MEDS: Aspirin EC 81 mg TAB.EC (enteric coated) PO SCH (10:44)
[2021-08-02] MEDS: Nicotine PATCH 21 MG/24 HR PATCH TRANSDERM SCH (10:45)
[2021-08-02] MEDS: Albuterol HFA INHALER 8 gm MDI INH PRN ×2 (11:47→23:40)
[2021-08-02] MEDS: Mometasone/Formoter 200/5 MDI INH PRN (11:48)
[2021-08-02] MEDS: Calcium Polycarbophil 625mg TB PO SCH (12:50)
[2021-08-02] MEDS: Fluticasone NASAL SPRAY 50MCG 16 gm SPRAY BTL INTRANASAL SCH ×2 (18:06→18:31)
[2021-08-03] MEDS: Enoxaparin 40 MG/0.4 ML SYR SUBCUT SCH (05:31)
[2021-08-03 06:24] LABS: ABS Basophils 0.1 10^3/ul (0-0.2); ABS Lymphocytes 1.2 10^3/ul (1.0-4.8); ABS Neutrophils 11.8 10^3/ul (1.5-7.7); Eosinophil % 0.1 %; Hematocrit 35 % (35-47); Lymphocyte % 8.6 %; Mean Corpuscular HGB Conc 32 g/dL (31-36); Mean Corpuscular Hemoglobin 26 pg (27-31); Mean Corpuscular Volume 82 fL (80-97); Mean Platelet Volume 9.2 fL (7.4-10.4); Platelet Count 199 10^3/uL (150-450); Red Blood Count 4.27 10^6 /uL (3.70-4.87); Red Cell Distribution Width 17 % (10-15); White Blood Count 14.1 10^3/uL (3.5-10.8)
[2021-08-03 06:44] LABS: Calcium 8.7 mg/dL (8.6-10.3); eGFR CKD-EPI 82.7 (>60)
[2021-08-03] MEDS: Mometasone/Formoter 200/5 MDI INH PRN (07:51)
[2021-08-03] MEDS: SPIRIVA Respimat (tiotropium) 2.5 mcg/inh Inhaler INH SCH (07:52)
[2021-08-03] MEDS: Aspirin EC 81 mg TAB.EC (enteric coated) PO SCH (08:35)
[2021-08-03] MEDS: Nicotine PATCH 21 MG/24 HR PATCH TRANSDERM SCH (08:36)
[2021-08-03] MEDS: Fluticasone NASAL SPRAY 50MCG 16 gm SPRAY BTL INTRANASAL SCH (08:36)
[2021-08-03] MEDS: methylPREDNISolone SOD SUCC 40 mg/ml 1 ml VIAL IV SCH (17:46)
[2021-08-03] MEDS: Albuterol/Ipratropium NEB.SOL (2.5/0.5 MG) 3 ML NEB.SOLN INH SCH (19:56)
[2021-08-03] MEDS ORDERED: Albuterol/Ipratropium NEB.SOL (2.5/0.5 MG) 3 ML NEB.SOLN INH SCH (22:00)
[2021-08-04] MEDS: methylPREDNISolone SOD SUCC 40 mg/ml 1 ml VIAL IV SCH ×3 (02:15→17:13)
[2021-08-04] MEDS: Enoxaparin 40 MG/0.4 ML SYR SUBCUT SCH (04:35)
[2021-08-04 07:00] LABS: ABS Lymphocytes 0.6 10^3/ul (1.0-4.8); ABS Monocytes 0.4 10^3/ul (0-0.8); ABS Neutrophils 9.5 10^3/ul (1.5-7.7); Hematocrit 35 % (35-47); Hemoglobin 11.5 g/dL (12.0-16.0); Lymphocyte % 5.7 %; Mean Corpuscular HGB Conc 33 g/dL (31-36); Mean Corpuscular Hemoglobin 27 pg (27-31); Mean Corpuscular Volume 82 fL (80-97); Mean Platelet Volume 9.5 fL (7.4-10.4); Nucleated Red Blood Cells % 0.1; Platelet Count 191 10^3/uL (150-450); Red Cell Distribution Width 17 % (10-15); White Blood Count 10.5 10^3/uL (3.5-10.8)
[2021-08-04] MEDS: Albuterol/Ipratropium NEB.SOL (2.5/0.5 MG) 3 ML NEB.SOLN INH SCH ×3 (07:14→23:22)
[2021-08-04] MEDS: Mometasone/Formoter 200/5 MDI INH PRN (07:14)
[2021-08-04] MEDS: SPIRIVA Respimat (tiotropium) 2.5 mcg/inh Inhaler INH SCH (07:18)
[2021-08-04 08:01] LABS: Calcium 8.9 mg/dL (8.6-10.3); eGFR CKD-EPI 68.2 (>60)
[2021-08-04 08:18] LABS: Potassium 5.7 mmol/L (3.5-5.0)
[2021-08-04] MEDS: Calcium Polycarbophil 625mg TB PO SCH (08:33)
[2021-08-04] MEDS: Aspirin EC 81 mg TAB.EC (enteric coated) PO SCH (08:33)
[2021-08-04] MEDS: Nicotine PATCH 21 MG/24 HR PATCH TRANSDERM SCH (08:35)
[2021-08-04] MEDS: Fluticasone NASAL SPRAY 50MCG 16 gm SPRAY BTL INTRANASAL SCH (08:35)
[2021-08-04 13:27] LABS: Calcium 8.7 mg/dL (8.6-10.3); Potassium 4.7 mmol/L (3.5-5.0); eGFR CKD-EPI 79.2 (>60)
[2021-08-05] MEDS: methylPREDNISolone SOD SUCC 40 mg/ml 1 ml VIAL IV SCH ×3 (02:24→16:05)
[2021-08-05] MEDS: Enoxaparin 40 MG/0.4 ML SYR SUBCUT SCH (05:21)
[2021-08-05] MEDS: Mometasone/Formoter 200/5 MDI INH PRN (07:18)
[2021-08-05] MEDS: Albuterol/Ipratropium NEB.SOL (2.5/0.5 MG) 3 ML NEB.SOLN INH SCH ×2 (07:18→15:36)
[2021-08-05] MEDS: Aspirin EC 81 mg TAB.EC (enteric coated) PO SCH (09:53)
[2021-08-05] MEDS: Nicotine PATCH 21 MG/24 HR PATCH TRANSDERM SCH (09:56)
[2021-08-05] MEDS: Fluticasone NASAL SPRAY 50MCG 16 gm SPRAY BTL INTRANASAL SCH (10:11)
[2021-08-06] MEDS: Albuterol/Ipratropium NEB.SOL (2.5/0.5 MG) 3 ML NEB.SOLN INH SCH ×2 (00:17→08:35)
[2021-08-06] MEDS: methylPREDNISolone SOD SUCC 40 mg/ml 1 ml VIAL IV SCH (03:37)
[2021-08-06] MEDS: Enoxaparin 40 MG/0.4 ML SYR SUBCUT SCH (06:02)
[2021-08-06 06:27] LABS: ABS Lymphocytes 0.6 10^3/ul (1.0-4.8); ABS Monocytes 0.5 10^3/ul (0-0.8); ABS Neutrophils 9.2 10^3/ul (1.5-7.7); Hematocrit 34 % (35-47); Hemoglobin 11.3 g/dL (12.0-16.0); Lymphocyte % 5.9 %; Mean Corpuscular HGB Conc 33 g/dL (31-36); Mean Corpuscular Hemoglobin 27 pg (27-31); Mean Corpuscular Volume 82 fL (80-97); Mean Platelet Volume 9.3 fL (7.4-10.4); Platelet Count 191 10^3/uL (150-450); Red Blood Count 4.15 10^6 /uL (3.70-4.87); Red Cell Distribution Width 17 % (10-15); White Blood Count 10.3 10^3/uL (3.5-10.8)
[2021-08-06 07:14] LABS: Calcium 9.1 mg/dL (8.6-10.3); Magnesium 2.1 mg/dL (1.9-2.7); eGFR CKD-EPI 61.8 (>60)
[2021-08-06 07:15] LABS: Potassium 5.2 mmol/L (3.5-5.0)
[2021-08-06 08:06] VITALS: BP 161/63
[2021-08-06] MEDS: Nicotine PATCH 21 MG/24 HR PATCH TRANSDERM SCH (08:50)
[2021-08-06] MEDS: Calcium Polycarbophil 625mg TB PO SCH (08:50)
[2021-08-06] MEDS: Fluticasone NASAL SPRAY 50MCG 16 gm SPRAY BTL INTRANASAL SCH (08:51)
[2021-08-06] MEDS: Aspirin EC 81 mg TAB.EC (enteric coated) PO SCH (08:51)
== END 2021-08-06 12:20 | disposition home or self-care (01) | DRG 190 ==
LOC: EDHOLD 02:56 → ED 02:56 → SUATTDRO 05:44 → MED 09:26
PROVIDERS: ADMIT Internal Medicine; ATTEND Internal Medicine